=== PATIENT | female | born 1950 | race Caucasian/White ===

== ENCOUNTER → 2017-12-20 08:10 | Outpatient (POV) | payer MEDICARE, SELFPAY | PROVIDERS: PCP Family Medicine; Visit Provider Physician Assistant | DX: Z00.00 Encounter for general adult medical examination without abnormal findings (principal) ==

== ENCOUNTER → 2018-05-13 10:48 | Outpatient (CLI) | payer MEDICARE, SELFPAY ==
--- NOTE | 2018-05-13 10:51 | MM_ITS ---
MM Dig screening mamm BI w/CAD ORDERING PHYSICIAN : Cristina Odonnell MD PATIENT AGE: 67 years GENDER: Female COMPARISON: November 2016, October 2015, 2014, 2013 INDICATION: ITS.REASON: Yearly Exam. No hormones. No new complaints. Previous stereotactic biopsy right breast. Noncontributory family history TECHNIQUE: Standard CC and MLO images were obtained. R2 CAD reviewed. Additional axillary cc view both breast included FINDINGS: . Areas of Dense breast tissue throughout at Central and superior breast bilaterally . Similar pattern to previous studies with no focal suspicious or dominant mass. RIGHT BREAST:No significant new findings Metallic percutaneous biopsy clip marker at the medial right breast with mild residual architectural changes here from biopsy. No new findings. LEFT BREAST:. Dense breast. Similar pattern to previous studies with no new findings follow-up in one year adequate IMPRESSION: ... Pes planus No new findings of concern significant concern. Dense breast Follow-up in one year recommended,;. Annual follow-up should be emphasized/and encouraged (Dense breast tissue pattern seen here decreases sensitivity of mammography. If any palpable areas arise ultrasound is a useful compliment/augment to mammography particularly in breast of this increased density) BI-RADS Category: 2 Benign Finding(s) RECOMMENDED FOLLOW-UP: 1YR 1 YEAR FOLLOW-UP (A letter has been sent to the patient regarding results of the study.)
== END ==
PROVIDERS: PCP Family Medicine; Visit Provider Obstetrics & Gynecology
DX: Z12.31 Encounter for screening mammogram for malignant neoplasm of breast (principal)
CPT/HCPCS: 77067

== ENCOUNTER → 2018-12-27 10:53 | Outpatient (POV) | payer MEDICARE, SELFPAY | PROVIDERS: Visit Provider Dermatology | DX: Z00.00 Encounter for general adult medical examination without abnormal findings (principal) ==

== ENCOUNTER → 2018-12-30 10:24 | Outpatient (CLI) | payer MEDICARE, SELFPAY ==
--- NOTE | 2018-12-30 10:28 | XR_ITS ---
XR chest 2V HISTORY: ITS.REASON: LT CHEST WALL PAIN ORDERING PHYSICIAN: Hung Encinas MD PATIENT AGE: 68 years FINDINGS: The cardiomediastinal silhouette and pulmonary vascularity are within normal limits. There is a vague area of increased density in the right upper lobe at the second interspace. This area measures approximately 14 mm. Within this region a small calcific density is also noted. The remaining lungs are clear. There is evidence of old granulomatous disease. No acute bony findings IMPRESSION: 14 mm right upper lobe opacity. This is nonspecific and could be related to a developing pulmonary nodule. Consider chest CT for further evaluation.
== END ==
PROVIDERS: PCP Family Medicine; Visit Provider Family Medicine
DX: R07.89 Other chest pain (principal)
CPT/HCPCS: 71046

== ENCOUNTER → 2019-01-25 09:56 | Outpatient (CLI) | payer MEDICARE, SELFPAY ==
[2019-01-25 12:08] LABS: Blood Urea Nitrogen 10 mg/dL (7-18); Creatinine,Serum 0.73 mg/dL (0.55-1.02); Estimated Glomerular Filt Rate 79 ml/min (>60); GFR (African American) 96 ML/MIN (>60)
== END ==
PROVIDERS: Visit Provider Family Medicine
DX: R91.1 Solitary pulmonary nodule (principal)
CPT/HCPCS: 36415; 82565; 84520

== ENCOUNTER → 2019-02-03 09:44 | Outpatient (CLI) | payer MEDICARE, SELFPAY ==
--- NOTE | 2019-02-03 09:47 | CT_ITS ---
CT chest w con HISTORY: Follow-up pulmonary nodule. Solitary pulmonary nodule ITS.REASON: PULMONARY NODULE ORDERING PHYSICIAN: Hung Encinas MD PATIENT AGE: 68 years COMPARISON: None 12/30/2018 Technique: Contrast Used:75ml Optiray 350 Axial images were obtained. Sagittal, and coronal reformatted images are also generated and reviewed. All CT scans at the facility use one or more dose reduction, viz: automated exposure control, ma/kV adjustment per patient size (including targeted exams where dose is matched to indication, i.e. head), or iterative reconstruction technique. FINDINGS: There is a subcentimeter hypodense nodule of the right lobe of the thyroid gland. No mediastinal or hilar mass. The heart size without evidence of aortic aneurysm or central pulmonary embolus. There is an 11 mm nodule within the right upper lobe posteriorly corresponding to the radiographic abnormality. This does contain some central coarse calcification and may represent a partially calcified granuloma. 3 mm noncalcified subpleural nodule present in the right upper lobe laterally. There are some atelectatic or fibrotic changes in the left lung base. Calcified nodes are present in the subcarinal region. No acute bony findings. Upper abdominal images show multiple gallstones some of which are in the region of the neck of the gallbladder. IMPRESSION: 1. Radiographic abnormality corresponds to a partially calcified nodule consistent with a granuloma with calcified nodes present in the subcarinal region. 2. Cholelithiasis
== END ==
PROVIDERS: PCP Family Medicine; Visit Provider Family Medicine
DX: R91.1 Solitary pulmonary nodule (principal)
CPT/HCPCS: 71260; Q9967

== ENCOUNTER → 2019-06-08 09:44 | Outpatient (CLI) | payer MEDICARE, SELFPAY ==
--- NOTE | 2019-06-08 09:48 | MM_ITS ---
PROCEDURE: MM DIG SCREENING MAMM BI W/CAD CLINICAL INDICATION: SCREENING There is no personal or family history of breast cancer. There has been previous biopsy right breast for benign disease. COMPARISON: DMDXUAVL DIG MAMM-DX UNI ADD VIEWS-LT from 11/08/2015 [facility] DIG MAMM-SCREEN JUNE W/CAD from 12/08/2016 [facility] MM Dig screening mamm BI w/CAD from 05/13/2018 TECHNIQUE: Standard CC and MLO images were obtained. R2 CAD reviewed. FINDINGS: Prominent somewhat heterogenic fibroglandular densities are seen in the central portions of both breasts and the findings of bilateral and symmetrical. There are couple of mole markers left breast. There is a biopsy clip right breast. There is no new or suspicious lesion in either breast and no suspicious microcalcifications. IMPRESSION: Stable exam with moderate heterogenic breast density BI-RAD Category: 2 Benign Finding(s) FOLLOW-UP: 1YR 1 Year Follow-up (A letter has been sent to the patient regarding results of the study.) Dictated by: Dr. David Pollack MD 06/10/2019 11:[address] David Pollack MD in [place] 06/10/2019 11:21
== END ==
PROVIDERS: PCP Family Medicine; Visit Provider Family Medicine
DX: Z12.31 Encounter for screening mammogram for malignant neoplasm of breast (principal)
CPT/HCPCS: 77067

== ENCOUNTER → 2019-06-20 11:14 | Outpatient (POV) | payer MEDICARE, SELFPAY | PROVIDERS: Visit Provider Dermatology | DX: Z00.00 Encounter for general adult medical examination without abnormal findings (principal) ==

== ENCOUNTER → 2020-03-26 13:08 | Outpatient (POV) | payer MEDICARE, SELFPAY | PROVIDERS: Visit Provider Dermatology | DX: Z00.00 Encounter for general adult medical examination without abnormal findings (principal) ==

== ENCOUNTER → 2020-06-10 10:50 | Outpatient (CLI) | payer MEDICARE, SELFPAY ==
--- NOTE | 2020-06-10 10:53 | MM_ITS ---
PROCEDURE: MM DIG SCREENING MAMM BI W/CAD Digital Breast Tomosynthesis Included CLINICAL INDICATION: SCREENING There is no personal or family history of breast cancer. There has been a previous biopsy right breast for benign disease. COMPARISON: MG [facility] DIG MAMM-SCREEN JUNE W/CAD from 12/08/2016 MG [facility] MM Dig screening mamm BI w/CAD from 05/13/2018 MG MM DIG SCREENING MAMM BI W/CAD from 06/08/2019 TECHNIQUE: Standard CC and MLO images and 3D Tomosynthesis was obtained. R2 CAD reviewed. FINDINGS: Prominent somewhat heterogenic fibroglandular densities are seen in the central portions of both breast slightly more prominent right breast than left. There is a biopsy clip right breast. There are 2 mole markers left breast. There is a benign-appearing calcification right breast. There is no suspicious lesion in either breast and no suspicious microcalcifications. IMPRESSION: Moderate breast density with no suspicious lesions seen BI-RAD Category: 2 Benign Finding(s) FOLLOW-UP: 1YR 1 Year Follow-up (A letter has been sent to the patient regarding results of the study.) Dictated by: Dr. David Pollack MD 06/12/2020 15:59 Dr. David Pollack MD in [place] 06/12/2020 15:59
== END ==
PROVIDERS: PCP Family Medicine; Visit Provider Family Medicine
DX: Z12.31 Encounter for screening mammogram for malignant neoplasm of breast (principal)
CPT/HCPCS: 77063; 77067

== ENCOUNTER → 2020-06-24 09:53 | Outpatient (CLI) | payer MEDICARE, SELFPAY ==
--- NOTE | 2020-06-24 09:58 | XR_ITS ---
PROCEDURE: XR SHOULDER RT MIN 2V CLINICAL INDICATION: RT ARM PAIN Right shoulder pain COMPARISON: No exams were available for comparison FINDINGS: No fracture or dislocation. No lytic or blastic change. There is normal mineralization. There is minimal cortical regularity the greater tuberosity which may be seen with rotator cuff disease. There are minimal osteoarthritic changes the glenohumeral joint. Other findings:None. IMPRESSION: Mild osteoarthritis Dictated by: Felice Freire MD 06/24/2020 10:25 Felice Freire MD in [place] 06/24/2020 10:25
== END ==
PROVIDERS: PCP Family Medicine; Visit Provider Family Medicine
DX: M79.601 Pain in right arm (principal)
CPT/HCPCS: 73030

== ENCOUNTER 2020-08-07 15:20 | Emergency (ER) | payer MEDICARE, SELFPAY ==
[2020-08-07 15:22] VITALS: BP 183/74; PULSE 103; RESP 14; TEMP 36.5; O2SAT 96; BMI 21.9
--- NOTE | 2020-08-07 16:00 | HMH.EDUTC ---
[facility] [place] Clinical Impression: Exposure to COVID-19 virus Disposition: Home, Self-Care Condition on Discharge: Good Instructions: DI for COVID-19 (Suspected or Confirmed ), Preventing the Spread of Coronavirus Discharge Instructions Additional Instructions: Drink plenty of fluids. Take tylenolfor pain or fever. Follow up with your regular doctor. GO TO THE ER FOR ANY WORSENING SYMPTOMS Referrals: Hung Encinas MD [Primary Care Provider] - Time of Disposition: 16:07 Medical Decision Making - Medical Records Medical records reviewed: No: I reviewed the patient's medical records. - Ede Inquiry Pt receiving controlled substance: No Vital Signs: 08/07/20 15:22 08/07/20 16:14 Temperature 97.7 F 97.7 F Temperature Source Oral Oral Pulse Rate 103 H Pulse Rate [Right] 103 H Respiratory Rate 14 14 Blood Pressure 183/74 H Blood Pressure [Right Arm] 183/74 H Blood Pressure Mean [Right Arm] 110 02 Sat by Pulse Oximetry 96 Oxygen Delivery Method Room Air [facility] [place] - General Stated complaint: Exposed to COVID Time Seen by Provider: 08/07/20 16:00 Mode of Arrival: Ambulatory Source of Information: Patient Description of Symptoms (Recalled from Triage Doc. by RN): pt request COVID test. pt c/o of congestion HEENT Symptoms (Recalled from RN notes): No Resp Symptoms (Recalled from RN notes): Yes Skin Symptoms (Recalled from RN notes): No MS Symptoms (Recalled from RN notes): No Functional Status (Recalled from RN notes): wl - History of Present Illness Provider Complaint: She is here complaining of sinus and chest congestion. She denies any shortness of breath or chest pain. She would like to be tested for covid-19. - Related Data Home Medications Medication Instructions Recorded Confirmed felodipine 10 mg tablet,extended PO 90 Days #90 tab 05/02/18 05/02/18 release 24 hr pravastatin 40 mg tablet 40 mg PO DAILY 90 Days #90 tab 05/02/18 05/02/18 quinapril 20 1 tab PO DAILY 90 Days #90 tab 05/02/18 05/02/18 mg-hydrochlorothiazide 25 mg tablet Allergies Allergy/AdvReac Type Severity Reaction Status Date / Time No Known Allergies Allergy Unknown Uncoded 05/02/18 15:32 - Worker's Comp Is this a Worker's Comp case?: No Is this an [facility] Worker's Comp?: No Is this a [place] Worker's Comp?: No [facility] History - Hepatitis A Screen Drug use history?: No High risk sexual behaviors?: No History of sexually transmitted infection?: No Currently employed?: No Childcare worker?: No Do you have indoor plumbing?: Yes Do you have electricity?: Yes Attestation statement:: This patient has been screened for Hepatitis A risk factors. I have reviewed the patient's past medical history: Yes Medical History: Reports:: Hyperlipidemia, Hypertension Denies:: Anxiety, Depression, Diabetes Mellitus Type 1, Gall Bladder Disease, Migraine, MRSA, Seizures Other Surgeries: Yes: Hysterectomy-Total Amputation: No Fractures: No Comment: BACK 2014 - Social History Smoking Status: Never smoker Alcohol Intake: never Substance Use Type: denies use - Psychiatric History Pschychiatric History:: Denies:: Anxiety, Depression Family Hx:: Cancer, Diabetes, Hypertension, Hyperlipidemia ROS Obtained: Yes All systems reviewed & no additional complaints - Constitutional Constitutional: Reports system reviewed and no additional complaints, except as docu - Eyes Eyes: Reports system reviewed and no additional complaints, except as docu - ENT Ears, Nose, Mouth, and Throat: Reports system reviewed and no additional complaints, except as docu - Cardiovascular Cardiovascular: Reports system reviewed and no additional complaints, except as docu - Respiratory Respiratory: Reports system reviewed and no additional complaints, except as docu - Gastrointestinal Gastrointestingal: Reports: system reviewed and no additional complaints, except as docu Physical Exam - General General a
[2020-08-07 16:14] VITALS: BP 183/74; PULSE 103; RESP 14; TEMP 36.5; O2SAT 96
--- NOTE | 2020-08-07 20:50 | PC.NURSE ---
patient notified of positive covid results
== END 2020-08-07 16:15 | disposition home or self-care (01) ==
PROVIDERS: Emergency Provider Nurse Practitioner Family; PCP Family Medicine
DX: U07.1 COVID-19 (principal); I10 Essential (primary) hypertension; E78.5 Hyperlipidemia, unspecified; Z79.899 Other long term (current) drug therapy
CPT/HCPCS: G0463; 99202; U0003

== ENCOUNTER → 2020-10-15 13:55 | Outpatient (POV) | payer MEDICARE, SELFPAY | PROVIDERS: Visit Provider Dermatology | DX: Z00.00 Encounter for general adult medical examination without abnormal findings (principal) ==

== ENCOUNTER → 2020-12-17 13:24 | Outpatient (CLI) | payer MEDICARE, SELFPAY ==
--- NOTE | 2020-12-17 13:29 | XR_ITS ---
PROCEDURE: XR LUMBAR SPINE MIN 4V CLINICAL INDICATION: LUMBAGO W/ SCIATICA, RIGHT SIDE COMPARISON: CR [id number] LUMBAR SPINE-2 TO 3 VIEWS from 11/12/2014 FINDINGS: Postsurgical changes present with inter pedicular screws at L4, L5, and S1. There is mild anterolisthesis of L 3 on L4 of approximately 5 mm. This has developed since the previous exam with mild degenerative disc disease at L3-L4. Disc spacers are present at L4-5 and L5-S1. No acute fracture or dislocation is evident. The SI joints have an unremarkable appearance. There is mild lumbar curvature convex left. Right upper quadrant calcifications are present and may be due gallstones IMPRESSION: Postsurgical changes. Degenerative disc disease with mild anterolisthesis of L3 on L4 has developed since the previous exam. Gallstones Dictated by: Felice Freire MD 12/17/2020 14:39 Felice Freire MD in [place] 12/17/2020 14:39
== END ==
PROVIDERS: PCP Family Medicine; Visit Provider Family Medicine
DX: M54.41 Lumbago with sciatica, right side (principal)
CPT/HCPCS: 72110

== ENCOUNTER → 2021-04-08 10:45 | Outpatient (POV) | payer MEDICARE, SELFPAY | PROVIDERS: Visit Provider Dermatology | DX: Z00.00 Encounter for general adult medical examination without abnormal findings (principal) ==

== ENCOUNTER → 2021-06-19 13:07 | Outpatient (CLI) | payer MEDICARE, SELFPAY ==
--- NOTE | 2021-06-19 13:11 | MM_ITS ---
PROCEDURE INFORMATION: Exam: MG Bilateral Screening 3D Mammography Exam date and time: 06/19/2021 1:11 PM Age: 70 years old Clinical indication: Encounter for screening mammogram for malignant neoplasm of breast TECHNIQUE: Imaging protocol: Bilateral screening tomosynthesis and 2D mammography including computer-aided detection (CAD) when performed. COMPARISON: 1. MG MM DIG SCREENING MAMM BI W/CAD 06/10/2020 11:02 AM 2. MG MM DIG SCREENING MAMM BI W/CAD 06/08/2019 10:15 AM FINDINGS: MAMMOGRAPHY: Breast composition: The breast tissue is extremely dense, limiting the sensitivity of mammography. Mass: None. Architectural distortion: No significant interval change in architectural distortion and associated clip in the middle third of the right upper inner quadrant at the site of prior biopsy. By report, the biopsy was benign Calcifications: No suspicious calcifications. Asymmetric density: None. Skin thickening: None. Axillary adenopathy: None. IMPRESSION: Pathology correlation is recommended for a stereotactic biopsy previously performed in the right upper inner quadrant given the presence of architectural distortion at the prior biopsy site. The finding may have represented a radial scar. In the absence of pathologic discordance, annual mammographic screening is recommended. ASSESSMENT: BI-RADS Category 2: Benign
== END ==
PROVIDERS: PCP Family Medicine; Visit Provider Family Medicine
DX: Z12.31 Encounter for screening mammogram for malignant neoplasm of breast (principal)
CPT/HCPCS: 77063; 77067

== ENCOUNTER → 2021-06-24 09:49 | Outpatient (CLI) | payer MEDICARE, SELFPAY ==
--- NOTE | 2021-06-24 09:53 | MR_ITS ---
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 3-D MIP and myelographic images are also rendered and reviewed FINDINGS: Spinal cord ends the L1 level. T11-T12: Mild degenerative disc disease with minimal concentric bulging disc. T12-L1: Unremarkable. L1-L2: Unremarkable. L2-L3: Minimal concentric bulging disc. Moderate facet and ligamentum hypertrophic change with bilateral lateral recess narrowing. L3-L4: 5 mm anterolisthesis of L3 with circumferential bulging disc along with central and right paracentral broad-based disc protrusion with severe central canal stenosis of approximately 6 mm along with severe bilateral lateral recess narrowing right greater than left. These findings have developed since the previous exam L4-5: Postsurgical changes with inter pedicular screws at L4-5.. The previously noted anterolisthesis at L4-5 has been corrected. Previously noted herniated disc at L4-5 and canal stenosis no longer apparent. There is some mild thickening of the nerve roots on the right at this level possibly related to arachnoiditis. L5-S1: Postsurgical changes with inter pedicular screws with artifact. Mild bulging disc somewhat eccentric toward the left with left-sided foraminal narrowing. Incidental note made of left renal cyst at approximately 1.8 cm. There is mild lumbar scoliosis convex left. A T2 hyperintensity is present in the right ilium posteriorly only covered on the coronal images possibly due to a cystic lesion of the bone. IMPRESSION: 1. L2-L3: Minimal concentric bulging disc. Moderate facet and ligamentum hypertrophic change with bilateral lateral recess narrowing. 2. L3-L4: 5 mm anterolisthesis of L3 with circumferential bulging disc along with central and right paracentral broad-based disc protrusion with severe central canal stenosis of approximately 6 mm along with severe bilateral lateral recess narrowing right greater than left. These findings have developed since the previous exam 3. L4-5: Postsurgical changes with inter pedicular screws at L4-5.. The previously noted anterolisthesis at L4-5 has been corrected. Previously noted herniated disc at L4-5 and canal stenosis no longer apparent. Mild thickening of the right-sided nerve roots at this level which could be seen with arachnoiditis. Cannot adequately evaluate for epidural fibrotic changes without IV contrast. 4. L5-S1: Postsurgical changes with inter pedicular screws with artifact. Mild bulging disc somewhat eccentric toward the left with left-sided foraminal narrowing. Dictated by: Felice Freire MD 06/25/2021 10:08 Felice Freire MD in [place] 06/25/2021 10:08
== END ==
PROVIDERS: PCP Family Medicine; Visit Provider Family Medicine
DX: M54.41 Lumbago with sciatica, right side (principal); M43.16 Spondylolisthesis, lumbar region; M51.36 Other intervertebral disc degeneration, lumbar region
CPT/HCPCS: 72148; 76376

== ENCOUNTER → 2022-03-09 13:17 | Outpatient (CLI) | payer MEDICARE, SELFPAY ==
--- NOTE | 2022-03-09 13:24 | US_ITS ---
FINAL REPORT CLINICAL HISTORY: LLQ PAIN FINDINGS: ULTRASOUND NONVASCULAR LIMITED Limited sonographic images were obtained of the left lower quadrant in the region of a palpable abnormality. No mass or fluid collection is identified at the area of interest. Note is made of several normal sized left inguinal lymph nodes. IMPRESSION: No mass or abnormal fluid collection at the area of interest. Reviewed, Interpreted and Dictated by Willie Sands III, MD Transcribed by Hansel Welsh Authenticated and [facility]
== END ==
PROVIDERS: PCP Family Medicine; Visit Provider Nurse Practitioner Family
DX: R10.32 Left lower quadrant pain (principal); R19.04 Left lower quadrant abdominal swelling, mass and lump
CPT/HCPCS: 76882

== ENCOUNTER → 2022-04-21 09:07 | Outpatient (POV) | payer MEDICARE, SELFPAY | PROVIDERS: Visit Provider Dermatology | DX: Z00.00 Encounter for general adult medical examination without abnormal findings (principal) ==

== ENCOUNTER → 2022-06-23 09:56 | Outpatient (CLI) | payer MEDICARE, SELFPAY ==
--- NOTE | 2022-06-23 09:59 | CT_ITS ---
FINAL REPORT CLINICAL HISTORY: LLQ PAIN FINDINGS: CT OF THE ABDOMEN AND PELVIS WITH CONTRAST Axial CT images of the abdomen and pelvis were obtained after the administration of oral and iv contrast. Coronal reformatted images were also obtained and reviewed.This study was performed with techniques to keep radiation doses as low as reasonably achievable (ALARA). Individualized dose reduction techniques using automated exposure control or adjustment of mA and/or kV according to the patient's size were employed. Abdomen: There is mild bibasilar atelectasis. The heart is normal in size. The liver has an unremarkable appearance, without evidence of mass or biliary ductal dilatation. There are multiple gallstones within the gallbladder. The spleen is unremarkable. No adrenal mass is present. The pancreas has an unremarkable appearance. There are small left renal cysts. The aorta is normal in caliber. There is no free fluid or adenopathy. No mass or abnormal fluid collection is seen. There are mild vascular calcifications. Pelvis: The appendix is not well-visualized. There is a moderate amount of retained stool. There is no evidence of bowel obstruction. The urinary bladder is unremarkable. No inflammatory process is seen. There is no evidence of mass or adenopathy. There are postoperative changes from hysterectomy. There are degenerative and postoperative changes in the lumbar spine. IMPRESSION: Small left renal cysts. Multiple gallstones. Reviewed, Interpreted and Dictated by Willie Sands III, MD Transcribed by Chiquita Dykes Authenticated and [facility]
== END ==
LOC: RAD 09:56
PROVIDERS: PCP Family Medicine; Visit Provider Family Medicine
DX: R10.32 Left lower quadrant pain (principal)
CPT/HCPCS: 74177; Q9967

== ENCOUNTER → 2022-07-13 08:17 | Outpatient (CLI) | payer MEDICARE, SELFPAY ==
--- NOTE | 2022-07-13 08:24 | MM_ITS ---
PROCEDURE INFORMATION: Exam: MG Bilateral Screening 3D Mammography Exam date and time: 07/13/2022 8:28 AM Age: 71 years old Clinical indication: Screening. No family history of breast cancer. Benign right needle biopsy. TECHNIQUE: Imaging protocol: Bilateral Screening tomosynthesis and 2D mammography including computer-aided detection (CAD) when performed. COMPARISON: 1. MG MM DIG SCREENING MAMM BI W/CAD 06/19/2021 1:24 PM 2. MG MM DIG SCREENING MAMM BI W/CAD 06/10/2020 11:02 AM 3. MG MM DIG SCREENING MAMM BI W/CAD 06/08/2019 10:15 AM 4. MG [facility] MM Dig screening mamm BI w/CAD 05/13/2018 10:57 AM FINDINGS: MAMMOGRAPHY: Breast composition: The breasts are extremely dense, which lowers the sensitivity of mammography. Mass: None. Architectural distortion: No significant interval change in prominent focal architectural distortion and associated clip in the middle third of the right upper inner quadrant at the site of prior biopsy. By report, the biopsy was benign. Calcifications: No suspicious calcifications. Asymmetric density: None. Skin thickening: None. Axillary adenopathy: None. IMPRESSION: See comment Pathology correlation is recommended for a stereotactic biopsy previously performed in the right upper inner quadrant given the presence of prominent focal architectural distortion at the prior biopsy site. The finding may have represented a radial scar. In the absence of pathologic discordance, annual mammographic screening is recommended. ASSESSMENT: BI-RADS Category 2: Benign
== END ==
PROVIDERS: PCP Family Medicine; Visit Provider Family Medicine
DX: Z12.31 Encounter for screening mammogram for malignant neoplasm of breast (principal)
CPT/HCPCS: 77063; 77067

== ENCOUNTER → 2022-08-18 09:44 | Outpatient (POV) | payer MEDICARE, SELFPAY | PROVIDERS: Visit Provider Dermatology | DX: Z00.00 Encounter for general adult medical examination without abnormal findings (principal) ==

== ENCOUNTER → 2022-09-29 09:46 | Outpatient (POV) | payer MEDICARE, SELFPAY | PROVIDERS: Visit Provider Dermatology | DX: Z00.00 Encounter for general adult medical examination without abnormal findings (principal) ==

== ENCOUNTER 2023-05-18 09:00 | Outpatient (RCR) | payer MEDICARE, SELFPAY ==
--- NOTE | 2023-03-24 10:08 | HMH.PTOPEV ---
PT Outpatient Evaluation Rehab PT Outpatient Evaluation Start: 03/24/23 08:01 Freq: Status: Active Protocol: Document 03/24/23 08:01 COLETTE (Rec: 03/24/23 10:08 COLETTE [id number]) E-signed By Ines Rosa, PT Outpatient Therapy Subjective History Subjective History Pt is a 72 y/o female who reports insidious onset of left upper/lateral shoulder blade pain ~6 weeks ago. Pt reports the only PANDA she can think of was moving a refrigerator towards her but is unsure if this is what caused pain. Pt reports she has experienced this pain before but it has previously went away on its own without treatment; however, this time it did not resolve so she went to her PCP. Pt reports she was prescribed steroids and muscle relaxers which helped some but did not abolish pain. Pt reports she returned to the doctor 3 weeks later and was prescribed more muscle relaxers and then referred to PT. Pt denies having imaging. Pt reports overall she feels like the pain is improving but she continuses to have constant pain in L trapezius region that often radiates down to her elbow described as shooting pain. Pt reports before traking medication pain at worst was a 9/10 on VAS and now is only a 4/10. Pt denies pain into the forearm/ hand or numbness/tingling. Pt reports she does have pain when she turns her head to the left and some pain with driving for prolonged periods with the arms elevated on the steering wheel. Right-handed Medical History: high blood pressure Chief Complaint Pain Symptom Type Dull Symptoms Relieved By
--- NOTE | 2023-04-20 17:15 | HMH.RHREAS ---
Rehab Reassessment Rehab OP Re-assessment Start: 03/24/23 08:01 Freq: Status: Active Protocol: Document 04/20/23 14:54 COLETTE (Rec: 04/20/23 17:15 COLETTE [id number]) E-signed By Ines Rosa PT Rehab Re-assessment Subjective Subjective Pt reports she feels 75% better since starting PT. Pt reports she only has intermittent pain mostly when she turns her head to the left that radiates from her left scapular area to the elbow. Pt reports pain at worst as 3-4/ 10. Pt reports neck and upper trapezius pain has improved a lot overall. Pt continues to deny numbness/tingling. Pt reports she is compliant with her HEP. Objective Objective Notes Mild TTP of the left upper trapezius and C5-6 SP Cervical AROM: L rotation 70, flexion 40 Scapular strength: 4/5 grossly Assessment Progress Assessment Progressing as Expected Assessment Notes Pt has attended 6 PT visits consisting of aerobic exercise , cervical stretching, cervical/scapular strengthening, postural reeducation, dry needling and modalities with good tolerance . Pt demonstrated improved cervical AROM and scapular strength this date compared to the initial evaluation. Pt continues to report intermittent radicular symptoms with left cervical rotation. Pt would continue to benefit from skilled PT to further improve subjective report of pain, pain free cervical mobility, and scapular strength to assist with return to PLOF. Patient goals met ST/3 LT/6 Goals Not Met p! at worst, scapular strength , Revised Goals n/a Plan Plan Continue initial POC Frequency of Th
== END 2023-05-18 09:05 | disposition home or self-care (01) ==
LOC: PT 09:00
PROVIDERS: Visit Provider Physician Assistant
DX: M62.838 Other muscle spasm (principal)
CPT/HCPCS: 20560; 97010; 97014; 97035; 97110; 97140; 97163; 97164; 97530; G0283

== ENCOUNTER → 2023-07-30 10:47 | Outpatient (CLI) | payer MEDICARE, SELFPAY ==
--- NOTE | 2023-07-30 10:52 | MM_ITS ---
PROCEDURE INFORMATION: Exam: MG Bilateral Screening 3D Mammography Exam date and time: 07/30/2023 10:48 AM Age: 72 years old Clinical indication: Screening mammogram TECHNIQUE: Imaging protocol: Bilateral Screening tomosynthesis and 2D mammography including computer-aided detection (CAD) when performed. COMPARISON: 1. MG MM DIG SCREENING MAMM BI W/CAD 07/13/2022 8:28 AM 2. MG MM DIG SCREENING MAMM BI W/CAD 06/19/2021 1:24 PM 3. MG MM DIG SCREENING MAMM BI W/CAD 06/10/2020 11:02 AM 4. MG MM DIG SCREENING MAMM BI W/CAD 06/08/2019 10:15 AM FINDINGS: MAMMOGRAPHY: Breast composition: The breast is heterogeneously dense, which may obscure small masses. Mass: None. Architectural distortion: No new or suspicious architectural distortion. Calcifications: No new or suspicious calcifications are present Asymmetric density: No new or suspicious asymmetric density is present Skin thickening: None. Axillary adenopathy: None. IMPRESSION: No mammographic evidence of malignancy. Recommend annual screening mammography unless otherwise clinically indicated. ASSESSMENT: BI-RADS category 1: Negative
== END ==
LOC: RAD 10:47
PROVIDERS: PCP Family Medicine; Visit Provider Family Medicine
DX: Z12.31 Encounter for screening mammogram for malignant neoplasm of breast (principal)
CPT/HCPCS: 77063; 77067

== ENCOUNTER 2024-01-10 09:47 | Outpatient (CLI) | payer MEDICARE, SELFPAY ==
--- NOTE | 2024-01-10 09:55 | XR_ITS ---
FINAL REPORT CLINICAL HISTORY: LOWER BACK PAIN FINDINGS: LUMBAR SPINE 5 views were obtained. There has been fusion from L4-S1. There is 5 mm of anterolisthesis of L2 on L3. Mild leftward curvature is noted. There is no acute fracture. Mild vascular calcifications are noted. There are probable gallstones in the gallbladder. IMPRESSION: Postoperative changes with no acute bony abnormality. Reviewed, Interpreted and Dictated by Willie Sands III, MD Transcribed by Kamille Sol Authenticated and [facility]
== END 2024-01-10 23:59 | disposition home or self-care (01) ==
LOC: RAD 09:48
PROVIDERS: PCP Family Medicine; Visit Provider Family Medicine
DX: M43.16 Spondylolisthesis, lumbar region (principal); M51.36 Other intervertebral disc degeneration, lumbar region; M54.50 Low back pain, unspecified
CPT/HCPCS: 72110

== ENCOUNTER 2024-02-05 09:31 | Emergency (ER) | payer MEDICARE, SELFPAY ==
[2024-02-05 09:42] VITALS: BP 172/90; PULSE 91; O2SAT 96
--- NOTE | 2024-02-05 09:42 | HMH.EDGENADL ---
Discharge Plan Disposition Patient Disposition: Home, Self-Care Condition: Good Prescriptions Prescriptions: New prednisone 20 mg tablet 20 mg PO BID 7 Days Qty: 14 0RF erythromycin 5 mg/gram (0.5 %) ointment 1 applic ophthalmic (eye) TID 5 Days Qty: 3.5 0RF diphenhydramine HCl [Benadryl] 25 mg capsule 25 mg PO BID PRN (Reason: itching) 10 Days Qty: 20 0RF No Action gabapentin 300 mg capsule 300 mg PO BID hydrochlorothiazide 25 mg tablet 25 mg PO DAILY fluticasone propionate 50 mcg/actuation spray,suspension 1 spray intranasal PRN lisinopril 20 mg tablet 20 mg PO DAILY celecoxib 100 mg capsule 100 mg PO DAILY fluconazole 150 mg tablet 150 mg PO Q3D Qty: 2 0RF sulfamethoxazole-trimethoprim [Bactrim DS] 800-160 mg tablet 1 tab PO BID 7 Days Qty: 14 0RF pravastatin 40 mg tablet 40 mg PO DAILY 90 Days Qty: 90 felodipine 10 mg tablet extended release 24 hr PO 90 Days Qty: 90 Referrals Follow up/Referrals: Hung Encinas MD [Primary Care Provider] - See instructions Activity Restrictions/Add. Instructions Additional Instructions/Restrictions: I have prescribed medications for poison mitzy treatment and attached handouts with additional instructions. Please follow-up with your primary care physician to check how you are doing as well as to see if you need an additional longer course of steroids. I have prescribed eye ointment to treat any infection given that you are rash is so close to your eyes. Please return with any new or worsening symptoms. Clinical Impressions Clinical Impression: Contact dermatitis Instructions Patient Instructions: Poison Mitzy, Poison [place], Poison [place], DI for Poison Mitzy Allergy Discharge ED Provider: Maxim Macias General Adult HPI General Chief complaint: Skin/Abscess/Foreign Body Stated complaint: redness, swelling right/left eye Time Seen by Provider: 02/05/24 09:42 History of Present Illness HPI narrative: The patient presents with a chief complaint of a poison mitzy rash on their face and chest. The rash was first noticed yesterday, and the patient reports itchiness. The patient recalls pulling up a plant they did not think was poison mitzy but now suspects it was the cause of the reaction. They have a history of similar reactions to poison mitzy in the past. The patient is experiencing some difficulty seeing out of one eye due to the surrounding rash and swelling but denies any eye irritation or stinging. They have not taken any medications for the rash today. The patient has a history of dysphonia, which affects their voice, but denies any difficulty breathing. The patient has no known allergies to medications or foods, other than poison mitzy. They have no other medical conditions and take daily medication for blood pressure. The patient denies experiencing any nausea, vomiting, or abdominal pain. Please note that above description of symptoms, in this electronic medical record under categorization of recalled from ER triage doctor by RN are reflective of an initial nursing assessment, however, is not reflective of my full history and physical exam that was personally taken and clarified. Consequentially, this preceding description of symptoms, which may include the patient's categorized chief complaint in the EMR, do not reflect my personal clinical impression, and the ultimate description of history of present illness and patient stated complaints should be deferred to this section of the note. Unless stated otherwise or congruent with this section of the note, additional signs, symptoms, or incongruence should be interpreted as inaccurate with my clinical impression. Related Data Home Medications Medication Instructions Recorded Confirmed felodipine 10 mg tablet,extended PO 90 days #90 tabs 05/02/18 08/24/23 release 24 hr pravastatin 40 mg tablet 40 mg PO DAILY 90 days #90 tabs 05/02/18 08/24/23 celecoxib 100 mg capsule 100 mg PO DAILY 08/24/23 08/24/23 fluticasone propionate 50 1 spray intranasal PRN 08/24/23 08/24/23 mcg/actuation nasal spray,suspension gabapentin 300 mg capsule 300 mg PO BID 08/24/23 08/24/23 hydrochlorothiazide 25 mg tablet 25 mg PO DAILY 08/24/23 08/24/23 lisinopril 20 mg tablet 20 mg PO DAILY 08/24/23 08/24/23 Previous Rx's Medication Instructions Recorded fluconazole 150 mg tablet 150 mg PO Q3D 2 doses #2 tabs 08/24/23 sulfamethoxazole 800 1 tab PO BID 7 days #14 tabs 08/27/23 mg-trimethoprim 160 mg tablet (Bactrim DS) diphenhydramine HCl 25 mg capsule 25 mg PO BID PRN itching 10 days 02/05/24 (Benadryl) #20 caps erythromycin 5 mg/gram (0.5 %) eye 1 applic ophthalmic (eye) TID 5 02/05/24 ointment days #3.5 grams prednisone 20 mg tablet 20 mg PO BID 7 days #14 tabs 02/05/24 Allergies Allergy/AdvReac Type Severity Reaction Status Date / Time No Known Allergies Allergy Unknown Uncoded 08/24/23 08:45 [facility] Disclaimer: The information contained in this section may have been updated after the patient was seen, as this information can be updated by other users. Surgical History (Updated 08/24/23 @ 08:49 by Geeta Damon CMA) History of back surgery Family History (Updated 08/24/23 @ 08:50 by Geeta Damon CMA) Other Cancer Hyperlipidemia Hypertension Stroke Social History (Updated 08/24/23 @ 08:51 by Geeta Damon CMA) Smoking Status: Never smoker alcohol intake: never substance use type: denies use current occupational status: retired Travel in the last 8 weeks: None ROS Obtained: Yes other As per HPI Physical Exam General General appearance: alert and in no apparent distress Head Head exam: atraumatic and normocephalic Eye Eye exam: Present normal appearance Neck Neck exam: Present normal inspection Chest Chest inspection: Present normal inspection and symmetric chest wall rise Respiratory Respiratory exam: Present normal lung sounds bilaterally; Absent respiratory distress Cardiovascular Cardiovascular exam: Present regular rate and normal rhythm Abdominal Exam Abdominal exam: Present soft Neurological Exam Neurological exam: Present alert and oriented X3 Psychiatric Psychiatric exam: Present normal affect and normal mood Skin Skin exam: Present warm and dry Other Other exam information: Erythema of the right eye, chest wall, no vesicular lesions, no conjunctival injection, visual acuity, visual stone, grossly intact. No active drainage, no wheals, chronic dysphonia, however patient reports this is at baseline, lungs clear to auscultation bilaterally Medical Decision Making Medical Records Medical records reviewed: Yes I reviewed the patient's medical records. Ede Inquiry Pt receiving controlled substance: No Vital Signs: 02/05/24 09:42 02/05/24 09:55 02/05/24 10:00 Temperature 98.2 F Temperature Source Oral Pulse Rate 91 H 86 Pulse Rate [Left Radial] 88 Respiratory Rate 20 Blood Pressure 172/90 H 160/86 H Blood Pressure [Right Arm] 172/90 H Blood Pressure Mean [Right Arm] 117 02 Sat by Pulse Oximetry 96 97 97 Oxygen Delivery Method Room Air 02/05/24 11:08 Temperature 98.4 F Temperature Source Oral Pulse Rate 84 Pulse Rate [Left Radial] Respiratory Rate 18 Blood Pressure 160/86 H Blood Pressure [Right Arm] Blood Pressure Mean [Right Arm] 02 Sat by Pulse Oximetry Oxygen Delivery Method Room Air Orders (Tests/Meds): ED MEDICATIONS Discontinued Medications Generic Name Dose Route Start Last Admin Trade Name Freq PRN Reason Stop Dose Admin Diphenhydramine HCl 25 mg 02/05/24 10:02/05/24 10:35 Diphenhydramine 25mg Capsule PO 02/05/24 10:23 25 mg ONCE ONE Administration Famotidine 20 mg 02/05/24 10:02/05/24 10:35 Famotidine 20mg Tablet PO 02/05/24 10:23 20 mg ONCE ONE Administration Prednisone 40 mg 02/05/24 10:02/05/24 10:35 Prednisone 20mg Tab PO 02/05/24 10:23 40 mg ONCE ONE Administration Medical Decision Narrative: Patient with history and exam per above presenting for evaluation of rash Diagnoses considered include poison mitzy rash, other contact dermatitis, no clinical evidence to suggest shingles, anaphylaxis, or systemic illness, no clinical evidence of intraocular involvement at this time ED workup and treatment included: ED MEDICATIONS Discontinued Medications Generic Name Dose Route Start Last Admin Trade Name Freq PRN Reason Stop Dose Admin Diphenhydramine HCl 25 mg 02/05/24 10:02/05/24 10:35 Diphenhydramine 25mg Capsule PO 02/05/24 10:23 25 mg ONCE ONE Administration Famotidine 20 mg 02/05/24 10:02/05/24 10:35 Famotidine 20mg Tablet PO 02/05/24 10:23 20 mg ONCE ONE Administration Prednisone 40 mg 02/05/24 10:02/05/24 10:35 Prednisone 20mg Tab PO 02/05/24 10:23 40 mg ONCE ONE Administration No labs or imaging are indicated at this time. My clinical impression at this time is most consistent with contact dermatitis, for which patient will take antihistamines, short course of steroids, follow-up with the primary care physician to determine any ongoing management. Additionally, after shared decision-making, will elect to empirically treat with erythromycin ointment in right eye given surrounding contact dermatitis I discussed my clinical impression with patient and answered all questions. At this time, the evidence for any other entities in the differential is insufficient to warrant any further testing or ED observation. This was explained to the patient. The patient was advised that persistent or worsening symptoms require further evaluation. I confirmed the patient's understanding of this discussion. Critical Care Critical Care Time Critical Care Time: No
[2024-02-05 09:55] VITALS: BP 172/90; PULSE 88; RESP 20; TEMP 36.8; O2SAT 97; BMI 24.5
[2024-02-05 10:00] VITALS: BP 160/86; PULSE 86; O2SAT 97
[2024-02-05] MEDS: diphenhydrAMINE 25MG CAPSULE 25 MG PO (10:35)
[2024-02-05] MEDS: FAMOTIDINE 20MG TABLET 20 MG PO (10:35)
[2024-02-05] MEDS: predniSONE 20MG TAB 40 MG PO (10:35)
[2024-02-05 11:08] VITALS: BP 160/86; PULSE 84; RESP 18; TEMP 36.9; O2SAT 96
== END 2024-02-05 11:11 | disposition home or self-care (01) ==
PROVIDERS: Emergency Provider Emergency Medicine; PCP Family Medicine
DX: L23.7 Allergic contact dermatitis due to plants, except food (principal); W60.XXXA Contact with nonvenomous plant thorns and spines and sharp leaves, initial encounter
CPT/HCPCS: 99283

== ENCOUNTER 2024-03-15 15:00 | Outpatient (RCR) | payer MEDICARE, SELFPAY ==
--- NOTE | 2024-01-10 15:25 | HMH.PTOPEV ---
PT Outpatient Evaluation Rehab PT Outpatient Evaluation Start: 01/10/24 13:48 Freq: Status: Active Protocol: Document 01/10/24 13:48 TITA (Rec: 01/10/24 15:18 TITA [id number]) E-signed By Kirsten Duque, PT Outpatient Therapy Subjective History Subjective History This is an initial evaluation for 73 y/o female, Brook Bañuelos, who presents with referral for LBP. Pt reports she had back surgery in 2014. Pt reports this pain started about 5 years ago. Pt points to her lower lumbar-sacrum as the location of her pain. Reports RLE has shooting pain to foot and LLE to thigh ( Gapapentin has helped per pt report). RLE numbness since surgery. Pt has tried heat and medications to relieve her pain but reports activity helps the most. Pt reports her pain is worst in the morning and standing/sitting long periods aggravate her pain. Pt is retired but does garden and housework during the day. 01/09 Lumbar X-ray Impression: Postoperative changes with no acute bony abnormality. ?There has been fusion from L4-S1. There is 5 mm of anterolisthesis of L2 on L3. Mild leftward curvature is noted.? New diagnosis of cancer in past 12 No months? Chief Complaint Pain Symptom Type Ache,Dull,Numbness Symptoms Relieved By Heat,OTC Meds,Prescription Meds,Activity Prior Functional Limitations Lifting Current Functional Limitations Reaching,Lifting,Housework, Standing,Walking Level of pain today (0-10) 2 Pain scale - at its best (0-10) 1 Pain scale - at its worst (0-10) 7 Lumbopelvic Eval Posture Thoracic Spine Posture Standing Position Neutral Lumbar Spine Posture Standing Position Neutral Gait Observation General Gait Pattern Observation No Deviations/Normal Palapation tenderness bilateral thoracic spinal tenderness No lumbar spinal tenderness Yes: 1/4 TTP paraspinal tenderness Yes: 1/4 TTP buttock tenderness Yes: 1/4 TTP Lumbar/Sacral Palpation Findings Tenderness Range of Motion Lumbar Spine Active Flexion Range of 65 Motion (degrees) Lumbar Spine Active Extension Range of 15, painful Motion (degrees) Left Lumbar Spine Lateral Flexion Active WNL Range of Motion (degrees) Right Lumbar Spine Lateral Flexion WNL Active Range of Motion (degrees) Lumbar Spine ROM Limitations Pain Manual Muscle Test Right Knee Extension Strength Grade 4 Good Knee Flexion Strength Grade 4 Good Hip Flexion Strength Grade 4 Good Hip Abduction Strength Grade 4 Good Hip Adduction Strength Grade 4 Good Left Knee Extension Strength Grade 4 Good Knee Flexion Strength Grade 4 Good Hip Flexion Strength Grade 4 Good Hip Abduction Strength Grade 4 Good Hip Adduction Strength Grade 4 Good Special Tests Hip Ez (IAN) Test Negative Left,Negative Right Hip Piriformis Test Negative Left,Positive Right Sciatic Nerve Tension Test Negative Left,Negative Right Bilateral Straight Leg Raise Test Positive Crossed Straight Leg Raise Test Negative Left,Negative Right Hip Haylee's Test Negative Left,Negative Right Sacroiliac Joint Compression Test Positive Left,Positive Right Oswestry Index Section 1 Pain Intensity The pain is moderate and does not vary much Section 2 Personal Care (Washing,Dresing) my way of washing or dressing even though it causes some pain Section 3 Lifting I can lift heavy weights, but it gives me extra pain Section 4 Walking I have some pain when walking but it does not increase with distance Section 5 Sitting I can sit in my favorite chair for as long as I like Section 6 Standing I cannot stand more than 10 minutes without increasing pain Section 7 Sleeping I get no pain in bed Section 8 Social Life My social life is normal and gives me no extra pain Section 9 Traveling I get extra pain while traveling, but it does not compel me to seek al Section 10 Changing Degreee of Pain My pain is neither getting better or worse Score and Risk Level Oswestry Sc 16 Oswestry Risk Level Moderate Disability Outpatient Therapy Assessment Impairments Problems/Impairmments Palpation Tenderness,Impaired Range of Motion,Impaired Strength,Impaired Walking, Impaired Standing,Impaired Stair Climbing,Impaired Recreational Activities, Subjective C/O Pain Prognosis Rehab Potential Good Clinical Impression Consistent with Diagnosis Yes Short Term Goals Number of Weeks 3 Improve Oswestry Score Yes: Improve by 3 points to decrease disability from LBP Decrease Subjective C/O Pain Yes: 48 hour pain average of 4 /10 to decrease pain severity. Patient to be Ind w/ HEP Yes Shelter Goals Number of Weeks 6 Increase Range of Motion Yes: Pain-free WNL Lumbar AROM in all planes to improve daily function. Increase Strength Yes: 5/5 BLE to maximize functional strength. Improve Oswestry Score Yes: Improve to 11 points to reflect minimal disability Decrease Subjective C/O Pain Yes: 48 hour pain average of 2 /10 to minimize pain severity and improve QOL. Patient to be Ind w/ Advanced HEP Yes Outpatient Therapy Plan of Care Treatment Plan May Include Therapeutic Exercise Including Home Yes Exercise Program Manual Therapy Techniques Yes Neuromuscular Re-education Yes Therapeutic Activities to Return to Yes Previous Functional/Work Level Gait Training Yes ADL/Self Care Education Yes Dry Needling Yes Thermal Modalities Yes Electrical Stimulation Yes Ultrasound/Phonophoresis Yes Iontophoresis Yes Orthotics/Bracing/Splinting Yes Massage Yes Eval/Re-Eval Yes Aquatic Therapy Yes Frequency Times per week 1-2 times Duration Number of Weeks 5-6 Addendums This patient is a candidate for social No or vocational rehab? Patient/Guardian verbally acknowledges Yes understanding of treatment program and consents to further treatment? Patient/Guardian verbally acknowledges Yes understanding of diagnosis, prognosis and goals for treatment? Eval Complexity PT Charges 13499 - Moderate Complexity Shoulder/Elbow Eval Shoulder Objective Measurements Elbow Objective Measurements PHYSICIAN CERTIFICATION: I certify the specified therapy services for Brook Bañuelos are required, authorized, and reviewed every 30 days.
--- NOTE | 2024-02-10 12:17 | HMH.RHREAS ---
Rehab Reassessment Rehab OP Re-assessment Start: 01/10/24 13:48 Freq: Status: Active Protocol: Document 02/10/24 10:57 TITA (Rec: 02/10/24 12:10 TITA [id number]) E-signed By Kirsten Duque, PT Oswestry Index Section 1 Pain Intensity The pain comes and goes and is moderate Section 2 Personal Care (Washing,Dresing) change my way of washing or dressing in order to avoid pain Section 3 Lifting I can lift heavy weights, but it gives me extra pain Section 4 Walking I have some pain when walking but it does not increase with distance Section 5 Sitting I can sit in my favorite chair for as long as I like Section 6 Standing I cannot stand more than 1 hour without increasing pain Section 7 Sleeping I get no pain in bed Section 8 Social Life My social life is normal and gives me no extra pain Section 9 Traveling I get no pain when traveling Section 10 Changing Degreee of Pain My pain fluctuates, but overall is definitely getting better Score and Risk Level Oswestry Sc 8 Oswestry Risk Level Mild Disability Rehab Re-assessment Subjective Subjective Pt reports she is 75% better since IE. Current pain: 08/11 48 hour pain: 3/10 Pain at worst: 8/10 Objective Objective Notes Lumbar AROM: FLEX= 80 EXT= 15, painful R SB= WNL L SB= WNL BLE MMTs: Hip FLEX = 5/5 Hip ABD = 5/5 Hip ADD = 5/5 Knee FLEX = 5/5 Knee EXT = 5/5 Oswestry Index: 8 (16 at IE) Assessment Progress Assessment Progressing as Expected Assessment Notes This is a reassessment for Brook Bañuelos who presents to PT for c/o LBP and intermittent glute pain. Since IE, pt has been seen for 5 visits that have consisted of modalities prn, education, and therapeutic exercises focusing on ROM and core/LE strength. Pt with good attendance to scheduled PT visits and reports adherence to HEP. Since IE, pt with improvements in subjective complaints of pain, BLE strength, and lumbar flexion AROM. Pt still presents with subjective complaints of LBP and painful lumbar extension. Pt would continue to benefit from skilled outpatient physical therapy to address remaining deficits and achieve LTGs. Patient goals met ST/ LT/5 Goals Not Met LTGs: 3/5 Plan Plan Continue POC to achieve LTGs Frequency of Therapy 2x Duration of therapy 3 Time and Billing Re-Eval Time 10 Re-Eval Billing Units 1 PHYSICIAN CERTIFICATION: I certify the specified therapy services for Brook Bañuelos are required, authorized, and reviewed every 30 days.
--- NOTE | 2024-03-16 07:20 | HMH.RHREAS ---
Rehab Reassessment Rehab OP Re-assessment Start: 01/10/24 13:48 Freq: Status: Active Protocol: Document 03/15/24 15:19 TITA (Rec: 03/15/24 15:53 TITA [id number]) E-signed By Kirsten Duque, PT Oswestry Index Section 1 Pain Intensity The pain comes and goes and is severe Section 2 Personal Care (Washing,Dresing) change my way of washing or dressing in order to avoid pain Section 3 Lifting I can lift heavy weights, but it gives me extra pain Section 4 Walking I have no pain when walking Section 5 Sitting I can sit in my favorite chair for as long as I like Section 6 Standing I have some pain on standing, but it does not increase with time Section 7 Sleeping I get no pain in bed Section 8 Social Life My social life is normal and gives me no extra pain Section 9 Traveling I get some pain when traveling , but none of my usual forms of travel m Section 10 Changing Degreee of Pain My pain is neither getting better or worse Score and Risk Level Oswestry Sc 11 Oswestry Risk Level Mild Disability Rehab Re-assessment Subjective Subjective Pt reports at worst pain to be 7/10 in past 24 hours. Pt continues to have c/o pain that is mostly severe in the mornings and decreases with movement throughout the day. Pt reports PT initially helped with her back pain but believes she has not made any/ much progress since last RA. Objective Objective Notes Lumbar AROM: FLEX= 85 EXT= 13, painful R SB= WNL, painfree L SB= WNL , painfree BLE MMTs: Hip FLEX = 5/5 Hip ABD = 5/5 Hip ADD = 5/5 Knee FLEX = 5/5 Knee EXT = 5/5 Oswestry Index: 11 (8 at last RA) Assessment Progress Assessment Slower Than Expected Assessment Notes This is a reassessment for Brook Bañuelos who presents to PT for c/o LBP and intermittent glute pain. Since IE, pt has been seen for 12 visits that have consisted of modalities prn, education, and therapeutic exercises focusing on ROM and core/LE strength. Pt with good attendance to scheduled PT visits and reports adherence to HEP. Since IE, pt with overall improvements in subjective complaints of pain, BLE strength, and lumbar flexion AROM. Pt still presents with subjective complaints of LBP and painful lumbar extension. Pt believes PT initially helped her pain but reports she has hit a plateau with her pain progress . PT in agreeance with pt's lack in recent progress d/t subjective complaints at sessions. PT recommending d/c from PT services d/t plateau in progress. Pt agreeable to d /c. PT educated pt to reach out if her pain complaints worsen and to reach out to her PCP with any new pain complaints. Patient goals met ST/3 LT/5 Plan Plan D/C Time and Billing Re-Eval Time 10 Re-Eval Billing Units 1 PHYSICIAN CERTIFICATION: I certify the specified therapy services for Brook Bañuelos are required, authorized, and reviewed every 30 days.
== END 2024-03-15 15:05 | disposition home or self-care (01) ==
LOC: PT 15:00
PROVIDERS: Visit Provider Family Medicine
DX: M43.16 Spondylolisthesis, lumbar region (principal)
CPT/HCPCS: 97010; 97110; 97163; 97164; 97530

== ENCOUNTER 2024-07-04 10:00 | Outpatient (CLI) | payer MEDICARE, SELFPAY ==
--- OUTSIDE RECORDS SUMMARY | 2024-07-04 10:03 | XMS_ITS ---
Author Organization [facility] Address [address] [facility] [address] [place] [phone] Care Team Providers Care Wig Maker Name Role Phone Hung Encinas Primary Care Provider REASON FOR VISIT Controlled Rx 07/23/24 Encounters Encounter Location Date Provider Diagnosis [facility] [address] [place] [id number] 06/27/2024 Hung Encinas PLAN OF TREATMENT Next Appt Details Provider Name:Hung Desai ry, 01/02/2025 09:15:00 AM, [address], [address], [place], [phone],
--- OUTSIDE RECORDS SUMMARY | 2024-07-04 10:03 | XMS_ITS ---
[facility] [address] [facility] [address] [place] [id number] Care Team Providers Care Edging Machine Feeder Name Role Phone Hung Encinas Primary Care Provider ALLERGIES No Known Allergies RESULTS Component Value Reference Range Notes Urinalysis - Inhouse (Not ye t reviewed by provider) Interpretation: Performing Lab: Notes/Report: Color/Clarity dark yellow/clear Leuk 1+ Nitrite Neg Urobili 3.2 Protein 2+ pH 7.0 Blood 2+ Sp. Gr. 1.020 Ketone Trace Bili Neg Gluc Neg bacteria WBC RBC REASON FOR VISIT 6 mth checkup MEDICATIONS Medication SIG (Take, Route, Frequency, Duration) Notes Start Date End Date Status Macrobid 100 MG 1 capsule with food Orally every 12 hrs for 5 day(s) 07/04/2024 Active Pravastatin Sodium 40 MG 1 tab(s) orally once a day (at bedtime) for 90 days Active Felodipine ER 10 MG 1 tab(s) orally once a day for 90 days Active Triamcinolone Acetonide 0.1 % 1 application Externally Twice a day 05/29/2024 Active Gabapentin 300 MG 2 cap(s) orally 2 ti mes a day for 30 days 07/04/2024 Active Lisinopril 20 MG 1/2 tab(s) orally on ce a day 09/17/2022 Active Celecoxib 200 MG 1 capsule with food Orally once daily for 30 day(s) Active Fluticasone Propionate 50 MCG/ACT 1 spray(s) intranasally once a day for 90 days 10/19/2014 Active VITAL SIGNS Weight 145.2 lbs 07/04/2024 Blood pressure systolic 130 mm Hg 07/04/20 24 Blood pressure diastolic 68 mm Hg 024 Heart Rate 90 /min 07/04/2024 Height 64.50 in 07/04/2024 BMI 24.54 kg/m2 07/04/2024 Encounters Encounter Location Date Provider Diagnosis [facility] [address] [facility] [address] [facility] [address] [place] [id number] 07/04/2024 Hung Ce Essential hypertensi on I10 ; Hyperlipidemia, unspecified hyperlipidemia E78.5 ; Right hip pain M25.551 ; Urinary frequency R35.0 ; Acute UTI N39.0 and Low back pain, unspecified M54.50 ASSESSMENTS Encounter Date Diagnosis Assessment Notes Treatment Notes Treatment Clinical Notes 07/04/2024 Essential hypertension (ICD-10 - I10) 07/04/2024 Hyperlipidemia, unspecified hyperlipidemia (ICD-10 - E78.5) 07/04/2024 Right hip pain (ICD-10 - M25.551) 07/04/2024 Urinary frequency (ICD-10 - R35.0) 07/04/2024 Acute UTI (ICD-10 - N39.0) 07/04/2024 Low back pain, unspecified (ICD-10 - M54.50) PLAN OF TREATMENT Medication Medication Name Sig Start Date Stop Date Notes Macrobid 100 MG 1 capsule with food Orally every 12 hrs for 5 day(s) 07/04/2024 Gabapentin 300 MG 2 cap(s) orally 2 ti mes a day for 30 days 07/04/2024 Pending Test Test Name Order Date Urinalysis - Inhouse 07/04/2024 X ray : Hip, right 07/04/2024 P-Comprehensive Metabolic Panel (CMP) P-Lipid Panel 07/04/2024 P-TSH reflex to FT4 07/04/2024 P-Microalbumin/Creatinine, Random Urine Sample 07/04/2024 Next Appt Details Follow Up: 6 Months, Reason: Provider Name:Hung haney, 01/02/2025 09:15:00 AM, [address] [facility] 36 [facility], [address], [place], [phone], History and Physical Notes * HPI (History of Present Illness) Category Sub-Category Detail Notes Cardiology Blood Pressure Elevated Pt here for 6 mo f/u on hypertension, states she is doing well and does not have any concerns Hyperlipidemia Pt is fasting today
--- OUTSIDE RECORDS SUMMARY | 2024-07-04 10:03 | XMS_ITS ---
Author Organization [facility] Address [address] [facility] [address] [place] [id number] Care Team Providers Care Bellman Driver Name Role Phone Hung Encinas Primary Care Provider ALLERGIES No Known Allergies REASON FOR VISIT Rash Around Eye MEDICATIONS Medication SIG (Take, Route, Frequency, Duration) Notes Start Date End Date Status Triamcinolone Acetonide 0.1 % 1 application Externally Twice a day 05/29/2024 Active Pravastatin Sodium 40 MG 1 tab(s) orally once a day (at bedtime) for 90 days Active Felodipine ER 10 MG 1 tab(s) orally once a day for 90 days Active Gabapentin 300 MG 2 cap(s) orally 2 ti mes a day for 90 days 02/24/2024 Active predniSONE 20 MG 1 tablet Orally Two times a day for 5 day(s) 05/29/2024 Active Lisinopril 20 MG 1/2 tab(s) orally on ce a day 09/17/2022 Active Celecoxib 200 MG 1 capsule with food Orally once daily for 30 day(s) Active Fluticasone Propionate 50 MCG/ACT 1 spray(s) intranasally once a day for 90 days 10/19/2014 Active VITAL SIGNS Weight 146.4 lbs 05/29/2024 Blood pressure systolic 130 mm Hg 05/29/20 Blood pressure diastolic 64 mm Hg 024 Heart Rate 97 /min 05/29/2024 Height 64.50 in 05/29/2024 BMI 24.74 kg/m2 05/29/2024 Encounters Encounter Location Date Provider Diagnosis [facility] [address] [facility] [address] [place] [id number] 05/29/2024 Hung Encinas Periocular dermatiti s L30.9 ASSESSMENTS Encounter Date Diagnosis Assessment Notes Treatment Notes Treatment Clinical Notes 05/29/2024 Periocular dermatitis (ICD-10 - L30.9) PLAN OF TREATMENT Medication Medication Name Sig Start Date Stop Date Notes Triamcinolone Acetonide 0.1 % 1 applicat ion Externally Twice a day 05/29/2024 predniSONE 20 MG 1 tablet Orally Two times a day for 5 day(s) 05/29/2024 Next Appt Details Follow Up: via phone to repo rt progress, Reason: Provider Name:Hung Desai ry, 01/02/2025 09:15:00 AM, [address] [facility], [address], [place], [place], [id number], Progress Notes * Examination Category Sub-Category Detail Notes General Examination General Appearance: NAD Skin: periocular skin of l eft eye is thickened and dull red in color History and Physical Notes * HPI (History of Present Illness) Category Sub-Category Detail Notes Dermatology rash Pt complains of rash around lt eye, off and on since April. Pt was seen in office on 05/18 and rx'd Prednisone and has completed course. Pt states rash came back on Wednesday or Wednesday and is worsening
--- OUTSIDE RECORDS SUMMARY | 2024-07-04 10:04 | XMS_ITS | Encounter Summary ---
Author Organization [facility] Address [address] [id number] Care Team Providers Care Apparel Sales Associate Name Role Phone Hung Encinas MD Primary Care Provider [phone] Aung Garcia MD Unavailable Antolin Osorio MD Unavailable [phone] Reason for Referral * Clinic-Administered Medication (Routine) - Closed Specialty Diagnoses / Procedures Referred By Sybil bolivar Referred To Contact Diagnoses Dysphonia Procedures CO INJECTION,ONABOTULINUMTOXINA Aung Garcia MD [address] [address] Phone: tel: fax: Referral ID Status Reason Start Date Expiration Date Visits Re quested Visits Authorized [id number] Closed 12/11/2023 06/11/2025 1 1 Reason for Visit * Other Medical (Routine) - Closed Specialty Diagnoses / Procedures Referred By Sybil bolivar Referred To Contact Otolaryngology Diagnoses Dysphonia Procedures Botox Dystonia Aung Garcia MD [address] [address] Phone: tel: fax: Referral ID Status Reason Start Date Expiration Date Visits Re quested Visits Authorized [id number] Closed 11/17/2023 05/18/2025 1 1 Encounter Details Date Type Department Care Team (Late st Contact Info) Description 12/10/2023 1:10 PM EDT Procedure Visit [place] [facility] [address] [place] [address] Aung Garcia MD [address] [place] [address] Adductor spasmodic dysphonia (Primary Dx); Dysphonia Social History Tobacco Use Types Packs/Day Years Used Date Smoking Tobacco: Never Smokeless Tobacco: Never Alcohol Use Standard Drinks/Week Comments Never 0 (1 standard drink = 0.6 oz pur e alcohol) Comments No Sex and Gender Information Value Date Recorded Sex Assigned at Not on file Legal Sex Female 8:54 PM EDT Gender Identity Not on file Sexual Orientation Not on file documented as of this encounter Miscellaneous Notes * Progress Notes - Aung Garcia MD - 12/10/2023 1:10 PM EDT PATIENT NAME: Brook Bañuelos DATE OF : 1950 DATE OF PROCEDURE: 12/10/2023 PREOPERATIVE DIAGNOSES: 1. Adductor spasmodic dysphonia POSTOPERATIVE DIAGNOSES: 1. Same PROCEDURE PERFORMED: Botox injection to thyroarytenoid muscles under EMG guidance (10600, 53870), bilateral Patient was examined and her exam continues to be consistent with the above diagnosis. Informed consent was obtained for Botox injection patient was brought into the EMG exam room, placed in a sitting position and connected to EMG electrodes by the microwave radio technician. A monopolar electrode was then connected to the special 27-gauge Perfecto-coated oculinum needle. Under EMG guidance and after verification of the muscle signal by myself, 1.25 units of botulinum toxin type A was injected passing through the cricothyroid membrane 1st into the left and then the right thyroarytenoid muscles. The patient tolerated the procedure well and will return in 2 months for follow-up evaluation and repeat injection if necessary. 97 units were wasted. I personally reviewed the patient's speech evaluation, performed the injection procedure and supervised the laryngeal EMG. Aung Garcia MD documented in this encounter Plan of Treatment Upcoming Encounters Date Type Department Care Team (Late st Contact Info) Description 08/11/2024 10:10 AM EST Procedure Visit [facility] [address] [place] [address] Antolin Osorio MD [id number] [place] [address] documented as of this encounter Visit Diagnoses Diagnosis Adductor spasmodic dysphonia- Primary Other diseases of larynx Dysphonia documented in this encounter Administered Medications Inactive Administered Medications - up to 3 most recent administrations Medication Order MAR Action Action Date Dose Rate Site onabotulinumtoxinA (Botox) injection 3 Units 3 Units, Intramuscular, Once, 1 dose, On 12/11/23 at 1915, RoutineIndications:Dysphonia Given by Other 12/10/2023 1:10 PM EDT 3 Units Other documented in this encounter Additional Health Concerns Assessment Noted Time A fall risk assessment has been complete d for the patient 05/27/2021 2:11 PM EDT A Body Mass Index follow-up plan has been documented for the patient 12/11/2023 6:55 PM EDT documented as of this encounter Care Teams Apparel Sales Associate Relationship Specialty Start Date End Date Hung Encinas MD [id number] [place] [address] PCP - General 12/13/20 Aung Garcia MD [address] [facility] [address] [place] [id number] Surgeon Otolaryngology 02/07/21 Antolin Osorio MD [address] [facility] [address] [place] [address] Surgeon Otolaryngology 06/12/22 documented as of this encounter
--- OUTSIDE RECORDS SUMMARY | 2024-07-04 10:04 | XMS_ITS | Encounter Summary ---
Author Organization [facility] Address [address] [facility] [place] [address] Care Team Providers Care Fiber Analyst Name Role Phone Hung Encinas MD Primary Care Provider [phone] Reason for Visit * Auth/Cert/Inpt (Routine) - Closed Specialty Diagnoses / Procedures Referred By Sybil bolivar Referred To Contact Diagnoses VERRUCAE BOTH FEET Procedures CO2 LASER VERRUCAE BOTH FEET Referral ID Status Reason Start Date Expiration Date Visits Re quested Visits Authorized [id number] Closed 1 1 Encounter Details Date Type Department Care Team (Latest Contact Info) Description 09/16/2011 2:03 PM EST - 09/16/2011 3:27 PM EST Hospital Encounter EDG PRE-ADMIT TESTING [facility] Dr[facility] Rm, [facility] 1, Edg Pat Nurse Discharge Disposition: Home or Self Care Social History Tobacco Use Types Packs/Day Years Used Date Smoking Tobacco: Never Alcohol Use Standard Drinks/Week Comments No 0 (1 standard drink = 0.6 oz pur e alcohol) Comments No Sex and Gender Information Value Date Recorded Sex Assigned at Not on file Legal Sex Female 3:51 AM EDT Gender Identity Not on file Sexual Orientation Not on file documented as of this encounter Last Filed Vital Signs Vital Sign Reading Time Taken Comments Blood Pressure 144/73 09/16/2011 2:13 PM EST Pulse 65 09/16/2011 2:13 PM EST Temperature 36.4 ??C (97.6 ??F) 09/16/2011 2:13 PM ES T Respiratory Rate 18 09/16/2011 2:13 PM EST Oxygen Saturation 98% 09/16/2011 2:13 PM EST Inhaled Oxygen Concentration - - Weight 68.9 kg (152 lb) 09/16/2011 2:13 PM EST Height 162.6 cm (5' 4 ) 09/16/2011 2:13 PM EST Body Mass Index 26.09 09/16/2011 2:13 PM EST documented in this encounter Discharge Instructions * Discharge Instructions* Aviva Augsute RN - 09/16/2011 2:52 PM EST Pre op instructions given documented in this encounter Medications at Time of Discharge estrogens conjugated, synthetic B, (ENJUVIA) 0.3 mg tablet Take 0.3 mg by mouth daily. felodipine (PLENDIL) 10 mg tablet Take by mouth daily. fexofenadine (JAI) 180 mg tablet Take by mouth daily as needed. HYDROcodone-acetam inophen (VICODIN) 5-500 mg per tabletIndications: pain Take 2 Tabs by mouth every 4 hours. prn Indications: Pain MULTI-VITAMIN ORAL Take by mouth daily. pravastatin (PRAVACHOL) 10 mg tablet Take by mouth daily. quinapril (ACCUPRIL) 40 mg tablet Take 40 mg by mouth nightly. documented as of this encounter Discharge Disposition Disposition Code Departure Means Destination Home or Self Care documented in this encounter Nursing Notes * Aviva Auguste RN - 09/16/2011 4:01 PM EST Crutches given to pt along with printed instructions,says she was asked about appt with therapy forinstructions but prefers for her to teach her,says he has used them for years * Aviva Auguste RN - 09/16/2011 2:46 PM EST Took awhile to wake up and nausea documented in this encounter Plan of Treatment Not on file documented as of this encounter Procedures Procedure Name Priority Date/Time Associated Diagnosis Comments BASIC METABOLIC PANEL Pre-Op 09/16/2011 4:07 PM EST EK EKG 12 LEAD Pre-Op 09/16/2011 3:28 PM EST documented in this encounter Results * (ABNORMAL) BASIC METABOLIC PANEL (09/16/2011 4:07 PM EST) Pathologist [facility] Sodium 138 135 - 143 mmol/L [facility] Potassium 3.6 3.5 - 5.0 mmol/L [facility] Chloride 99 98 - 108 mmol/L [facility] Total CO2 28 22 - 31 mmol/L [facility] Anion Gap 11 7 - 16 mmol/L [facility] Calcium 10.2 8.6 - 10.3 mg/dL [facility] Glucose Lvl 125(H) 70 - 100 mg/dL [facility] BUN 13 7 - 19 mg/dL [facility] Creatinine 0.8 0.6 - 1.0 mg/dL [facility] GFR Afr Am >60 [facility] Comment: GFR is estimated using creatinine, age, gender, and race. ??GFR has been validated for patients between 18 and 70 years of age. GFR has not been validated for women, patients with serious comorbid conditions, or persons with extremes of body size, muscle mass, or nutritional status. ??For additional information: ??www.kidney.org. Chronic kidney disease stage ? GFR (ml/min/1.73 square meters) ? Stage 3 ? 30 - 59 ? Stage 4 ? 15 - 29 ? Stage 5 ? 14 or less GFR Non Afr Am >60 [facility] Blood specimen (specimen) UPPER LIMB STRUCTURE / Unknown 09/16/2011 4:07 PM EST 09/16/2011 4:07 PM EST Ez Anderson DPM CHEMISTRY ORDERABLES Final Result [facility] [address] [place] [address] * EK EKG 12 LEAD (09/16/2011 3:28 PM EST) Anatomical Region Laterality Modality Electrocardiogra phy 09/16/2011 2:54 PM EST Ez Anderson DPM IMG ECG ORDERABLES Final Re sult documented in this encounter Visit Diagnoses Not on filedocumented in this encounter Historical Medications * This list may reflect changes made after this encounter. MULTI-VITAMIN ORAL Take by mouth daily. fexofenadine (JAI) 180 mg tablet Take by mouth daily as needed. pravastatin (PRAVACHOL) 10 mg tablet Take by mouth daily. quinapril (ACCUPRIL) 40 mg tablet Take 40 mg by mouth nightly. felodipine (PLENDIL) 10 mg tablet Take by mouth daily. estrogens conjugated, synthetic B, (ENJUVIA) 0.3 mg tablet Take 0.3 mg by mouth daily. added in this encounter Care Teams Fiber Analyst Relationship Specialty Start Date End Date Hung Encinas MD [address] [place] [address] PCP - General Family Medicine 09/16/11 documented as of this encounter
--- OUTSIDE RECORDS SUMMARY | 2024-07-04 10:04 | XMS_ITS | Encounter Summary ---
Author Organization [facility] Address [address] [place] [address] Care Team Providers Care Print Decorator Name Role Phone Hung Encinas MD Primary Care Provider [phone] Aung Garcia MD Unavailable Antolin Osorio MD Unavailable [phone] Encounter Details Date Type Department Care Team (Latest Contact Info) Description 06/09/2024 Travel Social History Tobacco Use Types Packs/Day Years [...] on file documented as of this encounter Plan of Treatment Upcoming Encounters Date Type Department Care Team (Late st Contact Info) Description 08/11/2024 10:10 AM EST Procedure Visit [place] [facility] [address] [place] [address] Antolin Osorio MD [address] [place] [address] documented as of this encounter Visit Diagnoses Not on filedocumented in this encounter Additional Health Concerns Assessment Noted Time A fall risk assessment has been complete d for the patient 05/27/2021 2:11 PM EDT A Body Mass Index follow-up plan has been documented for the patient 06/13/2024 10:32 AM EST documented as of this encounter Care Teams Print Decorator Relationship Specialty Start Date End Date Hung Encinas MD [address] [facility] [address] [place] [address] PCP - General 12/13/20 Aung Garcia MD [address] [employer] [facility] [place] [address] Surgeon Otolaryngology 02/07/21 Antolin Osorio MD [address] [employer] [facility] [address] [place] [address] Surgeon Otolaryngology 06/12/22 documented as of this encounter
--- OUTSIDE RECORDS SUMMARY | 2024-07-04 10:04 | XMS_ITS | Encounter Summary ---
Author Organization [place] Address [facility] [place] [address] Care Team Providers Care Correctional Food Service Supervisor Name Role Phone Hung Encinas MD Primary Care Provider [phone] Reason for Visit * Auth/Cert/Inpt (Routine) - Closed Specialty Diagnoses / Procedures Referred By Sybil bolivar Referred To Contact Diagnoses VERRUCAE BOTH FEET Procedures CO2 LASER VERRUCAE BOTH FEET Referral ID Status Reason Start Date Expiration Date Visits Re quested Visits Authorized [id number] Closed 1 1 Encounter Details Date Type Department Care Team (Late st Contact Info) Description 09/18/2011 10:00 AM EST - 09/18/2011 11:00 AM EST Surgery EDG PERIOP [facility] [place] [address] Ez Anderson DPM PLANTAR WARTS/VERRUCA WITH CO2 LASER Surgery Details Date/Time Status Location OR Service Patient Class Case Class Case Type Trauma Case? 09/18/2011 10:00 AM Posted EDG MAIN OR EDG Room 11- XI Podiatry Same Day Surgery N/A Panel 1 Procedure LRB Anes Op Region Wound Class Comments PLANTAR WARTS/VERRUCA WITH CO2 LASER Bilateral Monitored Anesthesia Care Clean CO2 LASER VERRUCAE BOTH FEET Surgeon Surgeon Role Service Panel Ez Anderson DPM Primary Podiatry 1 Special Needs ABHIJIT CPT;[id number] TRAINING JORDAN -P/T documented in this encounter Social History Tobacco Use Types Packs/Day Years [...] Sign Reading Time Taken Comments Blood Pressure 123/71 09/18/2011 10:40 AM EST Pulse 77 09/18/2011 10:40 AM EST Temperature 36.7 ??C (98 ??F) 09/18/2011 10:40 AM EST Respiratory Rate 17 09/18/2011 10:40 AM EST Oxygen Saturation 97% 09/18/2011 10:40 AM EST Inhaled Oxygen Concentration - - Weight - - Height - - Body Mass Index - - documented in this encounter Medications at Time [...] or Self Care documented in this encounter Progress Notes * Unknown, Unknown - 09/23/2011 10:05 AM EST * Unknown, Unknown - 09/22/2011 8:59 AM EST * Unknown, Unknown - 09/22/2011 8:59 AM EST * Unknown, Unknown - 09/22/2011 8:59 AM EST * Unknown, Unknown - 09/22/2011 8:59 AM EST * Unknown, Unknown - 09/22/2011 8:57 AM EST * Unknown, Unknown - 09/17/2011 5:26 AM EST * Unknown, Unknown - 09/17/2011 5:26 AM EST documented in this encounter H&P Notes * Unknown, Unknown - 09/22/2011 8:57 AM EST documented in this encounter Procedure Notes * Unknown, Unknown - 09/22/2011 8:59 AM ESTAssociated Order(s): SCANNED PRE/POST PROCEDURES * Unknown, Unknown - 09/22/2011 8:59 AM EST * Unknown, Unknown - 09/22/2011 8:57 AM ESTAssociated Order(s): SCANNED ANESTHESIA FORMS * Unknown, Unknown - 09/18/2011 12:07 PM ESTAssociated Order(s): SCANNED OR REPORT documented in this encounter Nursing Notes * Adeola Delacruz RN - 09/18/2011 8:29 AM EST Large plantar warts noted left ball of foot and several smaller ones noted. Small right wart second toe anterior side. Has crutches and states she is able to use them. Does not meet criteria for antibiotic order. Dr. Gutierrez visited and completed history and physical. documented in this encounter Miscellaneous Notes * Miscellaneous - Unknown, Unknown - 09/22/2011 8:57 AM EST documented in this encounter Plan of Treatment Not on file documented as of this encounter Procedures Procedure Name Priority Date/Time Associated Diagnosis Comments SCANNED PRE/POST PROCEDURES 09/22/2011 8:59 AM EST SCANNED ANESTHESIA FORMS 09/22/2011 8:58 AM EST SCANNED OR REPORT 09/18/2011 12: 08 PM EST PATHOLOGY TISSUE REPORT Routine 09/18/2011 11:23 AM EST PLANTAR WARTS/VERRUCA WITH CO2 LASER 09/18/2011 9:32 AM EST VERRUCAE BOTH FEET Special Needs ABHIJIT CPT;[id number] TRAINING JORDAN -P/T documented in this encounter Results * SCANNED PRE/POST PROCEDURES (09/22/2011 8:59 AM EST) Narrative Transcriptions Unknown, Unknown - 09/22/2011 8:59 AM EST us Unknown Unknown PROCEDURE/MINOR SURGICAL ORDERAB LES Final Result * SCANNED ANESTHESIA FORMS (09/22/2011 8:58 AM EST) Narrative Transcriptions Unknown, Unknown - 09/22/2011 8:57 AM EST us Unknown Unknown PROCEDURE/MINOR SURGICAL ORDERAB LES Final Result * SCANNED OR REPORT (09/18/2011 12:08 PM EST) Narrative Transcriptions Unknown, Unknown - 09/18/2011 12:07 PM EST us Unknown Unknown PROCEDURE/MINOR SURGICAL ORDERAB LES Final Result * SURGICAL PATHOLOGY REPORT (09/18/2011 11:23 AM EST) Surgical Pathology Report ? PATIENT NAME:BROOK BERRY ?Surgical Pathology Report ? Accession Number ?Collected Date/Time ? Received Date/Time ? [id number] ? 09/18/11 11:23 EST ?09/18/11 11:23 EST ? Diagnosis ? Skin, bilateral feet, shave biopsies: ? - Verruca vulgaris. ? ANGELINA GALLARDO ? (Electronically signed by) ? Verified: 09/21/2011 ? [facility] ? Clinical Information ? Verruca. ? Gross Description ? Received in formalin labeled verruca both feet are two thin pieces of ? rubbery white tissue ranging in size from 0.5 to 1.5 cm in greatest ? dimension. Furniture Technician sections are submitted in one cassette. ? DJE/JR ? Microscopic Description ? Microscopic examination is performed and the findings corroborate the ? diagnosis. [facility] 09/18/2011 11:2 3 AM EST us Ez Anderson DPM PATHOLOGY ORDERABLES Final Result [facility] [address] [place] [address] documented in this encounter Visit Diagnoses Not on filedocumented in this encounter Administered Medications Inactive Administered Medications - up to 1 most recent administrations Medication Order MAR Action Action Date Dose Rate Site famotidine (PEPCID) 20 mg in sodium chloride bacteriostatic 0.9 % 10 mL injection 20 mg, Intravenous, ONCE PRN, 1 dose, Starting on Wed09/18/11 at 0836, Until Wed09/18/11 at 0848, Other, Give SLOW PUSH (greater than 2 minutes), Pre-op (Holding/SDS Meds) Given 09/18/2011 8:48 AM EST 20 mg lactated ringers infusion Intravenous, at 100 mL/hr, CONTINUOUS, Starting on Wed09/18/11 at 0845, Until Wed09/18/11 at 1443, Pre-op (Holding/SDS Meds) New Bag 09/18/2011 8:36 AM EST 100 mL/hr LIDOCAINE WITH EPI 2%-MARCAINE PLAIN 0.5%-OPTIME PRN, Starting on Wed09/18/11 at 0943, Until Wed09/18/11 at 1043, Intra-op Given 09/18/2011 9:43 AM EST 18 mL silver sulfADIAZINE (SILVADENE) 1 % cream PRN, Starting on Wed09/18/11 at 0943, Until Wed09/18/11 at 1043, Intra-op Given 09/18/2011 9:43 AM EST 1 g documented in this encounter Historical Medications * This list may reflect changes made after this encounter. HYDROcodone-acetam inophen (VICODIN) 5-500 mg per tabletIndications: pain Take 2 Tabs by mouth every 4 hours. prn Indications: Pain added in this encounter Active and Recently Administered Medications Times are shown in EST. Continuous Medication Order 09/16/2011 09/17/2011 09/18/2011 lactated ringers infusion (CANCELED) Intravenous, at 100 mL/hr, CONTINUOUS, Starting on Wed09/18/11 at 0845, Until Wed09/18/11 at 1443, Pre-op (Holding/SDS Meds) 0836 (New Bag - Prov ider: Adeola Delacruz RN) PRN Medication Order 09/16/2011 09/17/2011 09/18/2011 famotidine (PEPCID) 20 mg in sodium chloride bacteriostatic 0.9 % 10 mL injection (COMPLETED) 20 mg, Intravenous, ONCE PRN, 1 dose, Starting on Wed09/18/11 at 0836, Until Wed09/18/11 at 0848, Other, Give SLOW PUSH (greater than 2 minutes), Pre-op (Holding/SDS Meds) 0848 (Given - Provid er: Adeola Delacruz RN) LIDOCAINE WITH EPI 2%-MARCAINE PLAIN 0.5%-OPTIME (CANCELED) PRN, Starting on Wed09/18/11 at 0943, Until Wed09/18/11 at 1043, Intra-op 0943 (Given - Provid er: Ez Anderson DPM) silver sulfADIAZINE (SILVADENE) 1 % cream (CANCELED) PRN, Starting on Wed09/18/11 at 0943, Until Wed09/18/11 at 1043, Intra-op 0943 (Given - Provid er: Ez Anderson DPM) documented in this encounter Orders Medications Ordered That Ramón ht Not Have Been Administered Count Last Ordered Date First Ordered Date ceFAZolin (ANCEF) IVPB 1 g 1 09/18/2011 lidocaine 10 mg/mL (1 %) inj ection (PF) 10 mg 1 09/18/2011 documented in this encounter Care Teams Correctional Food Service Supervisor Relationship Specialty Start Date End Date Hung Encinas MD [address] [place] [address] [place] [phone] PCP - General Family Medicine 09/16/11 documented as of this encounter
--- OUTSIDE RECORDS SUMMARY | 2024-07-04 10:04 | XMS_ITS | Encounter Summary ---
Author Organization [facility] Address [address] [place] [address] Care Team Providers Care Crm Marketing Analyst Name Role Phone Hung Encinas MD Primary Care Provider [phone] Aung Garcia MD Unavailable Antolin Osorio MD Unavailable [phone] Reason for Referral * Clinic-Administered Medication (Routine) - Closed Specialty Diagnoses / Procedures Referred By Sybil bolivar Referred To Contact Diagnoses Dysphonia Adductor spasmodic dysphonia Procedures [place] INJECTION,ONABOTULINUMTOXINA Viji Stewart MD [address] [address] Phone: tel: fax: Referral ID Status Reason Start Date Expiration Date Visits Re quested Visits Authorized [id number] Closed 06/13/2024 12/13/2025 1 1 Reason for Visit * Other Medical (Routine) - Closed Specialty Diagnoses / Procedures Referred By Sybil bolivar Referred To Contact Otolaryngology Diagnoses Dysphonia Adductor spasmodic dysphonia Procedures Botox Dystonia Antolin Osorio MD [address] [address] Phone: tel: fax: Referral ID Status Reason Start Date Expiration Date Visits Re quested Visits Authorized [id number] Closed 05/03/2024 11/02/2025 1 1 Encounter Details Date Type Department Care Team (Late st Contact Info) Description 06/09/2024 10:00 AM EST Procedure Visit [place] [facility] [address], [address] [place] [address] Viji Stewart MD [address] [place] [address] Adductor spasmodic dysphonia (Primary Dx); [...] encounter Miscellaneous Notes * Progress Notes - Viji Stewart MD - 06/09/2024 10:00 AM EST PATIENT NAME: Brook Bañuelos DATE OF : 1950 DATE OF PROCEDURE: 06/09/2024 PREOPERATIVE DIAGNOSES: Adductor spasmodic dysphonia POSTOPERATIVE DIAGNOSES: Same PROCEDURE PERFORMED: Botox injection to thyroarytenoid muscles under EMG guidance (01062, [id number]), bilateral Patient was examined and her voice quality continues to be consistent with adductor spasmodic dysphonia. Informed consent was obtained for Botox injection for adductor spasmodic dysphonia and the patient was brought into the EMG exam room, placed in a sitting position and connected to EMG electrodes by the cook chill technician. A monopolar electrode was then connected to the special 27-gauge Perfecto-coated oculinum needle. Under EMG guidance and after verification of the muscle signal by myself, 1.25 units of botulinum toxin type A was injected passing through the cricothyroid membrane 1st into the leftand then the right thyroarytenoid muscles. 97.5 units of botulinum toxin type A were wasted. The patient tolerated the procedure well and will return in 2 months for follow-up evaluation and repeat injection if necessary. I personally performed the injection procedure and supervised the laryngeal EMG. Viji Stewart MD documented in this encounter Plan of Treatment Upcoming Encounters Date Type Department Care Team (Late st Contact Info) Description 08/11/2024 10:10 AM EST Procedure Visit [facility] [address] [place] [address] Antolin Osorio MD [address] [address] documented as of this encounter Visit Diagnoses Diagnosis Adductor spasmodic dysphonia- Primary Other diseases of larynx Dysphonia documented in this encounter Administered Medications Inactive Administered Medications - up to 3 most recent administrations Medication Order MAR Action Action Date Dose Rate Site onabotulinumtoxinA (Botox) injection 3 Units 3 Units, Intramuscular, Once, 1 dose, On Wed06/13/24 at 1130, RoutineIndications:Dysphonia ,Adductor spasmodic dysphonia Given by Other 06/09/2024 10:41 AM EST 3 Units Ot her documented in this encounter Additional Health Concerns Assessment Noted Time A fall risk assessment has been complete d for the patient 05/27/2021 2:11 PM EDT A Body Mass Index follow-up plan has been documented for the patient 06/13/2024 10:32 AM EST documented as of this encounter Care Teams Crm Marketing Analyst Relationship Specialty Start Date End Date Hung Encinas MD [address] [place] [address] PCP - General 12/13/20 Aung Garcia MD [address] [facility] [place] [address] Surgeon Otolaryngology 02/07/21 Antolin Osorio MD [address] [facility] [address] [place] [address] Surgeon Otolaryngology 06/12/22 documented as of this encounter
--- OUTSIDE RECORDS SUMMARY | 2024-07-04 10:04 | XMS_ITS | Encounter Summary ---
Author Organization [facility] Address [address] [place] [address] Care Team Providers Care Aix Administrator Name Role Phone Hung Encinas MD Primary Care Provider [phone] Aung Garcia MD Unavailable Antolin Osorio MD Unavailable [phone] Reason for Referral * Clinic-Administered Medication (Routine) - Closed Specialty Diagnoses / Procedures Referred By Sybil bolivar Referred To Contact Diagnoses Dysphonia Adductor spasmodic dysphonia Procedures [place] INJECTION,ONABOTULINUMTOXINA Antolin Osorio MD [address] [address] Phone: tel: fax: Referral ID Status Reason Start Date Expiration Date Visits Re quested Visits Authorized [id number] Closed 02/14/2024 08/15/2025 1 1 Reason for Visit * Other Medical (Routine) - Closed Specialty Diagnoses / Procedures Referred By Sybil bolivar Referred To Contact Otolaryngology Diagnoses Dysphonia Adductor spasmodic dysphonia Procedures Botox Dystonia Aung Garcia MD [address] [address] Phone: tel: fax: Referral ID Status Reason Start Date Expiration Date Visits Re quested Visits Authorized [id number] Closed 01/05/2024 07/06/2025 1 1 Encounter Details Date Type Department Care Team (Late st Contact Info) Description 02/11/2024 10:00 AM EDT Procedure Visit [place] [facility] [address] [place] [address] Antolin Osorio MD [address] [place] [address] Adductor spasmodic dysphonia (Primary Dx); [...] encounter Miscellaneous Notes * Progress Notes - Antolin Osorio MD - 02/11/2024 10:00 AM EDT PATIENT NAME: Brook Bañuelos DATE OF : 1950 DATE OF PROCEDURE: 02/11/2024 PREOPERATIVE DIAGNOSES: Adductor spasmodic dysphonia POSTOPERATIVE DIAGNOSES: Same PROCEDURE PERFORMED: Botox injection to thyroarytenoid muscles under EMG guidance (27624, 04534), bilateral Patient was examined and her voice quality continues to be consistent with adductor spasmodic dysphonia. Informed consent was obtained for Botox injection for adductor spasmodic dysphonia and the patient was brought into the EMG exam room, placed in a sitting position and connected to EMG electrodes by the community service technician. A monopolar electrode was then connected to the special 27-gauge Perfecto-coated oculinum needle. Under EMG guidance and after verification of the muscle signal by myself, 1.5 unitsof botulinum toxin type A was injected passing through the cricothyroid membrane 1st into the left and then the right thyroarytenoid muscles. 97 units of botulinum toxin type A were wasted. The patient tolerated the procedure well and will return in 2 months for follow-up evaluation and repeat injection if necessary. I personally performed the injection procedure and supervised the laryngeal EMG. Antolin Osorio MD documented in this encounter Plan of Treatment Upcoming Encounters Date Type Department Care Team (Late st Contact Info) Description 08/11/2024 10:10 AM EST Procedure Visit [place] [facility] [address] [place] [address] Antolin Osorio MD [address] [address] documented as of this encounter Visit Diagnoses Diagnosis Adductor spasmodic dysphonia- Primary Other diseases of larynx Dysphonia documented in this encounter Administered Medications Inactive Administered Medications - up to 3 most recent administrations Medication Order MAR Action Action Date Dose Rate Site onabotulinumtoxinA (Botox) injection 3 Units 3 Units, Intramuscular, Once, 1 dose, On Wed02/14/24 at 0900, RoutineIndications:Dysphonia ,Adductor spasmodic dysphonia Given by Other 02/11/2024 9:17 AM EDT 3 Units Oth er documented in this encounter Additional Health Concerns Assessment Noted Time A fall risk assessment has been complete d for the patient 05/27/2021 2:11 PM EDT A Body Mass Index follow-up plan has been documented for the patient 02/14/2024 8:40 AM EDT documented as of this encounter Care Teams Aix Administrator Relationship Specialty Start Date End Date Hung Encinas MD [address] [place] [address] PCP - General 12/13/20 Aung Garcia MD [address] [address] Surgeon Otolaryngology 02/07/21 Antolin Osorio MD [address] [address] Surgeon Otolaryngology 06/12/22 documented as of this encounter
--- OUTSIDE RECORDS SUMMARY | 2024-07-04 10:04 | XMS_ITS | Encounter Summary ---
Author Organization [facility] Address [address] [place] [address] Care Team Providers Care Photograph Finisher Name Role Phone Hung Encinas MD Primary Care Provider + [phone] Aung Garcia MD Unavailable Antolin Osorio MD Unavailable [phone] Encounter Details Date Type Department Care Team (Latest Contact Info) Description 10/05/2023 Travel Social History Tobacco Use Types Packs/Day [...] Visit [place] [facility] [address] [place] [address] Antolin Osorio MD [address] [place] [address] documented as of this encounter Visit Diagnoses Not on filedocumented in this encounter Additional Health Concerns Assessment Noted Time A fall risk assessment has been complete d for the patient 05/27/2021 2:11 PM EDT A Body Mass Index follow-up plan has been documented for the patient 07/16/2023 9:57 AM EST documented as of this encounter Care Teams Photograph Finisher Relationship Specialty Start Date End Date Hung Encinas MD [address] [facility] [address] [place] [address] PCP - General 12/13/20 Aung Garcia MD [address] [facility] [place] [address] Surgeon Otolaryngology 02/07/21 Antolin Osorio MD [address] [facility] [address] [place] [address] Surgeon Otolaryngology 06/12/22 documented as of this encounter
--- OUTSIDE RECORDS SUMMARY | 2024-07-04 10:04 | XMS_ITS | Encounter Summary ---
Author Organization [place] [address] Care Team Providers Care Corporate Communications Manager Name Role Phone Hung Encinas MD Primary Care Provider [phone] Reason for Visit * Auth/Cert/Inpt (Routine) - Closed Specialty Diagnoses / Procedures Referred By Sybil bolivar Referred To Contact Diagnoses VERRUCAE BOTH FEET Procedures CO2 LASER VERRUCAE BOTH FEET Referral ID Status Reason Start Date Expiration Date Visits Re quested Visits Authorized [id number] Closed 1 1 Encounter Details Date Type Department Care Team (Latest Contact Info) Description 09/16/2011 3:28 PM EST - 09/16/2011 11:59 PM [facility] Hospital Encounter [place] [facility] [address] [place] [id number] Ez Anderson, DPM Discharge Disposition: Home or Self Care Social [...] on file documented as of this encounter Medications at Time of Discharge [...] or Self Care documented in this encounter Plan of Treatment Not on file documented as of this encounter Procedures Procedure Name Priority Date/Time Associated Diagnosis Comments EK EKG 12 LEAD Pre-Op 09/16/2011 3:28 PM EST documented in this encounter Results * EK EKG 12 LEAD (09/16/2011 3:28 PM EST) Anatomical Region Laterality Modality Electrocardiogra phy 09/16/2011 2:54 PM EST us Ez Anderson DPM IMG ECG ORDERABLES Final Re sult documented in this encounter Visit Diagnoses Not on filedocumented in this encounter Care Teams Corporate Communications Manager Relationship Specialty Start Date End Date Hung Encinas MD [address] [place] [address] [place] [phone] PCP - General Family Medicine 09/16/11 documented as of this encounter
--- OUTSIDE RECORDS SUMMARY | 2024-07-04 10:04 | XMS_ITS | Clinical Summary ---
Author Organization [facility] Address [address] [place] [address] Care Team Providers Care Director Meetings Name Role Phone Hung Encinas MD Primary Care Provider + [phone] Aung Garcia MD Unavailable Antolin Osorio MD Unavailable [phone] Allergies No known active allergies Medications felodipine ER (Plendil) 10 MG 24 hr tablet Take by mouth every night. 4 Active gabapentin (Neurontin) 300 MG capsule Take by mouth 2 (two) times a day. 4 Active pravastatin (Pravachol) 40 MG tablet Take by mouth every night. 4 Active celecoxib (CeleBREX) 100 MG capsule Take by mouth 1 (one) time each day in the morning. 1 Active fluticasone (Flonase) 50 MCG/ACT nasal spray Administer into each nostril every night. 1 Active hydroCHLOROthia zide (HYDRODiuril) 25 MG tablet Take 0.5 tablets (12.5 mg) by mouth every night. 0 Active lisinopril 20 MG tablet Take by mouth 1 (one) time each day in the morning. 3 Active Multiple Vitamin (MULTIVITAMIN ADULT PO) Take by mouth 1 (one) time each day in the morning. 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 Encounters Date Type Department Care Team Description 06/09/2024 10:00 AM EST Procedure Visit [facility] [address], [address] [place] [address] Viji Stewart MD Adductor spasmodic dysphonia (Primary Dx); Dysphonia 06/09/2024 Travel from Last 3 Months Family History Medical History Relation Name Comments Anesthesia problems Neg Hx Malig Hyperthermia Neg Hx Social History Tobacco Use Types Packs/Day Years Used Date Smoking Tobacco: Never Smokeless Tobacco: Never Tobacco Cessation:Counseling Given: Not Answered Alcohol Use Standard Drinks/Week Comments Never 0 (1 standard drink = 0.6 oz pur e alcohol) Comments No Sex and Gender Information Value Date Recorded Sex Assigned at Not on file Legal Sex Female 8:54 PM EDT Gender Identity Not on file Sexual Orientation Not on file Last Filed Vital Signs Vital Sign Reading Time Taken Comments Blood Pressure 156/83 07/16/2023 9:18 AM EST Pulse 82 07/16/2023 9:18 AM EST Temperature 36.7 ??C (98.1 ??F) 06/16/2023 10:[address] Respiratory Rate 14 06/16/2023 10:30 AM EST Oxygen Saturation 97% 06/16/2023 10:30 AM EST Inhaled Oxygen Concentration - - Weight 64.4 kg (142 lb) 07/16/2023 9:18 AM EST Height 162.6 cm (5' 4 ) 07/16/2023 9:18 AM EST Body Mass Index 24.37 07/16/2023 9:18 AM EST Plan of Treatment Upcoming Encounters Date Type Department Care Team (Late st Contact Info) Description 08/11/2024 10:10 AM EST Procedure Visit [facility] [address], [address] [place] [address] Antolin Osorio MD [address] [facility] [address] [place] [id number] Health Maintenance Due Date Last Done Comments [facility]-Bone Density Scan 1950 [facility]-Depression Screening 1950 [facility]-Hepatitis C Screening 1950 [facility]-Medicare Annual Wellness (AWV) 1950 [facility]-/Child/Adol SDOH Screenings 1950 [facility]- SDOH Screenings 1968 [facility]-Adult SDOH Screenings 1968 CT Colonography 10/30/1995 Colonoscopy 10/30/1995 FIT-DNA 10/30/1995 FIT 10/30/1995 FOBT 10/30/1995 Sigmoidoscopy 10/30/1995 [facility]-Colorectal Cancer Screening 10/30/1995 [facility]-DTaP,Tdap,and Td Vaccine s (1 - Tdap) 10/06/1996 10/05/1996 [facility]-Breast Cancer Screening 2000 [facility]-Zoster Vaccines (1 of 2) 2000 [facility]-Pneumococcal Vaccine: 65 + Years (2 of 2 - PCV) 06/28/2019 06/28/2018 [id number] Vaccine (4 - 2023- season) 2024 06/18/2021, 10/19/2020, 09/28/2020 [facility]-Influenza Vaccine (#1) 2024 [facility]-RSV Vaccine: 60+ Years o r (1 - 1-dose 75+ series) 2025 [facility]-HIB Vaccines Aged Out No longer e ligible based on patient's age to complete this topic [facility]-HPV Vaccines Aged Out No longer e ligible based on patient's age to complete this topic [facility]-Hepatitis A Vaccines Aged Out No longer eligible based on patient's age to complete this topic [facility]-IPV Vaccines Aged Out No longer e ligible based on patient's age to complete this topic [facility]-Rotavirus Vaccines Aged Out No lo nger eligible based on patient's age to complete this topic Medical Devices Implanted Type Area Top Coater Device Identifier Shelf Expiration Date Model / Serial / Lot Shawn Plus - [id number] - [id number] Implanted:Qt y: 1 on 06/16/2023 by Antolin Osorio MD at [facility] Prosthesis Other N/A: Larynx [id number] 05/26/2024 [id number] / [id number] / [id number] Insurance [facility] MED[facility] Care Teams Director Meetings Relationship Specialty Start Date End Date Hung Encinas MD [address] [facility] [address] [place] [address] PCP - General 12/13/20 Aung Garcia MD [address] [place] [address] Surgeon Otolaryngology 02/07/21 Antolin Osorio MD [address] [place] [address] Surgeon Otolaryngology 06/12/22
--- OUTSIDE RECORDS SUMMARY | 2024-07-04 10:04 | XMS_ITS | Encounter Summary ---
Author Organization [facility] Address [address] [place] [address] Care Team Providers Care Staff Physician Name Role Phone Hung Encinas MD Primary Care Provider + [phone] Aung Garcia MD Unavailable Antolin Osorio MD Unavailable [phone] Encounter Details Date Type Department Care Team (Latest Contact Info) Description 12/10/2023 Travel Social History Tobacco Use Types Packs/Day [...] Visit [place] [facility] [address], [address] [place] [address] Antolin Osorio MD [address] [place] [address] documented as of this encounter Visit Diagnoses Not on filedocumented in this encounter Additional Health Concerns Assessment Noted Time A fall risk assessment has been complete d for the patient 05/27/2021 2:11 PM EDT A Body Mass Index follow-up plan has been documented for the patient 12/11/2023 6:55 PM EDT documented as of this encounter Care Teams Staff Physician Relationship Specialty Start Date End Date Hung Encinas MD [address] [facility] [address] [place] [address] PCP - General 12/13/20 Aung Garcia MD [address] [employer] [facility] [address] [place] [address] Surgeon Otolaryngology 02/07/21 Antolin Osorio MD [address] [employer] [facility] [place] [address] Surgeon Otolaryngology 06/12/22 documented as of this encounter
--- OUTSIDE RECORDS SUMMARY | 2024-07-04 10:04 | XMS_ITS | Clinical Summary ---
Author Organization [facility] Address [address] [place] [address] Phone Care Team Providers Care Recovery Unit Operator Name Role Phone Hung Encinas MD Primary Care Provider [phone] Allergies No known active allergies Medications estrogens conjugated, synthetic B, (ENJUVIA) 0.3 mg tablet Take 0.3 mg by mouth daily. Active felodipine (PLENDIL) 10 mg tablet Take by mouth daily. Active quinapril (ACCUPRIL) 40 mg tablet Take 40 mg by mouth nightly. Active pravastatin (PRAVACHOL) 10 mg tablet Take by mouth daily. Active fexofenadine (JAI) 180 mg tablet Take by mouth daily as needed. Active MULTI-VITAMIN ORAL Take by mouth daily. Active HYDROcodone-acet aminophen (VICODIN) 5-500 mg per tabletIndication s:pain Take 2 Tabs by mouth every 4 hours. prn Indications : Pain Active Surgical History Surgery Date Site/Laterality Comments HYSTERECTOMY Medical History Medical History Date Comments Hypertension Hyperlipidemia Social History Tobacco Use Types Packs/Day Years Used Date Smoking Tobacco: Never Alcohol Use Standard Drinks/Week Comments No 0 (1 standard drink = 0.6 oz pur e alcohol) Comments No Sex and Gender Information Value Date Recorded Sex Assigned at Not on file Legal Sex Female 3:51 AM EDT Gender Identity Not on file Sexual Orientation Not on file Obstetrics History Last Filed Vital Signs Vital Sign Reading [...] Mass Index 26.09 09/16/2011 2:13 PM EST Plan of Treatment Health Maintenance Due Date Last Done Comments Annual Wellness Exam 1952 Hepatitis C Screening 1968 DTaP/TDaP/Td (1 - Tdap) 1969 Breast Cancer Screening 1990 Cologuard 10/30/1995 Colon Cancer Screening 10/30/1995 Colonoscopy 10/30/1995 FIT 10/30/1995 Sigmoidoscopy 10/30/1995 Virtual Colonography 10/30/1995 Zoster (1 of 2) 2000 Bone Density Screening 10/30/2015 Pneumococcal Vaccine 65+ (1 of 1 - PCV) 10/30/2015 COVID-19 Vaccine ( - 2023-2 5 season) 2024 Influenza Vaccine (#1) 2024 Hepatitis B Vaccine Aged Out No longe r eligible based on patient's age to complete this topic Insurance [facility] [place] [id number] [facility] PPO on file Care Teams Recovery Unit Operator Relationship Specialty Start Date End Date Hung Encinas MD [address] [place] [address] [place] [id number] PCP - General Family Medicine 09/16/11
--- OUTSIDE RECORDS SUMMARY | 2024-07-04 10:04 | XMS_ITS | Encounter Summary ---
Author Organization [facility] Address [facility] [place] [address] Care Team Providers Care Pharmacy Technician Per Diem Name Role Phone Hung Encinas MD Primary Care Provider [phone] Reason for Visit * Auth/Cert/Inpt (Routine) - Closed Specialty Diagnoses / Procedures Referred By Sybil bolivar Referred To Contact Diagnoses VERRUCAE BOTH FEET Procedures CO2 LASER VERRUCAE BOTH FEET Referral ID Status Reason Start Date Expiration Date Visits Re quested Visits Authorized [id number] Closed 1 1 Encounter Details Date Type Department Care Team (Latest Contact Info) Description 09/18/2011 7:59 AM EST - 09/18/2011 10:43 AM EST Hospital Encounter EDG SAME DAY SURGERY [facility] [address] [place] [id number] Ez Anderson, DPM Discharge Disposition: Home or [...] EST VERRUCAE BOTH FEET Special Needs ABHIJIT CPT;[id number] TRAINING JORDAN -P/T documented in this encounter [...] Number ?Collected Date/Time ? Received Date/Time ? [id number] ? 09/18/11 11:23 EST ?09/18/11 11:23 EST [...] to 1.5 cm in greatest ? dimension. Manager [employer] sections are submitted in one cassette. ? DJE/JR ? Microscopic Description ? Microscopic examination is performed and the findings corroborate the ? diagnosis. [facility] 09/18/2011 11:2 3 AM EST us Ez Anderson DPM PATHOLOGY ORDERABLES Final Result Performing Organization Address City/State/[facility] Co de Phone Number [facility] [address] [place] [address] documented in this encounter Visit Diagnoses Not [...] Bag 09/18/2011 8:36 AM EST 100 mL/hr documented in this encounter Historical Medications * [...] PRN, Starting on Wed09/18/11 at 0943, Until 09/18/11 at 1043, Intra-op 0943 (Given - Provid er: Ez Anderson DPM) silver sulfADIAZINE (SILVADENE) 1 % cream (CANCELED) PRN, Starting on Wed09/18/11 at 0943, Until 09/18/11 at 1043, Intra-op 0943 (Given - Provid er: Ez Anderson DPM) documented in this encounter Orders Medications Ordered That Ramón ht Not Have Been Administered Count Last Ordered Date First Ordered Date ceFAZolin (ANCEF) IVPB 1 g 1 09/18/2011 lidocaine 10 mg/mL (1 %) inj ection (PF) 10 mg 1 09/18/2011 LIDOCAINE WITH EPI 2%-MARCAI [place] PLA[place] 0.5%-OPTIME 1 09/18/2011 silver sulfADIAZINE (SILVADENE) 1 % cream 1 09/18/2011 documented in this encounter Care Teams Pharmacy Technician Per Diem Relationship Specialty Start Date End Date Hung Encinas MD [address] [place] [address] [place] [address] PCP - General Family Medicine 09/16/11 documented as of this encounter
--- OUTSIDE RECORDS SUMMARY | 2024-07-04 10:04 | XMS_ITS | Encounter Summary ---
Author Organization [facility] Address [address] [place] [address] Care Team Providers Care Refining Equipment Operator Name Role Phone Hung Encinas MD Primary Care Provider + [phone] Aung Garcia MD Unavailable Antolin Osorio MD Unavailable [phone] Encounter Details Date Type Department Care Team (Latest Contact Info) Description 10/08/2023 Travel Social History Tobacco Use Types Packs/Day [...] Visit [place] [facility] [address], [address] [place] [address] Antolin Osorio MD [address] [place] [address] documented as of this encounter Visit Diagnoses Not on filedocumented in this encounter Additional Health Concerns Assessment Noted Time A fall risk assessment has been complete d for the patient 05/27/2021 2:11 PM EDT A Body Mass Index follow-up plan has been documented for the patient 07/16/2023 9:57 AM EST documented as of this encounter Care Teams Refining Equipment Operator Relationship Specialty Start Date End Date Hung Encinas MD [address] [facility] [address] [place] [address] PCP - General 12/13/20 Aung Garcia MD [address] [employer] [facility] [place] [address] Surgeon Otolaryngology 02/07/21 Antolin Osorio MD [address] [employer] [facility] [address] [place] [address] Surgeon Otolaryngology 06/12/22 documented as of this encounter
--- OUTSIDE RECORDS SUMMARY | 2024-07-04 10:04 | XMS_ITS | Encounter Summary ---
Author Organization [facility] Address [address] [id number] Care Team Providers Care Appointment Scheduler Name Role Phone Hung Encinas MD Primary Care Provider + [phone] Aung Garcia MD Unavailable Antolin Osorio MD Unavailable [phone] Reason for Referral * Clinic-Administered Medication (Routine) - Closed Specialty Diagnoses / Procedures Referred By Sybil bolivar Referred To Contact Diagnoses Dysphonia Procedures [place] INJECTION,ONABOTULINUMTOXINA Antolin Osorio MD [address] [address] Phone: tel: fax: Referral ID Status Reason Start Date Expiration Date Visits Re quested Visits Authorized [id number] Closed 10/13/2023 04/13/2025 1 1 Reason for Visit * Other Medical (Routine) - Authorized Specialty Diagnoses / Procedures Referred By Sybil bolivar Referred To Contact Otolaryngology Diagnoses Dysphonia Procedures Botox Dystonia Aung Garcia MD [address] [address] Phone: tel: fax: Referral ID Status Reason Start Date Expiration Date V isits Requested Visits Authorized [id number] Authorized 09/14/2023 03/15/2025 1 3 Encounter Details Date Type Department Care Team (Late st Contact Info) Description 10/08/2023 8:40 AM EST Procedure Visit [place] [facility] [address], [address] [place] [address] Antolin Osorio MD [address] [place] [address] Adductor spasmodic dysphonia (Primary Dx); [...] Progress Notes - Antolin Osorio MD - 10/08/2023 8:40 AM EST PATIENT NAME: Brook Bañuelos DATE OF : 1950 DATE OF PROCEDURE: 10/08/2023 PREOPERATIVE DIAGNOSES: 1. Adductor spasmodic dysphonia POSTOPERATIVE DIAGNOSES: 1. Same PROCEDURE PERFORMED: Botox injection to thyroarytenoid muscles under EMG guidance (13734, 34026), bilateral Patient was examined and her voice quality continues to be consistent with adductor spasmodic dysphonia. Informed consent was obtained for Botox injection for adductor spasmodic dysphonia and the patient was brought into the EMG exam room, placed in a sitting position and connected to EMG electrodes by the quality assurance technician. A monopolar electrode was then connected to the special 27-gauge Perfecto-coated oculinum needle. Under EMG guidance and after verification of the muscle signal by myself, 1.25 units of botulinum toxin type A was injected passing through the cricothyroid membrane 1st into the leftand then the right thyroarytenoid muscles. The patient [...] Description 08/11/2024 10:10 AM EST Procedure Visit [place] [facility] [address], [address] [place] [address] Antolin Osorio MD [address] [address] documented as of this encounter Visit Diagnoses Diagnosis Adductor spasmodic dysphonia- Primary Other diseases of larynx Dysphonia documented in this encounter Administered Medications Inactive Administered Medications - up to 3 most recent administrations Medication Order MAR Action Action Date Dose Rate Site onabotulinumtoxinA (Botox) injection 3 Units 3 Units, Intramuscular, Once, 1 dose, On Wed10/13/23 at 1600, RoutineIndications:Dysphonia Given by Other 10/08/2023 8:40 AM EST 3 Units Other documented in this encounter Additional Health Concerns Assessment Noted Time A fall risk assessment has been complete d for the patient 05/27/2021 2:11 PM EDT A Body Mass Index follow-up plan has been documented for the patient 07/16/2023 9:57 AM EST documented as of this encounter Care Teams Appointment Scheduler Relationship Specialty Start Date End Date Hung Encinas MD [address] [place] [address] PCP - General 12/13/20 Aung Garcia MD [address] [address] Surgeon Otolaryngology 02/07/21 Antolin Osorio MD [address] [address] Surgeon Otolaryngology 06/12/22 documented as of this encounter
--- OUTSIDE RECORDS SUMMARY | 2024-07-04 10:04 | XMS_ITS | Referral Summary ---
Author Organization [facility] Address [address] [facility] [place] [address] Phone Care Team Providers Care Camp Guard Name Role Phone Hung Encinas MD Primary Care Provider [phone] Allergies No known active allergies Medications estrogens [...] 4 hours. prn Indications : Pain Active Social History Tobacco Use Types Packs/Day Years [...] 09/16/2011 2:13 PM EST Plan of Treatment Not on file Insurance [facility] PPO on file Care Teams Camp Guard Relationship Specialty Start Date End Date Hung Encinas MD [address] [place] [address] [place] [phone] PCP - General Family Medicine 09/16/11
--- OUTSIDE RECORDS SUMMARY | 2024-07-04 10:04 | XMS_ITS | Encounter Summary ---
Author Organization Healthcare Address [address] [place] [address] Care Team Providers Care Wool Mixer Name Role Phone Hung Encinas MD Primary Care Provider + [phone] Aung Garcia MD Unavailable Antolin Osorio MD Unavailable [phone] Encounter Details Date Type Department Care Team (Latest Contact Info) Description 02/11/2024 Travel Social History Tobacco Use Types Packs/Day [...] Visit [place] [facility] [address], [address] [place] [address] Antolin Osorio MD [address] [place] [address] documented as of this encounter Visit Diagnoses Not on filedocumented in this encounter Additional Health Concerns Assessment Noted Time A fall risk assessment has been complete d for the patient 05/27/2021 2:11 PM EDT A Body Mass Index follow-up plan has been documented for the patient 02/14/2024 8:40 AM EDT documented as of this encounter Care Teams Wool Mixer Relationship Specialty Start Date End Date Hung Encinas MD [address] [facility] [address] [place] [address] PCP - General 12/13/20 Aung Garcia MD [address] [email or web address] [facility] [address] [place] [address] Surgeon Otolaryngology 02/07/21 Antolin Osorio MD [address] [email or web address] [facility] [place] [address] Surgeon Otolaryngology 06/12/22 documented as of this encounter
--- OUTSIDE RECORDS SUMMARY | 2024-07-04 10:04 | XMS_ITS | Patient Health Record ---
Author Organization [facility] Address [address] [facility] [address] [place] [id number] Care Team Providers Care Ice Carver Name Role Phone Ce Hung Primary Care Provider [phone] Brenda Florian Unavailable [phone] ALLERGIES No Known Allergies RESULTS Component Value Reference Range Notes Urinalysis - Inhouse (Not ye t reviewed by provider) Interpretation: Performing Lab: Notes/Report: Color/Clarity dark yellow/clear Leuk 1+ Nitrite Neg Urobili 3.2 Protein 2+ pH 7.0 Blood 2+ Sp. Gr. 1.020 Ketone Trace Bili Neg Gluc Neg bacteria WBC RBC X ray : Spine, lumbosacral Reviewed date:01/12/2024 03:40:07 PM Interpretation:nothing acute, post-op changes, probably gallstones Performing Lab: Notes/Report: nothing acute, post-op changes, probably gallstones Mammogram Reviewed date:08/04/2023 03:29:51 PM Interpretation:Negative, annual f/u Performing Lab: Notes/Report: Negative, annual f/u result Negative, annual f/u MEDICATIONS Medication SIG (Take, Route, Frequency, Duration) Notes Start Date End Date Status Gabapentin 300 MG 2 cap(s) orally 2 ti mes a day for 30 days 07/04/2024 Active Lisinopril 20 MG 1/2 tab(s) orally on ce a day 09/17/2022 Active Celecoxib 200 MG 1 capsule with food Orally once daily for 30 day(s) Active Macrobid 100 MG 1 capsule with food Orally every 12 hrs for 5 day(s) 07/04/2024 Active Fluticasone Propionate 50 MCG/ACT 1 spray(s) intranasally once a day for 90 days 10/19/2014 Active Pravastatin Sodium 40 MG 1 tab(s) orally once a day (at bedtime) for 90 days Active Felodipine ER 10 MG 1 tab(s) orally once a day for 90 days Active Triamcinolone Acetonide 0.1 % 1 application Externally Twice a day 05/29/2024 Active IMMUNIZATIONS Vaccine Route Administration Date Status Comme nts COVID 19 Pfizer Unknown 10/19/2020 Administered COVID 19 Pfizer Unknown 06/18/2021 Administered DT, 7 YEARS OR OLDER Unknown 10/05/1996 Administered Fluzone High Dose (65yr and older) IM Intramuscular 05/28/2016 Administered Fluzone Quad-Medicare (6months&older) IM Intramuscular 06/23/2019 Administered PNEUMOVAX 23 VACCINE IM Intramuscular 06/28/2018 Administe red Prevnar (PCV13) IM Intramuscular 06/23/2016 Administered Prevnar (PCV20) IM Intramuscular 06/16/2022 Administered Tetanus Tdap-Adacel (over 7yrs) IM Intramuscular 12/22/2010 Administered tuberculin (ppd) ID Intradermal 03/29/2006 Administered xFlu shot-36 months and older IM Intramuscular 05/23/2010 Administered xFluzone Intradermal (18-64yrs)-trivalent ID Intradermal 06/04/2014 Administered SOCIAL HISTORY Sex Assigned At : Social History Observation Description Sex Assigned At Unknown PROBLEMS Problem Type ICD Code Onset Dates Problem Status W/U Status Risk SNOMED Code Notes Problem Degenerative disc disease NOS (722.6) Active confirmed Degenerative di sc disease (62104211) Problem Radiculopathy (729.2) Active confirmed Radiculopathy (19076012) Problem Essential hypertension (I10) Active confirmed 56999545 Problem History of hematuria (Z87.448) Active confirmed 169619868 Problem Lumbago with sciatica, right side (M54.41) Active confirmed 565743777 Problem Lumbago with sciatica, left side (M54.42) Active confirmed 127091954 Problem Pulmonary nodule (R91.1) Active confirmed 604899061 Problem Lumbar degenerative disc disease (M51.36) Active confirmed 20407032 Problem Hyperlipidemia, unspecified hyperlipidemia (E78.5) Active confirmed 67068029 Problem Allergic rhinitis (J30.9) Active confirmed 87899636 Problem Limp (R26.89) Active confirmed 25957722 Problem Anterolisthesis of lumbar spine (M43.16) Active confirmed 880691394315319 VITAL SIGNS Heart Rate 90 /min 07/04/2024 Blood pressure diastolic 68 mm Hg 07/04/2024 Height 64.50 in 07/04/2024 Blood pressure systolic 130 mm Hg 07/04/2024 Weight 145.2 lbs 07/04/2024 BMI 24.54 kg/m2 07/04/2024 Encounters Encounter Location Date Provider Diagnosis [facility] [address] [place], [place] [id number] 07/05/2023 Hung [place] [facility] [address] [place], [place] [id number] 08/04/2023 Hung [place] Lumbago with sciatic a, right side M54.41 [facility] [address] [place], [place] [id number] 08/26/2023 Hung [place] [facility] [address] [place], [place] [id number] 09/22/2023 Hung [place] Essential hypertensi on I10 and Hyperlipidemia, unspecified hyperlipidemia E78.5 [facility] [address] [place], [place] [id number] 11/09/2023 Hung [place] Essential hypertensi on I10 [facility] [address] [place], [place] [id number] 12/07/2023 Hung [place] Essential hypertensi on I10 [facility] [address] [place] [id number] 01/12/2024 Hung [place] [facility] [address] [place], [place] [id number] 02/17/2024 Hung [place] Low back pain, unspecified M54.50 and Essential hypertension I10 [facility] [address] [place], [place] [id number] 02/23/2024 Hung [place] [facility] [address] [place] [id number] 02/24/2024 Hung [place] Low back pain, unspecified M54.50 [facility] [address] [facility] [address] [place], [place] [id number] 03/07/2024 Hung [place] Essential hypertensi on I10 and Hyperlipidemia, unspecified hyperlipidemia E78.5 [facility] [address] [facility] [address] [place], [place] [id number] 05/01/2024 Hung [place] [facility] [address] [facility] [address] [place] [id number] 06/27/2024 Hung [place] [facility] [address] [facility] [address] [place] [id number] 07/04/2024 Hung [place] Essential hypertensi on I10 ; Hyperlipidemia, unspecified hyperlipidemia E78.5 ; Right hip pain M25.551 ; Urinary frequency R35.0 ; Acute UTI N39.0 and Low back pain, unspecified M54.50 [facility] [address] [place] [id number] 05/18/2024 Brenda Crowdy Rash of face R21 [facility] [address] [place] [id number] 05/29/2024 Hung [place] Periocular dermatiti s L30.9 [facility] [address] [place] [id number] 01/03/2024 Hung [place] Essential hypertensi on I10 ; Hyperlipidemia, unspecified hyperlipidemia E78.5 ; Low back pain, unspecified M54.50 ; Anterolisthesis of lumbar spine M43.16 ; Lumbar degenerative disc disease M51.36 and Allergic rhinitis J30.9 ASSESSMENTS Encounter Date Diagnosis Assessment Notes Treatment Notes Treatment Clinical Notes 09/22/2023 Essential hypertensi on (ICD-10 - I10) 11/09/2023 Essential hypertensi on (ICD-10 - I10) 01/03/2024 Essential hypertensi on (ICD-10 - I10) Blood pressure journal 01/03/2024 Hyperlipidemia, unspecified hyperlipidemia (ICD-10 - E78.5) 02/17/2024 Low back pain, unspecified (ICD-10 - M54.50) 03/07/2024 Essential hypertensi on (ICD-10 - I10) 05/18/2024 Rash of face (ICD-10 - R21) Will throw away old makeup and refrain from putting any creams and lotions on the face until the rash clears. 05/29/2024 Periocular dermatiti s (ICD-10 - L30.9) 07/04/2024 Essential hypertensi on (ICD-10 - I10) 07/04/2024 Hyperlipidemia, unspecified hyperlipidemia (ICD-10 - E78.5) 12/07/2023 Essential hypertensi on (ICD-10 - I10) 08/04/2023 Lumbago with sciatic a, right side (ICD-10 - M54.41) 02/24/2024 Low back pain, unspecified (ICD-10 - M54.50) 07/04/2024 Right hip pain (ICD- 10 - M25.551) 03/07/2024 Hyperlipidemia, unspecified hyperlipidemia (ICD-10 - E78.5) 02/17/2024 Essential hypertensi on (ICD-10 - I10) 01/03/2024 Low back pain, unspecified (ICD-10 - M54.50) 09/22/2023 Hyperlipidemia, unspecified hyperlipidemia (ICD-10 - E78.5) 01/03/2024 Anterolisthesis of lumbar spine (ICD-10 - M43.16) 07/04/2024 Urinary frequency (ICD-10 - R35.0) 07/04/2024 Acute UTI (ICD-10 - N39.0) 01/03/2024 Lumbar degenerative disc disease (ICD-10 - M51.36) 01/03/2024 Allergic rhinitis (ICD-10 - J30.9) 07/04/2024 Low back pain, unspecified (ICD-10 - M54.50) PLAN OF TREATMENT Pending Test Test Name Order Date Urinalysis - Inhouse 07/04/2024 X ray : Hip, right 07/04/2024 colonoscopy 05/08/2024 P-Comprehensive Metabolic Panel (CMP) P-Lipid Panel 07/04/2024 P-TSH reflex to FT4 07/04/2024 P-Microalbumin/Creatinine, Random Urine Sample 07/04/2024 Next Appt Details Provider Name:Hung Junegabi ry, 01/02/2025 09:15:00 AM, [address], [place], [id number], Insurance Providers Payer Name Payer Address Payer Phone Subscriber Number Group Number Insured Name Patient Relationship to Insured Coverage Start Date Coverage End Date [employer] [address] [address] [place], [place] [id number] RANDI BERRY Self - patient is the insured MEDICAL (GENERAL) HISTORY Medical History History ICD Code Hypertension Hyperlipidemia, elevated HDL allergic rhinitis Hoarse Voice (Dysphonia) s/p botox inj. Microscopic hematuria Lumbar Disc Disease with spinal stenosis , s/p lumbar fusion Aug 2014 Cologuard 2020 Cholelithiasis Surgical History Surgery Date(Month/Year) Hysterectomy 2000 Colonoscopy 10/2011 L4-L5, L5-S1 fusion-Dr Osborn @ 2014 Hospitalization History Reason Date(Month/Year)
--- OUTSIDE RECORDS SUMMARY | 2024-07-04 10:05 | XMS_ITS | Encounter Summary ---
Author Organization Healthcare Address [address] [place] [address] Care Team Providers Care Bulb Packer Name Role Phone Hung Encinas MD Primary Care Provider + [phone] Aung Garcia MD Unavailable Antolin Osorio MD Unavailable [phone] Encounter Details Date Type Department Care Team (Latest Contact Info) Description 06/16/2023 Travel Social History Tobacco Use Types Packs/Day [...] Visit [place] [facility] [address] [place] [address] Antolin Osorio MD [address] [place] [address] documented as of this encounter Visit Diagnoses Not on filedocumented in this encounter Additional Health Concerns Assessment Noted Time A fall risk assessment has been complete d for the patient 05/27/2021 2:11 PM EDT documented as of this encounter Care Teams Bulb Packer Relationship Specialty Start Date End Date Hung Encinas MD [address] [place] [address] PCP - General 12/13/20 Aung Garcia MD [address] [place] [address] Surgeon Otolaryngology 02/07/21 Antolin Osorio MD [address] [place] [address] Surgeon Otolaryngology 06/12/22 documented as of this encounter
--- OUTSIDE RECORDS SUMMARY | 2024-07-04 10:05 | XMS_ITS | Encounter Summary ---
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 Antolin Osorio MD [address] [facility] [address] [place] [address] Phone: tel: fax: [facility] [address] [place] [address] Phone: tel: Referral ID Status Reason Start Date Expiration Date Visits Re quested Visits Authorized [id number] 1 1 Encounter Details Date Type Department Care Team ([facility] st Contact Info) Description 06/16/2023 9:29 AM EST Anesthesia Event [facility] [address] [place] [address] aRd Kimball MD [address] [place] [address] Anesthesia Record Procedure Summary Procedure Name Responsible Anesthesiologist Anesthesia Start Time Anesthesia Stop Time BILATERAL BOTOX INJECTIONS TO VOCAL FOLDS/VOICEBOX (Bilateral) Rad Kimball MD 06/16/23 0929 06/16/23 1006 Events Date Time Event Comment 06/16/2023 0559 0929 An Start 0930 An Start Data 0930 In Room 0935 An Induction The patient was reevaluated immediately before moderate or deep sedation use and before anesthesia induction. 0937 An Intubation 0939 Anesthesia Ready 0941 Proc Start 0949 Proc Fin 0954 An Extubation 0957 an stop data 0958 Out of Room 1006 Handoff to Receiving I compl eted my handoff to the receiving clinician during which we: 1. Identified the patient 2. Identified the responsible provider 3. Reviewed the pertinent medical history 4. Discussed the surgical course 5. Reviewed intra-op anesthesia management and issues during anesthesia 6. Set expectations for post-procedure period 7. Allowed opportunity for questions and acknowledgement of understanding. 1006 An Stop Meds Name Total fentaNYL (Sublimaze) injection 50 mcg/mL 50 mcg lidocaine PF (Xylocaine-MPF) 2% 100 mg propofol (Diprivan) injection 10 mg/mL 1 00 mg rocuronium (ZeMuron) injection 10 mg/mL 5 mg succinylcholine (Anectine) injection 20 mg/mL 100 mg dexamethasone (Decadron) injection 4 mg/ mL 4 mg ePHEDrine injection prefilled syringe 5 mg/mL 10 mg ondansetron (Zofran) injection 2 mg/mL 4 mg dexmedetomidine (Precedex) infusion in N aCl 4 mcg/mL 8 mcg lactated Ringer's infusion 300 mL * Agents Name O2 Air Sevoflurane Inspired Sevoflurane N2O Inspired N2O * Blood No blood administrations on file. Lines, Drains, and Airways Type Details Placement Removal Wound Mouth 06/16/23 0946 by Peripheral IV Placement Date: 06/02 12/22; Placement Time: 075; Catheter Size: 20 G; Orientation: Posterior, Right; Location: Hand; Site Prep: Chlorhexidine ; Local Anesth: Injectable; Technique: Anatomical landmarks; Inserted by: lesli jane; Insertion Attempts: 1; Patient Tolerance: Tolerated well; Removal Date: 06/16/23; Removal Time: 1035; Removal Reason: Per protocol 06/16/23 0755 by Liliane Jane RN 06/16/23 1035 by Shelia Ramirez RN ETT Placement Date: 06/02 12/22; Placement Time: 936 (created via procedure documentation); Mask Ventilation: 0; Technique: Direct laryngoscopy; Type: ETT - single; Single Lumen Tube Size: 6 mm; Cuffed: Yes; Laryngoscope: Merino; Blade Size: 2; Location: Oral; Grade View: Grade I; Insertion Attempts: 1; Placement Verification: Auscultation, Capnometry; Airway Comments: Sadiq chest rise, Sadiq breath sounds, Positive CO2, Atraumatic Dentition; Placed by: SUPERVISOR SPINNING; Removal Date: 06/16/23; Removal Time: 95306/16/23 09 by Willie Mcduffie CRNA 06/16/23953 by Willie Mcduffie CRNA documented in this encounter Social History Tobacco [...] as of this encounter Miscellaneous Notes * Anesthesia Postprocedure Evaluation - Willie Mcduffie CRNA - 06/16/2023 10:06 AM EST Patient: Brook Bañuelos Anesthesia Type: general Vitals Value Taken Time BP 101/53 06/16/23 1006 Temp 36.7 06/16/23 1006 Pulse 69 06/16/23 1006 Resp 15 06/16/23 1006 SpO2 97 06/16/23 1006 Anesthesia Post Evaluation Patient location during evaluation: PACU Patient participation: complete - patient cannot participate Level of consciousness: sedated (Asleep) Pain management: adequate (pain score 0-3) Airway patency: supraglottic device Cardiovascular status: acceptable and hemodynamically stable Respiratory status: acceptable, oral airway, spontaneous ventilation, nonlabored ventilation and face mask Hydration status: stable Comments: Oxygen tent blowby 6LPM No notable events documented. * Anesthesia Procedure Notes - Willie Mcduffie CRNA - 06/16/2023 9:42 AM ESTAssociated Order(s): Airway Airway Date/Time: 06/16/2023 9:37 AM Urgency: elective Airway not difficult General Information and Staff Patient location during procedure: OR SUPERVISOR SPINNING: Willie Mcduffie CRNA Performed: SUPERVISOR SPINNING Indications and Patient Condition Indications for airway management: anesthesia and airway protection Spontaneous Ventilation: absent Preoxygenated: yes Patient position: sniffing Mask difficulty assessment: 0 - not attempted Final Airway Details Final airway type: endotracheal airway Successful airway: ETT Cuffed: yes Successful intubation technique: direct laryngoscopy Facilitating devices/methods: cricoid pressure and intubating stylet Endotracheal tube insertion site: oral Blade: Merino Blade size: #2 ETT size (mm): 6.0 Cormack-Lehane Classification: grade I - full view of glottis Placement verified by: chest auscultation and capnometry Measured from: lips ETT to lips (cm): 20 Number of attempts at approach: 1 Number of other approaches attempted: 0 Additional Comments Sadiq chest rise, Sadiq breath sounds, Positive CO2, Atraumatic Dentition * Anesthesia Preprocedure Evaluation - Rad Kimball MD - 06/15/2023 2:38 PM EST Patient: Brook Bañuelos Procedure Information Date/Time: 06/16/23 0910 Procedures: BILATERAL BOTOX INJECTIONS TO VOCAL FOLDS/VOICEBOX (Bilateral) . (Bilateral) Location: [facility] OR Surgeons: Antolin Osorio MD Relevant Problems No relevant active problems Anesthesia Evaluation Clinical information reviewed: Med Hx Tobacco Allergies Surg Hx Fam Hx Soc Hx OB Status NPO Status Physical Exam Airway Mallampati: II Cardiovascular - normal exam Dental - normal exam Pulmonary - normal exam Neurological - normal exam Oriented: normal to time, normal to place and normal to person and oriented to person, place and time Skin - normal exam Musculoskeletal - normal exam Extremities -normal exam Anesthesia Plan ASA 2 Plan was reviewed with: SUPERVISOR SPINNING Anesthesia technique(s) discussed with the patient/family: general Anesthesia plan agreed upon was: general Anesthetic plan and risks discussed with patient. Additional Equipment Requests documented in this encounter Plan of Treatment Upcoming Encounters Date Type Department Care Team (Late st Contact Info) Description 08/11/2024 10:10 AM EST Procedure Visit [place] [facility] [address] [place] [address] Antolin Osorio MD [address] [place] [address] documented as of this encounter Procedures Procedure Name Priority Date/Time Associated Diagnosis Comments PB ANESTHESIA PLACEHOLDER Routine 06/16/2023 9:37 AM EST MI AN ELECTIVE ENDOTRACHEAL AIRWAY Routine 06/16/2023 9:37 AM EST documented in this encounter Results * MI AN ELECTIVE ENDOTRACHEAL AIRWAY, PB ANESTHESIA PLACEHOLDER (06/16/2023 9:37 AM EST) Narrative Willie Mcduffie CRNA - 06/16/2023 9:37 AM EST Willie Mcduffie CRNA ? 06/16/2023 ??9:44 AM Airway Date/Time: 06/16/2023 9:37 AM Urgency: elective Airway not difficult General Information and Staff Patient location during procedure: OR SUPERVISOR SPINNING: Willie Mcduffie CRNA Performed: SUPERVISOR SPINNING Indications and Patient Condition Indications for airway management: anesthesia and airway protection Spontaneous Ventilation: absent Preoxygenated: yes Patient position: sniffing Mask difficulty assessment: 0 - not attempted Final Airway Details Final airway type: endotracheal airway Successful airway: ETT Cuffed: yes Successful intubation technique: direct laryngoscopy Facilitating devices/methods: cricoid pressure and intubating stylet Endotracheal tube insertion site: oral Blade: Merion Blade size: #2 ETT size (mm): 6.0 Cormack-Lehane Classification: grade I - full view of glottis Placement verified by: chest auscultation and capnometry Measured from: lips ETT to lips (cm): 20 Number of attempts at approach: 1 Number of other approaches attempted: 0 Additional Comments Sadiq chest rise, Sadiq breath sounds, Positive CO2, Atraumatic Dentition us Rad Kimball MD ANESTHESIA ORDERABLES Edited Result - Final documented in this encounter Visit Diagnoses Not on filedocumented in this encounter Administered Medications Inactive Administered Medications - up to 3 most recent administrations Medication Order MAR Action Action Date Dose Rate Site dexamethasone (Decadron) injection Intravenous, As needed, Starting on Wed06/16/23 at 0943, Until Wed06/16/23 at 1006, Routine, Anesthesia Intraprocedure Given 06/16/2023 9:43 AM EST 4 mg dexmedetomidine in NS (Precedex) 4 mcg/mL infusion Intravenous, As needed, Starting on Wed06/16/23 at 0939, Until Wed06/16/23 at 1006, Routine Given 06/16/2023 9:39 AM EST 8 mcg ePHEDrine Sulfate injection Intravenous, As needed, Starting on Wed06/16/23 at 0947, Until Wed06/16/23 at 1006, Routine, Anesthesia Intraprocedure Given 06/16/2023 9:47 AM EST 10 mg fentaNYL (Sublimaze) injection Intravenous, As needed, Starting on Wed06/16/23 at 0940, Until Wed06/16/23 at 1006, Routine, Anesthesia Intraprocedure Given 06/16/2023 9:40 AM EST 50 mcg lactated Ringer's infusion 100 mL/hr, Intravenous, Continuous, Starting on Wed06/16/23 at 0745, Until Wed06/16/23 at 1254, Routine Restarted 06/16/2023 9:30 AM EST Continued by Anesthesia 06/16/2023 9:29 AM EST 100 mL/hr New Bag 06/16/2023 7:56 AM EST 100 mL/hr 100 mL/hr lidocaine PF (Xylocaine) 2 % injection Intravenous, As needed, Starting on Wed06/16/23 at 0935, Until Wed06/16/23 at 1006, Routine, Anesthesia Intraprocedure Given 06/16/2023 9:35 AM EST 100 mg ondansetron (Zofran) injection Intravenous, As needed, Starting on Wed06/16/23 at 0943, Until Wed06/16/23 at 1006, Routine, Anesthesia Intraprocedure Given 06/16/2023 9:43 AM EST 4 mg propofol (Diprivan) injection Intravenous, As needed, Starting on Wed06/16/23 at 0935, Until Wed06/16/23 at 1006, Routine, Anesthesia Intraprocedure Given 06/16/2023 9:35 AM EST 100 mg rocuronium (ZeMuron) injection Intravenous, As needed, Starting on Wed06/16/23 at 0935, Until Wed06/16/23 at 1006, Routine, Anesthesia Intraprocedure Given 06/16/2023 9:35 AM EST 5 mg succinylcholine (Anectine) injection Intravenous, As needed, Starting on Wed06/16/23 at 0935, Until Wed06/16/23 at 1006, Routine, Anesthesia Intraprocedure Given 06/16/2023 9:35 AM EST 100 mg documented in this encounter Additional Health Concerns Assessment Noted Time A fall risk assessment has been complete d for the patient 05/27/2021 2:11 PM EDT documented as of this encounter Care Teams Hot Pipe Gauger Relationship Specialty Start Date End Date Hung Encinas MD [address] [place] [address] PCP - General 12/13/20 Aung Garcia MD [address] [address] Surgeon Otolaryngology 02/07/21 Antolin Osorio MD [address] [place] [address] Surgeon Otolaryngology 06/12/22 documented as of this encounter
--- OUTSIDE RECORDS SUMMARY | 2024-07-04 10:05 | XMS_ITS | Encounter Summary ---
Author Organization [facility] Address [address] [id number] Care Team Providers Care Baker Name Role Phone Hung Encinas MD Primary Care Provider + [phone] Aung Garcia MD Unavailable Antolin Osorio MD Unavailable [phone] Reason for Referral * Clinic-Administered Medication (Routine) - Closed Specialty Diagnoses / Procedures Referred By Sybil bolivar Referred To Contact Diagnoses Dysphonia Procedures [place] INJECTION,ONABOTULINUMTOXINA Antolin Osorio MD [address] [address] Phone: tel: fax: Referral ID Status Reason Start Date Expiration Date Visits Re quested Visits Authorized [id number] Closed 12/14/2022 06/14/2024 1 1 Reason for Visit * Other Medical (Routine) - Closed Specialty Diagnoses / Procedures Referred By Sybil bolivar Referred To Contact Otolaryngology Diagnoses Dysphonia Procedures Botox Dystonia Antolin Osorio MD [address] [address] Phone: tel: fax: Referral ID Status Reason Start Date Expiration Date Visits Re quested Visits Authorized [id number] Closed 11/06/2022 05/07/2024 1 1 Encounter Details Date Type Department Care Team (Late st Contact Info) Description 12/11/2022 9:10 AM EDT Procedure Visit [place] [facility] [address], [address] [place] [address] Antolin Osorio MD [address] [place] [address] Dysphonia Social History Tobacco Use Types Packs/Day Years Used Date Smoking Tobacco: Never Smokeless Tobacco: Never Alcohol Use Standard Drinks/Week Comments Never 0 (1 standard drink = 0.6 oz pur e alcohol) Comments Unknown Sex and Gender Information Value Date Recorded Sex Assigned at Not on file Legal Sex Female 8:54 PM EDT Gender Identity Not on file Sexual Orientation Not on file documented as of this encounter Miscellaneous Notes * Progress Notes - Antolin Osorio MD - 12/11/2022 9:10 AM EDT PATIENT NAME: Brook Bañuelos DATE OF : 1950 DATE OF PROCEDURE: 12/11/2022 PREOPERATIVE DIAGNOSES: 1. Adductor spasmodic dysphonia POSTOPERATIVE DIAGNOSES: 1. Same PROCEDURE PERFORMED: Botox injection to thyroarytenoid muscles under EMG guidance (92703, 93030), bilateral Patient was examined and her voice quality continues to be consistent with adductor spasmodic dysphonia. Informed consent was obtained for Botox injection for adductor spasmodic dysphonia and the patient was brought into the EMG exam room, placed in a sitting position and connected to EMG electrodes by the collections technician. A monopolar electrode was then connected to the special 27-gauge Perfecto-coated oculinum needle. Under EMG guidance and after verification of the muscle signal by myself, 2.5 unitsof botulinum toxin type A was injected passing through the cricothyroid membrane 1st into the left and then the right thyroarytenoid muscles. The patient tolerated the procedure well and will return in 2 months for follow-up evaluation and repeat injection if necessary. I personally reviewed the patient's speech evaluation by Ms. Hawa Estrada, performed the injection procedure and supervised the laryngeal EMG. Antolin Osorio MD documented in this encounter Plan of Treatment Upcoming Encounters Date Type Department Care Team (Late st Contact Info) Description 08/11/2024 10:10 AM EST Procedure Visit [place] [facility] [address] [place] [id number] Antolin Osorio MD [id number] [place] [address] documented as of this encounter Visit Diagnoses Diagnosis Dysphonia documented in this encounter Administered Medications Inactive Administered Medications - up to 3 most recent administrations Medication Order MAR Action Action Date Dose Rate Site onabotulinumtoxinA (Botox) injection 5 Units 5 Units, Intramuscular, Once, 1 dose, On 12/14/22 at 1900, RoutineIndications:Dysphonia Given by Other 12/11/2022 12:41 PM EDT 5 Units Other documented in this encounter Additional Health Concerns Assessment Noted Time A fall risk assessment has been complete d for the patient 05/27/2021 2:11 PM EDT documented as of this encounter Care Teams Baker Relationship Specialty Start Date End Date Hung Encinas MD [address] [place] [address] PCP - General 12/13/20 Aung Garcia MD [address] [address] Surgeon Otolaryngology 02/07/21 Antolin Osorio MD [address] [address] Surgeon Otolaryngology 06/12/22 documented as of this encounter
--- OUTSIDE RECORDS SUMMARY | 2024-07-04 10:05 | XMS_ITS | Encounter Summary ---
Author Organization Healthcare Address [address] [place] [address] Care Team Providers Care Java Spring Developer Name Role Phone Hung Encinas MD Primary Care Provider + [phone] Aung Garcia MD Unavailable Antolin Osorio MD Unavailable [phone] Encounter Details Date Type Department Care Team (Latest Contact Info) Description 04/20/2023 Travel Social History Tobacco Use Types Packs/Day [...] Visit [place] [facility] [address], [address] [place] [address] Antolin Osorio MD [address] [place] [address] documented as of this encounter Visit Diagnoses Not on filedocumented in this encounter Additional Health Concerns Assessment Noted Time A fall risk assessment has been complete d for the patient 05/27/2021 2:11 PM EDT documented as of this encounter Care Teams Java Spring Developer Relationship Specialty Start Date End Date Hung Encinas MD [address] [place] [address] PCP - General 12/13/20 Aung Garcia MD [address] [place] [address] Surgeon Otolaryngology 02/07/21 Antolin Osorio MD [address] [place] [address] Surgeon Otolaryngology 06/12/22 documented as of this encounter
--- OUTSIDE RECORDS SUMMARY | 2024-07-04 10:05 | XMS_ITS | Encounter Summary ---
Author Organization Healthcare Address [address] [place] [address] Care Team Providers Care Management Department Chair Name Role Phone Hung Encinas MD Primary Care Provider + [phone] Aung Garcia MD Unavailable Antolin Osorio MD Unavailable [phone] Encounter Details Date Type Department Care Team (Latest Contact Info) Description 04/08/2023 Travel Social History Tobacco Use Types Packs/Day [...] Visit [place] [facility] [address], [address] [place] [address] Antolin Osorio MD [address] [place] [address] documented as of this encounter Visit Diagnoses Not on filedocumented in this encounter Additional Health Concerns Assessment Noted Time A fall risk assessment has been complete d for the patient 05/27/2021 2:11 PM EDT documented as of this encounter Care Teams Management Department Chair Relationship Specialty Start Date End Date Hung Encinas MD [address] [place] [address] PCP - General 12/13/20 Aung Garcia MD [address] [place] [address] Surgeon Otolaryngology 02/07/21 Antolin Osorio MD [address] [place] [address] Surgeon Otolaryngology 06/12/22 documented as of this encounter
--- OUTSIDE RECORDS SUMMARY | 2024-07-04 10:05 | XMS_ITS | Encounter Summary ---
Author Organization [facility] Address [address] [id number] Care Team Providers Care Interior Design Professional Name Role Phone Hung Encinas MD Primary Care Provider + [phone] Aung Garcia MD Unavailable Antolin Osorio MD Unavailable [phone] Reason for Referral * Clinic-Administered Medication (Routine) - Closed Specialty Diagnoses / Procedures Referred By Sybil bolivar Referred To Contact Diagnoses Dysphonia Procedures [place] INJECTION,ONABOTULINUMTOXINA Aung Garcia MD [address] [address] Phone: tel: fax: Referral ID Status Reason Start Date Expiration Date Visits Re quested Visits Authorized [id number] Closed 10/10/2022 04/10/2024 1 1 Reason for Visit * Other Medical (Routine) - Closed Specialty Diagnoses / Procedures Referred By Sybil bolivar Referred To Contact Otolaryngology Diagnoses Dysphonia Procedures Botox Dystonia Antolin Osorio MD [address] [address] Phone: tel: fax: Referral ID Status Reason Start Date Expiration Date Visits Re quested Visits Authorized [id number] Closed 09/24/2022 03/25/2024 1 1 Encounter Details Date Type Department Care Team (Late st Contact Info) Description 10/09/2022 9:15 AM EST Procedure Visit [place] [facility] [address], [address] [place] [address] Aung Garcia MD [address] [place] [address] Spasmodic dysphonia (Primary Dx); Dysphonia Social History Tobacco [...] on file Sexual Orientation Not on file COVID-19 Exposure Response Date Recorded In the last 10 days, have yo u been in contact with someone who was confirmed or suspected to have Coronavirus/COVID-19? No / Unsure 10/09/2022 8:55 AM EST documented as of this encounter Miscellaneous Notes * Progress Notes - Aung Garcia MD - 10/09/2022 9:15 AM EST PATIENT NAME: Brook Bañuelos DATE OF : 1950 DATE OF PROCEDURE: 10/09/2022 PREOPERATIVE DIAGNOSES: 1. Adductor spasmodic dysphonia POSTOPERATIVE DIAGNOSES: 1. Same PROCEDURE PERFORMED: Botox injection to thyroarytenoid muscles under EMG guidance (68379, 75074), bilateral Patient was examined and her voice quality continues to be consistent with adductor spasmodic dysphonia. Informed consent was obtained for Botox injection for adductor spasmodic dysphonia and the patient was brought into the EMG exam room, placed in a sitting position and connected to EMG electrodes by the dialysis biomed technician. A monopolar electrode was then connected [...] personally reviewed the patient's speech evaluation by . Hawa Fuentes, performed the injection procedure and supervised the laryngeal EMG. Aung Garcia MD documented in this encounter Plan of Treatment Upcoming Encounters Date Type Department Care Team (Late st Contact Info) Description 08/11/2024 10:10 AM EST Procedure Visit [place] [facility] [address], [address] [place] [address] Antolin Osorio MD [address] [facility] [place] [address] documented as of this encounter Visit Diagnoses Diagnosis Spasmodic dysphonia- Primary Other diseases of larynx Dysphonia documented in this encounter Administered Medications Inactive Administered Medications - up to 3 most recent administrations Medication Order MAR Action Action Date Dose Rate Site onabotulinumtoxinA (Botox) injection 5 Units 5 Units, Intramuscular, Once, 1 dose, On 10/10/22 at 0815, RoutineIndications:Dysphonia Given by Other 10/09/2022 11:15 AM EST 5 Units Other documented in this encounter Additional Health Concerns Assessment Noted Time A fall risk assessment has been complete d for the patient 05/27/2021 2:11 PM EDT documented as of this encounter Care Teams Interior Design Professional Relationship Specialty Start Date End Date Hung Encinas MD [address] [address] PCP - General 12/13/20 Aung Garcia MD [address] [place] [address] Surgeon Otolaryngology 02/07/21 Antolin Osorio MD [address] [facility] [address] [place] [address] Surgeon Otolaryngology 06/12/22 documented as of this encounter
--- OUTSIDE RECORDS SUMMARY | 2024-07-04 10:05 | XMS_ITS | Encounter Summary ---
Author Organization Healthcare Address [address] [place] [address] Care Team Providers Care Computer Equipment Installer Name Role Phone Hung Encinas MD Primary Care Provider + [phone] Aung Garcia MD Unavailable Antolin Osorio MD Unavailable [phone] Encounter Details Date Type Department Care Team (Latest Contact Info) Description 03/11/2023 Travel Social History Tobacco Use Types Packs/Day [...] Visit [place] [facility] [address], [address] [place] [address] Antolin Osorio MD [address] [place] [address] documented as of this encounter Visit Diagnoses Not on filedocumented in this encounter Additional Health Concerns Assessment Noted Time A fall risk assessment has been complete d for the patient 05/27/2021 2:11 PM EDT documented as of this encounter Care Teams Computer Equipment Installer Relationship Specialty Start Date End Date Hung Encinas MD [address] [place] [address] PCP - General 12/13/20 Aung Garcia MD [address] [place] [address] Surgeon Otolaryngology 02/07/21 Antolin Osorio MD [address] [place] [address] Surgeon Otolaryngology 06/12/22 documented as of this encounter
--- OUTSIDE RECORDS SUMMARY | 2024-07-04 10:05 | XMS_ITS | Encounter Summary ---
Author Organization Healthcare Address [address] [place] [address] Care Team Providers Care Entry Level Account Representative Name Role Phone Hung Encinas MD Primary Care Provider + [phone] Aung Garcia MD Unavailable Antolin Osorio MD Unavailable [phone] Encounter Details Date Type Department Care Team (Latest Contact Info) Description 08/14/2022 Travel Social History Tobacco Use Types Packs/Day [...] suspected to have Coronavirus/COVID-19? No / Unsure 08/14/2022 8:57 AM EST documented as of this encounter Plan of Treatment Upcoming Encounters Date Type Department Care Team (Late st Contact Info) Description 08/11/2024 10:10 AM EST Procedure Visit [place] [facility] [address], [address] [place] [address] Antolin Osorio MD [address] [place] [address] documented as of this encounter Visit Diagnoses Not on filedocumented in this encounter Additional Health Concerns Assessment Noted Time A fall risk assessment has been complete d for the patient 05/27/2021 2:11 PM EDT documented as of this encounter Care Teams Entry Level Account Representative Relationship Specialty Start Date End Date Hung Encinas MD [address] [address] PCP - General 12/13/20 Aung Garcia MD [address] [place] [address] Surgeon Otolaryngology 02/07/21 Antolin Osorio MD [address] [place] [address] Surgeon Otolaryngology 06/12/22 documented as of this encounter
--- OUTSIDE RECORDS SUMMARY | 2024-07-04 10:05 | XMS_ITS | Encounter Summary ---
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 Antolin Osorio MD [address] [place] [address] Phone: tel: fax: [facility] [address] [place] [address] Phone: tel: Referral ID Status Reason Start Date Expiration Date Visits Re quested Visits Authorized [id number] 1 1 Encounter Details Date Type Department Care Team (Late st Contact Info) Description 06/16/2023 7:05 AM EST - 06/16/2023 10:[address] [facility] Hospital Encounter [facility] [address] [place] [address] Antolin Osorio MD [address] [place] [address] Muscle tension dysphonia; Adductor spasmodic dysphonia; Glottic insufficiency Discharge Disposition: Home or Self Care Social [...] Sign Reading Time Taken Comments Blood Pressure 126/67 06/16/2023 10:30 AM EST Pulse 82 06/16/2023 10:30 AM EST Temperature 36.7 ??C (98.1 ??F) 06/16/2023 10:[address] Respiratory Rate 14 06/16/2023 10:30 AM EST Oxygen Saturation 97% 06/16/2023 10:30 AM EST Inhaled Oxygen Concentration - - Weight 66.5 kg (146 lb 9.7 oz) 06/16/2023 7:23 A M EST Height 162.6 cm (5' 4 ) 06/16/2023 7:23 AM EST Body Mass Index 25.16 06/16/2023 7:23 AM EST documented in this encounter Discharge Instructions * Discharge Instructions* Shelia Ramriez RN - 06/16/2023 9:53 AM EST Images from the original note were not included. DIET: No restrictions WOUND CARE: N/A ACTIVITY: Voice rest for 3 days, followed by arms-length speech only for 2 weeks HYGIENE: No restrictions PAIN: Take tylenol and/or ibuprofen as needed for pain NOTIFY PHYSICIAN IF: You develop a fever >102 or show other obvious signs of infection (shaking, chills). You have severe pain that is not able to be controlled with the medications you have been sent homewith. FOLLOW-UP: Follow-up on 07/16, as scheduled Post-Anesthesia and Postoperative Instructions () In order to have a fast and comfortable recovery at home, please follow these instructions. A responsible adult must be present for you to be discharged. Do not drive, drink alcohol or make important decisions for 24 hours after surgery. You may feel like resting more than normal after surgery. Start slowly and be more active each day. Start slowly with liquids like 7-up, tea, apple juice or broth. Eat more as your stomach allows. Ifyou feel sick to your stomach, go back to drinking liquids. You may feel some discomfort after surgery. Take the medicine as directed by your caregiver. If your medicine makes you drowsy, do not drink alcohol, drive or operate heavy equipment for at least 24 hours after use. If you are taking antibiotics, take them until they are all gone even if you feel well. Cover your wound or bandage when showering, unless your doctor tells you differently. A small amount of drainage on your bandage is normal. Do not remove your bandage unless your doctortells you to. Please keep track of information about the medicines you take. Follow these tips to manage your medicines. Keep a list of all your medicines. Update the list when you start or stop taking a medicine. Write down changes in how you should take them. Carry your medicine list with you at all times. It will be needed if you have a health emergency . Give the list to your family doctor. Take the list to all your doctor visits. Call your doctor if you have any of the following Temperature higher than 101.5??F Chest pain or difficulty breathing Stomach sickness or throwing up that does not go away You cannot urinate by bedtime Pain is not helped by your medicine. Bandage becomes soaked with blood - Don't remove the bandage, reinforce only Swelling, redness, pain or pus from incision Questions or concerns about your surgery. In the event of an emergency, please go to the closest Emergency Room or call the Emergency Department at [phone]. Smoking and its health risks Smoking is the most preventable cause of illness and in the [place]. Cigarettes are filled with poison that goes into the lungs as you inhale. About 440,000 people every year from illnesses caused by smoking. People who smoke earlier than those who do not smoke. Heart and blood vessel disease, lung disease and ulcers are just some of the health problems that may be caused by smoking. Smoking also slows bone and wound healing and may slow your recovery from surgery. For help quitting smoking, call the National [employer] [place]'s Quitline toll free at or ask your doctor for help. Weight Management Weighing too much is not good for your health. Being overweight increases your risk of health conditions such as heart problems, high blood pressure, type 2 diabetes, and certain types of cancer. Being overweight can also increase your risk for osteoarthritis (zr-gcs-md-rge-YOQP-bsb) (joint disease), sleep apnea (abnormal breathing at night) or other respiratory (breathing) problems. Being overweight may also cause a person to feel sad or be treated differently by others. The best way to lose weight is to eat fewer calories and get regular exercise. Eating more caloriesthan you need will cause you to gain weight. Try to cut down your calories by 500 calories per day.For example, cut down on one soda (about 150 calories), a small bag of regular potato chips (about 150 calories) and one chocolate bar (about 250 calories). For most people, this change will result in a slow weight loss of about one pound a week. Exercise (for example, walk, swim, or bicycle) for at least 30 minutes on most days of the week. You will be more likely to keep weight off if you make lifelong lifestyle changes. Aim for a slow, steady weight loss. Losing even a small amount of weight can lower your risk of health problems. Ask your dietitian, fancy wire drawer or doctor about a weight loss goal that is right for you. Safe Use of Controlled Substances Taking a medicine may be an important part of your treatment. Your body should heal faster if you take medicine safely. Some medicines are called Controlled Substances. This means their use is controlled by law. Some of these can harm you if you do not take them safely. What can I do to make sure I take my medicine safely? Follow the instructions we give you for how to take your medicine. We will give you an instruction sheet for each of your medicines. Ask your doctor or nurse if you do not get these instructions. Some medicines make you sleepy or cloud your thinking. Do not drive, use heavy machines or do dangerous activities while taking these medicines. Read the label on the bottle each time you take your medicine. Do not take your medicine with alcohol or other sedatives. Do not take medicine after the expiration date. It is against the law to sell your medicine or share it with others. Do not drive while using your medicine. How should I store my medicine? Store it in a safe place. This will keep others from taking your medicine and help you keep track of it. Store controlled substances in a cabinet or container that you can lock. Keep it in a place that is cool, dry and out of direct sunlight. Do not leave it in the car. Do not store in a refrigerator or freezer, unless your doctor tells you to. Call your doctor right away if your medicine is lost or stolen. How should I dispose of medicine that is or no longer needed? You may have medicine left over that you do not need or should not take. You must dispose of it theright way to protect yourself and others. You can ask your local pharmacist how to dispose of them.You can also visit these Web sites to learn more about disposal of controlled substances: Drug Enforcement Agency ([place]): http://www.deadiversion.Alvos Therapeuticoquickhuddle.gov/drug_disposal/takeback/index.htm National Association of Drug Diversion Investigators (NADDI): http://rxdrugdropbox.org/ [place] Office of Drug Control Policy: http://odcp.[place].gov/Prescription+Drug+Drop+Box+Sites.htm Are there concerns about or ? Before you take a medicine, tell your doctor if you are or plan to get . This could harm your baby. Tell your doctor if you breastfeed. Medicine in breast milk may be bad for your child. What if I have low or impaired vision? If you have vision problems, take extra care with your medicine. Wear your glasses when you take your medicine. Do not take medicine in the dark. What are the signs of overdose? Some controlled substances may cause breathing problems if you take more than your doctor recommends. This may lead to serious health problems or even . You and your caregivers should watch for the following signs of overdose. Slurred speech, confusion or stumbling Feeling dizzy or faint Acting drowsy or groggy Unusual snoring, gasping or snorting during sleep Hard to wake up or keep awake What should I or my caregiver do if I overdose? You or your caregiver should call 911 if you have any of these problems: Cannot wake up Cannot talk after waking up Shortness of breath, slow or light breathing, or breathing has stopped Heartbeat is slow or stopped Gurgling noise comes from the mouth or throat Body is limp or seems lifeless Face is pale or clammy Fingernails or lips look blue or purple What is a [facility] report? MELODY is a system that tracks prescriptions of controlled substances in [place]. The [facility] report tells your doctor if you have been prescribed controlled substances in the past. Doctors must get a MELODY report before prescribing controlled substances. What can I do if the information in my MELODY report is wrong? You or your doctor may contact the dispenser who reported the information to MELODY. If the dispenser agrees that the information should be changed, he or she can fix the MELODY report. However, the dispenser may certify that the report is correct. If that is the case, you or your doctor may then call the [place] Drug Enforcement and Professional Practices Branch at .This will start an investigation of the error. Tips for Quitting Tobacco ([place]) Tobacco and secondhand smoke can cause health problems such as cancer or heart and lung disease. They also make it harder for you to get better after an illness or surgery. Tobacco and tobacco smoke have more than 4000 chemicals. They can hurt you and those near you. Know your ???triggers?? Triggers are danger situations where you have a strong urge to use tobacco. If you know them, you can deal with them. Avoid places where you will see people use tobacco. This is very important when you first start to quit. Plus, secondhand smoke is bad for you. Change habits that give you the urge to use tobacco. If you smoked in the car, drink water instead.If you used tobacco after meals, try taking walks. Stress, anger or sadness can cause you to crave tobacco. Fight the urge by thinking of things that make you relaxed or happy - like your favorite song. The urge will often pass in a few minutes. How to cope with nicotine withdrawal Nicotine in tobacco is very addictive. Nicotine withdrawal can put you in a bad mood and cause you to crave tobacco. This can last for weeks after you quit. There are medicines that can ease these feelings. We can help our patients fight the urge to use tobacco. While you are here, your doctor can get you medicines, nicotine patches or gum. Talk to your doctor about which one is best for you. Let us help you quit You do not have to spend a lot of money to get help. You may even find help for free. Support groups: Your local health department may offer these. 's resources to help you quit: http://www.[facility]/TobaccoFree/ - Click on the Quit Here! tab. A telephone quit line: (8-166-YZOOPHM) Web sites: www.smokefree.gov, www.becomeanex.org, www.[employer] Tobacco Treatment Counselors: Call 007-293-0535. Medicare and Medicaid pay for this. employees, retirees, and their spouses or sponsored dependents can get free nicotine replacementtherapy and coaching. Visit www.[facility]/HR/Wellness/consults.html. [facility]: Free pamphlets on quitting tobacco, secondhand smoke and other health topics. Tell your doctor or nurse if you are want to know more. We can help! You can quit! It is hard to quit tobacco. Most people try to quit a few times before they stay quit for good. It will be easier to quit if you can relax and stay calm in times of stress. Quitting tobacco saves youmoney and your health! documented in this encounter Medications at Time of Discharge celecoxib (CeleBREX) 100 MG capsule Take by mouth 1 (one) time each day in the morning. 03/10/2021 felodipine ER (Plendil) 10 MG 24 hr tablet Take by mouth every night. 03/21/2014 fluticasone (Flonase) 50 MCG/ACT nasal spray Administer into each nostril every night. 12/16/2020 gabapentin (Neurontin) 300 MG capsule Take by mouth 2 (two) times a day. 03/21/2014 hydroCHLOROthiaz xiomy (HYDRODiuril) 25 MG tablet Take 0.5 tablets (12.5 mg) by mouth every night. 06/24/2020 lisinopril 20 MG tablet Take by mouth 1 (one) time each day in the morning. 12/21/2022 Multiple Vitamin (MULTIVITAMIN ADULT PO) Take by mouth 1 (one) time each day in the morning. pravastatin (Pravachol) 40 MG tablet Take by mouth every night. 03/21/2014 documented as of this encounter Miscellaneous Notes * Anesthesia PACU Signout - Rad Kimball MD - 06/16/2023 10:12 AM EST Patient: Brook Bañuelos Anesthesia Type: general Vitals Value Taken Time BP 136/65 06/16/23 1010 Temp 36.7 ??C (98.1 ??F) 06/16/23 1005 Pulse 91 06/16/23 1010 Resp 15 06/16/23 1010 SpO2 98 % 06/16/23 1010 Vitals shown include unvalidated device data. Anesthesia PACU Signout Patient location during evaluation: PACU Patient participation: complete - patient participated Level of consciousness: baseline Pain management: adequate (pain score 0-3) Airway patency: natural airway Hydration status: acceptable PONV: none Cardiovascular status: acceptable and hemodynamically stable Respiratory status: acceptable, spontaneous ventilation, unassisted and nonlabored ventilation Discharge Disposition: home * Op Note - Antolin Osorio MD - 06/16/2023 9:41 AM EST OPERATIVE NOTE: PATIENT NAME: Brook Bañuelos; DATE OF : 1950; DATE OF SURGERY: 06/16/2023; Location: [facility] OR PREOPERATIVE DIAGNOSES: 1. Adductor spasmodic dysphonia 2. Vocal insufficiency POSTOPERATIVE DIAGNOSES: 1. Same PROCEDURE PERFORMED: Microscopic direct laryngoscopy and right vocal fold augmentation laryngoplasty with calcium hydroxyapatite (Prolaryn Plus), right, bilateral Botox injections to the thyroarytenoid muscles and supraglottic larynx ATTENDING SURGEON: Antolin Osorio MD. RESIDENT SURGEON: Dr. Bains ANESTHESIA: General. DRAINS, STENTS, IMPLANTS: Prolaryn Plus injectable material; Botox SPECIMEN: None ESTIMATED BLOOD LOSS: None. COMPLICATIONS: None OPERATIVE FINDINGS: 1. Right fold - 0.1 ml 2. Bilateral Botox injections to the thyroid arytenoid muscle and supraglottic larynx INDICATIONS FOR SURGERY: Brook Bañuelos is a 72 y.o. female with adductor spasmodic dysphonia that is not noticed improvements despite attempts at Botox injections in the voice clinic and persistent hoarseness with evidence of presbylarynges and vocal insufficiency and is now brought to the OR for surgical management after failure of medical & speech therapy. OPERATIVE DESCRIPTION: The patient was brought to the operating room and placed on the operating table in supine position. General endotracheal anesthesia was induced by a #6 endotracheal tube. Once the patient was anesthetized a timeout was called to identify the patient and procedure. The table was then turned 120?? and the operating microscope was brought into place. The laryngoscope was introduced, vocal folds identified and scope suspended on a Muñoz stand with anexcellent view of the glottis. 2.5 units of Botox was injected into both thyroid arytenoid muscles and then 3.75 units were injected into the supraglottic larynx posteriorly on both sides as well. Right vocal fold was noted to be significantly deficient and was medialized with 0.1 ml of Prolaryn Plus. The vocal folds were gently massaged, adequate augmentation was achieved with overcorrection andthe procedure was terminated. The patient was extubated deep and awakened without incident. The patient was taken to postoperative care unit in stable condition. She will be on voice rest for 2-3 days. I performed the procedure(s) personally. * H&P - Poli Bains MD - 06/16/2023 8:23 AM EST History Of Present Illness Brook Bañuelos is a 72 y.o. female presenting with adductor spasmodic dysphonia. 12 Point Review of Systems performed and negative except that mentioned in HPI. PHYSICAL EXAM Physical examination today reveals a well developed (BMI 18.5-25) female in no apparent distress. Her voice is very strained and monotonous. Oral exam reveals good palatal elevation and tongue mobility. Her neck exam is benign without thyromegaly, adenopathy or tracheal deviation. Her heart and lungs are clear to auscultation. Last Recorded Vitals Blood pressure (!) 153/83, pulse 76, temperature 36.7 ??C (98.1 ??F), resp. rate 20, height 1.626 m(5' 4 ), weight 66.5 kg (146 lb 9.7 oz), SpO2 97 %. Relevant Results Nothing new Assessment/Plan Active Problems: There are no active Hospital Problems. To OR for direct laryngoscopy with botox injection into the supraglottic and laryngeal musculature Her family history is not on file.. Past Medical History: Diagnosis Date Arthritis Back Dysphonia 2022 Exercise tolerance finding 06/02/2023 Can climb 3 flights of stairs w/o SOA Hyperlipidemia Hypertension Low back pain Past Surgical History: Procedure Laterality Date BACK SURGERY COLONOSCOPY HYSTERECTOMY N/A Hysterectomy from [facility] Social History Tobacco Use Smoking status: Never Smokeless tobacco: Never Vaping Use Vaping Use: Never used Substance Use Topics Alcohol use: Never Drug use: Never No Known Allergies No current facility-administered medications on file prior to encounter. Current Outpatient Medications on File Prior to Encounter: celecoxib, Take by mouth 1 (one) time each day in the morning. felodipine ER, Take by mouth every night. fluticasone, Administer into each nostril every night. gabapentin, Take by mouth 2 (two) times a day. hydroCHLOROthiazide, Take 0.5 tablets (12.5 mg) by mouth every night. lisinopril, Take by mouth 1 (one) time each day in the morning. Multiple Vitamin (MULTIVITAMIN ADULT PO), Take by mouth 1 (one) time each day in the morning. pravastatin, Take by mouth every night. Cosigned by Antolin Osorio MD at 06/16/2023 8:38 AM EST Associated attestation - Antolin Osorio MD - 06/16/2023 8:38 AM EST The patient was seen and examined with Dr. Bains, I discussed and I agree with their assessment andplan as described in our note. * PAT Phone Note - Jennifer Shrestha RN - 06/02/2023 10:50 AM EDT HPI Brook Bañuelos is a 72 y.o. 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 (Bilateral). Date scheduled is 06/16/2023. Past Medical History: Diagnosis Date Arthritis Back Dysphonia 2022 Exercise tolerance finding 06/02/2023 Can climb 3 flights of stairs w/o SOA Hyperlipidemia Hypertension Low back pain Family History Problem Relation Name Age of Onset Anesthesia problems Neg Hx Social History Tobacco Use Smoking status: Never Smokeless tobacco: Never Vaping Use Vaping Use: Never used Substance Use Topics Alcohol use: Never Drug use: Never SURGICAL HISTORY: Past Surgical History: Procedure Laterality Date BACK SURGERY COLONOSCOPY HYSTERECTOMY N/A Hysterectomy from [facility] No Known Allergies MEDICATIONS: No current facility-administered medications for this encounter. Current Outpatient Medications: celecoxib, Take by mouth 1 (one) time each day in the morning. felodipine ER, Take by mouth every night. fluticasone, Administer into each nostril every night. gabapentin, Take by mouth 2 (two) times a day. hydroCHLOROthiazide, Take 0.5 tablets (12.5 mg) by mouth every night. lisinopril, Take by mouth 1 (one) time each day in the morning. Multiple Vitamin (MULTIVITAMIN ADULT PO), Take by mouth 1 (one) time each day in the morning. pravastatin, Take by mouth every night. Jennifer Shrestha RN * Preprocedure Instructions - Jennifer Shrestha RN - 06/02/2023 10:48 AM EDT Current Medications Medication Instructions celecoxib (CeleBREX) 100 MG capsule Hold 3-5 days before surgery felodipine ER (Plendil) 10 MG 24 hr tablet Take night before surgery fluticasone (Flonase) 50 MCG/ACT nasal spray Take night before surgery gabapentin (Neurontin) 300 MG capsule Take morning of surgery hydroCHLOROthiazide (HYDRODiuril) 25 MG tablet Take night before surgery lisinopril 20 MG tablet Hold day of surgery Multiple Vitamin (MULTIVITAMIN ADULT PO) Hold day of surgery pravastatin (Pravachol) 40 MG tablet Take night before surgery General Preoperative Instructions You will be called the business day before surgery with your arrival time Do not eat or drink anything after midnight except water with your medications unless other instructions are given No alcohol or smoking prior to surgery Arrive on time to avoid delays Parking/Registration procedure explained You MUST have a responsible adult available for transport to and from hospital Visitation policy for the day of surgery reviewed Bring insurance card, photo ID, along with power of candy cooker helper, guardianship or advanced directives if applicable Do not bring money, jewelry or other valuables Hibiclens bathing instructions reviewed if applicable Notify surgeon of fever, illness, any changes or if you decide not to have surgery Pediatric patients under 12 years of age (If applicable) No solid food or milk after midnight Formula 6 hours prior to arrival for surgery Breast milk 4 hours prior to arrival surgery Clear liquids 2 hours prior to arrival for surgery Diabetes Instructions (If applicable) Take diabetes medication as instructed You may have up to 4 ounces of apple juice 2 hours prior to arrival for surgery for low glucose documented in this encounter Plan of Treatment Upcoming Encounters Date Type Department Care Team (Late st Contact Info) Description 08/11/2024 10:10 AM EST Procedure Visit [place] [facility] [address] [place] [address] Antolin Osorio MD [address] [place] [address] documented as of this encounter Procedures Procedure Name Priority Date/Time Associated Diagnosis Comments PA CHEMODENERVATION MUSCLE NECK UNILAT FOR DYSTONIA 06/16/2023 9:25 AM EST 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 PA LARYNGOSCOPY,DIRECT,SCOPE, INJ CORDS 06/16/2023 9:25 AM EST 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 documented in this encounter Visit Diagnoses Diagnosis Muscle tension dysphonia Other diseases of larynx Adductor spasmodic dysphonia Other diseases of larynx Glottic insufficiency Other diseases of vocal cords documented in this encounter Administered Medications Inactive Administered Medications - up to 3 most recent administrations Medication Order MAR Action Action Date Dose Rate Site acetaminophen (Tylenol) tablet 650 mg 650 mg, Oral, Every 6 hours PRN, Starting on Wed06/16/23 at 0725, Until Wed06/16/23 at 1007, Routine, Holding - Preprocedure, mild pain Given 06/16/2023 7:46 AM EST 650 mg aprepitant (Emend) capsule 40 mg 40 mg, Oral, Daily, First dose on Wed06/16/23 at 0900, Until Discontinued, Routine, Holding - Preprocedure Given 06/16/2023 8:00 AM EST 40 mg fentaNYL (Sublimaze) injection 25 mcg 25 mcg, Intravenous, Every 5 min PRN, 2 doses, Starting on Wed06/16/23 at 0957, Until Wed06/16/23 at 1254, Routine, Recovery (Phase I only), pain score of 3-4 out of 10 lactated Ringer's infusion 100 mL/hr, Intravenous, Continuous, Starting on Wed06/16/23 at 0745, Until Wed06/16/23 at 1254, Routine Restarted 06/16/2023 9:30 AM EST Continued by Anesthesia 06/16/2023 9:29 AM EST 100 mL/hr New Bag 06/16/2023 7:56 AM EST 100 mL/hr 100 mL/hr lidocaine (Xylocaine) 1 % injection 0.5 mL 0.5 mL, Injection, Once as needed, 1 dose, Starting on Wed06/16/23 at 0725, Until Wed06/16/23 at 0746, Routine, Holding - Preprocedure, If needed to start an IV. Given 06/16/2023 7:46 AM EST 0.5 mL naloxone (Narcan) injection 0.4 mg 0.4 mg, Intravenous, As needed, Starting on Wed06/16/23 at 0957, Until Wed06/16/23 at 1254, Routine, Recovery (Phase I only), respiratory depression ondansetron (Zofran) injection 4 mg 4 mg, Intravenous, Once as needed, 1 dose, Starting on Wed06/16/23 at 0957, Until Wed06/16/23 at 1254, Routine, Recovery (Phase I only), nausea, vomiting ondansetron ODT (Zofran-ODT) disintegrating tablet 4 mg 4 mg, Oral, Once, 1 dose, On Wed06/16/23 at 0745, Routine, Holding - Preprocedure Given 06/16/2023 7:46 AM EST 4 mg oxyCODONE (Roxicodone) immediate release tablet 10 mg 10 mg, Oral, Once as needed, 1 dose, Starting on Wed06/16/23 at 0957, Until Wed06/16/23 at 1254, Routine, Recovery (Phase I only), pain score of 6-8 out of 10 oxyCODONE (Roxicodone) immediate release tablet 5 mg 5 mg, Oral, Once as needed, 1 dose, Starting on Wed06/16/23 at 0957, Until Wed06/16/23 at 1254, Routine, Recovery (Phase I only), pain score of 3-5 out of 10 sodium chloride 0.9 % flush 10 mL 10 mL, Intravenous, Every 8 hours PRN, Starting on Wed06/16/23 at 0725, Until Wed06/16/23 at 1254, Routine, Holding - Preprocedure, line care sodium chloride 0.9 % flush 10 mL 10 mL, Intravenous, As needed, Starting on Wed06/16/23 at 0725, Until Wed06/16/23 at 1254, Routine, Holding - Preprocedure, line care documented in this encounter Active and Recently Administered Medications Times are shown in EST. Scheduled Medication Order 06/14/2023 06/15/2023 06/16/2023 aprepitant (Emend) capsule 40 mg (CANCELED) 40 mg, Oral, Daily, First dose on Wed06/16/23 at 0900, Until Discontinued, Routine, Holding - Preprocedure 0800 (Given - Provid er: Liliane Whitehead RN) lactated Ringer's infusion 20 mL/hr, Intravenous, Once, 1 dose, On Wed06/16/23 at 1015, Routine 1015 (Canceled Entry - Provider: Automatic Discharge Provider - Comment: Automatically canceled at discontinue of medication order) ondansetron ODT (Zofran-ODT) disintegrating tablet 4 mg (COMPLETED) 4 mg, Oral, Once, 1 dose, On Wed06/16/23 at 0745, Routine, Holding - Preprocedure 0746 (Given - Provid er: Liliane Whitehead RN) Continuous Medication Order 06/14/2023 06/15/2023 06/16/2023 lactated Ringer's infusion 100 mL/hr, Intravenous, Continuous, Starting on Wed06/16/23 at 0745, Until Wed06/16/23 at 1254, Routine 0756 (New Bag - Prov ider: Liliane Whitehead RN)0929 (Continued by Anesthesia - Provider: Willie Mcduffie CRNA)0929 (Paused - Provider: Willie Mcduffie CRNA - Comment: Switch to gravity)0930 (Restarted - Provider: Willie Mcduffie CRNA)1005 (Anesthesia Volume Adjustment - Provider: Willie Mcduffie CRNA) PRN Medication Order 06/14/2023 06/15/2023 06/16/2023 acetaminophen (Tylenol) tablet 650 mg (CANCELED) 650 mg, Oral, Every 6 hours PRN, Starting on Wed06/16/23 at 0725, Until Wed06/16/23 at 1007, Routine, Holding - Preprocedure, mild pain 0746 (Given - Provid er: Liliane Whitehead RN) fentaNYL (Sublimaze) injection 25 mcg 25 mcg, Intravenous, Every 5 min PRN, 2 doses, Starting on Wed06/16/23 at 0957, Until Wed06/16/23 at 1254, Routine, Recovery (Phase I only), pain score of 3-4 out of 10 lidocaine (Xylocaine) 1 % injection 0.5 mL (COMPLETED) 0.5 mL, Injection, Once as needed, 1 dose, Starting on Wed06/16/23 at 0725, Until Wed06/16/23 at 0746, Routine, Holding - Preprocedure, If needed to start an IV. 0746 (Given - Provid er: Liliane Whitehead RN) naloxone (Narcan) injection 0.4 mg 0.4 mg, Intravenous, As needed, Starting on Wed06/16/23 at 0957, Until Wed06/16/23 at 1254, Routine, Recovery (Phase I only), respiratory depression onabotulinumtoxinA (Botox) injection (CANCELED) As needed, Starting on Wed06/16/23 at 0950, Until Wed06/16/23 at 0958, Routine, Intraprocedure 0950 (Given - Provid er: Poli Bains MD - Comment: larynx) ondansetron (Zofran) injection 4 mg 4 mg, Intravenous, Once as needed, 1 dose, Starting on Wed06/16/23 at 0957, Until Wed06/16/23 at 1254, Routine, Recovery (Phase I only), nausea, vomiting oxyCODONE (Roxicodone) immediate release tablet 10 mg(Linked Group 1) 10 mg, Oral, Once as needed, 1 dose, Starting on Wed06/16/23 at 0957, Until Wed06/16/23 at 1254, Routine, Recovery (Phase I only), pain score of 6-8 out of 10 oxyCODONE (Roxicodone) immediate release tablet 5 mg(Linked Group 1) 5 mg, Oral, Once as needed, 1 dose, Starting on Wed06/16/23 at 0957, Until Wed06/16/23 at 1254, Routine, Recovery (Phase I only), pain score of 3-5 out of 10 sodium chloride 0.9 % flush 10 mL(Linked Group 2) 10 mL, Intravenous, Every 8 hours PRN, Starting on Wed06/16/23 at 0725, Until Wed06/16/23 at 1254, Routine, Holding - Preprocedure, line care sodium chloride 0.9 % flush 10 mL(Linked Group 2) 10 mL, Intravenous, As needed, Starting on Wed06/16/23 at 0725, Until Wed06/16/23 at 1254, Routine, Holding - Preprocedure, line care Linked Groups Order Group 1: oxyCODONE (Roxicodone) immediate release tablet 5 mgJump to med 5 mg, Oral, Once as needed, 1 dose, Starting on Wed06/16/23 at 0957, Until Wed06/16/23 at 1254, Routine, Recovery (Phase I only), pain score of 3-5 out of 10 Or oxyCODONE (Roxicodone) immediate release tablet 10 mgJump to med 10 mg, Oral, Once as needed, 1 dose, Starting on Wed06/16/23 at 0957, Until Wed06/16/23 at 1254, Routine, Recovery (Phase I only), pain score of 6-8 out of 10 Group 2: Insert peripheral IV (CANCELED) Once, On Wed06/16/23 at 0726, For 1 occurrence, Holding - Preprocedure And Saline lock IV (CANCELED) Continuous, Starting on Wed06/16/23 at 0726, Until Specified, Holding - Preprocedure And sodium chloride 0.9 % flush 10 mLJump to med 10 mL, Intravenous, Every 8 hours PRN, Starting on Wed06/16/23 at 0725, Until Wed06/16/23 at 1254, Routine, Holding - Preprocedure, line care And sodium chloride 0.9 % flush 10 mLJump to med 10 mL, Intravenous, As needed, Starting on Wed06/16/23 at 0725, Until Wed06/16/23 at 1254, Routine, Holding - Preprocedure, line care documented in this encounter Additional Health Concerns Assessment Noted Time A fall risk assessment has been complete d for the patient 05/27/2021 2:11 PM EDT documented as of this encounter Care Teams Crown Pouncer Relationship Specialty Start Date End Date Hung Encinas MD [address] [place] [id number] PCP - General 12/13/20 Aung Garcia MD [address] [facility] [place] [address] Surgeon Otolaryngology 02/07/21 Antolin Osorio MD [address] [place] [id number] Surgeon Otolaryngology 06/12/22 documented as of this encounter
--- OUTSIDE RECORDS SUMMARY | 2024-07-04 10:05 | XMS_ITS | Encounter Summary ---
Author Organization [facility] Address [address] [place] [address] Care Team Providers Care Cell Builder Name Role Phone Hung Encinas MD Primary Care Provider + [phone] Aung Garcia MD Unavailable Antolin Osorio MD Unavailable [phone] Reason for Referral * Clinic-Administered Medication (Routine) - Closed Specialty Diagnoses / Procedures Referred By Sybil bolivar Referred To Contact Diagnoses Dysphonia Procedures NH INJECTION,ONABOTULINUMTOXINA Aung Garcia MD [address] [address] Phone: tel: fax: Referral ID Status Reason Start Date Expiration Date Visits Re quested Visits Authorized [id number] Closed 02/05/2023 08/06/2024 1 1 Reason for Visit * Other Medical (Routine) - Closed Specialty Diagnoses / Procedures Referred By Sybil bolivar Referred To Contact Neurology Diagnoses Dysphonia Procedures Botox Dystonia Antolin Osorio MD [address] [address] Phone: tel: fax: [place] [facility] [address] [place] [address] Phone: tel: fax: Referral ID Status Reason Start Date Expiration Date Visits Re quested Visits Authorized [id number] Closed 12/31/2022 07/01/2024 1 1 Encounter Details Date Type Department Care Team (Late st Contact Info) Description 02/05/2023 11:30 AM EDT Procedure Visit [place] [facility] [address] [place] [address] Aung Garcia MD [address] [place] [address] Spasmodic dysphonia (Primary Dx); Dysphonia [...] Progress Notes - Aung Garcia MD - 02/05/2023 11:30 AM EDT PATIENT NAME: Brook Bañuelos DATE OF : 1950 DATE OF PROCEDURE: 02/05/2023 PREOPERATIVE DIAGNOSES: 1. Adductor spasmodic dysphonia POSTOPERATIVE DIAGNOSES: 1. Same PROCEDURE PERFORMED: Botox injection to thyroarytenoid muscles under EMG guidance ([id number]), bilateral Patient was examined and her voice quality continues to be consistent with adductor spasmodic dysphonia. Informed consent was obtained for Botox injection for adductor spasmodic dysphonia and the patient was brought into the EMG exam room, placed in a sitting position and connected to EMG electrodes by the industrial electrical technician. A monopolar electrode was then connected to the special 27-gauge Perfecto-coated oculinum needle. Under EMG guidance and after verification of the muscle signal by myself, 2.75 units of botulinum toxin type A was [...] Description 08/11/2024 10:10 AM EST Procedure [facility] [address] [place] [address] Antolin Osorio MD [address] [facility] [address] [place] [address] documented as of this encounter Visit Diagnoses Diagnosis Spasmodic dysphonia- Primary Other diseases of larynx Dysphonia documented in this encounter Administered Medications Inactive Administered Medications - up to 3 most recent administrations Medication Order MAR Action Action Date Dose Rate Site onabotulinumtoxinA (Botox) injection 6 Units 6 Units, Intramuscular, Once, 1 dose, On Wed02/05/23 at 1730, RoutineIndications:Dysphonia Given by Other 02/05/2023 1:06 PM EDT 6 Units Other documented in this encounter Additional Health Concerns Assessment Noted Time A fall risk assessment has been complete d for the patient 05/27/2021 2:11 PM EDT documented as of this encounter Care Teams Cell Builder Relationship Specialty Start Date End Date Hung Encinas MD [id number] [place], [place] [id number] PCP - General 12/13/20 Aung Garcia MD [address] [place] [address] Surgeon Otolaryngology 02/07/21 Antolin Osorio MD [address] [place] [address] Surgeon Otolaryngology 06/12/22 documented as of this encounter
--- OUTSIDE RECORDS SUMMARY | 2024-07-04 10:05 | XMS_ITS | Encounter Summary ---
Author Organization [facility] Address [address] [place] [address] Care Team Providers Care Geology Instructor Name Role Phone Hung Encinas MD Primary Care Provider + [phone] Aung Garcia MD Unavailable Reason for Referral * Clinic-Administered Medication (Routine) - Closed Specialty Diagnoses / Procedures Referred By Sybil bolivar Referred To Contact Diagnoses Dysphonia Adductor spasmodic dysphonia Procedures R49.0 Aung Garcia MD [address] [address] Phone: tel: fax: Referral ID Status Reason Start Date Expiration Date Visits Re quested Visits Authorized [id number] Closed 04/13/2022 10/13/2023 1 1 Reason for Visit * Other Medical (Routine) - Closed Specialty Diagnoses / Procedures Referred By Sybil bolivar Referred To Contact Diagnoses Dysphonia Procedures Botox Dystonia Antolin Osorio MD [address] [address] Phone: tel: fax: [facility] [place] [address] Phone: tel: fax: Referral ID Status Reason Start Date Expiration Date Visits Re quested Visits Authorized [id number] Closed 04/02/2022 10/02/2023 1 1 Encounter Details Date Type Department Care Team (Late st Contact Info) Description 04/10/2022 11:10 AM EDT Procedure Visit [place] [facility] [address] [place] [address] Aung Garcia MD [address] [place] [address] Adductor spasmodic dysphonia (Primary Dx); [...] suspected to have Coronavirus/COVID-19? No / Unsure 04/10/2022 11:02 AM EDT documented as of this encounter Miscellaneous Notes * Addendum Note - Sandy Brown - 04/10/2022 11:10 AM EDTAddended by: SANDY BROWN on: 04/13/2022 11:36 AM Modules accepted: Orders * Progress Notes - Aung Garcia MD - 04/10/2022 11:10 AM EDT PATIENT NAME: Brook Bañuelos DATE OF : 1950 DATE OF PROCEDURE: 04/10/2022 PREOPERATIVE DIAGNOSES: 1. Adductor spasmodic dysphonia POSTOPERATIVE DIAGNOSES: 1. Same PROCEDURE PERFORMED: Botox injection to thyroarytenoid muscles under EMG guidance ([id number]), bilateral Patient was examined and her voice quality continues to be consistent with adductor spasmodic dysphonia. Informed consent was obtained for Botox injection for adductor spasmodic dysphonia and the patient was brought into the EMG exam room, placed in a sitting position and connected to EMG electrodes by the certified ophthalmic medical technician. A monopolar electrode was then connected to the special 27-gauge Perfecto-coated oculinum needle. Under EMG guidance and after verification of the muscle signal by myself, 2.5 unitsof botulinum toxin type A was injected passing through the cricothyroid membrane 1st into the left and then the right thyroarytenoid muscles for a total of 5.0 units. The patient tolerated the procedure well and will return in 2 months for follow-up evaluation and repeat injection if necessary. I personally reviewed the patient's speech evaluation by Hawa Estrada, performed the injection procedure and supervised the laryngeal EMG. Aung Garcia MD documented in this encounter Plan of Treatment Upcoming Encounters Date Type Department Care Team (Late st Contact Info) Description 08/11/2024 10:10 AM EST Procedure Visit [place] [facility] [address] [place] [address] Antolin Osorio MD [address] [place] [address] documented as of this encounter Visit Diagnoses Diagnosis Adductor spasmodic dysphonia- Primary Other diseases of larynx Dysphonia documented in this encounter Administered Medications Inactive Administered Medications - up to 3 most recent administrations Medication Order MAR Action Action Date Dose Rate Site onabotulinumtoxinA (Botox) injection 5 Units 5 Units, Intramuscular, Once, 1 dose, On Wed04/13/22 at 1200, RoutineIndications:Dysphonia ,Adductor spasmodic dysphonia Given by Other 04/10/2022 11:00 AM EDT 5 Units Ot her documented in this encounter Additional Health Concerns Assessment Noted Time A fall risk assessment has been complete d for the patient 05/27/2021 2:11 PM EDT documented as of this encounter Care Teams Geology Instructor Relationship Specialty Start Date End Date Hung Encinas MD [address] [facility] [address] [place] [address] PCP - General 12/13/20 Aung Garcia MD [id number] [place] [id number] Surgeon Otolaryngology 02/07/21 documented as of this encounter
--- OUTSIDE RECORDS SUMMARY | 2024-07-04 10:05 | XMS_ITS | Encounter Summary ---
Author Organization Healthcare Address [address] [id number] Care Team Providers Care Librarian Assistant Name Role Phone Hung Encinas MD Primary Care Provider + [phone] Aung Garcia MD Unavailable Antolin Osorio MD Unavailable [phone] Reason for Visit * Reason Comments Follow-up After surgery Encounter Details Date Type Department Care Team (Late st Contact Info) Description 04/20/2023 7:50 AM EDT [facility] [address], [address] [place] [address] Antolin Osorio MD [address] [place] [address] Adductor spasmodic dysphonia (Primary Dx); Muscle tension dysphonia Social History Tobacco Use Types Packs/Day Years [...] Sign Reading Time Taken Comments Blood Pressure 161/78 04/20/2023 8:16 AM EDT Pulse 87 04/20/2023 8:16 AM EDT Temperature - - Respiratory Rate - - Oxygen Saturation - - Inhaled Oxygen Concentration - - Weight 64.9 kg (143 lb) 04/20/2023 8:16 AM EDT Height 162.6 cm (5' 4 ) 04/20/2023 8:16 AM EDT Body Mass Index 24.55 04/20/2023 8:16 AM EDT documented in this encounter Miscellaneous Notes * H&P - Antolin Osorio MD - 04/20/2023 7:50 AM EDT Brook Bañuelos is a 72 y.o. female who was seen back in the [facility]ology[facility] Clinic today in follow up of her voice. She is been through speech therapy without any significant improvement although she does notice some improved vocalization with her exercises Her last three vocal fold injections with Botox did not seem to make a difference in her vocal quality. At my recommendation, she was seen in the speech pathology Clinic in video strobe performed in advance of her visit today. She continues to describe her voice is very strained and she has difficulty gettingher voice out throughout the day. Her 14 point review of systems, family and social history are otherwise negative as reported by ourpatient history form. She denies any constitutional symptoms. Current Outpatient Medications: celecoxib (CeleBREX) 100 MG capsule, , Disp: , Rfl: felodipine ER (Plendil) 10 MG 24 hr tablet, , Disp: , Rfl: fluticasone (Flonase) 50 MCG/ACT nasal spray, , Disp: , Rfl: gabapentin (Neurontin) 300 MG capsule, , Disp: , Rfl: hydroCHLOROthiazide (HYDRODiuril) 25 MG tablet, , Disp: , Rfl: lisinopril 20 MG tablet, , Disp: , Rfl: pravastatin (Pravachol) 40 MG tablet, , Disp: , Rfl: Allergies: Patient has no known allergies. PERTINENT SOCIAL HISTORY: She reports no history of alcohol use. She reports no history of drug use. She reports that she hasnever smoked. She has never used smokeless tobacco. BP (!) 161/78 Pulse 87 Ht 1.626 m (5' 4 ) Wt 64.9 kg (143 lb) BMI 24.55 kg/m?? Physical examination today reveals a well developed (BMI 18.5-25) female in no apparent distress. Her voice is very strained and monotonous. Oral exam reveals good palatal elevation and tongue mobility. Her neck exam is benign without thyromegaly, adenopathy or tracheal deviation. Her heart and lungs are clear to auscultation. 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 We discussed intraoperative Botox injections for the supraglottic and laryngeal musculature and shewould like to proceed. The surgical procedures were discussed with the patient and their family personally by me, the risks and benefits discussed, and informed consent was obtained. Surgery will be scheduled pending insurance preauthorization. Digital speech recognition software was used to dictate this note and, despite all efforts to proofread, some dictation errors may occur. Complexity of Care: The evaluation of this patient today was of a MODERATE COMPLEXITY in the medical decision-making process. The number of diagnoses and management options necessary for their evaluation were moderate one or more chronic illnesses with exacerbation, progression or side effects of treatment, the amountand/or complexity of the data that I reviewed was moderate, including independent interpretation ofpatient's laryngeal videostroboscopy and the risks of complications and/or morbidity or mortality of the recommendations for this patient's care were diagnosis or treatment significantly limited by social determinants of health. * Progress Notes - Antolin Osorio MD - 04/20/2023 7:50 AM EDT Brook Bañuelos is a 72 y.o. female who was seen back in the Otolaryngology-Head and Neck Surgery Clinic today in follow up of her voice. She is been through speech therapy without any significant improvement although she does notice some improved vocalization with her exercises Her last three vocal fold injections with Botox did not seem to make a difference in her vocal quality. At my recommendation, she was seen in the speech pathology Clinic in video strobe performed in advance of her visit today. She continues to describe her voice is very strained and she has difficulty gettingher voice out throughout the day. Her 14 point review of systems, family and social history are otherwise negative as reported by ourpatient history form. She denies any constitutional symptoms. Current Outpatient Medications: celecoxib (CeleBREX) 100 MG capsule, , Disp: , Rfl: felodipine ER (Plendil) 10 MG 24 hr tablet, , Disp: , Rfl: fluticasone (Flonase) 50 MCG/ACT nasal spray, , Disp: , Rfl: gabapentin (Neurontin) 300 MG capsule, , Disp: , Rfl: hydroCHLOROthiazide (HYDRODiuril) 25 MG tablet, , Disp: , Rfl: lisinopril 20 MG tablet, , Disp: , Rfl: pravastatin (Pravachol) 40 MG tablet, , Disp: , Rfl: Allergies: Patient has no known allergies. PERTINENT SOCIAL HISTORY: She reports no history of alcohol use. She reports no history of drug use. She reports that she hasnever smoked. She has never used smokeless tobacco. BP (!) 161/78 Pulse 87 Ht 1.626 m (5' 4 ) Wt 64.9 kg (143 lb) BMI 24.55 kg/m?? Physical examination today reveals a well developed (BMI 18.5-25) female in no apparent distress. Her voice is very strained and monotonous. Oral exam reveals good palatal elevation and tongue mobility. Her neck exam is benign without thyromegaly, adenopathy or tracheal deviation. Her heart and lungs are clear to auscultation. 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 We discussed intraoperative Botox injections for the supraglottic and laryngeal musculature and shewould like to proceed. The surgical procedures were discussed with the patient and their family personally by me, the risks and benefits discussed, and informed consent was obtained. Surgery will be scheduled pending insurance preauthorization. Digital speech recognition software was used to dictate this note and, despite all efforts to proofread, some dictation errors may occur. Complexity of Care: The evaluation of this patient today was of a MODERATE COMPLEXITY in the medical decision-making process. The number of diagnoses and management options necessary for their evaluation were moderate one or more chronic illnesses with exacerbation, progression or side effects of treatment, the amountand/or complexity of the data that I reviewed was moderate, including independent interpretation ofpatient's laryngeal videostroboscopy and the risks of complications and/or morbidity or mortality of the recommendations for this patient's care were diagnosis or treatment significantly limited by social determinants of health. documented in this encounter Plan of Treatment Upcoming Encounters Date Type Department Care Team (Late st Contact Info) Description 08/11/2024 10:10 AM EST Procedure Visit [facility] [address] [place] [address] Antolin Osorio MD [address] [facility] [address] [place] [address] documented as of this encounter Visit Diagnoses Diagnosis Adductor spasmodic dysphonia- Primary Other diseases of larynx Muscle tension dysphonia Other diseases of larynx documented in this encounter Additional Health Concerns Assessment Noted Time A fall risk assessment has been complete d for the patient 05/27/2021 2:11 PM EDT documented as of this encounter Care Teams Librarian Assistant Relationship Specialty Start Date End Date Hung Encinas MD [address] [address] PCP - General 12/13/20 Aung Garcia MD [address] [facility] [address] [place] [address] Surgeon Otolaryngology 02/07/21 Antolin Osorio MD [address] [place] [address] Surgeon Otolaryngology 06/12/22 documented as of this encounter
--- OUTSIDE RECORDS SUMMARY | 2024-07-04 10:05 | XMS_ITS | Encounter Summary ---
Author Organization [facility] Address [address] [place] [address] Care Team Providers Care Support Staff Name Role Phone Hung Encinas MD Primary Care Provider + [phone] Aung Garcia MD Unavailable Antolin Osorio MD Unavailable [phone] Reason for Referral * Other Medical (Routine) - Closed Specialty Diagnoses / Procedures Referred By Sybil bolivar Referred To Contact Otolaryngology Diagnoses Dysphonia Procedures Botox Dystonia Antolin Osorio MD [address] [place] [address] Phone: tel: fax: Referral ID Status Reason Start Date Expiration Date Visits Re quested Visits Authorized [id number] Closed 11/06/2022 05/07/2024 1 1 Encounter Details Date Type Department Care Team (Late st Contact Info) Description 11/06/2022 Orders Only [place] [facility] [address], [address] [place] [address] Cristine Gibbons Dysphonia (Primary Dx) Social History Tobacco Use Types Packs/Day Years [...] Description 08/11/2024 10:10 AM EST Procedure Visit [place] [facility] [address], [address] [place] [address] Antolin Osorio MD [address] [address] Scheduled Orders Name Type Priority Associated Diagnoses Orde r Schedule Botox Dystonia Procedures Routine Dysphonia Expected: 12/11/2022, Expires: 01/06/2023 documented as of this encounter Visit Diagnoses Diagnosis Dysphonia- Primary documented in this encounter Additional Health Concerns Assessment Noted Time A fall risk assessment has been complete d for the patient 05/27/2021 2:11 PM EDT documented as of this encounter Care Teams Support Staff Relationship Specialty Start Date End Date Hung Encinas MD [address] [place] [address] PCP - General 12/13/20 Aung Garcia MD [address] [address] Surgeon Otolaryngology 02/07/21 Antolin Osorio MD [address] [address] Surgeon Otolaryngology 06/12/22 documented as of this encounter
--- OUTSIDE RECORDS SUMMARY | 2024-07-04 10:05 | XMS_ITS | Encounter Summary ---
Author Organization [facility] Address [address] [place] [address] Care Team Providers Care Rubber Splicer Name Role Phone Hung Encinas MD Primary Care Provider + [phone] Aung Garcia MD Unavailable Antolin Osorio MD Unavailable [phone] Reason for Referral * Other Medical (Routine) - Closed Specialty Diagnoses / Procedures Referred By Sybil bolivar Referred To Contact Otolaryngology Diagnoses Dysphonia Procedures Botox Dystonia Antolin Osorio MD [address] [place] [address] Phone: tel: fax: Referral ID Status Reason Start Date Expiration Date Visits Re quested Visits Authorized [id number] Closed 09/24/2022 03/25/2024 1 1 Encounter Details Date Type Department Care Team (Late st Contact Info) Description 09/24/2022 Orders Only [place] [facility] [address] [place] [address] Cristine Gibbons Dysphonia (Primary Dx) [...] Visit [place] [facility] [address] [place] [address] Antolin Osorio MD [address] [address] Scheduled Orders Name Type Priority Associated Diagnoses Orde r Schedule Botox Dystonia Procedures Routine Dysphonia Expected: 10/09/2022, Expires: 10/22/2022 documented as of this encounter Visit Diagnoses Diagnosis Dysphonia- Primary documented in this encounter Additional Health Concerns Assessment Noted Time A fall risk assessment has been complete d for the patient 05/27/2021 2:11 PM EDT documented as of this encounter Care Teams Rubber Splicer Relationship Specialty Start Date End Date Hung Encinas MD [address] [address] PCP - General 12/13/20 Aung Garcia MD [address] [address] Surgeon Otolaryngology 02/07/21 Antolin Osorio MD [address] [address] Surgeon Otolaryngology 06/12/22 documented as of this encounter
--- OUTSIDE RECORDS SUMMARY | 2024-07-04 10:05 | XMS_ITS | Encounter Summary ---
Author Organization Healthcare Address [address] [place] [address] Care Team Providers Care Licensed Embalmer Name Role Phone Hung Encinas MD Primary Care Provider + [phone] Aung Garcia MD Unavailable Encounter Details Date Type Department Care Team (Late st Contact Info) Description 04/02/2022 Orders Only [facility] Otolaryngology [address], [address] [place] [address] Cristine Gibbons Social History Tobacco Use Types Packs/Day Years [...] Description 08/11/2024 10:10 AM EST Procedure Visit [facility] [address], [address] [place] [address] Antolin Osorio MD [address] [place] [address] documented as of this encounter Visit Diagnoses Not on filedocumented in this encounter Additional Health Concerns Assessment Noted Time A fall risk assessment has been complete d for the patient 05/27/2021 2:11 PM EDT documented as of this encounter Care Teams Licensed Embalmer Relationship Specialty Start Date End Date Hung Encinas MD [address] [facility] [address] [place] [address] PCP - General 12/13/20 Aung Garcia MD [address] [facility] [address] [place] [address] Surgeon Otolaryngology 02/07/21 documented as of this encounter
--- OUTSIDE RECORDS SUMMARY | 2024-07-04 10:05 | XMS_ITS | Encounter Summary ---
Author Organization Healthcare Address [address] [place] [address] Care Team Providers Care Phys Therapist Name Role Phone Hung Encinas MD Primary Care Provider + [phone] Aung Garcia MD Unavailable Antolin Osorio MD Unavailable [phone] Encounter Details Date Type Department Care Team (Latest Contact Info) Description 02/05/2023 Travel Social History Tobacco Use Types Packs/Day [...] Visit [place] [facility] [address], [address] [place] [address] Antolin Osorio MD [address] [place] [address] documented as of this encounter Visit Diagnoses Not on filedocumented in this encounter Additional Health Concerns Assessment Noted Time A fall risk assessment has been complete d for the patient 05/27/2021 2:11 PM EDT documented as of this encounter Care Teams Phys Therapist Relationship Specialty Start Date End Date Hung Encinas MD [address] [place] [address] PCP - General 12/13/20 Aung Garcia MD [address] [place] [address] Surgeon Otolaryngology 02/07/21 Antolin Osorio MD [address] [place] [address] Surgeon Otolaryngology 06/12/22 documented as of this encounter
--- OUTSIDE RECORDS SUMMARY | 2024-07-04 10:05 | XMS_ITS | Encounter Summary ---
Author Organization Healthcare Address [address] [place] [address] Care Team Providers Care Cutlery Grinder Name Role Phone Hung Encinas MD Primary Care Provider + [phone] Aung Garcia MD Unavailable Encounter Details Date Type Department Care Team (Latest Contact Info) Description 04/10/2022 Travel Social History Tobacco Use Types Packs/Day [...] AM EDT documented as of this encounter Plan of Treatment Upcoming Encounters Date Type Department Care Team (Late st Contact Info) Description 08/11/2024 10:10 AM EST Procedure Visit [place] [facility] [address] [place] [address] Antolin Osorio MD [address] [place] [address] documented as of this encounter Visit Diagnoses Not on filedocumented in this encounter Additional Health Concerns Assessment Noted Time A fall risk assessment has been complete d for the patient 05/27/2021 2:11 PM EDT documented as of this encounter Care Teams Cutlery Grinder Relationship Specialty Start Date End Date Hung Encinas MD [address] [facility] [address] [place] [address] PCP - General 12/13/20 Aung Garcia MD [address] [facility] [address] [place] [address] Surgeon Otolaryngology 02/07/21 documented as of this encounter
--- OUTSIDE RECORDS SUMMARY | 2024-07-04 10:05 | XMS_ITS | Encounter Summary ---
Author Organization [facility] Address [address] [place] [address] Care Team Providers Care Aerodynamicist Name Role Phone Hung Encinas MD Primary Care Provider [phone] Aung Garcia MD Unavailable Antolin Osorio MD Unavailable [phone] Reason for Referral * Clinic-Administered Medication (Routine) - Closed Specialty Diagnoses / Procedures Referred By Sybil bolivar Referred To Contact Diagnoses Dysphonia Spasmodic dysphonia Procedures MA INJECTION,ONABOTULINUMTOXINA Aung Garcia MD [address] [address] Phone: tel: fax: Referral ID Status Reason Start Date Expiration Date Visits Re quested Visits Authorized [id number] Closed 08/14/2022 02/13/2024 1 1 Reason for Visit * Other Medical (Routine) - Closed Specialty Diagnoses / Procedures Referred By Sybil bolivar Referred To Contact Neurology Diagnoses Dysphonia Procedures Botox Dystonia Antolin Osorio MD [address] [address] Phone: tel: fax: [place] [facility] [address] [place] [address] Phone: tel: fax:[phone] Referral ID Status Reason Start Date Expiration Date Visits Re quested Visits Authorized [id number] Closed 07/23/2022 01/22/2024 1 1 Encounter Details Date Type Department Care Team (Late st Contact Info) Description 08/14/2022 9:10 AM EST Procedure Visit [place] [facility] [address] [place] [address] Aung Garcia MD [address] [place] [address] Spasmodic dysphonia (Primary Dx); Dysphonia [...] Progress Notes - Aung Garcia MD - 08/14/2022 9:10 AM EST PATIENT NAME: Brook Bañuelos DATE OF : 1950 DATE OF PROCEDURE: 08/14/2022 PREOPERATIVE DIAGNOSES: 1. Adductor spasmodic dysphonia POSTOPERATIVE DIAGNOSES: 1. Same PROCEDURE PERFORMED: Botox injection to thyroarytenoid muscles under EMG guidance (63512, 56462), bilateral Patient was examined and her voice quality continues to be consistent with adductor spasmodic dysphonia. Informed consent was obtained for Botox injection for adductor spasmodic dysphonia and the patient was brought into the EMG exam room, placed in a sitting position and connected to EMG electrodes by the industrial controls technician. A monopolar electrode was then connected [...] the patient's speech evaluation by . Hawa Estrada, performed the injection procedure and supervised the laryngeal EMG. Aung Garcia MD documented in this encounter Plan of Treatment Upcoming Encounters Date Type Department Care Team (Late st Contact Info) Description 08/11/2024 10:10 AM EST Procedure Visit [place] [facility] [address] [place] [address] Antolin Osorio MD [address] [facility] [address] [place] [address] documented as of this encounter Visit Diagnoses Diagnosis Spasmodic dysphonia- Primary Other diseases of larynx Dysphonia documented in this encounter Administered Medications Inactive Administered Medications - up to 3 most recent administrations Medication Order MAR Action Action Date Dose Rate Site onabotulinumtoxinA (Botox) injection 5 Units 5 Units, Intramuscular, Once, 1 dose, On Wed08/14/22 at 2030, RoutineIndications:Dysphonia ,Spasmodic dysphonia Given by Other 08/14/2022 8:58 AM EST 5 Units Other documented in this encounter Additional Health Concerns Assessment Noted Time A fall risk assessment has been complete d for the patient 05/27/2021 2:11 PM EDT documented as of this encounter Care Teams Aerodynamicist Relationship Specialty Start Date End Date Hung Encinas MD [address] [address] PCP - General 12/13/20 Aung Garcia MD [address] [place] [address] Surgeon Otolaryngology 02/07/21 Antolin Osorio MD [address] [address] Surgeon Otolaryngology 06/12/22 documented as of this encounter
--- OUTSIDE RECORDS SUMMARY | 2024-07-04 10:05 | XMS_ITS | Encounter Summary ---
Author Organization [facility] Address [address] [id number] Care Team Providers Care Bulk Plant Operator Name Role Phone Hung Encinas MD Primary Care Provider + [phone] Aung Garcia MD Unavailable Antolin Osorio MD Unavailable [phone] Reason for Visit * Reason Onset Date Comments HCN Clinical Concern/Question 02/24/2023 Encounter Details Date Type Department Care Team (Late st Contact Info) Description 02/24/2023 Telephone [place] [facility] Otol[facility]ology [address] [place] [address] Aung Garcia MD [address] [place] [address] HCN Clinical Concern/Question Social History Tobacco Use Types Packs/Day Years [...] as of this encounter Miscellaneous Notes * Telephone Encounter - Rosalva Ludwig Sara - 02/24/2023 11:04 AM EDT Clinical Concern/Question Reason for Call: patient had botox a couple of weeks ago and it has not worked. She is asking to speak with nurse about what she can do next. Please call at listed number Best contact number: [phone] (home) Optimal time of day to reach caller: ANYTIME Additional comments/information from caller: None Note: Please do not reply to this message. Follow-up communication and further actions as a result of this message need to be communicated with the patient directly, if the patient is not active onMyChart. If the patient is active on MyChart, they will receive notification of the communication/outcome via [employer]. documented in this encounter Plan of Treatment Upcoming Encounters Date Type Department Care Team (Late st Contact Info) Description 08/11/2024 10:10 AM EST Procedure Visit [place] [facility] [address] [place] [address] Antolin Osorio MD [address] [place] [address] documented as of this encounter Visit Diagnoses Not on filedocumented in this encounter Additional Health Concerns Assessment Noted Time A fall risk assessment has been complete d for the patient 05/27/2021 2:11 PM EDT documented as of this encounter Care Teams Bulk Plant Operator Relationship Specialty Start Date End Date Hung Encinas MD [facility] [address] [place] [address] PCP - General 12/13/20 Aung Garcia MD [address] [place] [address] Surgeon Otolaryngology 02/07/21 Antolin Osorio MD [address] [place] [address] Surgeon Otolaryngology 06/12/22 documented as of this encounter
--- OUTSIDE RECORDS SUMMARY | 2024-07-04 10:05 | XMS_ITS | Encounter Summary ---
Author Organization [facility] Address [address] [place] [address] Care Team Providers Care Head Mixer Name Role Phone Hung Encinas MD Primary Care Provider + [phone] Aung Garcia MD Unavailable Antolin Osorio MD Unavailable [phone] Reason for Visit * Rehabilitation - Outpatient (Routine) - Authorized Specialty Diagnoses / Procedures Referred By Sybil bolivar Referred To Contact Voice and Swallow Diagnoses Spasmodic dysphonia Antolin Osorio MD [address] [place] [address] Phone: tel: fax: Referral ID Status Reason Start Date Expiration Date Visits Requested Visits Authorized [id number] Authorized Specialty Services Required 03/01/2023 08/30/2024 15 15 Encounter Details Date Type Department Care Team (Late st Contact Info) Description 03/22/2023 11:00 AM EDT Office Visit [place] [facility] [address] [place] [address] Hawa Shen MS CCC-MANAGER INVENTORY Dysphonia (Primary Dx) Social History Tobacco Use [...] encounter Miscellaneous Notes * Progress Notes - Hawa Estrada - 03/22/2023 11:00 AM EDT Services Provided: Voice Therapy Diagnosis: Dysphonia secondary to tremulous activity of the L arytenoid complex consistent with patient's history of 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 Bañuelos [facility]. She noted no significant changes since her evaluation. She noted that she feels as though her voice has improved some since her last visit. She stated that she feels it is more clear and sustains longer since her last visit. She stated that she had difficulty completing RVT postures at the F3 note during at-home practice. Additionally, she reported that she believes the circumlaryngeal massage & manual laryngeal therapies provided at her last session made a positive impact because her voice was almost normal when she got to her car after her last session. OBJECTIVE: Resonant Voice Therapy (RVT) involves training voice-disordered individuals to produce voice in an easier, more resonant and forward-focused manner throughout the speech hierarchy. The objective of this approach is to achieve the strongest possible voice with the least effort and impact stress between the vocal folds to minimize the likelihood of injury. ASSESSMENT: Circumlaryngeal massage was reviewed and the patient was provided with at-home instructions. Mrs. Bañuelos was prompted to utilize humming posture for RVT therapy. She was cued with extending /m/ at F3, but she reported that she found that note difficult to achieve and sustain. As a result, modal pitch adjustment to F4 was implemented in order to achieve more clarity and stability to the voice. She completed sustained /m/ and /mo-mo-mo/ in chant speech at F4 for 3 repetitions. She then expressed difficulty reaching this pitch, so she was adjusted to C4. After this adjustment, she presented with a similar outcome of brief periods of voice clarity that were transient and difficult to replicate. She then transitioned to A3 with similar results, but was able to progress to 2 word phrases in chant speech around this range. At this point, this therapist prompted the patient to address biofeedback markers and work towards achieving a pitch that is comfortable and sustainable for her that is produced with the least amount of strain. Mrs. Bañuelos expressed difficulty with the cognitive effort associated with attempting to raise the pitch of her voice in an effort for increased clarity/stability. Patient incorporated all corrections provided today into execution of exercises. They were motivated and compliant with all therapeutic activities. It was discussed that since her maintenance of performance was still unstable during today's session, that we will assess continued need for therapy based on her response to at-home practice. PLAN: Patient will return to the clinic in 2 weeks to recheck for technique and progress. Patient is to continue appropriate vocal hygiene behaviors Patient is to practice RVT posture on a comfortable note with humming and at the syllable level at least 1-2x daily with the option for more as tolerated. She was encouraged to focus on proper aerodynamic support and relaxation. The patient voiced understanding. documented in this encounter Plan of Treatment Upcoming Encounters Date Type Department Care Team (Late st Contact Info) Description 08/11/2024 10:10 AM EST Procedure Visit [place] [facility] [address] [place] [address] Antolin Osorio MD [address] [facility] [place] [address] documented as of this encounter Visit Diagnoses Diagnosis Dysphonia- Primary documented in this encounter Additional Health Concerns Assessment Noted Time A fall risk assessment has been complete d for the patient 05/27/2021 2:11 PM EDT documented as of this encounter Care Teams Head Mixer Relationship Specialty Start Date End Date Hung Encinas MD [address] [facility] [address] [place] [address] PCP - General 12/13/20 Aung Garcia MD [address] [place] [address] Surgeon Otolaryngology 02/07/21 Antolin Osorio MD [address] [facility] [address] [place] [address] Surgeon Otolaryngology 06/12/22 documented as of this encounter
--- OUTSIDE RECORDS SUMMARY | 2024-07-04 10:05 | XMS_ITS | Encounter Summary ---
Author Organization Healthcare Address [address] [place] [address] Care Team Providers Care Member Of Congress Name Role Phone Hung Encinas MD Primary Care Provider + [phone] Aung Garcia MD Unavailable Antolin Osorio MD Unavailable [phone] Encounter Details Date Type Department Care Team (Latest Contact Info) Description 12/11/2022 Travel Social History Tobacco Use Types Packs/Day [...] Visit [place] [facility] [address] [place] [address] Antolin Osorio MD [address] [place] [address] documented as of this encounter Visit Diagnoses Not on filedocumented in this encounter Additional Health Concerns Assessment Noted Time A fall risk assessment has been complete d for the patient 05/27/2021 2:11 PM EDT documented as of this encounter Care Teams Member Of Congress Relationship Specialty Start Date End Date Hung Encinas MD [address] [place] [address] PCP - General 12/13/20 Aung Garcia MD [address] [place] [address] Surgeon Otolaryngology 02/07/21 Antolin Osorio MD [address] [place] [address] Surgeon Otolaryngology 06/12/22 documented as of this encounter
--- OUTSIDE RECORDS SUMMARY | 2024-07-04 10:05 | XMS_ITS | Encounter Summary ---
Author Organization [facility] Address [address] [place] [address] Care Team Providers Care Landscape Manager Name Role Phone Hung Encinas MD Primary Care Provider + [phone] Aung Garcia MD Unavailable Antolin Osorio MD Unavailable [phone] Reason for Referral * Other Medical (Routine) - Closed Specialty Diagnoses / Procedures Referred By Sybil bolivar Referred To Contact Neurology Diagnoses Dysphonia Procedures Botox Dystonia Antolin Osorio MD [address] [facility] [address] [place] [address] Phone: tel: fax: [facility] [address] [place] [address] Phone: tel: fax: Referral ID Status Reason Start Date Expiration Date Visits Re quested Visits Authorized [id number] Closed 07/23/2022 01/22/2024 1 1 Encounter Details Date Type Department Care Team (Late Contact Info) Description 07/23/2022 Orders Only [facility] [address] [place] [address] Cristine Gibbons Dysphonia (Primary Dx) [...] Description 08/11/2024 10:10 AM EST Procedure Visit [place] [facility] [address] [place] [address] Antolin Osorio MD [address] [facility] [place] [address] Scheduled Orders Name Type Priority Associated Diagnoses Orde r Schedule Botox Dystonia Procedures Routine Dysphonia Expected: 08/14/2022, Expires: 08/23/2022 documented as of this encounter Visit Diagnoses Diagnosis Dysphonia- Primary documented in this encounter Additional Health Concerns Assessment Noted Time A fall risk assessment has been complete d for the patient 05/27/2021 2:11 PM EDT documented as of this encounter Care Teams Landscape Manager Relationship Specialty Start Date End Date Hung Encinas MD [address] [place] [address] PCP - General 12/13/20 Aung Garcia MD [address] [facility] [address] [place] [address] Surgeon Otolaryngology 02/07/21 Antolin Osorio MD [address] [place] [address] Surgeon Otolaryngology 06/12/22 documented as of this encounter
--- OUTSIDE RECORDS SUMMARY | 2024-07-04 10:05 | XMS_ITS | Encounter Summary ---
Author Organization [facility] Address [address] [place] [address] Care Team Providers Care Accounting Lecturer Name Role Phone Hung Encinas MD Primary Care Provider + [phone] Aung Garcia MD Unavailable Antolin Osorio MD Unavailable [phone] Encounter Details Date Type Department Care Team (Latest Contact Info) Description 03/22/2023 Travel Social History Tobacco Use Types Packs/Day [...] Visit [place] [facility] [address] [place] [address] Antolin Osorio MD [address] [place] [address] documented as of this encounter Visit Diagnoses Not on filedocumented in this encounter Additional Health Concerns Assessment Noted Time A fall risk assessment has been complete d for the patient 05/27/2021 2:11 PM EDT documented as of this encounter Care Teams Accounting Lecturer Relationship Specialty Start Date End Date Hung Encinas MD [address] [place] [address] PCP - General 12/13/20 Aung Garcia MD [address] [place] [address] Surgeon Otolaryngology 02/07/21 Antolin Osorio MD [address] [place] [address] Surgeon Otolaryngology 06/12/22 documented as of this encounter
--- OUTSIDE RECORDS SUMMARY | 2024-07-04 10:05 | XMS_ITS | Encounter Summary ---
Author Organization [facility] Address [address] [place] [address] Care Team Providers Care Maintenance Technician 2Nd Shift Name Role Phone Hung Encinas MD Primary Care Provider + [phone] Aung Garcia MD Unavailable Antolin Osorio MD Unavailable [phone] Encounter Details Date Type Department Care Team (Latest Contact Info) Description 06/12/2022 Travel Social History Tobacco Use Types Packs/Day [...] suspected to have Coronavirus/COVID-19? No / Unsure 06/12/2022 8:41 AM EST documented as of this encounter Plan of Treatment Upcoming Encounters Date Type Department Care Team (Late st Contact Info) Description 08/11/2024 10:10 AM EST Procedure Visit [place] [facility] [address] [place] [address] Antolin Osorio MD [address] [place] [address] documented as of this encounter Visit Diagnoses Not on filedocumented in this encounter Additional Health Concerns Assessment Noted Time A fall risk assessment has been complete d for the patient 05/27/2021 2:11 PM EDT documented as of this encounter Care Teams Maintenance Technician 2Nd Shift Relationship Specialty Start Date End Date Hung Encinas MD [address] [address] PCP - General 12/13/20 Aung Garcia MD [address] [place] [address] Surgeon Otolaryngology 02/07/21 Antolin Osorio MD [address] [place] [address] Surgeon Otolaryngology 06/12/22 documented as of this encounter
--- OUTSIDE RECORDS SUMMARY | 2024-07-04 10:05 | XMS_ITS | Encounter Summary ---
Author Organization [facility] Address [address] [place] [address] Care Team Providers Care Radioactive Waste Disposal Dispatcher Name Role Phone Hung Encinas MD Primary Care Provider + [phone] Aung Garcia MD Unavailable Antolin Osorio MD Unavailable [phone] Reason for Visit * Rehabilitation - Outpatient (Routine) - Authorized Specialty Diagnoses / Procedures Referred By Sybil bolivar Referred To Contact Voice and Swallow Diagnoses Spasmodic dysphonia Antolin Osorio MD [address] [place] [address] Phone: tel: fax: Referral ID Status Reason Start Date Expiration Date Visits Requested Visits Authorized [id number] Authorized Specialty Services Required 03/01/2023 08/30/2024 15 15 Encounter Details Date Type Department Care Team (Late st Contact Info) Description 03/11/2023 10:00 AM EDT Office Visit [place] [facility] [address] [place] [address] Hawa Shen MS CCC-STEM ASSEMBLER Dysphonia (Primary Dx); Spasmodic dysphonia Social History Tobacco Use Types Packs/Day [...] * Progress Notes - Hawa Estrada - 03/11/2023 10:00 AM EDT Services Provided: Voice Therapy Diagnosis: [...] since her evaluation. She noted that she was unsure if she should participate in the next Botox clinic as she has not had significant benefit from thelast few. OBJECTIVE: Manual laryngeal therapy & circumlaryngeal massage were provided to assess effects of digital laryngeal manipulation on supraglottic hyperfunction during phonation. Resonant Voice Therapy (RVT) involves training voice-disordered individuals to produce voice in an easier, more resonant and forward-focused manner throughout the speech hierarchy. The objective of this approach is to achieve the strongest possible voice with the least effort and impact stress between the vocal folds to minimize the likelihood of injury. ASSESSMENT: Patient was placed in a supine position and circumlaryngeal massage was performed. Patient reportedthat she she has an old shoulder injury which results in increased pain & discomfort in her left shoulder and neck. Patient attempted phonation on /m/ while therapist performed gentle repositioning of the larynx. Mrs. Bañuelos was able to achieve approximately 4-5 seconds of phonation which was an improvement from approximately 2 seconds prior to digital manipulation. She reported subjective improvement in her throat after completion of massage. Mrs. Bañuelos was positioned upright and transitioned to humming posture. She demonstrated highest level of functioning when extending /m/ at F3. She then was transitioned to the syllable level in chant speech with ~65% accuracy given mod- max verbal cues. She benefited from cues to enhance aerodynamic support, reduce rate of execution, and maintain a relaxed posture as much as she is able. Mrs. Bañuelos noted that when she didn't try so hard that her voice improved and she was able to utter 2-3word phrases in chant speech with improved clarity. Arhythmic oscillations were present throughout due to patient's history of adductor spasmodic dysphonia. Patient incorporated all corrections provided today into [...] Patient is to practice RVT posture on F3 note with humming and at the syllable level at least 1-2x daily with the option for more as tolerated. She was encouraged to focus on proper aerodynamic support and relaxation. The patient voiced understanding. documented in this encounter Plan of Treatment Upcoming Encounters Date Type Department Care Team (Late st Contact Info) Description 08/11/2024 10:10 AM EST Procedure Visit [place] [facility] [address] [place] [address] Antolin Osorio MD [address] [facility] [address] [place] [address] documented as of this encounter Visit Diagnoses Diagnosis Dysphonia- Primary Spasmodic dysphonia Other diseases of larynx documented in this encounter Additional Health Concerns Assessment Noted Time A fall risk assessment has been complete d for the patient 05/27/2021 2:11 PM EDT documented as of this encounter Care Teams Radioactive Waste Disposal Dispatcher Relationship Specialty Start Date End Date Hung Encinas MD [address] [facility] [address] [place], [place] [id number] PCP - General 12/13/20 Aung Garcia MD [address] [place] [address] Surgeon Otolaryngology 02/07/21 Antolin Osorio MD [address] [place] [address] Surgeon Otolaryngology 06/12/22 documented as of this encounter
--- OUTSIDE RECORDS SUMMARY | 2024-07-04 10:05 | XMS_ITS | Encounter Summary ---
Author Organization [facility] Address [address] [place] [address] Care Team Providers Care Iron Worker Foreman Name Role Phone Hung Encinas MD Primary Care Provider + [phone] Aung Garcia MD Unavailable Antolin Osorio MD Unavailable [phone] Reason for Referral * Clinic-Administered Medication (Routine) - Closed Specialty Diagnoses / Procedures Referred By Sybil bolivar Referred To Contact Diagnoses Dysphonia Procedures VT INJECTION,ONABOTULINUMTOXINA Antolin Osorio MD [address] [address] Phone: tel: fax: Referral ID Status Reason Start Date Expiration Date Visits Re quested Visits Authorized [id number] Closed 06/19/2022 12/19/2023 1 1 Reason for Visit * Other Medical (Routine) - Closed Specialty Diagnoses / Procedures Referred By Sybil bolivar Referred To Contact Neurology Diagnoses Dysphonia Procedures Botox Dystonia Antolin Osorio MD [address] [address] Phone: tel: fax: [facility] [address] [place] [address] Phone: tel: fax: Referral ID Status Reason Start Date Expiration Date Visits Re quested Visits Authorized [id number] Closed 05/20/2022 11/19/2023 1 1 Encounter Details Date Type Department Care Team (Late st Contact Info) Description 06/12/2022 9:10 AM EST Procedure Visit [place] [facility] [address] [place] [address] Antolin Osorio MD [address] [place] [address] Adductor spasmodic dysphonia (Primary Dx); [...] Progress Notes - Antolin Osorio MD - 06/12/2022 9:10 AM EST PATIENT NAME: Brook Bañuelos DATE OF : 1950 DATE OF PROCEDURE: 06/12/2022 PREOPERATIVE DIAGNOSES: 1. Adductor spasmodic dysphonia POSTOPERATIVE DIAGNOSES: 1. Same PROCEDURE PERFORMED: Botox injection to thyroarytenoid muscles under EMG guidance ([address]907, [address]334), bilateral Patient was examined and her voice quality continues to be consistent with adductor spasmodic dysphonia. Informed consent was obtained for Botox injection for adductor spasmodic dysphonia and the patient was brought into the EMG exam room, placed in a sitting position and connected to EMG electrodes by the aviation electrical technician. A monopolar electrode was then [...] Description 08/11/2024 10:10 AM EST [facility] [address], [address] [place] [address] Antolin Osorio MD [address] [address] documented as of this encounter Visit Diagnoses Diagnosis Adductor spasmodic dysphonia- Primary Other diseases of larynx Dysphonia documented in this encounter Administered Medications Inactive Administered Medications - up to 3 most recent administrations Medication Order MAR Action Action Date Dose Rate Site onabotulinumtoxinA (Botox) injection 5 Units 5 Units, Intramuscular, Once, 1 dose, On Wed06/19/22 at 1300, RoutineIndications:Dysphonia Given by Other 06/12/2022 9:17 AM EST 5 Units Other documented in this encounter Additional Health Concerns Assessment Noted Time A fall risk assessment has been complete d for the patient 05/27/2021 2:11 PM EDT documented as of this encounter Care Teams Iron Worker Foreman Relationship Specialty Start Date End Date Hung Encinas MD [address] [facility] [address] [place] [address] PCP - General 12/13/20 Aung Garcia MD [address] [facility] [address] [place] [address] Surgeon Otolaryngology 02/07/21 Antolin Osorio MD [address] [phone] Surgeon Otolaryngology 06/12/22 documented as of this encounter
--- OUTSIDE RECORDS SUMMARY | 2024-07-04 10:05 | XMS_ITS | Encounter Summary ---
Author Organization Healthcare Address [address] [id number] Care Team Providers Care Wildlife Science Professor Name Role Phone Hung Encinas MD Primary Care Provider + [phone] Aung Garcia MD Unavailable Antolin Osorio MD Unavailable [phone] Reason for Visit * Rehabilitation - Outpatient (Routine) - Authorized Specialty Diagnoses / Procedures Referred By Sybil bolivar Referred To Contact Voice and Swallow Diagnoses Spasmodic dysphonia Antolin Osorio MD [address] [facility] [address] [place] [address] Phone: tel: fax: Referral ID Status Reason Start Date Expiration Date Visits Requested Visits Authorized [id number] Authorized Specialty Services Required 03/01/2023 08/30/2024 15 15 Encounter Details Date Type Department Care Team (Late st Contact Info) Description 04/08/2023 1:00 PM EDT Office Visit [facility] [address] [place] [address] Hawa Shen, MS CCC-PIT CLERK Dysphonia (Primary Dx) Social History Tobacco Use [...] * Progress Notes - Hawa Estrada - 04/08/2023 1:00 PM EDT Services Provided: Voice Therapy Diagnosis: Dysphonia secondary to tremulous activity of the L arytenoid complex consistent with patient's history of 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 Bañuelos today [facility] for [facility] therapy. She noted that she feels her voice has improved slightly since her evaluation, but described that she has not observed significant benefit since her last visit. Mrs. Bañuelos noted that she has been able to talk on the phone and in drive-thru scenarios without as significant difficulty as she once did. OBJECTIVE: Manual laryngeal therapy & circumlaryngeal massage [...] on /m/ while therapist performed gentle repositioning (depression) of the larynx. Minimal auditory-perceptual changes were observed during digital manipulation when the patient was asked to phonate, but slight reduction in breathiness was observed. Mrs. Bañuelos reported no subjective change following completion. Mrs. Bañuelos was prompted to utilize humming posture for RVT therapy. She expressed significant difficulty with holding sustained /m/ but found that she could perform syllables and short phrases. Mrs. Bañuelos attempted RVT postures with my mom x3 and My name is Brook Bañuelos x7 in chant speech. No subjective or auditory-perceptual improvements were observed throughout these trials. Based on Mrs. Bañuelos's reports of minimal improvement and progress plateau with therapeutic intervention, the decision was made to suspend voice therapy services at this time as the patient discusses further medical/surgical interventions with her referring physician, Dr. Osorio. Mrs. Bañuelos and Dr. Osorio both verbalized agreement to this plan. Mrs. Bañuelos is scheduled to see Dr. Osorio on 04/20/23. PLAN: Patient is to return to her referring physician, Dr. Osorio, to discuss further medical/surgical management of her voice complaints. Patient is to continue appropriate vocal hygiene behaviors Patient is to practice RVT posture on a comfortable note with humming and at the syllable level at least 1-2x daily with the option for more as tolerated. She was encouraged to focus on proper aerodynamic support and relaxation. Patient is to continue utilizing circumlaryngeal massage daily with emphasis on lowered laryngeal position. Patient is to return to this clinic PRN should any additional questions or concerns arise. The patient voiced understanding. documented in this encounter Plan of Treatment Upcoming Encounters Date Type Department Care Team (Late st Contact Info) Description 08/11/2024 10:10 AM EST Procedure Visit [facility] [address], [address] [place] [address] Antolin Osorio MD [address] [address] documented as of this encounter Visit Diagnoses Diagnosis Dysphonia- Primary documented in this encounter Additional Health Concerns Assessment Noted Time A fall risk assessment has been complete d for the patient 05/27/2021 2:11 PM EDT documented as of this encounter Care Teams Wildlife Science Professor Relationship Specialty Start Date End Date Hung Encinas MD [address] [address] PCP - General 12/13/20 Aung Garcia MD [address] [place] [address] Surgeon Otolaryngology 02/07/21 Antolin Osorio MD [address] [place] [address] Surgeon Otolaryngology 06/12/22 documented as of this encounter
--- OUTSIDE RECORDS SUMMARY | 2024-07-04 10:05 | XMS_ITS | Encounter Summary ---
Author Organization [facility] Address [address] [id number] Care Team Providers Care Hedis Manager Name Role Phone Hung Encinas MD Primary Care Provider + [phone] Aung Garcia MD Unavailable Cecelia Cisse MD Unavailable [phone] Reason for Referral * Consultation (Routine) - Pending Review Specialty Diagnoses / Procedures Referred By Sybil bolivar Referred To Contact Voice and Swallow Diagnoses Dysphonia Cecelia Cisse MD [address] [address] Phone: tel: fax: Referral ID Status Reason Start Date Expiration Date Visits Requested Visits Authorized [id number] Pending Review Specialty Services Required 03/01/2023 08/30/2024 1 1 Reason for Visit * Reason Comments Hoarseness Follow-up Voice and swallow Encounter Details Date Type Department Care Team (Late st Contact Info) Description 03/01/2023 2:50 PM EDT Office Visit [place] [facility] [address] [place] [address] Cecelia Cisse MD [address] [address] Dysphonia (Primary Dx) Social History Tobacco Use [...] Sign Reading Time Taken Comments Blood Pressure 162/80 03/01/2023 3:30 PM EDT Pulse 77 03/01/2023 3:30 PM EDT Temperature - - Respiratory Rate - - Oxygen Saturation - - Inhaled Oxygen Concentration - - Weight 56.2 kg (124 lb) 03/01/2023 3:30 PM EDT Height 162.6 cm (5' 4 ) 03/01/2023 3:30 PM EDT Body Mass Index 21.28 03/01/2023 3:30 PM EDT documented in this encounter Miscellaneous Notes * Addendum Note - Cecelia Cisse MD - 03/01/2023 2:50 PM EDTAddended by: CECELIA CISSE on: 03/01/2023 04:07 PM Modules accepted: Orders * Progress Notes - Cecelia Cisse MD - 03/01/2023 2:50 PM EDT Brook Bañuelos is a 72 y.o. female who was seen back in the [facility] today in follow up of her voice. Her last three vocal fold injections with Botox did not seem to make a difference in her vocal quality. At my recommendation, she was seen in the speechpathology Clinic in video strobe performed in advance of her visit today. That is strobe was available for my review. She describes her voice is very strained and she has difficulty getting her voiceout throughout the day. Her 14 point review [...] has never used smokeless tobacco. BP (!) 162/80 Pulse 77 Ht 1.626 m (5' 4 ) Wt 56.2 kg (124 lb) BMI 21.28 kg/m?? Physical examination today reveals a well developed (BMI 18.5-25) female in no apparent distress. Her voice is very strained and monotonous. Rigid laryngeal stroboscopy was performed with my speech language pathologist, Hawa Estrada for functional assessment of her voice and airway. 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 We will try a course of speech therapy to break her hyperfunction and if that fails, then consideration for intraoperative Botox injections for the supraglottic and laryngeal musculature. Digital speech recognition software was used to [...] Description 08/11/2024 10:10 AM EST Procedure Visit [place] [facility] [address] [place] [address] Cecelia Cisse MD [address] [place] [address] Scheduled Referrals Name Type Priority Associated Diagnoses Orde r Schedule Voice Therapy Outpatient Referral Routine Dysphonia Expected: 03/01/2023 (Approximate), Expires: 09/01/2024 documented as of this encounter Visit Diagnoses Diagnosis Dysphonia- Primary documented in this encounter Additional Health Concerns Assessment Noted Time A fall risk assessment has been complete d for the patient 05/27/2021 2:11 PM EDT documented as of this encounter Care Teams Hedis Manager Relationship Specialty Start Date End Date Hung Encinas MD [address] [address] PCP - General 12/13/20 Aung Garcia MD [address] [facility] [place] [address] Surgeon Otolaryngology 02/07/21 Cecelia Cisse MD [address] [facility] [place] [address] Surgeon Otolaryngology 06/12/22 documented as of this encounter
--- OUTSIDE RECORDS SUMMARY | 2024-07-04 10:05 | XMS_ITS | Encounter Summary ---
Author Organization Healthcare Address [address] [place] [address] Care Team Providers Care Die Engraver Name Role Phone Hung Encinas MD Primary Care Provider + [phone] Aung Garcia MD Unavailable Antolin Osorio MD Unavailable [phone] Encounter Details Date Type Department Care Team (Latest Contact Info) Description 07/16/2023 Travel Social History Tobacco Use Types Packs/Day [...] Visit [place] [facility] [address] [place] [address] Antolin Osorio MD [address] [place] [address] documented as of this encounter Visit Diagnoses Not on filedocumented in this encounter Additional Health Concerns Assessment Noted Time A fall risk assessment has been complete d for the patient 05/27/2021 2:11 PM EDT A Body Mass Index follow-up plan has been documented for the patient 07/16/2023 9:57 AM EST documented as of this encounter Care Teams Die Engraver Relationship Specialty Start Date End Date Hung Encinas MD [address] [facility] [address] [place] [address] PCP - General 12/13/20 Aung Garcia MD [address] [facility] [place] [address] Surgeon Otolaryngology 02/07/21 Antolin Osorio MD [address] [facility] [address] [place] [address] Surgeon Otolaryngology 06/12/22 documented as of this encounter
--- OUTSIDE RECORDS SUMMARY | 2024-07-04 10:05 | XMS_ITS | Encounter Summary ---
Author Organization [facility] Address [address] [place] [address] Care Team Providers Care Ice Skating Teacher Name Role Phone Hung Encinas MD Primary Care Provider + [phone] Aung Garcia MD Unavailable Antolin Osorio MD Unavailable [phone] Reason for Visit * Consultation (Routine) - Closed Specialty Diagnoses / Procedures Referred By Sybil bolivar Referred To Contact Voice and Swallow Diagnoses Spasmodic dysphonia Antolin Osorio MD [address] [place] [address] Phone: tel: fax: Referral ID Status Reason Start Date Expiration Date V isits Requested Visits Authorized [id number] Closed Specialty Services Required 03/01/2023 08/30/2024 1 1 Encounter Details Date Type Department Care Team (Late st Contact Info) Description 03/01/2023 1:30 PM EDT Office Visit [facility] [address] [place] [address] Hawa Shen MS CCC-REGISTERED DENTAL ASSISTANT RDA Dysphonia (Primary Dx); Spasmodic dysphonia Social History [...] * Progress Notes - Hawa Estrada - 03/01/2023 1:30 PM EDT [facility] Voice and Upper Airway Evaluation Patient's name: Brook Bañuelos Date of Evaluation: 03/01/2023 Providing REGISTERED DENTAL ASSISTANT RDA: Hawa Estrada MS [facility]-REGISTERED DENTAL ASSISTANT RDA Referring Provider and Facility: Antolin Osorio MD- Otolaryngology and Head & Neck Surgery Diagnosis: Dysphonia (R49.0) Assessment / Treatment Time: 60 minutes Evaluation Location: [facility] Location Patient History: The patient presents to the office today for comprehensive voice and upper airway evaluation at the request of Dr. Osorio. Mrs. Bañuelos is a 72 y.o. who presents with complaints of dysphonia. She has been receiving Botox injections for her history of adductor spasmodic dysphonia since 2006 but has found that the last 3 did not provide her with any benefit. In September 2022, Mrs. Bañuelos stated that she received her routine Botox injection and found that there was no improvement whatsoever. She was unable to identify any clear instigating factors for her voice change, such as illness or changes to health status. Since that time, she noted that her voice has gradually worsened and progressed to the point of barely a whisper . She received two additional Botox injections (November & January), including an increase in her dose, without any improvement. Mrs. Bañuelos noted that she will sometimes get somewhat normal sound when she laughs which has been thecase for her at baseline. She participated in weekly voice therapy services in June 2021 and has attempted to resume these exercises (mainly humming and straw phonation with water resistance) recently without any improvement. She stated that she experiences effortful phonation, difficulty projecting, and difficulty being understood over the phone. Mrs. Bañuelos denied pain or discomfort associated with voicing, shortness of breath, difficulty swallowing, unintentional weight loss, and recurrent URIs. Mrs. Bañuelos noted that she might have allergies for which she takes an [id number] antihistamine daily. She noted that she has occasional heartburn but it is infrequent enough that she doesnot take medication. Others in Attendance for the Evaluation: N/A Medical / Surgical History: Adductor spasmodic dysphonia, HLD, HTN, S/p: Hysterectomy (2000), back surgery (2015), periodic Botox injections for SD from 2006 through present day Cognitive Status / Ability to Comprehend Directions: Alert & able to comprehend verbal instructions Barriers to Progress: Poor stimulability Daily Water Intake: 2 bottles Caffeine Intake: 2 cups of coffee Other Beverage Intake: N/A Alcohol Intake: N/A Past / Current Tobacco Use / Exposure: N/A Current Diet: Regular consistency with thin liquids Occupation / School Status: Retired Quality of Life Questionnaires: Glottal Function Index: The GFI is a patient-reported measure of symptoms of laryngeal dysfunction. A score of 4 or higher out of 5 per question indicates impairment. Voice Handicap Index: 89/120 Functional Score: 31/40 Physical Score: 35/40 Emotional Score: 23/40 The VHI is a psychosocial measure of the impact on quality of life, based on the presence of a voice complaint. Perceptual Analysis: The GRBAS is a perceptual rating of voice change. 0 indicated no impairment, 3 indicates a severe impairment. This is a rating based on clinical judgement of disordered voice quality. G ( 3 ) General Dysphonia R ( 2 ) Roughness B ( 3 ) Breathiness A ( 2 ) Asthenia S ( 3 ) Strain Additional observations: Patient presents with severe breathiness and strain across all stimuli presented. Brief periods of voicing was noted during laughter and for the first word following laughterbut would quickly revert back to breathy & strained quality. Hard onset to vowel onsets consistent with patient's history of adductor spasmodic dysphonia Oral Mechanism Exam: WFL Laryngoscopy: Informed consent: Informed consent was obtained, which includes potential side- effects, risks, and benefits of the procedure. Anesthetic: Afrin and liquid lidocaine 4% were sprayed into the nostrils bilaterally. Scope type: A pediatric distal chip flexible laryngoscope was passed through the left nare with direct light sources. Stroboscopy Evaluation: R Arytenoid Abduction / Adduction: Intact L Arytenoid Abduction / Adduction: Intact Increased tremulous activity noted during adduction/phonation when compared to R arytenoid complex Subglottis Appearance: Patent Mediolateral Compression: present, severe with full ventricular contact throughout voicing stimuli Anteroposterior Compression: present Appearance: Elongated uvula overlying the laryngeal surface of the epiglottis Posterior pharyngeal wall cobblestoning & interarytenoid pachydermia Tremulous activity of the left arytenoid complex during adduction/phonation consistent with patient's history of adductor spasmodic dysphonia Secretion management: within functional limits Left (L) Vocal Fold Edge: Concave Right (R) Vocal Fold Edge: Concave Stroboscopic parameters could not be collected due to the severity of the patient's dysphonia resulting in [id number] tracking of the throat brandie Therapeutic techniques attempted: Semi-Occluded Vocal Tract Exercises (SOVTs) are a series of exercises aimed to recoordinate respiration, phonation, and resonance to produce an effortless, clear voice. Such exercises include straw phonation with water resistance,, humming/Basic Training Gesture for Resonant Voice Therapy, and transoral lip buzz/Basic Training Gesture for Vocal Function Exercises at comfortable speaking pitches and glissando tasks. These exercises were reviewed today, and Mrs. Bañuelos performed them with 60% accuracy with maximum clinician cueing and modeling. Stimulability assessment revealed inconsistent results. Brief periods of phonation were achieved on humming posture but were not sustainable. Furtherm ore, stimulability assessment during stroboscopy resulted in brief reduction in supraglottic hyperfunction during humming posture but, again, this was not sustained for the duration of the task. Impressions: Mrs. Bañuelos demonstrates symptoms and findings consistent with: Dysphonia secondary to tremulous activity of the L arytenoid complex consistent with patient's history of Adductor spasmodic dysphonia resulting in significant supraglottic hyperfunction Images were reviewed with the patient and Dr. Osorio in detail. Plan: Mrs. Bañuelos would benefit from a short course of skilled speech pathology services to aid in the differential diagnosis process between severity of supraglottic hyperfunction versus progression of underlying neurological impairment requiring further medical/surgical management Mrs. Bañuelos will continue to follow-up with Dr. Osorio as recommended. Mrs. Bañuelos verbalized agreement to this plan and voice therapy services will begin following insurance authorization Goals: Voice Coordinate phonatory and respiratory subsystems, demonstrating adequate independence for activitiesof daily communication Decrease extrinsic laryngeal muscle activity during communication events Improve voice quality in all activities of daily living using, as measured by a minimum of an 80% point reduction on the Voice Handicap Index or the Glottal Function Index Demonstrate appropriate vocal hygiene including, but not limited to, adequate hydration, avoiding vocal abuse, integrating behavioral and dietary changes for GERD into their daily life?. Incorporate behaviors to reduce irritation and promote laryngeal healing and prevent recurrence.? Implement behavioral strategies to reduce laryngopharyngeal reflux. ? Independently maintain a forward focus voice placement 90% of the time. Independently perform the Vocal Function Exercises, rebalancing respiration, phonation, and resonance 90% of the time Perform High Level Phonation and Pitch Range Navigation Exercises independently 90% of the time documented in this encounter Plan of Treatment Upcoming Encounters Date Type Department Care Team (Late st Contact Info) Description 08/11/2024 10:10 AM EST Procedure Visit [facility] [address], [address] [place] [address] Antolin Osorio MD [address] [address] documented as of this encounter Visit Diagnoses Diagnosis Dysphonia- Primary Spasmodic dysphonia Other diseases of larynx documented in this encounter Additional Health Concerns Assessment Noted Time A fall risk assessment has been complete d for the patient 05/27/2021 2:11 PM EDT documented as of this encounter Care Teams Ice Skating Teacher Relationship Specialty Start Date End Date Hung Encinas MD [address] [place] [address] PCP - General 12/13/20 Aung Garcia MD [address] [place] [address] Surgeon Otolaryngology 02/07/21 Antolin Osorio MD [address] [place] [address] Surgeon Otolaryngology 06/12/22 documented as of this encounter
--- OUTSIDE RECORDS SUMMARY | 2024-07-04 10:05 | XMS_ITS | Encounter Summary ---
Author Organization Healthcare Address [address] [place] [address] Care Team Providers Care Pulmonologist Intensivist Name Role Phone Hung Encinas MD Primary Care Provider + [phone] Aung Garcia MD Unavailable Antolin Osorio MD Unavailable [phone] Encounter Details Date Type Department Care Team (Latest Contact Info) Description 10/09/2022 Travel Social History Tobacco Use Types Packs/Day [...] Visit [place] [facility] [address], [address] [place] [address] Antolin Osorio MD [address] [place] [address] documented as of this encounter Visit Diagnoses Not on filedocumented in this encounter Additional Health Concerns Assessment Noted Time A fall risk assessment has been complete d for the patient 05/27/2021 2:11 PM EDT documented as of this encounter Care Teams Pulmonologist Intensivist Relationship Specialty Start Date End Date Hung Encinas MD [address] [address] PCP - General 12/13/20 Aung Garcia MD [address] [place] [address] Surgeon Otolaryngology 02/07/21 Antolin Osorio MD [address] [place] [address] Surgeon Otolaryngology 06/12/22 documented as of this encounter
--- OUTSIDE RECORDS SUMMARY | 2024-07-04 10:05 | XMS_ITS | Encounter Summary ---
Author Organization Healthcare Address [address] [place] [address] Care Team Providers Care Siphon Operator Name Role Phone Hung Encinas MD Primary Care Provider + [phone] Aung Garcia MD Unavailable Antolin Osorio MD Unavailable [phone] Encounter Details Date Type Department Care Team (Latest Contact Info) Description 06/14/2023 Travel Social History Tobacco Use Types Packs/Day [...] Visit [place] [facility] [address], [address] [place] [address] Antolin Osorio MD [address] [place] [address] documented as of this encounter Visit Diagnoses Not on filedocumented in this encounter Additional Health Concerns Assessment Noted Time A fall risk assessment has been complete d for the patient 05/27/2021 2:11 PM EDT documented as of this encounter Care Teams Siphon Operator Relationship Specialty Start Date End Date Hung Encinas MD [address] [place] [address] PCP - General 12/13/20 Aung Garcia MD [address] [place] [address] Surgeon Otolaryngology 02/07/21 Antolin Osorio MD [address] [place] [address] Surgeon Otolaryngology 06/12/22 documented as of this encounter
--- OUTSIDE RECORDS SUMMARY | 2024-07-04 10:05 | XMS_ITS | Encounter Summary ---
Author Organization Healthcare Address [address] [id number] Care Team Providers Care Fig Washer Name Role Phone Hung Encinas MD Primary Care Provider + [phone] Aung Garcia MD Unavailable Antolin Osorio MD Unavailable +[phone] Reason for Visit * Reason Comments Post-op Encounter Details Date Type Department Care Team (Late st Contact Info) Description 07/16/2023 9:20 AM EST Office Visit [place] [facility] [address], [address] [place] [address] Antolin Osorio MD [address] [place] [address] Spasmodic dysphonia (Primary Dx); Muscle tension dysphonia Social [...] Pulse 82 07/16/2023 9:18 AM EST Temperature - - Respiratory Rate - - Oxygen Saturation - - Inhaled Oxygen Concentration - - Weight 64.4 kg (142 lb) 07/16/2023 9:18 AM EST Height 162.6 cm (5' 4 ) 07/16/2023 9:18 AM EST Body Mass Index 24.37 07/16/2023 9:18 AM EST documented in this encounter Miscellaneous Notes * Progress Notes - Antolin Osorio MD - 07/16/2023 9:20 AM EST Brook Bañuelos is a 72 y.o. female who was seen back in the [facility] today in follow up of her voice. She underwent augmentation laryngoplasty and bilateral Botox injections to her thyroid arytenoid and supraglottic larynx last month and has noted a significant improvement in her voice. She was a little breathy for a few days but that is improved. Quite happy with her early results. Her interval medical history is otherwise unchanged. Her 14 point review of systems, family and social history are otherwise negative as reported by ourpatient history form. She denies any constitutional symptoms. Current Outpatient Medications: celecoxib (CeleBREX) 100 MG capsule, Take by mouth 1 (one) time each day in the morning., Disp: , Rfl: felodipine ER (Plendil) 10 MG 24 hr tablet, Take by mouth every night., Disp: , Rfl: fluticasone (Flonase) 50 MCG/ACT nasal spray, Administer into each nostril every night., Disp: , Rfl: gabapentin (Neurontin) 300 MG capsule, Take by mouth 2 (two) times a day., Disp: , Rfl: hydroCHLOROthiazide (HYDRODiuril) 25 MG tablet, Take 0.5 tablets (12.5 mg) by mouth every night., Disp: , Rfl: lisinopril 20 MG tablet, Take by mouth 1 (one) time each day in the morning., Disp: , Rfl: Multiple Vitamin (MULTIVITAMIN ADULT PO), Take by mouth 1 (one) time each day in the morning., Disp: , Rfl: pravastatin (Pravachol) 40 MG tablet, Take by mouth every night., Disp: , Rfl: Allergies: Patient has no known allergies. PERTINENT SOCIAL HISTORY: She reports no history of alcohol use. She reports no history of drug use. She reports that she hasnever smoked. She has never used smokeless tobacco. BP (!) 156/83 Pulse 82 Ht 1.626 m (5' 4 ) Wt 64.4 kg (142 lb) BMI 24.37 kg/m?? Physical examination today reveals a well developed (BMI 18.5-25) female in no apparent distress. Her voice is clear although very slightly raspy but not breathy and there has no evidence of a spasm. Mirror laryngoscopy reveals good closure and no evidence of spasm. She will follow-up with me when her voice changes, or if her voice changes for consideration for further Botox injections either in the clinic or in the operating room. Digital speech recognition software was used to dictate this note and, despite all efforts to proofread, some dictation errors may occur. Complexity of Care: The evaluation of this patient today was of a LOW COMPLEXITY in the medical decision-making process. The number of diagnoses and management options necessary for their evaluation were minimal or none, the amount and/or complexity of the data that I reviewed was limited, LEVEL: Straight-forward (Minimal or none) and the risks of complications and/or morbidity or mortality of the recommendations for this patient's care were minimal. documented in this encounter Plan of Treatment Upcoming Encounters Date Type Department Care Team (Late st Contact Info) Description 08/11/2024 10:10 AM EST Procedure Visit [place] [facility] [address] [place] [address] Antolin Osorio MD [address] [place] [address] documented as of this encounter Visit Diagnoses Diagnosis Spasmodic dysphonia- Primary Other diseases of larynx Muscle tension dysphonia Other diseases of larynx documented in this encounter Additional Health Concerns Assessment Noted Time A fall risk assessment has been complete d for the patient 05/27/2021 2:11 PM EDT A Body Mass Index follow-up plan has been documented for the patient 07/16/2023 9:57 AM EST documented as of this encounter Care Teams Fig Washer Relationship Specialty Start Date End Date Hung Encinas MD [address] [place] [address] PCP - General 12/13/20 Aung Garcia MD [address] [place] [address] Surgeon Otolaryngology 02/07/21 Antolin Osorio MD [address] [place] [address] Surgeon Otolaryngology 06/12/22 documented as of this encounter
--- OUTSIDE RECORDS SUMMARY | 2024-07-04 10:05 | XMS_ITS | Encounter Summary ---
Author Organization Healthcare Address [address] [place] [address] Care Team Providers Care Inspector And Clipper Name Role Phone Hung Encinas MD Primary Care Provider + [phone] Aung Garcia MD Unavailable Antolin Osorio MD Unavailable +[phone] Encounter Details Date Type Department Care Team (Latest Contact Info) Description 03/01/2023 Travel Social History Tobacco Use Types Packs/Day [...] [address], [address] [place] [address] Antolin Osorio MD [address] [place] [address] documented as of this encounter Visit Diagnoses Not on filedocumented in this encounter Additional Health Concerns Assessment Noted Time A fall risk assessment has been complete d for the patient 05/27/2021 2:11 PM EDT documented as of this encounter Care Teams Inspector And Clipper Relationship Specialty Start Date End Date Hung Encinas MD [address] [place] [address] PCP - General 12/13/20 Aung Garcia MD [address] [place] [address] Surgeon Otolaryngology 02/07/21 Antolin Osorio MD [address] [place] [address] Surgeon Otolaryngology 06/12/22 documented as of this encounter
--- OUTSIDE RECORDS SUMMARY | 2024-07-04 10:05 | XMS_ITS | Encounter Summary ---
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 Antolin Osorio MD [address] [address] Phone: tel: fax: [facility] [address] [place] [address] Phone: tel: Referral ID Status Reason Start Date Expiration Date Visits Re quested Visits Authorized [id number] 1 1 Encounter Details Date Type Department Care Team ([facility] st Contact Info) Description 06/16/2023 9:10 AM EST - 06/16/2023 9:55 AM EST Surgery [facility] [address] [place] [address] Antolin Osorio MD [address] [address] BILATERAL BOTOX INJECTIONS TO VOCAL FOLDS/VOICEBOX [66601 (CPT??)] Surgery Details Date/Time Status Location OR Service Patient Class Case Class Case Type Trauma Case? 06/16/2023 9:10 AM Posted [facility]TON[facility]TE [facility] OR 4OR05 [facility] Outpatient Surgery E-Electiv e Panel 1 Procedure [facility] Wound Class Comments BILATERAL BOTOX INJECTIONS TO VOCAL FOLDS/VOICEBOX Bilateral General Class II/ Clean Contaminated . Bilateral General Class II/ Krystle n Contaminated Surgeon Surgeon Role Service Panel Antolin Osorio MD Primary ENT 1 Poli Bains MD Resident - Assisting ENT 1 documented in this encounter Social History Tobacco [...] Sign Reading Time Taken Comments Blood Pressure 153/83 06/16/2023 7:23 AM EST Pulse 76 06/16/2023 7:23 AM EST Temperature 36.7 ??C (98.1 ??F) 06/16/2023 7:23 AM ES T Respiratory Rate 20 06/16/2023 7:23 AM EST Oxygen Saturation 97% 06/16/2023 7:23 AM EST Inhaled Oxygen Concentration - - Weight 66.5 kg (146 lb 9.7 oz) 06/16/2023 7:23 A M EST Height 162.6 cm (5' 4 ) 06/16/2023 7:23 AM EST Body Mass Index 25.16 06/16/2023 7:23 AM EST documented in this encounter Discharge Instructions * Discharge Instructions* Shelia Ramirez RN - 06/16/2023 9:53 AM EST Images [...] Room or call the Emergency Department at [phone]. Smoking and its health risks Smoking is [...] help quitting smoking, call the National Cancer [place]'s Quitline toll free at or ask your doctor for help. Weight Management Weighing too much is not good for your health. Being overweight increases your risk of health conditions such as heart problems, high blood pressure, type 2 diabetes, and certain types of cancer. Being overweight can also increase your risk for osteoarthritis (gl-kvu-mp-lau-XIGC-fip) (joint disease), sleep apnea (abnormal breathing at [...] risk of health problems. Ask your dietitian, hosiery mender or doctor about a weight loss goal [...] of controlled substances: Drug Enforcement Agency (MONSERRAT): http://www.deadiversion.usdoj.gov/drug_disposal/takeback/index.htm National Association of Drug Diversion Investigators (NADDI): http://rxdrugdropbox.org/ [place] Office of Drug Control Policy: http://odcp.az.gov/Prescription+Drug+Drop+Box+Sites.htm Are there concerns about or ? Before [...] look blue or purple What is a MELODY report? Reamaze is a system that tracks prescriptions of controlled substances in [place]. The MELODY report tells your doctor if you have been prescribed controlled substances in the past. Doctors must get a MELODY report before prescribing controlled substances. What can I do if the information in my MELODY report is wrong? You or your doctor may contact the dispenser who reported the information to Re[employer]aze. If the dispenser agrees that the information should be changed, he or she can fix the MELODY report. However, the dispenser may certify that the report is correct. If that is the case, you or your doctor may then call the [place] Drug Enforcement and Professional Practices Branch at [...] these. 's resources to help you quit: http://www.[facility]/TobaccoFree/ - Click on the Quit Here! tab. A telephone quit line: (8-522-WXDEBNA) Web sites: www.smokefree.gov, www.Packetworx.Think1stBoxing.com, www.Roadhop Tobacco Treatment Counselors: Call 946-173-6867. Medicare and Medicaid pay for this. employees, retirees, and their spouses or sponsored dependents can get free nicotine replacementtherapy and coaching. Visit www.[facility]/HR/Wellness/consults.html. [facility]: Free pamphlets [...] : 1950; DATE OF SURGERY: 06/16/2023; Location: [facility] OR PREOPERATIVE DIAGNOSES: 1. Adductor spasmodic dysphonia [...] BACK SURGERY COLONOSCOPY HYSTERECTOMY N/A Hysterectomy from [facility] Social History Tobacco Use Smoking status: Never [...] card, photo ID, along with power of civil rights attorney, guardianship or advanced directives if applicable Do [...] 10:10 AM EST Procedure Visit [place] [facility] [address], 1st [place] [address] Antolin Osorio MD [address] [place] [address] documented as of this encounter Procedures Procedure Name Priority Date/Time Associated Diagnosis Comments WI CHEMODENERVATION MUSCLE NECK UNILAT FOR DYSTONIA 06/16/2023 9:25 AM EST 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 WI LARYNGOSCOPY,DIRECT,SCOPE, INJ CORDS 06/16/2023 9:25 AM EST 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 documented in this encounter Visit Diagnoses Diagnosis Muscle tension dysphonia Other diseases of larynx Adductor spasmodic dysphonia Other diseases of larynx Glottic insufficiency Other diseases of vocal cords Muscle tension dysphonia Other diseases of larynx [...] I only), respiratory depression onabotulinumtoxinA (Botox) injection As needed, Starting on Wed06/16/23 at 0950, Until Wed06/16/23 at 0958, Routine, Intraprocedure Given 06/16/2023 9:50 AM EST 8 Units Other ondansetron (Zofran) injection 4 mg 4 mg, [...] documented as of this encounter Care Teams Manager Sterile Processing Relationship Specialty Start Date End Date Hung Encinas MD [address] [facility] [address] [place] [address] [facility] - General 12/13/20 Aung Garcia MD [address] [facility] [address] [place] [address] Surgeon Otolaryngology 02/07/21 Antolin Osorio MD [address] [facility] [address] [place] [address] Surgeon Otolaryngology 06/12/22 documented as of this encounter
--- OUTSIDE RECORDS SUMMARY | 2024-07-04 10:06 | XMS_ITS | Encounter Summary ---
Author Organization [facility] Address [address] [id number] Care Team Providers Care Field Account Director Name Role Phone Hung Encinas MD Primary Care Provider + [phone] Aung Garcia MD Unavailable Reason for Referral * Other Medical (Routine) - Closed Specialty Diagnoses / Procedures Referred By Sybil bolivar Referred To Contact Neurology Diagnoses Dysphonia Procedures Botox Dystonia Antolin Osorio MD [address] [facility] [address] [place] [address] Phone: tel: fax: [facility] [address] [facility] [address] [place] [address] Phone: tel: fax: Referral ID Status Reason Start Date Expiration Date Visits Re quested Visits Authorized [id number] Closed 01/14/2022 07/16/2023 1 1 Encounter Details Date Type Department Care Team (Late st Contact Info) Description 01/14/2022 Orders Only [place] [id number] [address] [address] Cristine Gibbons Dysphonia (Primary Dx) Social [...] Description 08/11/2024 10:10 AM EST Procedure Visit [place] [facility] [address] [place] [address] Antolin Osorio MD [address] [place] [address] Scheduled Orders Name Type Priority Associated Diagnoses Orde r Schedule Botox Dystonia Procedures Routine Dysphonia Expected: 02/06/2022, Expires: 02/13/2022 documented as of this encounter Visit Diagnoses Diagnosis Dysphonia- Primary documented in this encounter Additional Health Concerns Assessment Noted Time A fall risk assessment has been complete d for the patient 05/27/2021 2:11 PM EDT documented as of this encounter Care Teams Field Account Director Relationship Specialty Start Date End Date Hung Encinas MD [address] [facility] [address] [place] [address] PCP - General 12/13/20 Aung Garcia MD [address] [place] [address] Surgeon Otolaryngology 02/07/21 documented as of this encounter
--- OUTSIDE RECORDS SUMMARY | 2024-07-04 10:06 | XMS_ITS | Encounter Summary ---
Author Organization Healthcare Address [address] [place] [address] Care Team Providers Care Infrastructure Project Manager Name Role Phone Hung Encinas MD Primary Care Provider + [phone] Aung Garcia MD Unavailable Encounter Details Date Type Department Care Team (Latest Contact Info) Description 02/07/2021 Travel Social History Tobacco Use Types Packs/Day Years Used Date Smoking Tobacco: Never Assessed Comments Unknown Sex and Gender Information Value Date Recorded Sex Assigned at Not on file Legal Sex Female 8:54 PM EDT Gender Identity Not on file Sexual Orientation Not on file COVID-19 Exposure Response Date Recorded In the last month, have you been in contact with someone who was confirmed or suspected to have Coronavirus / COVID-19? No / Unsure 02/07/2021 10:46 AM EDT documented as of this encounter Plan of Treatment Upcoming Encounters Date Type Department Care Team (Late st Contact Info) Description 08/11/2024 10:10 AM EST Procedure Visit [place] [facility] [address] [place] [address] Antolin Osorio MD [address] [place] [address] documented as of this encounter Visit Diagnoses Not on filedocumented in this encounter Care Teams Infrastructure Project Manager Relationship Specialty Start Date End Date Hung Encinas MD [address] [place] [address] PCP - General 12/13/20 Aung Garcia MD [address] [facility] [address] [place] [address] Surgeon Otolaryngology 02/07/21 documented as of this encounter
--- OUTSIDE RECORDS SUMMARY | 2024-07-04 10:06 | XMS_ITS | Encounter Summary ---
Author Organization Healthcare Address [address] [place] [address] Care Team Providers Care Show Host Or Hostess Name Role Phone Hung Encinas MD Primary Care Provider + [phone] Aung Garcia MD Unavailable Encounter Details Date Type Department Care Team (Late st Contact Info) Description 06/16/2021 1:00 PM EST Office Visit [place] [facility] [address] [place] [address] Ana Palacios, CCC-MATH TUTOR [address] [place] [id number] Dysphonia (Primary Dx) Social History Tobacco Use [...] have Coronavirus / COVID-19? 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 She does report that her voice tends to be worse in the mornings. OBJECTIVE/ASSESSMENT: Resonant Voice Therapy (RVT) involves training voice-disordered individuals to produce voice in an easier, more resonant and forward-focused manner throughout the speech hierarchy. The objective of this approach is to achieve the strongest possible voice with the least effort and impact stress between the vocal folds to minimize the likelihood of injury. These exercises were reviewed today from the phoneme to 5-syllable sentence level (normal intonation with initial humming), and Brook performed them with 60% accuracy with maximal clinician cueing and modeling. Adjustments were made to her volume and forward-focused resonance to reduce rough voice quality; however, this was not always successful in resolving roughness completely even with consistent performance. PLAN: ??? Brook will perform Resonant Voice Therapy exercises two times daily between sessions for 5-10 minutes. Written instructions were provided to aid home programming. ??? Continued voice therapy services are recommended. Brook will follow-up for additional sessionsin 1 week. Current goals will continue to be addressed. ??? Brook will see Dr. Osorio and Dr. Garcia for her laryngeal Botox injection on Wednesday06/20/21. ??? Brook is in agreement with this plan of care. documented in this encounter Plan of Treatment Upcoming Encounters Date Type Department Care Team (Late st Contact Info) Description 08/11/2024 10:10 AM EST Procedure Visit [place] [facility] [address] [place] [address] Antolin Osorio MD [address] [place] [address] documented as of this encounter Visit Diagnoses Diagnosis Dysphonia- Primary documented in this encounter Additional Health Concerns Assessment Noted Time A fall risk assessment has been complete d for the patient 05/27/2021 2:11 PM EDT documented as of this encounter Care Teams Show Host Or Hostess Relationship Specialty Start Date End Date Hung Encinas MD [address] [address] PCP - General 12/13/20 Aung Garcia MD [address] [facility] [address] [place] [address] Surgeon Otolaryngology 02/07/21 documented as of this encounter
--- OUTSIDE RECORDS SUMMARY | 2024-07-04 10:06 | XMS_ITS | Encounter Summary ---
Author Organization [facility] Address [address] [place] [address] Care Team Providers Care Family Health Nurse Practitioner Name Role Phone Hung Encinas MD Primary Care Provider + [phone] Aung Garcia MD Unavailable Reason for Referral * Clinic-Administered Medication (Routine) - Closed Specialty Diagnoses / Procedures Referred By Sybil bolivar Referred To Contact Diagnoses Adductor spasmodic dysphonia Aung Garcia MD [address] [address] Phone: tel: fax: Referral ID Status Reason Start Date Expiration Date Visits Re quested Visits Authorized [id number] Closed 12/12/2021 06/13/2023 1 1 Reason for Visit * Other Medical (Routine) - Closed Specialty Diagnoses / Procedures Referred By Sybil bolivar Referred To Contact Neurology Diagnoses Dysphonia Procedures Botox Dystonia Antolin Osorio MD [address] [address] Phone: tel: fax: [place] [facility] [address], [address] [place] [address] Phone: tel: fax: Referral ID Status Reason Start Date Expiration Date Visits Re quested Visits Authorized [id number] Closed 11/07/2021 05/09/2023 1 1 Encounter Details Date Type Department Care Team (Late st Contact Info) Description 12/12/2021 11:00 AM EDT Procedure Visit [place] [facility] [address] [place] [address] Aung Garcia MD [address] [place] [address] Adductor spasmodic dysphonia (Primary Dx); [...] suspected to have Coronavirus/COVID-19? No / Unsure 12/12/2021 10:54 AM EDT documented as of this encounter Miscellaneous Notes * Progress Notes - Aung Garcia MD - 12/12/2021 11:00 AM EDT PATIENT NAME: Brook Bañuelos DATE OF : 1950 DATE OF PROCEDURE: 12/12/2021 PREOPERATIVE DIAGNOSES: 1. Adductor spasmodic dysphonia POSTOPERATIVE DIAGNOSES: 1. Same PROCEDURE PERFORMED: Botox injection to thyroarytenoid muscles under EMG guidance (58987, 27813), bilateral Patient was examined and her voice quality continues to be consistent with adductor spasmodic dysphonia. Informed consent was obtained for Botox injection for adductor spasmodic dysphonia and the patient was brought into the EMG exam room, placed in a sitting position and connected to EMG electrodes by the utility locate technician. A monopolar electrode was then connected [...] reviewed the patient's speech evaluation by Ms. Ana Palacios, performed the injection procedure and supervised the laryngeal EMG. Aung Garcia MD documented in this encounter Plan of Treatment Upcoming Encounters Date Type Department Care Team (Late st Contact Info) Description 08/11/2024 10:10 AM EST Procedure Visit [place] [facility] [address], [address] [place] [address] Antolin Osorio MD [address] [address] documented as of this encounter Visit Diagnoses Diagnosis Adductor spasmodic dysphonia- Primary Other diseases of larynx Dysphonia documented in this encounter Administered Medications Inactive Administered Medications - up to 3 most recent administrations Medication Order MAR Action Action Date Dose Rate Site onabotulinumtoxinA (Botox) injection 5 Units 5 Units, Intramuscular, Once, 1 dose, On Wed12/12/21 at 1245, RoutineIndications:Adductor spasmodic dysphonia Given by Other 12/12/2021 12:49 PM EDT 5 Units Other documented in this encounter Additional Health Concerns Assessment Noted Time A fall risk assessment has been complete d for the patient 05/27/2021 2:11 PM EDT documented as of this encounter Care Teams Family Health Nurse Practitioner Relationship Specialty Start Date End Date Hung Encinas MD [address] [facility] [address] [place], [place] [id number] PCP - General 12/13/20 Aung Garcia MD [address] [place] [address] Surgeon Otolaryngology 02/07/21 documented as of this encounter
--- OUTSIDE RECORDS SUMMARY | 2024-07-04 10:06 | XMS_ITS | Encounter Summary ---
Author Organization [facility] Address [address] [place] [address] Care Team Providers Care Integrated Circuit Ic Layout Designer Name Role Phone Hung Encinas MD Primary Care Provider + [phone] Aung Garcia MD Unavailable Reason for Referral * Clinic-Administered Medication (Routine) - Closed Specialty Diagnoses / Procedures Referred By Sybil bolivar Referred To Contact Diagnoses Adductor spasmodic dysphonia Aung Garcia MD [address] [address] Phone: tel: fax: Referral ID Status Reason Start Date Expiration Date Visits Re quested Visits Authorized [id number] Closed 10/10/2021 04/11/2023 1 1 Reason for Visit * Other Medical (Routine) - Closed Specialty Diagnoses / Procedures Referred By Sybil bolivar Referred To Contact Neurology Diagnoses Dysphonia Procedures Botox Dystonia Antolin Osorio MD [address] [address] Phone: tel: fax: [place] [facility] [address], [address] [place] [address] Phone: tel: fax: Referral ID Status Reason Start Date Expiration Date Visits Re quested Visits Authorized [id number] Closed 09/25/2021 03/27/2023 1 1 Encounter Details Date Type Department Care Team (Late st Contact Info) Description 10/10/2021 11:00 AM EST Procedure Visit [place] [facility] [address], [address] [place] [address] Aung Garcia MD [address] [place] [address] Adductor spasmodic dysphonia (Primary Dx); [...] have Coronavirus / COVID-19? No / Unsure 10/10/2021 11:02 AM EST documented as of this encounter Miscellaneous Notes * Progress Notes - Aung Garcia MD - 10/10/2021 11:00 AM EST PATIENT NAME: Brook Bañuelos DATE OF : 1950 DATE OF PROCEDURE: 10/10/2021 PREOPERATIVE DIAGNOSES: 1. Adductor spasmodic dysphonia POSTOPERATIVE DIAGNOSES: 1. Same PROCEDURE PERFORMED: Botox injection to thyroarytenoid muscles under EMG guidance (75302, 27383), bilateral Patient was examined and her voice quality continues to be consistent with adductor spasmodic dysphonia. Informed consent was obtained for Botox injection for adductor spasmodic dysphonia and the patient was brought into the EMG exam room, placed in a sitting position and connected to EMG electrodes by the logistics technician. A monopolar electrode was then connected to the special 27-gauge Perfecto-coated oculinum needle. Under EMG guidance and after verification of the muscle signal by myself, 2.25 units of botulinum toxin type A was injected passing through the cricothyroid membrane 1st into the leftand then the right thyroarytenoid muscles with 4.5 units used total. The patient tolerated the procedure well and [...] Description 08/11/2024 10:10 AM EST Procedure [facility] [place] [facility] [address], [address] [place] [address] Antolin Osoiro MD [address] [id number] documented as of this encounter Visit Diagnoses Diagnosis Adductor spasmodic dysphonia- Primary Other diseases of larynx Dysphonia documented in this encounter Administered Medications Inactive Administered Medications - up to 3 most recent administrations Medication Order MAR Action Action Date Dose Rate Site onabotulinumtoxinA (Botox) injection 5 Units 5 Units, Intramuscular, Once, 1 dose, On Wed10/10/21 at 1545, RoutineIndications:Adductor spasmodic dysphonia Given by Other 10/10/2021 3:34 PM EST 5 Units Other documented in this encounter Additional Health Concerns Assessment Noted Time A fall risk assessment has been complete d for the patient 05/27/2021 2:11 PM EDT documented as of this encounter Care Teams Integrated Circuit Ic Layout Designer Relationship Specialty Start Date End Date Hung Encinas MD [address] [facility] [address] [place] [address] PCP - General 12/13/20 Aung Garcia MD [address] [facility] [address] [place] [phone] Surgeon Otolaryngology 02/07/21 documented as of this encounter
--- OUTSIDE RECORDS SUMMARY | 2024-07-04 10:06 | XMS_ITS | Encounter Summary ---
Author Organization [facility] Address [address] [place] [address] Care Team Providers Care Bench Loom Weaver Name Role Phone Hung Encinas MD Primary Care Provider + [phone] Aung Garcia MD Unavailable Reason for Referral * Clinic-Administered Medication - Closed Specialty Diagnoses / Procedures Referred By Sybil bolivar Referred To Contact Diagnoses Dysphonia Antolin Osorio MD [address] [address] Phone: tel: fax: Referral ID Status Reason Start Date Expiration Date Visits Re quested Visits Authorized [id number] Closed 06/24/2021 12/24/2022 1 1 Reason for Visit * Other Medical (Routine) - Closed Specialty Diagnoses / Procedures Referred By Sybil bolivar Referred To Contact Neurology Diagnoses Dysphonia Procedures Botox Dystonia Antolin Osorio MD [address] [address] Phone: tel: fax: Referral ID Status Reason Start Date Expiration Date V isits Requested Visits Authorized [id number] Closed Specialty Services Required 05/22/2021 11/21/2022 1 1 Encounter Details Date Type Department Care Team (Late st Contact Info) Description 06/20/2021 11:00 AM EST Procedure Visit [place] [facility] [address] [place] [address] Antolin Osorio MD [address] [place] [address] Adductor spasmodic dysphonia (Primary Dx); [...] have Coronavirus / COVID-19? No / Unsure 06/25/2021 8:53 AM EST documented as of this encounter Miscellaneous Notes * Progress Notes - Antolin Osorio MD - 06/20/2021 11:00 AM EST PATIENT NAME: Brook Bañuelos DATE OF : 1950 DATE OF PROCEDURE: 06/20/2021 PREOPERATIVE DIAGNOSES: 1. Adductor spasmodic dysphonia POSTOPERATIVE DIAGNOSES: 1. Same PROCEDURE PERFORMED: Botox injection to thyroarytenoid muscles under EMG guidance (98742, 59818), bilateral Patient was examined and her voice quality continues to be consistent with adductor spasmodic dysphonia. Informed consent was obtained for Botox injection for adductor spasmodic dysphonia and the patient was brought into the EMG exam room, placed in a sitting position and connected to EMG electrodes by the morgue technician. A monopolar electrode was then connected to the special 27-gauge Perfecto-coated oculinum needle. Under EMG guidance and after verification of the muscle signal by myself, 2.5 unitsof botulinum toxin type A was injected passing through the cricothyroid membrane into 1st the left and then the right thyroarytenoid muscles. The patient tolerated the procedure well and will return in 2 months for follow-up evaluation and repeat injection if necessary. I personally reviewed the patient's speech evaluation by Dr. Bev Lawson, performed the injectionprocedure and supervised the laryngeal EMG. Antolin Osorio MD documented in this encounter Plan of Treatment Upcoming Encounters Date Type Department Care Team (Late st Contact Info) Description 08/11/2024 10:10 AM EST Procedure Visit [place] [facility] [address], [address] [place] [address] Antolin Osorio MD [address] [facility] [address] [place] [address] documented as of this encounter Visit Diagnoses Diagnosis Adductor spasmodic dysphonia- Primary Other diseases of larynx Dysphonia documented in this encounter Administered Medications Inactive Administered Medications - up to 3 most recent administrations Medication Order MAR Action Action Date Dose Rate Site onabotulinumtoxinA (Botox) injection 5 Units 5 Units, Intramuscular, Once, 1 dose, On Wed06/24/21 at 1345, RoutineIndications:Dysphonia Given by Other 06/20/2021 10:00 AM EST 5 Units Other documented in this encounter Additional Health Concerns Assessment Noted Time A fall risk assessment has been complete d for the patient 05/27/2021 2:11 PM EDT documented as of this encounter Care Teams Bench Loom Weaver Relationship Specialty Start Date End Date Hung Encinas MD [facility] [address] [address] PCP - General 12/13/20 Aung Garcia MD [address] [facility] [address] [place] [address] Surgeon Otolaryngology 02/07/21 documented as of this encounter
--- OUTSIDE RECORDS SUMMARY | 2024-07-04 10:06 | XMS_ITS | Encounter Summary ---
Author Organization [facility] Address [address] [id number] Care Team Providers Care Plumbing Designer Name Role Phone Hung Encinas MD Primary Care Provider + [phone] Aung Garcia MD Unavailable Encounter Details Date Type Department Care Team (Late st Contact Info) Description 06/09/2021 11:00 AM EST Office Visit [place] [facility] [address] [place] [phone] Ana Palacios, CCC-RECEIVING AND PROCESSING SUPERVISOR [address] [place] [id number] Dysphonia (Primary Dx) Social History Tobacco Use [...] have Coronavirus / COVID-19? No / Unsure 06/09/2021 10:48 AM EST documented as of this encounter Miscellaneous Notes * Patient Instructions - Ana Palacios, CCC-RECEIVING AND PROCESSING SUPERVISOR - 06/09/2021 11:00 AM EST Resonant Voice Therapy Exercises Targets: ??? Feel vibration in mid face or in mouth (lips, teeth, cheek bones, nose, etc.) - Maximum the vibration ??? Make it easy - Minimize vocal effort Spend as much time as you need on each of the following levels to have a consistently clear voice -when it is consistently clear and across variety in that step move on to the next level. You don???t necessarily have to spend much time, spend as much or as little time as you need for each level. Except for Step 6 (reading aloud), spend 2-5 minutes reading out loud maintaining the clear voice. Do all exercises twice daily, spending 5-10 minutes total on average across the exercises. 1. Sound level humming (???m?? sound) or holding ???n,?ng,?z,?v,?oh?? or ???oo?? with lip buzz, etc, at your normal speaking pitch and normal speaking loudness. 2. Syllable repetition level - ???tawanna tawanna tawanna?momomomo?moomoomoo?mamamama?? , etc. or ???n?? + vowels, etc. 3. Word repetition level - money money money, Wednesday, many, many, many, many (see list of /m/ words/phrases and pick a few words) 4. Phrase level - Many men on the rodriguez. Mail my money. One Wednesday morning, etc. (see list of /m/ words/phrases and pick a few phrases). Start with chanting and gradually add more natural intonation. 5. Automatic speech (over learned/rote) - counting, days of week, months of the year, ABCs, nurseryrhymes, lyrics to songs you know well, etc. Start with chanting if needed as you did with exercise 4. 6. Read out loud - any material will do: newspaper, magazine, book, junk mail, etc. Try to spend the majority of the practice time with reading but ensure you???re maintaining the improved/strong voice throughout. Throughout the day: Notice your voice as you???re saying yes/no responses (right, all right, sure, okay, yes, no, etc.)and pull-out/fix the voice if needed using the same yes/no responses as spring boards to improve the voice. If needed, sip water, yawn, shift how you???re standing/sitting, stretch, etc. Additional /m/-loaded sentences: Many miles Mail my money Lamar Jamal. Mean Marge made me mad. Yessi marinates meat. Maybe Lamar measured. Charles makes much money. My mom made marmalade Many munchkins made merry. Estrada mongrels may maul mice. Meager meals made my mom moan. More mayhem made managers mad. Move my mom???s many magazines. Major migraines made me miserable. My meddling may mean major misery. Madam Paul mangled magnolias. Mercy me! Meet my mother. Aung made moccasins. Sean Calvert met Max. My mother makes muffins. Jannet marched many miles. My mother mailed me merchandise. Make more charlie marmalade. My mother makes much money. Wednesday morning must mean mishaps. Kyle memorized measurements. Mosquitoes may mean malaria. Mend Jumana???s many mismatched mittens. Mass media mocks many matters. Modest mannerisms make me marvel. Molten magma might migrate many miles. Misconduct may mean many misdemeanors * Progress Notes - Ana Palacios CCC-RECEIVING AND PROCESSING SUPERVISOR - 06/09/2021 11:00 AM EST [facility] Speech-Language Pathology Therapy Note Patient's name: Brook Bañuelos Date of Session: 06/09/21 Providing RECEIVING AND PROCESSING SUPERVISOR: Ana Palacios MS CCC-RECEIVING AND PROCESSING SUPERVISOR Referring Provider: Antolin Osorio MD - Otolaryngology Diagnosis: Dysphonia R49.0 secondary to adductor spasmodic dysphonia, supraglottic hyperfunction,??laryngeal irritation,??mild tremoring of the velum and lateral pharyngeal marcum, presbylaryngis Session #: 2 Session Location: [facility] SUBJECTIVE: Brook notes some voice improvements since her most recent session. She does report that her voice tends to be worse in the mornings. She has had the most success with humming. OBJECTIVE/ASSESSMENT: Resonant Voice Therapy (RVT) involves training voice-disordered individuals to produce voice in an easier, more resonant and forward-focused manner throughout the speech hierarchy. The objective of this approach is to achieve the strongest possible voice with the least effort and impact stress between the vocal folds to minimize the likelihood of injury. These exercises were instructed today from the phoneme to automatic speech level (normal intonation with initial humming), and Brook performed them with 50% accuracy with maximal clinician cueing and modeling. Adjustments were made to her volume and forward-focused resonance to reduce rough voice quality. Negative practice was utilized in initial stages to differentiate how she is using her voice when it sounds clear vs rough. Brook wasmost challenged at the higher levels, requiring intermittent humming or syllable-level productions between longer productions to maintain appropriate volume and resonance. PLAN: ??? Brook will perform Resonant Voice Therapy exercises two times daily between sessions for 5-10 minutes. Written instructions were provided to aid home programming. ??? Continued voice therapy services are recommended. Brook will follow-up for additional sessionsin 1 week. Current goals will continue to be addressed. ??? Brook is in agreement with this plan of care. documented in this encounter Plan of Treatment Upcoming Encounters Date Type Department Care Team (Late st Contact Info) Description 08/11/2024 10:10 AM EST Procedure Visit [place] [facility] [address] [place] [address] Antolin Osorio MD [address] [place] [address] documented as of this encounter Visit Diagnoses Diagnosis Dysphonia- Primary documented in this encounter Additional Health Concerns Assessment Noted Time A fall risk assessment has been complete d for the patient 05/27/2021 2:11 PM EDT documented as of this encounter Care Teams Plumbing Designer Relationship Specialty Start Date End Date Hung Encinas MD [address] [facility] [address] [place] [address] PCP - General 12/13/20 Aung Garcia MD [address] [facility] [address] [place] [address] Surgeon Otolaryngology 02/07/21 documented as of this encounter
--- OUTSIDE RECORDS SUMMARY | 2024-07-04 10:06 | XMS_ITS | Encounter Summary ---
Author Organization Healthcare Address [address] [place] [address] Care Team Providers Care Operations Mgr Name Role Phone Hung Encinas MD Primary Care Provider + [phone] Aung Garcia MD Unavailable Encounter Details Date Type Department Care Team (Latest Contact Info) Description 02/06/2022 Travel Social History Tobacco Use Types Packs/Day [...] suspected to have Coronavirus/COVID-19? No / Unsure 02/06/2022 10:53 AM EDT documented as of this encounter Plan of Treatment Upcoming Encounters Date Type Department Care Team (Late st Contact Info) Description 08/11/2024 10:10 AM EST Procedure Visit [place] [facility] [address] [place] [address] Antolin Osorio MD [address] [place] [address] documented as of this encounter Visit Diagnoses Not on filedocumented in this encounter Additional Health Concerns Assessment Noted Time A fall risk assessment has been complete d for the patient 05/27/2021 2:11 PM EDT documented as of this encounter Care Teams Operations Mgr Relationship Specialty Start Date End Date Hung Encinas MD [address] [facility] [address] [place] [address] PCP - General 12/13/20 Aung Garcia MD [address] [facility] [address] [place] [address] Surgeon Otolaryngology 02/07/21 documented as of this encounter
--- OUTSIDE RECORDS SUMMARY | 2024-07-04 10:06 | XMS_ITS | Clinical Summary ---
Author Organization [facility] Address [address] [place] [address] Care Team Providers Care Real Estate Instructor Name Role Phone Unavailable Primary Care Provider Unavailabl e Social History Tobacco Use Types Packs/Day Years Used Date Smoking Tobacco: Never Assessed Abuse Screen Answer Date Recorded Unsafe at Home or Work/School Not on file Feels Threatened by Someone? Not on file 05/2023 Does Anyone Keep You from Co ntacting Others or Doint Things Outside the Home? Not on file 05/11/2023 Physical Sign of Abuse Present Not on file 1 Housing Stability Answer Date Recorded Current Living Arrangements Not on file 05/02 Potentially Unsafe Housing Conditions Not on ebonie e 05/11/2023 Family and Community Support Answer Bhargav e Recorded Help with Day-to-Day Activities Not on file 05/11/2023 Lonely or Isolated Not on file 05/11/2023 Employment Answer Date Recorded Do you want help finding or keeping work or a nadeem b? Not on file 05/11/2023 Disabilities Answer Date Recorded Concentrating, Remembering, or Making Decisions Difficulty Not on file 05/11/2023 Doing Errands Independently Difficulty Not on fi le 05/11/2023 Education Answer Date Recorded Help with school or training? Not on file Preferred Language Not on file 05/11/2023 Comments Unknown Sex and Gender Information Value Date Recorded Sex Assigned at Not on file Legal Sex Female 1:48 PM EDT Gender Identity Not on file Sexual Orientation Not on file Plan of Treatment Health Maintenance Due Date Last Done Comments ANNUAL PHYSICAL 1950 COLOGUARD 1950 COLON CANCER SCREENING 5 YEAR SIGMOIDOSCOPY 1950 COLONOSCOPY 1950 COLORECTAL CANCER SCREENING 1950 CT COLONOGRAPHY 1950 DXA SCAN 1950 FECAL OCCULT BLOOD TEST 1950 FIT Testing (1 year) 1950 HEPATITIS C SCREENING 1950 TDAP/TD VACCINES (1 - Tdap) 1969 MAMMOGRAM 1990 ZOSTER VACCINE (1 of 2) 2000 Pneumococcal Vaccine 65+ (1 of 1 - PCV) 10/30/2015 INFLUENZA VACCINE 01/31/2024 COVID-19 Vaccine ( season) 2024
--- OUTSIDE RECORDS SUMMARY | 2024-07-04 10:06 | XMS_ITS | Encounter Summary ---
Author Organization [facility] Address [address] [place] [address] Care Team Providers Care Cost Accounting Analyst Name Role Phone Unavailable Primary Care Provider Unavailabl e Encounter Details Date Type Department Care Team (Late st Contact Info) Description 08/29/2014 11:30 AM EST - 09/01/2014 12:53 PM EST Hospital Encounter [address] [address] Nicolás Pepe MD Social History Tobacco Use Types Packs/Day Years Used Date Smoking Tobacco: Never Assessed Comments Unknown Sex and Gender Information Value Date Recorded Sex Assigned at Not on file Legal Sex Female 1:48 PM EDT Gender Identity Not on file Sexual Orientation Not on file documented as of this encounter Discharge Summaries * Interface, See Report - 08/29/2014 11:30 AM EST [address] [address] DISCHARGE SUMMARY PATIENT NAME: BROOK BERRY ROOM NUMBER: [id number] VISIT NUMBER: [id number] DATE OF : 1950 DATE OF ADMISSION: 08/29/2014 DATE OF DISCHARGE: 09/01/2014 ATTENDING PHYSICIAN: Nicolás Pepe MD. PRIMARY CARE PHYSICIAN: Hung Encinas MD. PREOPERATIVE DIAGNOSES: 1. L4-L5 degenerative spondylolisthesis. 2. L4-L5 spinal stenosis. 3. Left L5-S1 lateral recess and foraminal stenosis. 4. Intractable mechanical back and leg pain. POSTOPERATIVE DIAGNOSES: 1. L4-L5 degenerative spondylolisthesis. 2. L4-L5 spinal stenosis. 3. Left L5-S1 lateral recess and foraminal stenosis. 4. Intractable mechanical back and leg pain. 5. Acute blood loss anemia. PROCEDURES PERFORMED: 1. L4-L5 Mesa-Flores osteotomy. 2. Left L5-S1 hemilaminectomy, medial facetectomy, and foraminotomy. 3. Right L4-L5 transforaminal lumbar interbody fusion with 10 x 22 millimeter capstone cage and morselized bone graft. 4. Right L5-S1 transforaminal lumbar interbody fusion with 12 x 26 millimeter capstone cage and morselized bone graft. 5. L4-S1 segmental posterolateral fusion with TSRH-3-D pedicle screw fixation and morselized bone graft. 6. Local bone autograft harvesting. 7. Correction of the L4-L5 spondylolisthesis. HISTORY OF PRESENT ILLNESS: The patient is a 63-year-old woman who presented with intractable back and leg pain. She was found to have a degenerative spondylolisthesis at L4-L5 with disc herniation causing severe spinal stenosis. She also had left L5-S1 lateral recess and foraminal stenosis. HOSPITAL COURSE: The patient was admitted on 08/29/2014 for the above procedure. The patient tolerated the procedure well without complication. Following the procedure, the patient was transferred to the recovery room and subsequently to the floor in stable and satisfactory condition. She received 1 unit of packed red blood cells intraoperatively. On postoperative day #1, the patient's vital signs were stable, she was afebrile. CBC revealed a white blood cell count of 14.09, hemoglobin 10.8, hematocrit 28.5, platelet count 235,000. She was doing well. She denied new complaints. Her back was painful. She was taking p.o. fluids. Physical therapy and occupational therapy were consulted for assistance with ambulation. On postoperative day #2, the patient's vital signs were stable, she was afebrile. She continued to do well without new neuro changes. She denied leg pain. She was ambulating and voiding without difficulty. She was taking p.o. well. On postoperative day #3, the patient's vital signs were stable, she was afebrile. She was doing well without new complaints. Her wound was intact and dressing was dry. She was subsequently discharged home. CONDITION ON DISCHARGE: The patient was discharged home in stable and satisfactory condition. DISCHARGE MEDICATIONS: 1. OxyContin 20 mg, #16, 1 p.o. q12 h. 2. Percocet 10/325 mg, #120, 1 p.o. q4-6 h. p.r.n. pain. DISCHARGE INSTRUCTIONS: 1. The patient may shower on 09/04/2014. 2. The patient is to followup with [facility] on 09/12/2014 for staple removal; the patient is to call for this appointment. Discharge plans and medications managed under the direction of Nicolás Pepe MD. Geeta Faustin PA-C Dictated for: Nicolás Pepe MD DLR/rxrca Voice Rec. ID #[id number] Voice Original ID #[id number] Doc ID #[id number] Rev. #0 cc: Nicolás Pepe MD* Hung Encinas M.D.* DO NOT TEXT EDIT THIS LINE :CDS:304: Authenticated by GEETA FAUSTIN PA-C On 10/03/2014 03:47:17 PM Authenticated by NICOLÁS PEPE MD On 10/08/2014 12:56:02 PM documented in this encounter H&P Notes * Interface, See Report - 08/29/2014 11:30 AM EST [address] HISTORY AND PHYSICAL PATIENT NAME: BROOK BERRY ROOM NUMBER: VISIT NUMBER: [id number] DATE OF : 1950 DATE OF ADMISSION: 08/29/2014 CHIEF COMPLAINT: Low back and right leg pain. HISTORY OF PRESENT ILLNESS: This 63-year-old woman has had back and leg pain over the last 7 months or so. She has pain in the lumbar region of the back with radiation into the right leg. This is primarily into the anterior thigh and anterior leg. She has had numbness and tingling in the left leg. Standing and walking produced numbness and tingling in the left leg and pain in the right leg. Her symptoms have worsened. She does not have any difficulty voiding or incontinence. She has never had any spine surgery. She has been through physical therapy. She takes Relafen and gabapentin and tramadol for pain. DIAGNOSTIC DATA: An MRI scan of the lumbar spine shows a grade 2 spondylolisthesis of L4 on L5 with high-grade spinal stenosis at L4-L5. She has a left lateral and foraminal stenosis at L5-S1. She has a disk herniation at L4-L5 on the right with upward migration of disk material and L4 root compression. Flexion and extension x-rays show 9 mm of spondylolisthesis that increases to 11 mm with standing flexion. PAST MEDICAL HISTORY: 1. History of bladder infections. 2. Hypertension. MEDICATIONS: 1. Tramadol 50 mg as needed. 2. Gabapentin 600 mg 2 daily. 3. Relafen 750 mg 2 daily. 5. Felodipine 10 mg daily. 6. Pravastatin 40 mg daily. 7. Quinapril/hydrochlorothiazide 20/12.5 once daily. ALLERGIES: She has no drug allergies. PAST SURGICAL HISTORY: 1. The patient has had a hysterectomy in 1999. 2. She had removal of a skin lesion on the foot in 2011. SOCIAL HISTORY: The patient is retired. She is . She never uses alcohol, tobacco or illicit drugs. FAMILY HISTORY: Positive for hypertension and Parkinson's disease. REVIEW OF SYSTEMS: The patient denies a history of recent chest pain, heart attack or other heart disease, stroke, seizures, cancer, chronic pulmonary disease, diabetes mellitus; liver, kidney, stomach or ulcer disease, endocrine disease, psychiatric disease or a history of bleeding disorder. PHYSICAL EXAMINATION: VITAL SIGNS: The patient is 5 feet 4 inches tall and weighs 150 pounds. Temperature is 97.4 degrees Fahrenheit. Blood pressure is 138/80, pulse is 90 and regular. GENERAL: The patient is a neat, healthy female, and in no acute distress. HEENT: Unremarkable except for hoarseness. NECK: Normal. Shoulder range of motion is full. CHEST: Symmetric with normal expansion on inspiration. LUNGS: Clear to auscultation in all stone. HEART: Regular rhythm with normal S1 and S2 sounds. No murmur was detected. ABDOMEN: Soft and nontender. Bowel sounds are present. BACK: Normal curvature in the thoracic and lumbosacral regions. She could flex to 60 degrees to 80 degrees and extend 10 degrees. She had mild to moderate stiffness. There were no spasms or scoliosis noted. NEUROLOGIC: Mental status, speech, and language were normal. Cranial nerves II through XII are intact. The patient's gait was normal. Balance and coordination were intact. Deep tendon reflexes were normal at the biceps and triceps, normal at the left knee, diminished at the right knee and diminished at both ankles. There were no pathologic reflexes noted. Motor testing showed normal strength and tone in upper and lower extremities. Sensation to light touch and joint position were normal. EXTREMITIES: Straight-leg raising on the right intensified the pain in the back and buttock at 45 degrees. Calf circumferences were equal. Peripheral pulses were present. There was no edema or skin change noted. Hip range of motion was normal. IMPRESSION: 1. Degenerative L4-L5 spondylolisthesis, grade 2. 2. L4-L5 herniated nucleus pulposus. 3. Severe L4-L5 central spinal stenosis. 4. Left L5-S1 lateral recess and foraminal stenosis. 5. L4 and L5 radiculopathies secondary to above. PLAN: The patient is admitted for a Mesa-Flores osteotomy at the L4-L5 level with interbody fusion and a left transforaminal interbody fusion at L5-S1 with L4-S1 posterolateral fusion and pedicle screw fixation in an attempt to relieve back and leg pain. Nicolás Pepe MD* BAS/rxmbk Voice Rec. ID #[id number] Voice Original ID #[id number] Doc ID #[id number] Rev. #0 cc: Nicolás Pepe MD* DO NOT TEXT EDIT THIS LINE :[facility]:[id number]: Authenticated by NICOLÁS PEPE MD On 08/30/2014 11:04:28 AM documented in this encounter OR Notes * Op Note - Interface, See Report - 08/29/2014 11:30 AM EST [place] [address] OPERATIVE REPORT PATIENT NAME: BROOK BERRY ROOM NUMBER: [id number] VISIT NUMBER: [id number] DATE OF : 1950 DATE OF OPERATION: 08/29/2014 PREOPERATIVE/POSTOPERATIVE DIAGNOSES: 1. L4-L5 degenerative spondylolisthesis. 2. L4-L5 spinal stenosis. 3. Left L5-S1 lateral recess and foraminal stenosis. 4. Intractable mechanical back and leg pain. PROCEDURES PERFORMED: 1. L4-L5 Mesa-Flores osteotomy. 2. Left L5-S1 hemilaminectomy, medial facetectomy and foraminotomy. 3. Right L4-L5 transforaminal interbody fusion with a 10 x 22 mm capstone cage and morselized bone graft. 4. Right L5-S1 transforaminal interbody fusion with a 12 x 26 mm capstone cage and morselized bone graft. 5. L4-S1 segmental posterolateral fusion with TSRH-3-D pedicle screw fixation and morselized bone graft. 6. Local bone autograft harvesting. 7. Correction of the L4-L5 spondylolisthesis. SURGEON: Nicolás Pepe MD INSURANCE CLAIMS PROCESSOR: Geeta Faustin MD INDICATIONS FOR PROCEDURE: This 63-year-old woman presents with intractable back and leg pain. She has a degenerative spondylolisthesis at L4-L5 with disc herniation causing severe spinal stenosis. She also has left L5-S1 lateral recess and foraminal stenosis. She presents for operative decompression of the spinal canal, reduction of the L4-L5 spondylolisthesis and stabilization of the spine in an attempt to relieve back and leg pain. DESCRIPTION OF PROCEDURE: The patient was brought into the operating suite, and in the supine position, general endotracheal anesthesia was induced. PAOLA hose and pneumatic compression devices were applied to the legs. A Jean catheter was placed in the bladder. Pedraza pins were applied to the head. The patient was carefully rolled into the prone position and placed on the Aquilino table. The Pedraza headrest was attached to the operating table to support the head such that the face was free of compression. The skin of the back was then prepared with alcohol and a ChloraPrep skin preparation kit. The field was draped in a sterile fashion. The midline was marked. The skin was incised with a #10 blade. Hemostasis was obtained with the Bovie. Dissection was continued down to the lumbodorsal fascia. The fascia was incised in the midline and the paraspinal muscles were dissected free of the spinous processes and lamina from L3 to the sacrum. Then the muscle was dissected over the facet joints to expose the transverse processes at L4 and L5 and the ala of the sacrum bilaterally. Self-retaining retractors were placed. Next, the Midas Rigo drill with a 3 mm bur was used to perform a Mesa-Flores osteotomy at the L4-L5 level. This was accomplished to assist in reduction of the spondylolisthesis. The bone dust generated by the drill was collected in a [employer]s trap and mixed with Master[employer]raft ceramic bone graft sand mixer operator and Roberts demineralized bone matrix to form the morselized bone graft. The thinned bone was then elevated with sharp curettes and removed with Kerrison rongeurs. There were large osteophytes off the medial facets. These were carefully dissected from the dura and removed. There was a significant indentation on the left proximal L5 nerve root from this osteophyte. The back of the annulus at L4-L5 on the right was cleared of epidural veins and then Gelfoam was placed in the epidural space. Total facetectomies were accomplished on both sides. Next, the Midas Rigo drill with a 3 mm bur was used to perform partial hemilaminectomies of L5 and S1 on the left as well as an L5-S1 medial facetectomy and foraminotomy. The thinned bone was elevated with sharp curettes and removed with the Kerrison rongeurs. The exiting L5 nerve root was nicely decompressed. Then Gelfoam and FloSeal were placed at the L5-S1 level on the left. The drill was then used to perform hemilaminectomies at L5 and S1 on the right as well as a total facetectomy. Again the thinned bone was elevated with sharp curettes and removed with Kerrison rongeurs. The exiting L5 and passing S1 nerve roots were decompressed. The back of the annulus was cleared of epidural veins. Then FloSeal and Gelfoam were placed in the epidural space. The stereotactic reference frame for the Stealth station was applied to the S1 spinous process. Then the patient was covered. The O-arm intraoperative CT scanner was brought in the field. A CT scan was obtained, imaging the L4, L5 and S1 vertebrae. Then the O-arm was removed. The data were transferred to the Stealth station. The extra drapes were removed. Then, using stereotactic navigation, the pedicles at L4, L5 and S1 were tapped. The pedicle entry point was identified and the cortex punctured with the drill. Then a pilot plant operator helper hole was drilled through the pedicle into the vertebral body. The pedicle was then tapped to 7.5 mm at the L5 and S1 levels and to 5.5 mm at the L4 level. The pedicle marcum were probed and found to be intact. Gelfoam was then placed within the pedicles. The stereotactic reference frame was then removed. The self-retaining retractors were replaced. Then, the transverse processes of L4 and L5 and the ala of the sacrum were decorticated with the drill. Then TSRH-3-D pedicle screws were placed. Standard screws were placed in the sacrum. MPA screws were placed at L4 and L5. Then the distractors were placed over the pedicle screws at L4 and L5. The disc space was distracted. The annulus was incised on the right side. Then a radical discectomy was accomplished using various curettes, pituitary and Kerrison rongeurs. Epidural disc was removed. The vertebral endplates were roughened with the serrated curettes. Then morselized bone graft was packed in the disc space. A 10 x 22 mm capstone cage was filled with morselized bone graft and then countersunk in the disc space. Gelfoam was placed over the back of the cage. Then the distraction was removed and the distractors were moved to the L5 and S1 pedicle screws. Again, distraction was obtained. The S1 nerve root on the right was gently retracted. The annulus was incised with a #11 blade. Then a radical discectomy was accomplished using various curettes, pituitary and Kerrison rongeurs. The vertebral endplates were roughened with the serrated curettes. Then morselized bone graft was packed in the disc space. A 12 x 26 mm capstone cage was then filled with morselized bone graft and countersunk in the disc space. Gelfoam was placed over the back of the cage. Then, FloSeal and Gelfoam were placed in the epidural space. The rest of the morselized bone graft was then placed in the lateral transverse process space from L4 to S1. Then a 5.5 mm diameter cobalt chrome samantha was cut and contoured and attached to the pedicle screws. The samantha was tightened to the S1 pedicle screws. Then the MPA screws at L4 and L5 were used to reduce the spondylolisthesis. A bullet was placed on the stem of the L4 MPA screws. Then the spondylolisthesis was reduced. The setscrews on the connectors were tightened to breakoff torque. Then the stems of the MPA screws were cut. A cross-link was placed between the L4 and L5 pedicle screws and appropriately tightened. Then, the rest of the exposed dura was covered with Gelfoam. A 10 mm flat JORDAN drain was placed in the wound and brought out through a stab incision. The drain was sutured with 3-0 nylon. Then the retractors were removed. The paraspinal muscles were approximated with interrupted 0 Vicryl stitches. The fascia was approximated with a running #1 Vicryl stitch. At this point, an x-ray was obtained. This showed excellent alignment of the spine with good reduction of the spondylolisthesis at L4-L5. Then the subcutaneous tissues were approximated with interrupted 2-0 Vicryl stitches. Then 3-0 Vicryl subcuticular stitches were used to approximate the skin edges. Coco were placed in the skin. A Telfa, dressing sponge, tape dressing was applied to the back. The patient was rolled into the supine position. She was allowed to awaken from anesthesia. She was transferred in stable condition to the Recovery Room. She tolerated surgery well. Estimated blood loss was 600 mL. The patient received 1 unit of packed red blood cells and 150 mL from the CellSaver. Nicolás Pepe MD* BAS/rxrjs Voice Rec. ID #[id number] Original Voice Rec. ID #[id number] Doc ID #[id number] Revision Count: 0 cc: Nicolás Pepe MD* <start header> [place] [address] OPERATIVE REPORT PATIENT NAME: BROOK BERRY ROOM NUMBER: [id number] VISIT NUMBER: [id number] DATE OF : 1950 <end header> DO NOT TEXT EDIT THIS LINE :LEATHER ETCHER:[id number]: Authenticated by NICOLÁS PEPE MD On 08/30/2014 11:04:35 AM documented in this encounter Plan of Treatment Not on file documented as of this encounter Procedures Procedure Name Priority Date/Time Associated Diagnosis Comments CBC (NO DIFF) Routine 08/30/2014 4:48 AM EST CONV OR SURGERY PANEL Routine 08/29/2014 4:30 PM EST CONV OR GLUCOSE Routine 08/29/2014 4:30 PM EST CONV OR SURGERY PANEL Routine 08/29/2014 3:03 PM EST CONV OR GLUCOSE Routine 08/29/2014 3:03 PM EST CONV OR POTASSIUM Routine 08/29/2014 12: 19 PM EST TYPE AND SCREEN Routine 08/29/2014 12:19 PM EST CONVERTED (HISTORICAL) PACKED RED BLOOD CELLS Routine 08/29/2014 12:14 PM EST FL O ARM DURING SURGERY Routine 08/29/2014 12:04 PM EST XR SPINE LUMBAR LATERAL Routine 08/29/2014 12:04 PM EST CONVERTED (HISTORICAL) SURGICAL PATHOLOGY Routine 08/29/2014 11:30 AM EST MRSA SCREEN Routine 08/22/2014 1:41 PM EST CBC (NO DIFF) Routine 08/22/2014 1:40 PM EST HEMOGLOBIN A1C Routine 08/22/2014 1:40 PM EST BASIC METABOLIC PANEL Routine 08/22/2014 1:40 PM EST documented in this encounter Results * (ABNORMAL) CBC (No diff) (08/30/2014 4:48 AM EST) WBC 14.09(H) 3.50 - 10.80 K/[facility] RBC 3.47(L) 3.89 - 5.14 M/[facility] Hemoglobin 10.0(L) 11.5 - 15.5 g/dL [facility] Hematocrit 28.5(L) 34.5 - 44.0 % [facility] MCV 82.1 80.0 - 99.0 fL [facility] MCH 28.8 27.0 - 31.0 pg [facility] MCHC 35.1 32.0 - 36.0 g/dL [facility] RDW-CV 12.8 11.3 - 14.5 % [facility] Platelets 235 150 - 450 K/[facility] Blood specimen (specimen) 08/30/2014 4:48 AM EST [facility]ATORY - 08/30/2014 5:01 AM EST Specimen Type: Blood Nicolás Pepe MD LAB BLOOD ORDERABLES Final Resu lt Performing Organization Address [facility] [place] [address], * (ABNORMAL) OR Glucose (08/29/2014 4:30 PM EST) Glucose 137(H) 67 - 93 mg/dL [facility] Venous blood specimen (specimen) 08/29/2014 4:30 PM EST [facility] - 08/29/2014 4:41 PM EST Specimen Type: Venous us Nicolás Pepe MD LAB BLOOD ORDERABLES Final Resu lt Performing Organization Address [facility] [place] [address], * (ABNORMAL) OR Surgery Panel (08/29/2014 4:30 PM EST) pH, Venous 7.487(H) 7.340 - 7.460 [facility] pCO2, Venous 33.2(L) 34 - 46 [facility] pO2, Venous 391.1 [facility] HCO3, Venous 24.6 20 - 26 [facility] CO2 25.6 23 - 27 [facility] O2 Saturation, Venous 99.3 [facility] Hemoglobin, Blood Gas 11.0 10.0 - 16.0 g/dL [facility] Hematocrit 32(L) 39 - 51 % [facility] Sodium 132.4(L) 134 - 146 mmol/L [facility] Potassium 3.14(L) 3.5 - 5.3 mmol/L [facility] Ionized Calcium 0.96(L) 1.12 - 1.30 mmol/L [facility] Chloride 100 98 - 105 mmol/L [facility] Base Excess 1.5 [facility] Venous blood specimen (specimen) 08/29/2014 4:30 PM EST Narrative [facility] - 08/29/2014 4:41 PM EST Specimen Type: Venous us Nicolás Pepe MD LAB BLOOD ORDERABLES Final Resu lt Performing Organization Address City/State/[facility] [place] [address], * (ABNORMAL) OR Surgery Panel (08/29/2014 3:03 PM EST) pH, Venous 7.496(H) 7.340 - 7.460 [facility] pCO2, Venous 34.4 34 - 46 [facility] pO2, Venous 519.9 [facility] HCO3, Venous 26.0 20 - 26 [facility] CO2 27.0 23 - 27 [facility] O2 Saturation, Venous 99.3(H) 92 - 98 [facility] Hemoglobin, Blood Gas 10.6 10.0 - 16.0 g/dL [facility] Hematocrit 31(L) 39 - 51 % [facility] Sodium 133.0(L) 134 - 146 mmol/L [facility] Potassium 3.18(L) 3.5 - 5.3 mmol/L [facility] Ionized Calcium 1.02(L) 1.12 - 1.30 mmol/L [facility] Chloride 99 98 - 105 mmol/L [facility] Base Excess 2.9 [facility] Venous blood specimen (specimen) 08/29/2014 3:03 PM EST [facility] - 08/29/2014 3:47 PM EST Specimen Type: Venous Nicolás Pepe MD LAB BLOOD ORDERABLES Final Resu lt Performing Organization Address City/[facility]/[place] [address], * (ABNORMAL) OR Glucose (08/29/2014 3:03 PM EST) Pathologist [facility] Glucose 120(H) 67 - 93 mg/dL [facility] Venous blood specimen (specimen) 08/29/2014 3:03 PM EST [facility] - 08/29/2014 3:47 PM EST Specimen Type: Venous us Nicolás Pepe MD LAB BLOOD ORDERABLES Final Resu lt Performing Organization Address [facility]/[place] [address], * Type and screen (08/29/2014 12:19 PM EST) Pathologist [facility] ABORh A Rh Positive [facility] Antibody Screen Negative [facility] Blood specimen (specimen) 08/29/2014 12:19 PM EST Narrative [facility] - 08/29/2014 1:33 PM EST Specimen Type: Blood Nicolás Pepe MD BLOOD BANK TEST ORDERABLES Erin l Result Performing Organization Address [facility] [place] [address], * OR Potassium (08/29/2014 12:19 PM EST) Pathologist [facility] Potassium 3.61 3.5 - 5.3 mmol/L [facility] Venous blood specimen (specimen) 08/29/2014 12:19 PM EST [facility] - 08/29/2014 12:34 PM EST Specimen Type: Venous Andrews Stark MD LAB BLOOD ORDERABLES Final Res ult Performing Organization Address [facility]/ZIP Co de Phone Number [facility] [address] [place] [address], * Packed RBC (08/29/2014 12:14 PM EST) Pathologist [facility] Product ID - Unit 1 Red Blood Cells [facility] Unit Number - Unit 1 [id number] [facility] Cross Match - Unit 1 Compatible [facility] Blood Type - Unit 1 A Pos [facility] Product Code - Unit 1 [id number] [facility] Status Info - Unit 1 Canceled [facility] Product ID - Unit 2 Red Blood Cells [facility] Unit Number - Unit 2 [id number] [facility] Cross Match - Unit 2 Compatible [facility] Blood Type - Unit 2 A Pos [facility] Product Code - Unit 2 [id number] [facility] Status Info - Unit 2 Transfused [facility] Blood specimen (specimen) 08/29/2014 12:14 PM EST Narrative [facility] - 09/02/2014 2:46 AM EST Specimen Type: Blood Nicolás Pepe MD BLOOD BANK TEST ORDERABLES Erin velez Result [facility] [address] [place] [address], * FL O ARM DURING SURGERY (08/29/2014 12:04 PM EST) Anatomical Region Laterality Modality N/A Radiographic Savita ging 08/29/2014 12:0 4 PM EST Narrative 08/30/2014 9:31 AM EST EXAMINATION: ??USE OF FLUOROSCOPY DURING LUMBAR LAMINECTOMY L5-S1 - 08/29/2014: HISTORY: Severe back pain. FINDINGS: ??2.57 minutes of fluoroscopic time was used during this examination. No immediate images were obtained. D: ??08/30/2014 E: ??08/30/2014 ? Reading Saadia BARTHOLOMEW ? Releasing Saadia BARTHOLOMEW ? Released Date Time- 08/30/14 1027 ? Germán Katz Procedure Note Timi Frances MD - 04/24/2015 EXAMINATION: USE OF FLUOROSCOPY DURING LUMBAR LAMINECTOMY L5-S1 - 08/29/2014: HISTORY: Severe back pain. FINDINGS: 2.57 minutes of fluoroscopic time was used during this examination. No immediate images were obtained. E: 08/30/2014 Reading Saadia BARTHOLOMEW Releasing Saadia BARTHOLOMEW Released Date Time- 08/30/14 1027 Germán Katz us Nicolás Pepe MD IMG FLUOROSCOPY ORDERABLES Erin l Result * X-RAY LUMBAR SPINE LATERAL (08/29/2014 12:04 PM EST) Anatomical Region Laterality Modality Spine, L-spine N/A Radiographic Savita ging 08/29/2014 12:0 4 PM EST Narrative 08/30/2014 9:18 AM EST EXAMINATION: XR SPINE LUMBAR LATERAL PORTABLE- INDICATION: Back pain. COMPARISON: None. FINDINGS: Portable lateral lumbar spine reveals hardware posteriorly fusing the L4, L5, and S1 levels. No hardware complication or malalignment is identified of the hardware. Postsurgical change is seen of the posterior soft tissues. IMPRESSION- Posterior fusion of the L4, L5, and S1 levels. No hardware complication or malalignment is identified. Postsurgical change is seen of the soft tissues. D: ??08/30/2014 E: ??08/30/2014 ? Reading Radiologist- LANDY ROA ? Releasing Radiologist- LANDY ROA ? Released Date Time- 08/31/14 1724 ? Calciner Operator Helper- Minerva Procedure Note Landy Dick MD - 04/24/2015 EXAMINATION: XR SPINE LUMBAR LATERAL PORTABLE- INDICATION: Back pain. COMPARISON: None. FINDINGS: Portable lateral lumbar spine reveals hardware posteriorly fusing the L4, L5, and S1 levels. No hardware complication or malalignment is identified of the hardware. Postsurgical change is seen of the posterior soft tissues. IMPRESSION- Posterior fusion of the L4, L5, and S1 levels. No hardware complication or malalignment is identified. Postsurgical change is seen of the soft tissues. E: 08/30/2014 Reading Radiologist- LANDY ROA Releasing Radiologist- LANDY ROA Released Date Time- 08/31/14 1724 Calciner Operator Helper- Minerva us Nicolás Pepe MD IM DIAGNOSTIC IMAGING ORDERABL ES Final Result * Converted Surgical Pathology (08/29/2014 11:30 AM EST) 08/29/2014 11:3 0 AM EST [facility] - 08/31/2014 12:55 [place] [address] SURGICAL PATHOLOGY REPORT Patient Name: BROOK BERRY MR#: [id number] : 1950 Gender: F Ordering Physician: NICOLÁS PEPE Copy To: ?? Location: Preadmission Testing Collected: 08/29/2014 Received: 08/30/2014 Reported: 08/31/2014 Clinical Diagnosis and History The working history is spondylolisthesis L4-S1. Final Diagnosis Intervertebral disc L4-S1: Fibrocartilage from intervertebral disc. LADI/rw ?? Amendments: Electronically Signed Out By Mikey Snow M.D. Specimen(s) Received: Intervertebral disc Gross Description Received in formalin labeled disc (L4-S1) is an 8 x 8 x 2.5 cm aggregate of norman/pink fibrocartilaginous soft tissue fragments from which direct sales representative sections are submitted in one cassette. HBM/rw ?? Microscopic Description Sections of the intervertebral disc material demonstrate fibrocartilage without inflammation or neoplasia. ??JFJ/rw Procedures/Addenda us See Report Interface PATHOLOGY/CYTOLOGY ORDERABL ES Final Result Performing Organization Address [facility] [place] [address], * MRSA screen (08/22/2014 1:41 PM EST) Other 08/22/2014 1:41 PM EST Narrative [facility] - 08/24/2014 7:43 AM EST Specimen Type: Screening Nares [facility] - Culture MRSA Screen Specimen: Screening Nares Collected: 08/22/2014 13:41 Status: FINAL ? Last Updated: 08/24/2014 07:43 Culture Result (CR) (Final) ??No Methicillin Resistant Staph Aureus Isolated Nicolás Pepe MD MICROBIOLOGY - GENERAL ORDERABL ES Final Result Performing Organization Address [facility] [place] [address], * Hemoglobin A1c (08/22/2014 1:40 PM EST) Hemoglobin A1C 5.3 4.00 - 6.00 % [facility] Comment: DF by IF @ 08/22/2014 16:05 The [place] [employer] recommends maintenance of Hemoglobin A1C at 7.0% or lower. Goals for Hemoglobin A1C reduction may need to be modified if hypoglycemia is a problem. Mean Bld Glu Estim. 99 mg/dL [facility] Blood specimen (specimen) 08/22/2014 1:40 PM EST Narrative [facility] - 08/22/2014 4:05 PM EST Specimen Type: Blood Nicolás Pepe MD LAB BLOOD ORDERABLES Final Resu lt Performing Organization Address [facility] [place] [address], * (ABNORMAL) Basic metabolic panel (08/22/2014 1:40 PM EST) Glucose 120(H) 70 - 100 mg/dL [facility] BUN 8(L) 9 - 23 mg/dL [facility] Creatinine 0.7 0.6 - 1.3 mg/dL [facility] Sodium 137 132 - 146 mmol/L [facility] Potassium 3.3(L) 3.5 - 5.5 mmol/L [facility] Chloride 95(L) 99 - 109 mmol/L [facility] CO2 32(H) 20 - 31 mmol/L [facility] Calcium 10.0 8.7 - 10.4 mg/dL [facility] eGFR 85 ml/min/1.7 32 [facility] Comment: DF by IF @ 08/22/2014 14:08 ?? National Kidney Foundation Guidelines ?Stage ? Description ?GFR ?1 ?Normal or High ? 90+ ?2 ?Mild decrease ? 60-89 ?3 ?Moderate decrease ?30-59 ?4 ?Severe decrease ?15-29 ?5 ?Kidney failure ?<15 Anion Gap 10 3 - 11 mmol/L [facility] Blood specimen (specimen) 08/22/2014 1:40 PM EST Narrative [facility] - 08/22/2014 2:08 PM EST Specimen Type: Blood Nicolás Pepe MD LAB BLOOD ORDERABLES Final Resu lt Performing Organization Address [facility] de Phone Number [facility] [address] [place] [address], [place] [phone] * CBC (No diff) (08/22/2014 1:40 PM EST) WBC 7.83 3.50 - 10.80 K/[facility] RBC 4.66 3.89 - 5.14 /[facility] Hemoglobin 13.6 11.5 - 15.5 g/dL [facility] Hematocrit 38.8 34.5 - 44.0 % [facility] MCV 83.3 80.0 - 99.0 fL [facility] MCH 29.2 27.0 - 31.0 pg [facility] MCHC 35.1 32.0 - 36.0 g/dL [facility] RDW-CV 12.1 11.3 - 14.5 % [facility] Platelets 407 150 - 450 K/[facility] Blood specimen (specimen) 08/22/2014 1:40 PM EST Narrative [facility] - 08/22/2014 1:51 PM EST Specimen Type: Blood Nicolás Pepe MD LAB BLOOD ORDERABLES Final Resu lt Performing Organization Address City/[facility] de Phone Number [facility] [address] [place] [address], [place] [phone] documented in this encounter Visit Diagnoses Not on filedocumented in this encounter
--- OUTSIDE RECORDS SUMMARY | 2024-07-04 10:06 | XMS_ITS | Encounter Summary ---
Author Organization [facility] Address [address] [id number] Care Team Providers Care Transportation Dispatcher Name Role Phone Hung Encinas MD Primary Care Provider + [phone] Aung Garcia MD Unavailable Reason for Referral * Clinic-Administered Medication - Closed Specialty Diagnoses / Procedures Referred By Sybil bolivar Referred To Contact Diagnoses Dysphonia Antolin Osorio MD [address] [address] Phone: tel: fax: Referral ID Status Reason Start Date Expiration Date Visits Re quested Visits Authorized [id number] Closed 04/11/2021 10/08/2021 1 1 Reason for Visit * Reason Comments Botulinum Toxin Injection * Other Medical (Routine) - Closed Specialty Diagnoses / Procedures Referred By Sybil bolivar Referred To Contact Neurology Diagnoses Dysphonia Procedures Botox Dystonia Antolin Osorio MD [id number] [place] [address] Phone: tel: fax: Referral ID Status Reason Start Date Expiration Date V isits Requested Visits Authorized [id number] Closed Specialty Services Required 03/20/2021 09/16/2021 1 1 Encounter Details Date Type Department Care Team (Late st Contact Info) Description 04/11/2021 11:00 AM EDT Procedure Visit [place] [facility] [address], [address] [place] [address] Antolin Osorio MD [address] [place] [address] Adductor spasmodic dysphonia (Primary Dx); [...] have Coronavirus / COVID-19? No / Unsure 04/11/2021 10:58 AM EDT documented as of this encounter Miscellaneous Notes * Progress Notes - Antolin Osorio MD - 04/11/2021 11:00 AM EDT PATIENT NAME: Brook Bañuelos DATE OF : 1950 DATE OF PROCEDURE: 04/11/2021 PREOPERATIVE DIAGNOSES: 1. Adductor spasmodic dysphonia POSTOPERATIVE DIAGNOSES: 1. Same PROCEDURE PERFORMED: Botox injection to posterior cricoarytenoid muscles under EMG guidance ([id number]) Patient was examined and her voice quality continues to be consistent with adductor spasmodic dysphonia. Informed consent was obtained for Botox injection for adductor spasmodic dysphonia and the patient was brought into the EMG exam room, placed in a sitting position and connected to EMG electrodes by the nursery technician. A monopolar electrode was then connected [...] injection if necessary. I personally performed the patient's speech evaluation, injection procedure and supervised the laryngeal EMG. Antolin Osorio MD documented in this encounter Plan of Treatment Upcoming Encounters Date Type Department Care Team (Late st Contact Info) Description 08/11/2024 10:10 AM EST Procedure Visit [facility] [address] [place] [address] Antolin Osorio MD [id number] [place] [address] documented as of this encounter Visit Diagnoses Diagnosis Adductor spasmodic dysphonia- Primary Other diseases of larynx Dysphonia documented in this encounter Administered Medications Inactive Administered Medications - up to 3 most recent administrations Medication Order MAR Action Action Date Dose Rate Site onabotulinumtoxinA (Botox) injection 3 Units 3 Units, Intramuscular, Once, 1 dose, On Wed04/11/21 at 2045, RoutineIndications:Dysphonia Given by Other 04/11/2021 5:00 PM EDT 5 Units Other documented in this encounter Care Teams Transportation Dispatcher Relationship Specialty Start Date End Date Hung Encinas MD [address] [address] PCP - General 12/13/20 Aung Garcia MD [address] [facility] [address] [place] [address] Surgeon Otolaryngology 02/07/21 documented as of this encounter
--- OUTSIDE RECORDS SUMMARY | 2024-07-04 10:06 | XMS_ITS | Encounter Summary ---
Author Organization Healthcare Address [address] [place] [address] Care Team Providers Care Senior Microsoft Consultant Name Role Phone Hung Encinas MD Primary Care Provider + [phone] Aung Garcia MD Unavailable Reason for Visit * Consultation (Routine) - Closed Specialty Diagnoses / Procedures Referred By Sybil bolivar Referred To Contact Diagnoses Dysphonia Antolin Osorio MD [address] [place] [address] Phone: tel: fax: Referral ID Status Reason Start Date Expiration Date V isits Requested Visits Authorized [id number] Closed Specialty Services Required 05/27/2021 11/26/2022 1 1 Encounter Details Date Type Department Care Team (Late st Contact Info) Description 06/02/2021 11:00 AM EDT Office Visit [place] [facility] [address] [place] [address] Ana Palacios, [facility]-[employer] PLANT SUPERVISOR [address] [place] [address] Dysphonia Social History Tobacco Use Types Packs/Day [...] have Coronavirus / COVID-19? No / Unsure 06/02/2021 10:55 AM EDT documented as of this encounter Miscellaneous Notes * Patient Instructions - Ana Palacios CCC-[employer]ANT SUPERVISOR - 06/02/2021 11:00 AM EDT Semi-Occluded Vocal Tract Exercises Sustain for 3-5 seconds each, total of 1-3 minutes, 6-8 ???mini?? practice sessions per day (You can do these as often as 1 minute per hour) 1. Straw Phonation with Water Resistance / Cup Bubbles (1 inch of water) I. Airflow i. Goal: consistent, small bubbles II. Voice (Air stays on, add voice using ???No?? with round lips and forward placement) i. Goal: same III. Airflow into voice i. Goal: consistency when turning voice on, no ???catches?? IV. Pitch glides i. Goal: No increase of bubbles when going up or down. Remember the ???buzzy sound?? - keep the voice forward 2. Lip Trills (You can use fingers on either side of lips to anchor, if needed) I. Airflow i. Goals: keep the lips vibrating, gentle airflow II. Voice i. Goal: Easy onset into voicing, no hard glottal attack III. Airflow into voice i. Goal: Smooth transition, no catches IV. Pitch glides i. Goal: Keep airflow the same 3. Humming / Resonant Voice Therapy I. Hummmm: feel vibration on the lips without throat straining II. Fpwias-mv-ei-mo: keep the vibrations forward and use the m as check-ins 4. Buzzy No with and without Straw at comfortable speaking pitch I. 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 OBJECTIVE/ASSESSMENT: Semi-Occluded Vocal Tract Exercises (SOVTs) are a series of exercises aimed to recoordinate respiration, phonation, and resonance to produce an effortless, clear voice. Such exercises include straw phonation with or without water resistance, lip trills, humming/Basic Training Gesture for Resonant Voice Therapy, and transoral lip buzz/Basic Training Gesture for Vocal Function Exercises at comfortable speaking pitches and glissando tasks. These exercises were instructed today, and Brook performed them with 60% accuracy with maximal clinician cueing and modeling. Adjustments were made to her volume/airflow to improve coordination between respiration, phonation, and resonance and yielding improved voice clarity. Mild vocal tremor was detected during sustained vowels. She endorsed that her voice felt effortless while performing the exercises. PLAN: ??? Brook will perform SOVT exercises 5-6 times daily for 2-3 minute mini- sessions between appointments. Written instructions were provided to aid home [...] Visit [place] [facility] [address] [place] [address] Antolin Osorio MD [address] [place] [address] documented as of this encounter Visit Diagnoses Diagnosis Dysphonia documented in this encounter Additional Health Concerns Assessment Noted Time A fall risk assessment has been complete d for the patient 05/27/2021 2:11 PM EDT documented as of this encounter Care Teams Senior Microsoft Consultant Relationship Specialty Start Date End Date Hung Encinas MD [address] [place] [address] PCP - General 12/13/20 Aung Garcia MD [id number] [place] [address] Surgeon Otolaryngology 02/07/21 documented as of this encounter
--- OUTSIDE RECORDS SUMMARY | 2024-07-04 10:06 | XMS_ITS | Encounter Summary ---
Author Organization Healthcare Address [address] [place] [address] Care Team Providers Care Protocol Manager Name Role Phone Hung Encinas MD Primary Care Provider + [phone] Aung Garcia MD Unavailable Encounter Details Date Type Department Care Team (Latest Contact Info) Description 08/15/2021 Travel Social History Tobacco Use Types Packs/Day [...] have Coronavirus / COVID-19? No / Unsure 08/15/2021 10:58 AM EST documented as of this encounter Plan of Treatment Upcoming Encounters Date Type Department Care Team (Late st Contact Info) Description 08/11/2024 10:10 AM EST Procedure Visit [place] [facility] [address], [address] [place] [address] Antolin Osorio MD [address] [place] [address] documented as of this encounter Visit Diagnoses Not on filedocumented in this encounter Additional Health Concerns Assessment Noted Time A fall risk assessment has been complete d for the patient 05/27/2021 2:11 PM EDT documented as of this encounter Care Teams Protocol Manager Relationship Specialty Start Date End Date Hung Encinas MD [address] [facility] [address] [place] [address] PCP - General 12/13/20 Aung Garcia MD [id number] [place] [address] Surgeon Otolaryngology 02/07/21 documented as of this encounter
--- OUTSIDE RECORDS SUMMARY | 2024-07-04 10:06 | XMS_ITS | Encounter Summary ---
Author Organization [facility] Address [address] [place] [address] Care Team Providers Care Front End Developer Javascript Html Css Name Role Phone Hung Encinas MD Primary Care Provider + [phone] Aung Garcia MD Unavailable Reason for Referral * Other Medical (Routine) - Closed Specialty Diagnoses / Procedures Referred By Sybil bolivar Referred To Contact Neurology Diagnoses Dysphonia Procedures Botox Dystonia Antolin Osorio MD [address] [address] Phone: tel: fax: Referral ID Status Reason Start Date Expiration Date V isits Requested Visits Authorized [id number] Closed Specialty Services Required 03/20/2021 09/16/2021 1 1 Encounter Details Date Type Department Care Team (Late st Contact Info) Description 03/20/2021 Orders Only [facility] Ot[facility] [address] [place] [address] Antolin Osorio MD [address] [address] Dysphonia (Primary Dx) Social History [...] Visit [facility] [address] [place] [address] Antolin Osorio MD [address] [facility] [address] [place] [address] Scheduled Orders Name Type Priority Associated Diagnoses Orde r Schedule Botox Dystonia Neurology Routine Dysphonia Expected: 04/11/2021, Expires: 03/20/2022 documented as of this encounter Visit Diagnoses Diagnosis Dysphonia- Primary documented in this encounter Care Teams Front End Developer Javascript Html Css Relationship Specialty Start Date End Date Hung Encinas MD [address] [place] [address] PCP - General 12/13/20 Aung Garcia MD [address] [facility] [address] [place] [address] Surgeon Otolaryngology 02/07/21 documented as of this encounter
--- OUTSIDE RECORDS SUMMARY | 2024-07-04 10:06 | XMS_ITS | Encounter Summary ---
Author Organization Healthcare Address [address] [place] [address] Care Team Providers Care Polysomnography Technologist Name Role Phone Hung Encinas MD Primary Care Provider + [phone] Aung Garcia MD Unavailable Encounter Details Date Type Department Care Team (Latest Contact Info) Description 06/25/2021 Travel Social History Tobacco Use Types Packs/Day [...] Visit [place] [facility] [address], [address] [place] [address] Antolin Osorio MD [address] [place] [address] documented as of this encounter Visit Diagnoses Not on filedocumented in this encounter Additional Health Concerns Assessment Noted Time A fall risk assessment has been complete d for the patient 05/27/2021 2:11 PM EDT documented as of this encounter Care Teams Polysomnography Technologist Relationship Specialty Start Date End Date Hung Encinas MD [address] [facility] [address] [place] [address] PCP - General 12/13/20 Aung Garcia MD [id number] [place] [address] Surgeon Otolaryngology 02/07/21 documented as of this encounter
--- OUTSIDE RECORDS SUMMARY | 2024-07-04 10:06 | XMS_ITS | Encounter Summary ---
Author Organization Healthcare Address [address] [place] [address] Care Team Providers Care Excel Expert Name Role Phone Hung Encinas MD Primary Care Provider + [phone] Aung Garcia MD Unavailable Encounter Details Date Type Department Care Team (Latest Contact Info) Description 06/20/2021 Travel Social History Tobacco Use Types Packs/Day [...] have Coronavirus / COVID-19? No / Unsure 06/20/2021 10:50 AM EST documented as of this encounter Plan of Treatment Upcoming Encounters Date Type Department Care Team (Late st Contact Info) Description 08/11/2024 10:10 AM EST Procedure Visit [place] [facility] [address] [place] [address] Antolin Osorio MD [address] [place] [address] documented as of this encounter Visit Diagnoses Not on filedocumented in this encounter Additional Health Concerns Assessment Noted Time A fall risk assessment has been complete d for the patient 05/27/2021 2:11 PM EDT documented as of this encounter Care Teams Excel Expert Relationship Specialty Start Date End Date Hung Encinas MD [address] [facility] [address] [place] [address] PCP - General 12/13/20 Aung Garcia MD [id number] [place] [address] Surgeon Otolaryngology 02/07/21 documented as of this encounter
--- OUTSIDE RECORDS SUMMARY | 2024-07-04 10:06 | XMS_ITS | Encounter Summary ---
Author Organization [facility] Address [address] [place] [address] Care Team Providers Care Site Physician Name Role Phone Hung Encinas MD Primary Care Provider + [phone] Aung Garcia MD Unavailable Reason for Referral * Clinic-Administered Medication (Routine) - Closed Specialty Diagnoses / Procedures Referred By Sybil bolivar Referred To Contact Diagnoses Dysphonia Procedures pegox Aung Garcia MD [address] [address] Phone: tel: fax: Referral ID Status Reason Start Date Expiration Date Visits Re quested Visits Authorized [id number] Closed 02/06/2022 08/08/2023 1 1 Reason for Visit * Other Medical (Routine) - Closed Specialty Diagnoses / Procedures Referred By Sybil bolivar Referred To Contact Neurology Diagnoses Dysphonia Procedures Botox Dystonia Antolin Osorio MD [address] [address] Phone: tel: fax: [place] [facility] [address], [address] [place] [address] Phone: tel: fax: Referral ID Status Reason Start Date Expiration Date Visits Re quested Visits Authorized [id number] Closed 01/14/2022 07/16/2023 1 1 Encounter Details Date Type Department Care Team (Late st Contact Info) Description 02/06/2022 11:00 AM EDT Procedure Visit [place] [facility] [address], [address] [place] [address] Aung Garcia MD [address] [place] [address] Dysphonia Social History Tobacco Use [...] Progress Notes - Aung Garcia MD - 02/06/2022 11:00 AM EDT PATIENT NAME: Brook Bañuelos DATE OF : 1950 DATE OF PROCEDURE: 02/06/2022 PREOPERATIVE DIAGNOSES: 1. Adductor spasmodic dysphonia POSTOPERATIVE DIAGNOSES: 1. Same PROCEDURE PERFORMED: Botox injection to thyroarytenoid muscles under EMG guidance (35263, 38556), bilateral Patient was examined and her voice quality continues to be consistent with adductor spasmodic dysphonia. Informed consent was obtained for Botox injection for adductor spasmodic dysphonia and the patient was brought into the EMG exam room, placed in a sitting position and connected to EMG electrodes by the civil design technician. A monopolar electrode was then connected [...] reviewed the patient's speech evaluation by Dr. Akosua Dutta, performed the injection procedure and supervised the laryngeal EMG. Aung Garcia MD documented in this encounter Plan of Treatment Upcoming Encounters Date Type Department Care Team (Late st Contact Info) Description 08/11/2024 10:10 AM EST Procedure Visit [place] [facility] [address], [address] [place] [address] Antolin Osorio MD [address] [address] documented as of this encounter Visit Diagnoses Diagnosis Dysphonia documented in this encounter Administered Medications Inactive Administered Medications - up to 3 most recent administrations Medication Order MAR Action Action Date Dose Rate Site onabotulinumtoxinA (Botox) injection 5 Units 5 Units, Intramuscular, Once, 1 dose, On Wed02/06/22 at 1615, RoutineIndications:Dysphonia Given by Other 02/06/2022 4:07 PM EDT 5 Units Other documented in this encounter Additional Health Concerns Assessment Noted Time A fall risk assessment has been complete d for the patient 05/27/2021 2:11 PM EDT documented as of this encounter Care Teams Site Physician Relationship Specialty Start Date End Date Hung Encinas MD Pending sale to [facility] [address] [place] [address] PCP - General 12/13/20 Aung Garcia MD [id number] [place] [id number] Surgeon Otolaryngology 02/07/21 documented as of this encounter
--- OUTSIDE RECORDS SUMMARY | 2024-07-04 10:06 | XMS_ITS | Encounter Summary ---
Author Organization Healthcare Address [address] [place] [address] Care Team Providers Care Prefinish Operator Name Role Phone Hung Encinas MD Primary Care Provider + [phone] Aung Garcia MD Unavailable Encounter Details Date Type Department Care Team (Latest Contact Info) Description 05/27/2021 Travel Social History Tobacco Use Types Packs/Day [...] have Coronavirus / COVID-19? No / Unsure 05/27/2021 1:01 PM EDT documented as of this encounter Plan of Treatment Upcoming Encounters Date Type Department Care Team (Late st Contact Info) Description 08/11/2024 10:10 AM EST Procedure Visit [place] [facility] [address], [address] [place] [address] Antolin Osorio MD [address] [place] [address] documented as of this encounter Visit Diagnoses Not on filedocumented in this encounter Additional Health Concerns Assessment Noted Time A fall risk assessment has been complete d for the patient 05/27/2021 2:11 PM EDT documented as of this encounter Care Teams Prefinish Operator Relationship Specialty Start Date End Date Hung Encinas MD [address] [facility] [address] [place] [address] PCP - General 12/13/20 Aung Garcia MD [address] [facility] [address] [place] [address] Surgeon Otolaryngology 02/07/21 documented as of this encounter
--- OUTSIDE RECORDS SUMMARY | 2024-07-04 10:06 | XMS_ITS | Encounter Summary ---
Author Organization Healthcare Address [address] [place] [address] Care Team Providers Care Car Refinisher Name Role Phone Hung Encinas MD Primary Care Provider + [phone] Aung Garcia MD Unavailable Encounter Details Date Type Department Care Team (Latest Contact Info) Description 06/16/2021 Travel Social History Tobacco Use Types Packs/Day [...] PM EST documented as of this encounter Plan of Treatment Upcoming Encounters Date Type Department Care Team (Late st Contact Info) Description 08/11/2024 10:10 AM EST Procedure Visit [place] [facility] [address], [address] [place] [address] Antolin Osorio MD [address] [place] [address] documented as of this encounter Visit Diagnoses Not on filedocumented in this encounter Additional Health Concerns Assessment Noted Time A fall risk assessment has been complete d for the patient 05/27/2021 2:11 PM EDT documented as of this encounter Care Teams Car Refinisher Relationship Specialty Start Date End Date Hung Encinas MD [address] [facility] [address] [place] [address] PCP - General 12/13/20 Aung Garcia MD [id number] [place] [address] Surgeon Otolaryngology 02/07/21 documented as of this encounter
--- OUTSIDE RECORDS SUMMARY | 2024-07-04 10:06 | XMS_ITS | Encounter Summary ---
Author Organization Healthcare Address [address] [place] [address] Care Team Providers Care Hand Stripper Name Role Phone Hung Encinas MD Primary Care Provider + [phone] Aung Garcia MD Unavailable Encounter Details Date Type Department Care Team (Latest Contact Info) Description 04/11/2021 Travel Social History Tobacco Use Types Packs/Day [...] Visit [place] [facility] [address], [address] [place] [address] Antolin Osorio MD [address] [place] [address] documented as of this encounter Visit Diagnoses Not on filedocumented in this encounter Care Teams Hand Stripper Relationship Specialty Start Date End Date Hung Encinas MD [address] [place] [address] PCP - General 12/13/20 Aung Garcia MD [address] [facility] [address] [place] [address] Surgeon Otolaryngology 02/07/21 documented as of this encounter
--- OUTSIDE RECORDS SUMMARY | 2024-07-04 10:06 | XMS_ITS | Encounter Summary ---
Author Organization [facility] Address [id number] Care Team Providers Care General Supervisor Name Role Phone Hung Encinas MD Primary Care Provider + [phone] Aung Garcia MD Unavailable Reason for Referral * Clinic-Administered Medication - Closed Specialty Diagnoses / Procedures Referred By Sybil bolivar Referred To Contact Diagnoses Dysphonia Aung Garcia MD [address] [address] Phone: tel: fax: Referral ID Status Reason Start Date Expiration Date Visits Re quested Visits Authorized [id number] Closed 02/07/2021 08/06/2021 1 1 Reason for Visit * Other Medical (Routine) - Closed Specialty Diagnoses / Procedures Referred By Sybil bolivar Referred To Contact Neurology Diagnoses Dysphonia Procedures Botox Procedure MA INJECTION,ONABOTULINUMTOXINA MA CHEMODENERVATION MUSCLE LARYNX UNILAT W/EMG Aung Garcia MD [id number] [place] [address] Phone: tel: fax: Referral ID Status Reason Start Date Expiration Date V isits Requested Visits Authorized [id number] Closed Specialty Services Required 01/29/2021 07/28/2021 1 Encounter Details Date Type Department Care Team (Late st Contact Info) Description 02/07/2021 11:00 AM EDT Procedure Visit [place] [facility] [address], [address] [place] [address] Aung Garcia MD [address] [place] [address] Dysphonia Social History Tobacco Use Types Packs/Day [...] Progress Notes - Aung Garcia MD - 02/07/2021 11:00 AM EDT PATIENT NAME: Brook Bañuelos DATE OF : 1950 DATE OF PROCEDURE: (Not on file) PREOPERATIVE DIAGNOSES: 1. Adductor spasmodic dysphonia POSTOPERATIVE DIAGNOSES: 1. Same PROCEDURE PERFORMED: Botox injection to both thyroarytenoid muscles. Informed consent was obtained for Botox injection for adductor spasmodic dysphonia and the patient was brought into the EMG exam room, placed in a sitting position and connected to EMG electrodes by the therapy technician. A monopolar electrode was then connected to the special 27-gauge Perfecto-coated oculinum needle. Under EMG guidance and after verification of the muscle signal by myself, 5 units of botulinum toxin type A was injected passing through the cricothyroid membrane into 1st the left and then the right thyroarytenoid muscles. The patient tolerated the procedure well and will return in 2 months for follow-up evaluation and repeat injection if necessary. 5 units of Botox were injected. 2 units of Botox were wasted. 7 units of Botox were billed. I personally performed the injection procedure and supervised the laryngeal EMG. Aung Garcia MD documented in this encounter Plan of Treatment Upcoming Encounters Date Type Department Care Team (Late st Contact Info) Description 08/11/2024 10:10 AM EST Procedure Visit [place] [facility] [address], [address] [place] [address] Antolin Osorio MD [address] [address] documented as of this encounter Visit Diagnoses Diagnosis Dysphonia documented in this encounter Administered Medications Inactive Administered Medications - up to 3 most recent administrations Medication Order MAR Action Action Date Dose Rate Site onabotulinumtoxinA (Botox) injection 5 Units 5 Units, Intramuscular, Once, 1 dose, On Wed02/07/21 at 1500, RoutineIndications:Dysphonia Given by Other 02/07/2021 3:13 PM EDT 5 Units Other documented in this encounter Care Teams General Supervisor Relationship Specialty Start Date End Date Hung Encinas MD [address] [address] PCP - General 12/13/20 Aung Garcia MD [address] [phone] Surgeon Otolaryngology 02/07/21 documented as of this encounter
--- OUTSIDE RECORDS SUMMARY | 2024-07-04 10:06 | XMS_ITS | Encounter Summary ---
Author Organization Healthcare Address [address] [place] [address] Care Team Providers Care Project Management Specialist Name Role Phone Hung Encinas MD Primary Care Provider + [phone] Aung Garcia MD Unavailable Encounter Details Date Type Department Care Team (Latest Contact Info) Description 12/12/2021 Travel Social History Tobacco Use Types Packs/Day [...] Visit [place] [facility] [address], [address] [place] [address] Antolin Osorio MD [address] [place] [address] documented as of this encounter Visit Diagnoses Not on filedocumented in this encounter Additional Health Concerns Assessment Noted Time A fall risk assessment has been complete d for the patient 05/27/2021 2:11 PM EDT documented as of this encounter Care Teams Project Management Specialist Relationship Specialty Start Date End Date Hung Encinas MD [address] [facility] [address] [place] [address] PCP - General 12/13/20 Aung Garcia MD [address] [facility] [address] [place] [address] Surgeon Otolaryngology 02/07/21 documented as of this encounter
--- OUTSIDE RECORDS SUMMARY | 2024-07-04 10:06 | XMS_ITS | Encounter Summary ---
Author Organization Healthcare Address [address] [place] [address] Care Team Providers Care Childcare Aide Name Role Phone Hung Encinas MD Primary Care Provider + [phone] Aung Garcia MD Unavailable Encounter Details Date Type Department Care Team (Latest Contact Info) Description 06/02/2021 Travel Social History Tobacco Use Types Packs/Day [...] Visit [place] [facility] [address], [address] [place] [address] Antolin Osorio MD [address] [place] [address] documented as of this encounter Visit Diagnoses Not on filedocumented in this encounter Additional Health Concerns Assessment Noted Time A fall risk assessment has been complete d for the patient 05/27/2021 2:11 PM EDT documented as of this encounter Care Teams Childcare Aide Relationship Specialty Start Date End Date Hung Encinas MD 1210 [facility] [address] [place] [address] PCP - General 12/13/20 Aung Garcia MD [address] [facility] [address] [place] [address] Surgeon Otolaryngology 02/07/21 documented as of this encounter
--- OUTSIDE RECORDS SUMMARY | 2024-07-04 10:06 | XMS_ITS | Encounter Summary ---
Author Organization Healthcare Address [address] [place] [address] Care Team Providers Care Big Data Admin Name Role Phone Hung Encinas MD Primary Care Provider + [phone] Aung Garcia MD Unavailable Encounter Details Date Type Department Care Team (Latest Contact Info) Description 10/10/2021 Travel Social History Tobacco Use Types Packs/Day [...] Visit [place] [facility] [address], [address] [place] [address] Antolin Osorio MD [address] [place] [address] documented as of this encounter Visit Diagnoses Not on filedocumented in this encounter Additional Health Concerns Assessment Noted Time A fall risk assessment has been complete d for the patient 05/27/2021 2:11 PM EDT documented as of this encounter Care Teams Big Data Admin Relationship Specialty Start Date End Date Hung Encinas MD [address] [facility] [address] [place] [address] PCP - General 12/13/20 Aung Garcia MD [id number] [place] [address] Surgeon Otolaryngology 02/07/21 documented as of this encounter
--- OUTSIDE RECORDS SUMMARY | 2024-07-04 10:06 | XMS_ITS | Encounter Summary ---
Author Organization [facility] Address [address] [place] [address] Care Team Providers Care Teletype Technician Name Role Phone Hung Encinas MD Primary Care Provider + [phone] Aung Garcia MD Unavailable Reason for Referral * Consultation (Routine) - Closed Specialty Diagnoses / Procedures Referred By Sybil bolivar Referred To Contact Diagnoses Dysphonia Antolin Osorio MD [address] [facility] [place] [address] Phone: tel: fax: Referral ID Status Reason Start Date Expiration Date V isits Requested Visits Authorized [id number] Closed Specialty Services Required 05/27/2021 11/26/2022 1 1 Scheduling Instructions MTD Reason for Visit * Reason Comments Follow-up after voice Encounter Details Date Type Department Care Team (Late st Contact Info) Description 05/27/2021 2:30 PM EDT Office Visit [place] [facility] Otol[facility]ology [address] 3[address] [place] [address] Antolin Osorio MD [address] [address] Dysphonia (Primary Dx) Social History [...] PM EDT documented as of this encounter Last Filed Vital Signs Vital Sign Reading Time Taken Comments Blood Pressure 146/71 05/27/2021 2:08 PM EDT Pulse 85 05/27/2021 2:08 PM EDT Temperature - - Respiratory Rate - - Oxygen Saturation - - Inhaled Oxygen Concentration - - Weight 60.8 kg (134 lb) 05/27/2021 2:08 PM EDT Height 162.6 cm (5' 4 ) 05/27/2021 2:08 PM EDT Body Mass Index 23 05/27/2021 2:08 PM EDT documented in this encounter Miscellaneous Notes * Progress Notes - Antolin Osorio MD - 05/27/2021 2:30 PM EDT Brook Bañuelos is a 70 y.o. female who was seen back in the [facility] today in follow up of her dysphonia. She has longstanding patient of [facility] with aDductor spasmodic dysphonia who has been receiving Botox treatments transcervically for many years but has noticed minimal improvement over the last several years. Her last injection was a couple of monthsago and at that time her voice sounded like was more strained then sewn with spasmodic dysphonia. She was set up to be seen today by our speech language pathology team for videostroboscopy and further management options. Her 14 point review of systems, family and social history are otherwise negative as reported by our patient history form. She denies any constitutional symptoms. Current Outpatient Medications: ??? celecoxib (CeleBREX) 100 MG capsule, , Disp: , Rfl: ??? felodipine ER (Plendil) 10 MG 24 hr tablet, , Disp: , Rfl: ??? fexofenadine (Katie) 180 MG tablet, Take by mouth., Disp: , Rfl: ??? fluticasone (Flonase) 50 MCG/ACT nasal spray, , Disp: , Rfl: ??? gabapentin (Neurontin) 300 MG capsule, , Disp: , Rfl: ??? hydroCHLOROthiazide (HYDRODiuril) 25 MG tablet, , Disp: , Rfl: ??? nabumetone (Relafen) 750 MG tablet, , Disp: , Rfl: ??? pravastatin (Pravachol) 40 MG tablet, , Disp: , Rfl: ??? quinapril-hydroCHLOROthiazide (Accuretic) 20-25 MG tablet, , Disp: , Rfl: Allergies: Patient has no known allergies. PERTINENT SOCIAL HISTORY: She reports that she has never smoked. She has never used smokeless tobacco. She reports no historyof alcohol use. She reports no history of drug use. BP 146/71 Pulse 85 Ht 1.626 m (5' 4 ) Wt 60.8 kg (134 lb) BMI 23.00 kg/m?? Physical examination today reveals a well developed (BMI 18.5-25) female in no apparent distress. Her head is normocephalic and atraumatic. Her voice sounds quite strained and tight but without anybreathiness. Rigid laryngeal stroboscopy was performed with my speech language pathologist, Ana Palacios for functional assessment of her voice and airway. 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 I recommended based on her videostroboscopy that she start speech therapy with Ana and I will follow-up with her in a couple of months. We most probably will delay her next Botox injection depending on how she proceeds. She may also benefit from on augmentation laryngoplasty to help with her hyperfunction and MTD. Digital speech recognition software was used to dictate this note and, despite all efforts to proofread, some dictation errors may occur. Complexity of care: The evaluation of this patient today was [...] Visit [place] [facility] [address] [place] [address] Antolin Osorio MD [address] [facility] [address] [place] [address] Scheduled Referrals Name Type Priority Associated Diagnoses Order Schedule Ambulatory referral to Speech Therapy to Eval and Treat Outpatient Referral Routine Dysphonia Expected: 05/27/2021 (Approximate), Expires: 11/25/2021 documented as of this encounter Visit Diagnoses Diagnosis Dysphonia- Primary documented in this encounter Additional Health Concerns Assessment Noted Time A fall risk assessment has been complete d for the patient 05/27/2021 2:11 PM EDT documented as of this encounter Care Teams Teletype Technician Relationship Specialty Start Date End Date Hung Encinas MD [address] [place] [address] PCP - General 12/13/20 Aung Garcia MD [address] [place] [address] Surgeon Otolaryngology 02/07/21 documented as of this encounter
--- OUTSIDE RECORDS SUMMARY | 2024-07-04 10:06 | XMS_ITS | Encounter Summary ---
Author Organization [facility] Address [address] [place] [address] Care Team Providers Care Wood Preparation Supervisor Name Role Phone Hung Encinas MD Primary Care Provider + [phone] Encounter Details Date Type Department Care Team (Late Contact Info) Description 02/04/2021 Abstract [facility] [address] [place] [address] Mikey Emerson DMD [address] [facility] [address] [place] [address] Social History Tobacco Use Types Packs/Day Years Used Date Smoking Tobacco: Never Assessed Comments Unknown Sex and Gender Information Value Date Recorded Sex Assigned at Not on file Legal Sex Female 8:54 PM EDT Gender Identity Not on file Sexual Orientation Not on file documented as of this encounter Plan of Treatment Upcoming Encounters Date Type Department Care Team (Late Contact Info) Description 08/11/2024 10:10 AM EST Procedure Visit [facility] [address] [place] [address] Antolin Osorio MD [address] [facility] [address] [place] [address] documented as of this encounter Visit Diagnoses Not on filedocumented in this encounter Care Teams Wood Preparation Supervisor Relationship Specialty Start Date End Date Hung Encinas MD [address] [id number] PCP - General 12/13/20 documented as of this encounter
--- OUTSIDE RECORDS SUMMARY | 2024-07-04 10:06 | XMS_ITS | Encounter Summary ---
Author Organization Healthcare Address [address] [place] [address] Care Team Providers Care Gold Blower Name Role Phone Hung Encinas MD Primary Care Provider + [phone] Aung Garcia MD Unavailable Encounter Details Date Type Department Care Team (Latest Contact Info) Description 06/09/2021 Travel Social History Tobacco Use Types Packs/Day [...] Visit [place] [facility] [address], [address] [place] [address] Antolin Osorio MD [address] [place] [address] documented as of this encounter Visit Diagnoses Not on filedocumented in this encounter Additional Health Concerns Assessment Noted Time A fall risk assessment has been complete d for the patient 05/27/2021 2:11 PM EDT documented as of this encounter Care Teams Gold Blower Relationship Specialty Start Date End Date Hung Encinas MD [address] [facility] [address] [place] [address] PCP - General 12/13/20 Aung Garcia MD [id number] [place] [address] Surgeon Otolaryngology 02/07/21 documented as of this encounter
--- OUTSIDE RECORDS SUMMARY | 2024-07-04 10:06 | XMS_ITS | Encounter Summary ---
Author Organization [facility] Address [address] [place] [address] Care Team Providers Care Animal Keeper Name Role Phone Hung Encinas MD Primary Care Provider + [phone] Aung Garcia MD Unavailable Reason for Visit * Consultation (Routine) - Closed Specialty Diagnoses / Procedures Referred By Sybil bolivar Referred To Contact Voice and Swallow Diagnoses Adductor spasmodic dysphonia Antolin Osorio MD [address] [place] [address] Phone: tel: fax: [facility] [address] [place] [address] Phone: tel: fax: Referral ID Status Reason Start Date Expiration Date V isits Requested Visits Authorized [id number] Closed Specialty Services Required 05/05/2021 11/01/2021 1 1 Encounter Details Date Type Department Care Team (Late st Contact Info) Description 05/27/2021 1:00 PM EDT Office Visit [facility] [address] [place] [address] Ana Palacios, [facility]-INSPECTOR SHELLS [id number] [place], [place] [id number] Dysphonia Social History Tobacco Use Types Packs/Day [...] PM EDT documented as of this encounter Miscellaneous Notes * Progress Notes - Ana Palacios, SHAHID-INSPECTOR SHELLS - 05/27/2021 1:00 PM EDT [facility] Voice and Upper Airway Evaluation Patient's name: Brook Bañuelos Date of Evaluation: 05/27/21 Providing INSPECTOR SHELLS: Ana Palacios MS CCC-INSPECTOR SHELLS Referring Provider and Facility: Antolin Osorio MD - Otolaryngology Diagnosis: Dysphonia R49.0 Services Provided: Evaluation of Voice and Resonance (44595); Flexible/Rigid Laryngoscopy with Stroboscopy (74267) Assessment / Treatment Time: 45 minutes Evaluation Location: [facility] - [employer] [employer] [facility] Patient History: The patient presents to the office today for comprehensive voice, swallow, and upper airway evaluation at the request of Dr. Osorio. 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 She noted gradual voice changes in 2005 and underwent voice therapy both here at and [facility] in [place] which was unsuccessful. Most recently, Brook has had little benefit from Botox injections since June 2020. She missed her August 2020 injection secondary to having COVID-19, had unsuccessful injections in September, November, and January 2021 clinics, and felt that her Aprilhot provided little improvement. Prior to this, she endorses several years of benefit from Botox injections. She denies pain with speaking and does endorse a significant amount of stress lately; wilian was hospitalized from August 2020 with COVID-19 lung problems and ultimately passed in December 2020. She notes liquids occasionally going down the wrong pipe when drinking quickly and denies uni ntentional weight loss or recent chest infections or pneumonias. Brook denies changes to her breathing. 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, [facility] History: adductor spasmodic dysphonia Other Medical Evaluations, Testing, and Treatments: received laryngeal Botox injections every othermonth since 2006 but has had little to no benefit from the injections over the past 1 year Cognitive Status / Ability to Comprehend Directions: appropriate Barriers to Progress: neurologic voice condition, significant stress Daily Water Intake: 32 oz Caffeine Intake: 32 oz tea/coffee Other Beverage Intake: none Alcohol Intake: none Past / Current Tobacco Use / Exposure: none Current Diet: normal with thin liquids and no restrictions Weight: stable Quality of Life Questionnaires: Glottal Function Index: 06/21 The GFI is a patient-reported measure of symptoms of laryngeal dysfunction. A score of 4 or higher out of 5 per question indicates impairment. Reflux Severity Index: The RSI is a objective measure of patient-reported signs and symptoms of laryngopharyngeal reflux. A score of 12 or higher is suggestive of the presence of reflux, but is not diagnostic. Dyspnea Index: 40 The DSI is a psychosocial measure of the impact on quality of life based on the presence of a breathing complaint. Voice Handicap Index: 57/120 Functional Score: 18/40 Physical Score: 31/40 Emotional Score: 8/40 Patient's overall rating: severely impaired The VHI is a psychosocial measure of the impact on quality of life, based on the presence of a voice complaint. Cough Severity Index: The CSI is a quality of life instrument indicating the impact of chronic cough on activities of daily living. Scores of 3 or higher out of 4 per question indicate the presence of chronic cough. Eating Assessment Tool-10: The EAT-10 is a patient-reported measure of symptoms of difficulty swallowing. Scores of 3 or higher out of 4 per question suggest the possibility of swallowing impairment. Perceptual Analysis: The GRBAS is a perceptual rating of voice change. 0 indicated no impairment, 3 indicates a severe impairment. This is a rating based on clinical judgement of disordered voice quality. G ( 2 ) General Dysphonia R ( 2 ) Roughness B ( 2 ) Breathiness A ( 2 ) Asthenia S ( 2 ) Strain Additional observations: Nimas voice is consistent rough across various speech tasks (e.g. conversational speech, reading, sustained vowels) and does not demonstrate task specificity during voicedvs voiceless speaking tasks or overt spasming quality. Humming produced a significantly clearer voice vs the other tasks. Laryngoscopy: Informed consent: Informed consent was obtained, which includes potential side- effects, risks, and benefits of the procedure. Anesthetic: No anesthetic was used Scope type: A pediatric distal chip flexible laryngoscope was passed through the left nare. Halogenand xenon light sources were used. Stroboscopy Evaluation: R Arytenoid Abduction / Adduction: WFL L Arytenoid Abduction / Adduction: WFL Ventricular Fold Compression: observed during rest and phonation R>L, consistent with supraglottic hyperfunction Anterior / Posterior Compression: WFL Appearance: mild action-induced tremoring was observed during phonation in the lateral pharyngeal marcum and velum, consistent with vocal tremor. 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 Resonant Voice Therapy (RVT) involves training voice- disordered individuals to produce voice in an easier, more resonant and forward- focused manner throughout the speech hierarchy. The objective of this approach is to achieve the strongest possible voice with the least effort and impact stress between the vocal folds tominimize the likelihood of injury. These exercises were instructed today from the phoneme to automatic speech level, and Brook performed them with high accuracy given maximal clinician cueing and mod eling. She was cued to maintain sufficient airflow throughout the duration of the phrase to avoid laryngeal straining. Brook also noted that her voice sounded much clearer to her while performing these exercises than during her normal speaking. Impressions: Brook demonstrates symptoms and findings consistent with dysphonia secondary to diagnosis of adductor spasmodic dysphonia, supraglottic hyperfunction, laryngeal irritation, mild tremoring of the velum and lateral pharyngeal marcum, presbylaryngis Plan: ??? The results of today's evaluation and imaging were shared with Dr. Osorio and Brook ??? Due to Brook's diagnosis of adductor spasmodic dysphonia and past positive response to Botox treatments, it is recommended these injections continue alongside therapeutic intervention for supraglottic hyperfunction ??? Brook will continue to follow-up with Dr. Osorio for Botox injections, the next clinic on 06/20/21 ??? A course of voice therapy has been recommended prior to and following her next Botox injection ??? Brook is in agreement with the plan of care and had no further questions following today???s session. Speech pathology services will begin following insurance pre-authorization. Goals: ??? Coordinate phonatory and respiratory subsystems, demonstrating adequate independence for activities of daily communication ??? Decrease extrinsic laryngeal muscle activity during communication events ??? Improve voice quality in all activities of daily living using, as measured by a minimum of an 80% point reduction on the Voice Handicap Index or the Glottal Function Index ??? Demonstrate appropriate vocal hygiene including, but not limited to, adequate hydration, avoiding vocal abuse, integrating behavioral and dietary changes for GERD into their daily life?. ??? Incorporate behaviors to reduce irritation and promote laryngeal healing and prevent recurrence.? Implement behavioral strategies to reduce laryngopharyngeal reflux. ? Independently maintain a forward focus voice placement 90% of the time. ??? Independently perform the Vocal Function Exercises, rebalancing respiration, phonation, and resonance 90% of the time Cosigned by Antolin Osorio MD at 05/29/2021 3:10 PM EDT Associated attestation - Antolin Osorio MD - 05/29/2021 3:10 PM EDT I personally reviewed the laryngeal videostroboscopy with Ana Palacios and I agree with her assessment and plan. documented in this encounter Plan of Treatment Upcoming Encounters Date Type Department Care Team (Late st Contact Info) Description 08/11/2024 10:10 AM EST Procedure Visit [facility] [address] [place] [address] Antolin Osorio MD [address] [facility] [address] [place] [address] documented as of this encounter Visit Diagnoses Diagnosis Dysphonia documented in this encounter Additional Health Concerns Assessment Noted Time A fall risk assessment has been complete d for the patient 05/27/2021 2:11 PM EDT documented as of this encounter Care Teams Animal Keeper Relationship Specialty Start Date End Date Hung Encinas MD [address] [facility] [address] [place] [address] PCP - General 12/13/20 Aung Garcia MD [address] [facility] [address] [place] [address] Surgeon Otolaryngology 02/07/21 documented as of this encounter
--- OUTSIDE RECORDS SUMMARY | 2024-07-04 10:06 | XMS_ITS | Encounter Summary ---
Author Organization [facility] Address [address] [id number] Care Team Providers Care Head Bone Grinder Name Role Phone Hung Encinas MD Primary Care Provider + [phone] Aung Garcia MD Unavailable Reason for Referral * Consultation (Routine) - Closed Specialty Diagnoses / Procedures Referred By Sybil bolivar Referred To Contact Voice and Swallow Diagnoses Adductor spasmodic dysphonia Antolin Osorio MD [address] [address] Phone: tel: fax: [place] [facility] [address] [place] [address] Phone: tel: fax: Referral ID Status Reason Start Date Expiration Date V isits Requested Visits Authorized [id number] Closed Specialty Services Required 05/05/2021 11/01/2021 1 1 Encounter Details Date Type Department Care Team (Late st Contact Info) Description 05/05/2021 Orders Only [facility] Otolaryngology [address] [place] [address] Antolin Osorio MD [address] [place] [address] Adductor spasmodic dysphonia (Primary Dx) Social History Tobacco Use Types [...] Description 08/11/2024 10:10 AM EST Procedure Visit [facility] [address] [place] [address] Antolin Osorio MD [address] [place] [address] Scheduled Referrals Name Type Priority Associated Diagnoses Order Schedule Ambulatory Referral to Voice and Swallow Outpatient Referral Routine Adductor spasmodic dysphonia Expected: 05/19/2021 (Approximate), Expires: 11/03/2021 documented as of this encounter Visit Diagnoses Diagnosis Adductor spasmodic dysphonia- Primary Other diseases of larynx documented in this encounter Care Teams Head Bone Grinder Relationship Specialty Start Date End Date Hung Encinas MD [address] [place] [address] PCP - General 12/13/20 Aung Garcia MD [address] [place] [address] Surgeon Otolaryngology 02/07/21 documented as of this encounter
--- OUTSIDE RECORDS SUMMARY | 2024-07-04 10:06 | XMS_ITS | Encounter Summary ---
Author Organization [facility] Address [address] [place] [address] Care Team Providers Care Club Former Name Role Phone Hung Encinas MD Primary Care Provider + [phone] Reason for Referral * Other Medical (Routine) - Closed Specialty Diagnoses / Procedures Referred By Sybil bolivar Referred To Contact Neurology Diagnoses Dysphonia Procedures Botox Procedure ID INJECTION,ONABOTULINUMTOXINA ID CHEMODENERVATION MUSCLE LARYNX UNILAT W/EMG Aung Garcia MD [address] [facility] [address] [place] [address] Phone: tel: fax: Referral ID Status Reason Start Date Expiration Date V isits Requested Visits Authorized [id number] Closed Specialty Services Required 01/29/2021 07/28/2021 1 Encounter Details Date Type Department Care Team (Late Contact Info) Description 01/29/2021 Orders Only [facility] Otol[facility]ology [address] [place] [address] Chel Abernathy [facility] [address] [place] [address] Dysphonia (Primary Dx) Social History Tobacco Use [...] Visit [place] [facility] [address] [place] [address] Antolin Osorio MD [address] [place] [address] Scheduled Orders Name Type Priority Associated Diagnoses Orde r Schedule Botox Procedure Neurology Routine Dysphonia 1 Occurrences starting 01/29/2021 until 01/29/2022 documented as of this encounter Visit Diagnoses Diagnosis Dysphonia- Primary documented in this encounter Care Teams Club Former Relationship Specialty Start Date End Date Hung Encinas MD [address] [facility] [address] [place] [address] PCP - General 12/13/20 documented as of this encounter
--- OUTSIDE RECORDS SUMMARY | 2024-07-04 10:06 | XMS_ITS | Encounter Summary ---
Author Organization [facility] Address [address] [id number] Care Team Providers Care Wash Box Operator Name Role Phone Hung Encinas MD Primary Care Provider + [phone] Aung Garcia MD Unavailable Reason for Referral * Clinic-Administered Medication (Routine) - Closed Specialty Diagnoses / Procedures Referred By Sybil bolivar Referred To Contact Diagnoses Spasmodic dysphonia Aung Garcia MD [address] [address] Phone: tel: fax: Referral ID Status Reason Start Date Expiration Date Visits Re quested Visits Authorized [id number] Closed 08/15/2021 02/14/2023 1 1 Reason for Visit * Clinic-Administered Medication (Routine) - Closed Specialty Diagnoses / Procedures Referred By Sybil bolivar Referred To Contact Diagnoses Spasmodic dysphonia Aung Garcia MD [address] [address] Phone: tel: fax: Referral ID Status Reason Start Date Expiration Date Visits Re quested Visits Authorized [id number] Closed 08/15/2021 02/14/2023 1 1 Encounter Details Date Type Department Care Team (Late st Contact Info) Description 08/15/2021 11:00 AM EST Procedure Visit [place] [facility] [address] [place] [address] Aung Garcia MD [address] [place] [address] Spasmodic dysphonia (Primary Dx) Social History Tobacco Use [...] Progress Notes - Aung Garcia MD - 08/15/2021 11:00 AM EST PATIENT NAME: Brook Bañuelos DATE OF : 1950 DATE OF PROCEDURE: 08/15/2021 PREOPERATIVE DIAGNOSES: 1. Adductor spasmodic dysphonia POSTOPERATIVE DIAGNOSES: 1. Same PROCEDURE PERFORMED: Botox injection to thyroarytenoid muscles under EMG guidance (81130, 04426), bilateral Patient was examined and her voice quality continues to be consistent with adductor spasmodic dysphonia. Informed consent was obtained for Botox injection for adductor spasmodic dysphonia and the patient was brought into the EMG exam room, placed in a sitting position and connected to EMG electrodes by the body shop technician. A monopolar electrode was then connected to the special 27-gauge Perfecto-coated oculinum needle. Under EMG guidance and after verification of the muscle signal by myself, 2.0 unitsof botulinum toxin type A was injected passing through the cricothyroid membrane into 1st the left and then the right thyroarytenoid muscles (4.0 units total). The patient tolerated the procedure well and will return in 2 months for follow-up evaluation and repeat injection if necessary. I personally reviewed the patient's speech evaluation by Dr. Bev Lawson, performed the injectionprocedure and supervised the laryngeal EMG. Aung Garcia MD documented in this encounter Plan of Treatment Upcoming Encounters Date Type Department Care Team (Late st Contact Info) Description 08/11/2024 10:10 AM EST Procedure Visit [place] [facility] [address] [place] [address] Antolin Osorio MD [address] [facility] [place] [address] documented as of this encounter Visit Diagnoses Diagnosis Spasmodic dysphonia- Primary Other diseases of larynx documented in this encounter Administered Medications Inactive Administered Medications - up to 3 most recent administrations Medication Order MAR Action Action Date Dose Rate Site onabotulinumtoxinA (Botox) injection 4 Units 4 Units, Intramuscular, Once, 1 dose, On Wed08/15/21 at 1500, RoutineIndications:Spasmodic dysphonia Given by Other 08/15/2021 2:59 PM EST 4 Units Oth er documented in this encounter Additional Health Concerns Assessment Noted Time A fall risk assessment has been complete d for the patient 05/27/2021 2:11 PM EDT documented as of this encounter Care Teams Wash Box Operator Relationship Specialty Start Date End Date Hung Encinas MD [facility] [address] [address] PCP - General 12/13/20 Aung Garcia MD [address] [place] [address] Surgeon Otolaryngology 02/07/21 documented as of this encounter
--- OUTSIDE RECORDS SUMMARY | 2024-07-04 10:06 | XMS_ITS | Encounter Summary ---
Author Organization [facility] Address [address] [place] [address] Care Team Providers Care Candy Maker Name Role Phone Hung Encinas MD Primary Care Provider + [phone] Aung Garcia MD Unavailable Reason for Referral * Other Medical (Routine) - Closed Specialty Diagnoses / Procedures Referred By Sybil bolivar Referred To Contact Neurology Diagnoses Dysphonia Procedures Botox Dystonia Antolin Osorio MD [address] [place] [address] Phone: tel: fax: Referral ID Status Reason Start Date Expiration Date V isits Requested Visits Authorized [id number] Closed Specialty Services Required 05/22/2021 11/21/2022 1 1 Encounter Details Date Type Department Care Team (Late Contact Info) Description 05/22/2021 Orders Only [place] [facility] [address] [place] [address] Cristine Gibbons Dysphonia (Primary Dx) [...] Visit [place] [facility] [address] [place] [address] Antolin Osorio MD [address] [facility] [address] [place] [address] Scheduled Orders Name Type Priority Associated Diagnoses Orde r Schedule Botox Dystonia Neurology Routine Dysphonia Expected: 06/20/2021, Expires: 05/22/2022 documented as of this encounter Visit Diagnoses Diagnosis Dysphonia- Primary documented in this encounter Care Teams Candy Maker Relationship Specialty Start Date End Date Hung Encinas MD [facility] [address] [place] [address] PCP - General 12/13/20 Aung Garcia MD [id number] [place] [address] Surgeon Otolaryngology 02/07/21 documented as of this encounter
--- OUTSIDE RECORDS SUMMARY | 2024-07-04 10:06 | XMS_ITS | Encounter Summary ---
Author Organization [facility] Address [address] [phone] Care Team Providers Care Pool Coordinator Name Role Phone Hung Encinas MD Primary Care Provider + [phone] Aung Garcia MD Unavailable Reason for Referral * Other Medical (Routine) - Closed Specialty Diagnoses / Procedures Referred By Sybil bolivar Referred To Contact Neurology Diagnoses Dysphonia Procedures Botox Dystonia Antolin Osorio MD [address] [facility] [address] [place] [address] Phone: tel: fax: [facility] [address] [facility] [address] [place] [address] Phone: tel: fax: Referral ID Status Reason Start Date Expiration Date Visits Re quested Visits Authorized [id number] Closed 11/07/2021 05/09/2023 1 1 Encounter Details Date Type Department Care Team (Late st Contact Info) Description 11/07/2021 Orders Only [address] [address] Cristine Gibbons Dysphonia (Primary Dx) [...] Visit [place] [facility] [address] [place] [address] Antolin Osorio MD [address] [facility] [address] [place] [address] Scheduled Orders Name Type Priority Associated Diagnoses Orde r Schedule Botox Dystonia Procedures Routine Dysphonia Expected: 12/12/2021, Expires: 01/07/2022 documented as of this encounter Visit Diagnoses Diagnosis Dysphonia- Primary documented in this encounter Additional Health Concerns Assessment Noted Time A fall risk assessment has been complete d for the patient 05/27/2021 2:11 PM EDT documented as of this encounter Care Teams Pool Coordinator Relationship Specialty Start Date End Date Hung Encinas MD [facility] [address] [place] [address] PCP - General 12/13/20 Aung Garcia MD [address] [place] [address] Surgeon Otolaryngology 02/07/21 documented as of this encounter
--- OUTSIDE RECORDS SUMMARY | 2024-07-04 10:06 | XMS_ITS | Encounter Summary ---
Author Organization Healthcare Address [address] [place] [id number] Care Team Providers Care Chemists Name Role Phone Hung Encinas MD Primary Care Provider + [phone] Aung Garcia MD Unavailable Encounter Details Date Type Department Care Team (Late st Contact Info) Description 06/25/2021 9:00 AM EST [facility] [address] [place] [phone] Ana Palacios, CCC-PYTHON ENGINEER [address] [place] [id number] Dysphonia (Primary Dx) Social History Tobacco Use [...] Miscellaneous Notes * Progress Notes - Ana Palacios CCC-PYTHON ENGINEER - 06/25/2021 9:00 AM EST [facility] Speech-Language Pathology Therapy Note Patient's name: Brook Bañuelos Date of Session: 06/25/21 Providing PYTHON ENGINEER: Ana Palacios MS CCC-PYTHON ENGINEER Referring Provider: Antolin Osorio MD - Otolaryngology Diagnosis: 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 She does endorse some mild breathiness but denies hearing tremulous quality. She did have one instance of swallowing problems since her Botox injection where she drank water too quickly but otherwise denies dysphagia. OBJECTIVE/ASSESSMENT: Resonant Voice Therapy (RVT) involves training voice-disordered individuals to produce voice in an easier, more resonant and forward-focused manner throughout the speech hierarchy. The objective of this approach is to achieve the strongest possible voice with the least effort and impact stress between the vocal folds to minimize the likelihood of injury. These exercises were reviewed today at the conversational speech level, and Brook performed them with high independent accuracy. Her perceptual voice rating indicated mild breathiness, asthenia, strain, and roughness without tremor or spasming quality during conversational speech. She is very happy with her current voice and that some of the voice principles we address were helpful in addition to Botox injections. PLAN: ??? Brook will continue to use Resonant Voice techniques during conversational speech. ??? At this time, discharge is recommended from voice therapy due to significant improvements in voice following therapy and medical management, as well as Brook's satisfaction with her current voice ??? She will continue to follow up with Dr. Garcia/Devon as needed for Botox injections and other medical voice needs. ??? Brook is in agreement with this plan of care. documented in this encounter Plan of Treatment Upcoming Encounters Date Type Department Care Team (Late st Contact Info) Description 08/11/2024 10:10 AM EST [facility] [address] [place] [phone] Antolin Osorio MD [address] [facility] [address] [place] [phone] documented as of this encounter Visit Diagnoses Diagnosis Dysphonia- Primary documented in this encounter Additional Health Concerns Assessment Noted Time A fall risk assessment has been complete d for the patient 05/27/2021 2:11 PM EDT documented as of this encounter Care Teams Chemists Relationship Specialty Start Date End Date Hung Encinas MD [address] [place], [place] [address] [place] [address] PCP - General 12/13/20 Aung Garcia MD [address] [facility] [address] [place] [id number] Surgeon Otolaryngology 02/07/21 documented as of this encounter
--- NOTE | 2024-07-04 10:08 | XR_ITS ---
FINAL REPORT CLINICAL HISTORY: PAIN x 3-4 weeks FINDINGS: Right hip Three views were obtained. There is no fracture or dislocation. There are postoperative changes in the lower lumbar spine. There are degenerative changes of the right sacroiliac joint. There are mild degenerative changes of the right hip. IMPRESSION: Degenerative and postsurgical changes as above. Reviewed, Interpreted and Dictated by Willie Sands III, MD Transcribed by Darcy Denney Authenticated and [facility]
== END 2024-07-04 23:59 | disposition home or self-care (01) ==
LOC: RAD 10:02
PROVIDERS: PCP Family Medicine; Visit Provider Family Medicine
DX: M25.551 Pain in right hip (principal)
CPT/HCPCS: 73502

== ENCOUNTER 2024-08-23 14:31 | Outpatient (CLI) | payer MEDICARE, SELFPAY ==
--- NOTE | 2024-08-23 14:34 | MM_ITS ---
PROCEDURE INFORMATION: Exam: MG Bilateral Screening 3D Mammography Exam date and time: 08/23/2024 2:21 PM Age: 73 years old Clinical indication: Screening examination TECHNIQUE: Imaging protocol: Bilateral Screening tomosynthesis and 2D mammography including computer-aided detection (CAD) when performed. COMPARISON: 1. MG MM DIG SCREENING MAMM BI W/CAD 07/30/2023 10:48 AM 2. MG MM DIG SCREENING MAMM BI W/CAD 07/13/2022 8:28 AM FINDINGS: MAMMOGRAPHY: Breast composition: The breasts are heterogeneously dense, which may obscure small masses. Mass: No suspicious masses. Architectural distortion: None. Calcifications: No suspicious calcifications. Asymmetric density: None. Skin thickening: None. Axillary adenopathy: None. IMPRESSION: No mammographic evidence of malignancy. Annual screening is recommended unless otherwise clinically indicated. ASSESSMENT: BI-RADS Category 1: Negative.
== END 2024-08-23 23:59 | disposition home or self-care (01) ==
LOC: RAD 14:31
PROVIDERS: PCP Family Medicine; Visit Provider Family Medicine
DX: Z12.31 Encounter for screening mammogram for malignant neoplasm of breast (principal)
CPT/HCPCS: 77063; 77067

== ENCOUNTER 2024-08-28 08:47 | Day surgery (SDC) | payer MEDICARE, SELFPAY ==
[2024-08-22 13:04] VITALS: BMI 24.5
[2024-08-28 09:35] VITALS: BP 132/81; PULSE 81; RESP 16; TEMP 36.6; O2SAT 96
[2024-08-28] MEDS: LACTATED RINGERS 1000ML 1,000 ML 50 ML IV (09:45)
--- NOTE | 2024-08-28 10:29 | P.PNANES_ITS ---
[facility] Disclaimer: The information contained in this section may have been updated after the patient was seen, as this information can be updated by other users. Medical History (Updated 08/28/24 @ 09:43 by Brooklynn Almanzar RN) History of COVID-19 Hyperlipidemia Hypertension Surgical History (Updated 08/28/24 @ 09:43 by Brooklynn Almanzar RN) History of appendectomy H/O: hysterectomy Hx of colonoscopy History of back surgery Family History Other Cancer Hyperlipidemia Hypertension Stroke Social History (Updated 08/28/24 @ 09:43 by Brooklynn Almanzar RN) Smoking Status: Never smoker alcohol intake: never substance use type: denies use current occupational status: retired Travel in the last 8 weeks: None caffeine: Yes Have you lived/traveled outside US in past 30 days?: No Contact w/someone who lives/traveled outside US past 30 days?: No Exposure to someone with infectious disease in past 14 days?: No Do you have a fever (greater than 100.4 F or 38 C)?: No Have you tested positive for COVID-19: Yes Exposed to someone with COVID-19 in past 14 days?: No Do you have a sore throat?: No Do you have a cough?: No Do you have any weakness?: No Are you experiencing any nausea/vomitting?: No Do you have any diarrhea?: No Are you experiencing any unusual bleeding?: No Do you have any muscle aches/pain?: No Do you have any abdominal pain?: No Are you experiencing loss of taste or smell?: No [facility] Anesthesia Checklist Patient Identification Patient Identification: Verbal (Name & ) Structural Data Admitted From: Home Planned Operative Procedure/s: colonoscopy Consent for Planned Operative Procedure(s) Verified: Yes NPO Status Verified Time NPO: 00:00 Airway Assessment Mallampati Score:: Class II C-Spine Mobility Assessed: Yes TMJ Mobility Assessed: Yes Dentition: Good Dentition Neurological Assessment Level of Consciousness: Awake, Alert and Appropriate Anesthesia Plan Anesthesia Risk discussed: Yes Anesthesia Plan: Verified ASA Class: II Anesthesia Type: MAC
[2024-08-28 11:28] VITALS: O2SAT 99
--- NOTE | 2024-08-28 11:29 | EXP.HP ---
History of Present Illness *Admission Date: 08/28/24 *Reason for visit:: Screening for colon cancer *History of present illness: Mrs. Bañuelos is a 73-year-old female who is here for screening colonoscopy. Her last colonoscopy was approximately 10 years ago. The examination is deemed medically necessary for screening colonoscopy. The patient has been seen, interviewed and examined prior to the procedure by both myself and the anesthesia provider. [facility] Disclaimer: The information contained in this section may have been updated after the patient was seen, as this information can be updated by other users. Medical History (Updated 08/28/24 @ 11:30 by Bart Haque II, MD) History of COVID-19 Hyperlipidemia Hypertension Surgical History (Updated 08/28/24 @ 09:43 by Brooklynn Almanzar RN) History of appendectomy H/O: hysterectomy Hx of colonoscopy History of back surgery Family History Other Cancer Hyperlipidemia Hypertension Stroke Social History (Updated 08/28/24 @ 09:43 by Brooklynn Almanzar RN) Smoking Status: Never smoker alcohol intake: never substance use type: denies use current occupational status: retired Travel in the last 8 weeks: None caffeine: Yes Have you lived/traveled outside US in past 30 days?: No Contact w/someone who lives/traveled outside US past 30 days?: No Exposure to someone with infectious disease in past 14 days?: No Do you have a fever (greater than 100.4 F or 38 C)?: No Have you tested positive for COVID-19: Yes Exposed to someone with COVID-19 in past 14 days?: No Do you have a sore throat?: No Do you have a cough?: No Do you have any weakness?: No Are you experiencing any nausea/vomitting?: No Do you have any diarrhea?: No Are you experiencing any unusual bleeding?: No Do you have any muscle aches/pain?: No Do you have any abdominal pain?: No Are you experiencing loss of taste or smell?: No Other Medical History Have you received the Pneumonia Vaccine: Yes Review of Systems Review of Systems Review of systems (narrative): Negative *Cardiovascular Comments: Negative *Gastrointestinal Comments: Negative *Genitourinary Comments: Negative *Musculoskeletal Comments: Negative *Neurologic Comments: Negative Meds Home Medications and Allergies Home Medications ?Medication ?Instructions ?Recorded ?Confirmed ?Type felodipine 10 mg tablet,extended 10 mg PO DAILY 90 days #90 tabs 05/02/18 08/28/24 History release 24 hr pravastatin 40 mg tablet 40 mg PO DAILY 90 days #90 tabs 05/02/18 08/28/24 History celecoxib 100 mg capsule (Celebrex) 100 mg PO DAILY 08/24/23 08/28/24 History gabapentin 300 mg capsule 300 mg PO BID 08/24/23 08/28/24 History lisinopril 20 mg tablet 10 mg PO DAILY 08/24/23 08/28/24 History sodium,potassium,mag sulfates 17.5 See Rx Instructions PO .COMPLEX 08/21/24 Rx gram-3.13 gram-1.6 gram oral soln #354 mL (Suprep Bowel Prep Kit) New Prescriptions to Start Prescriptions: Allergies Allergy/AdvReac Type Severity Reaction Status Date / Time No Known Allergies Allergy Verified 08/28/24 09:32 Exam Data for Last 24 hours Vital signs and Labs for Last 24 Hours: Temp Pulse Resp BP Pulse Ox O2 Del Method O2 Flow Rate 97.9 F 81 16 132/81 96 Nasal Cannula 5 08/28/24 09:35 08/28/24 09:35 08/28/24 09:35 08/28/24 09:35 08/28/24 09:35 08/28/24 11:28 08/28/24 11:28 *Routine HEENT Exam Head: Present normocephalic Eye: Present EOMI and PERRL ENT: Present mucous membranes moist *Routine Neck Exam Neck: Present supple *Routine Respiratory Exam Respiratory: Present CTA bilaterally *Routine Cardiovascular Exam Cardiovascular: Present RRR *Routine Abdominal Exam Abdominal: Present soft and normoactive bowel sounds; Absent tenderness *Routine Rectal Exam Rectal:: deferred *Routine Genitalia Exam Genitalia:: deferred *Routine Extremities Exam Extremities: Absent cyanosis, clubbing or edema *Routine Skin Exam Skin: Present warm; Absent rash *Routine Neurological Exam Neurological: Present alert and oriented X3 Assessment and Plan *Assessment and plan (1) Screening for colon cancer: Status: Acute Category: Medical Code(s): Z12.11 - Encounter for screening for malignant neoplasm of colon Plan A/P: 1. Screening for colon cancer is the preprocedural diagnosis. The patient will be anesthetized/sedated using MAC sedation. The patient has been seen and examined. Cardiac and lung assessment prior to the examination is stable. Proceed with planned screening colonoscopy
--- NOTE | 2024-08-28 11:30 | P.PCN_ITS ---
[facility] Procedure Note Date: 08/28/24 Time: 11:50 Procedure Note:: Colonoscopy Procedure Report: Colonoscopy With cold snare polypectomy Endoscopist: Bart Haque II, MD Referring physician: Hung Encinas MD Date of Procedure: August 28, 2024 Equipment: Olympus 190 variable stiffness pediatric colonoscope Sedation: MAC sedation Indication: Mrs. Bañuelos is a 73-year-old female who is here for follow-up surveillance/screening colonoscopy. Her last colonoscopy was 10 years ago (Zohra Otto MD) and was normal. The patient reports no abdominal pain, weight loss, change in her bowel habits or rectal bleeding. She reports no family history of colon cancer. Procedure: Prior to the procedure, a history and physical exam was performed, and patient's medications and allergies were reviewed. The risks, benefits and alternatives of the sedation and procedure were discussed with the patient. All questions were answered and informed consent was obtained. The patient was brought to the procedure room. Patient identification and proposed procedure were verified by the physician and the nurse. The patient was placed in a left lateral decubitus position and the scope was passed under direct vision. Throughout the procedure, the patient's blood pressure, pulse, and oxygen saturations were monitored continuously. The colonoscopy was accomplished without difficulty. The patient tolerated the procedure well. Findings: On digital rectal examination there was normal rectal tone. There were no external hemorrhoids. The colonoscope was introduced through the anal canal to the rectum and advanced to the cecum. The ileocecal valve and appendiceal orifice were identified. The scope was advanced a short distance into the ileum which appeared grossly normal. The scope was then withdrawn into the colon. There were 3 diminutive polyps (ascending x 2 (3 and 5 mm) and transverse x 1 (3 mm)). These were all removed via cold snare polypectomy. The cecum, ascending, transverse, descending, sigmoid and rectum were grossly normal. There were no mucosal abnormalities identified. Upon retroflexion within the rectum there were grade 1-2 internal hemorrhoids.The preparation was good throughout with [place] Preparation Score of 8 out of 9. The cecal time was 13 minutes. Impression: 1. Diminutive colonic polyps x 3 Plan: I will follow-up the polyp histology and and based on pathology, determine whether further surveillance is warranted.
[2024-08-28 11:53] VITALS: BP 99/57; PULSE 81; RESP 16; TEMP 36.3; O2SAT 96
[2024-08-28 12:03] VITALS: BP 108/60; PULSE 76; RESP 16; O2SAT 96
[2024-08-28 12:13] VITALS: BP 110/60; PULSE 78; RESP 16; O2SAT 98
[2024-08-28 12:23] VITALS: BP 139/66; PULSE 78; RESP 16; O2SAT 98
== END 2024-08-28 12:28 | disposition home or self-care (01) ==
PROVIDERS: PCP Family Medicine; Visit Provider Internal Medicine Gastroenterology
PROC: (CPT 45385; principal; 2024-08-28 10:30)
DX: K63.5 Polyp of colon (principal); K64.8 Other hemorrhoids; Z12.11 Encounter for screening for malignant neoplasm of colon
CPT/HCPCS: 45385; 88305; J7120

== ENCOUNTER 2025-07-15 13:29 | Emergency (ER) | payer MEDICARE, SELFPAY ==
--- OUTSIDE RECORDS SUMMARY | 2025-05-11 14:40 | XMS_ITS | Encounter Summary ---
Author Organization Healthcare Address [address] [place] [address] Care Team Providers Care Tester/Lift Trucker Name Role Phone Hung Encinas MD Primary Care Provider [phone] Aung Garcia MD Unavailable Antolin Osorio MD Unavailable [phone] Reason for Referral * Clinic-Administered Medication (Routine) - Closed Specialty Diagnoses / Procedures Referred By Sybil bolivar Referred To Contact Diagnoses Spasmodic dysphonia Procedures [place] INJECTION,ONABOTULINUMTOXINA Viji Stewart MD [address] [address] Phone: tel: fax: Referral ID Status Reason Start Date Expiration Date Visits Re quested Visits Authorized [id number] Closed 05/18/2025 11/17/2026 1 1 Reason for Visit * Other Medical (Routine) - Closed Specialty Diagnoses / Procedures Referred By Sybil bolivar Referred To Contact Otolaryngology Diagnoses Spasmodic dysphonia Procedures Botox Dystonia Viji Stewart MD [address] [address] Phone: tel: fax: Referral ID Status Reason Start Date Expiration Date Visits Re quested Visits Authorized [id number] Closed 04/25/2025 10/25/2026 1 1 Encounter Details Date Type Department Care Team (Latest Contact Info) Description 05/11/2025 3:40 PM EDT Procedure Visit [place] [facility] [address] [place] [address] Viji Stewart MD [address] [place] [address] Spasmodic dysphonia Social History Tobacco Use Types [...] Progress Notes - Viji Stewart MD - 05/11/2025 3:40 PM EDT PATIENT NAME: Brook Bañuelos DATE OF : 1950 DATE OF PROCEDURE: 05/11/25 PREOPERATIVE DIAGNOSES: Adductor spasmodic dysphonia POSTOPERATIVE DIAGNOSES: Same PROCEDURE PERFORMED: Xeomin injection to thyroarytenoid muscles under EMG guidance (81460, 23104), bilateral Patient was examined and her voice quality continues to be consistent with adductor spasmodic dysphonia. Informed consent was obtained for Xeomin injection for adductor spasmodic dysphonia and the patient was brought into the EMG exam room, placed in a sitting position and connected to EMG electrodes by the health and safety technician. A monopolar electrode was then connected to the special 27-gauge Perfecto-coatedoculinum needle. Under EMG guidance and after verification of the muscle signal by myself, 1.5 units of botulinum toxin was injected passing through the cricothyroid membrane 1st into the left and then the right thyroarytenoid muscles for a total injection amount of 3 units. 97.5 units of botulinumtoxin type A were wasted. The patient tolerated the procedure well and will return in 2 months for follow-up evaluation and repeat injection if necessary. I personally performed the injection procedure and supervised the laryngeal EMG. Viji Stewart MD documented in this encounter Plan of Treatment Upcoming Encounters Date Type Department Care Team (Late st Contact Info) Description 07/16/2025 3:20 PM EST Office Visit [facility] Otolaryngology [address] [place] [address] Viji Stewart MD [address] [facility] [place] [address] 08/10/2025 10:40 AM EST Procedure Visit [facility] [address], [address] [place] [address] Viji Stewart MD [address] [address] documented as of this encounter Visit Diagnoses Diagnosis Spasmodic dysphonia Other diseases of larynx documented in this encounter Administered Medications Inactive Administered Medications - up to 3 most recent administrations Medication Order MAR Action Action Date Dose Rate Site incobotulinumtoxinA (Xeomin) injection 3 Units 3 Units, Intramuscular, Once, 1 dose, On Wed05/18/25 at 1115, RoutineIndications:Spasmodic dysphonia Given by Other 05/11/2025 4:10 PM EDT 3 Units Oth er documented in this encounter Additional Health Concerns Assessment Noted Time A fall risk assessment has been complete d for the patient 05/27/2021 2:11 PM EDT A Body Mass Index follow-up plan has been documented for the patient 05/18/2025 10:16 AM EDT documented as of this encounter Care Teams Tester/Lift Trucker Relationship Specialty Start Date End Date Hung Encinas MD [address] [facility] [address] [place] [address] PCP - General 12/13/20 Aung Garcia MD [address] [place] [address] Surgeon Otolaryngology 02/07/21 Antolin Osorio MD [address] [place] [address] Surgeon Otolaryngology 06/12/22 documented as of this encounter
--- OUTSIDE RECORDS SUMMARY | 2025-06-15 10:10 | XMS_ITS | Encounter Summary ---
Author Organization [facility] Address [address] [place] [address] Care Team Providers Care Sales And Marketing Administrator Name Role Phone Hung Encinas MD Primary Care Provider [phone] Aung Garcia MD Unavailable Antolin Osorio MD Unavailable [phone] Reason for Referral * Clinic-Administered Medication (Routine) - Closed Specialty Diagnoses / Procedures Referred By Sybil bolivar Referred To Contact Diagnoses Spasmodic dysphonia Procedures [place] INJECTION,ONABOTULINUMTOXINA Aung Garcia MD [address] [address] Phone: tel: fax: Referral ID Status Reason Start Date Expiration Date Visits Re quested Visits Authorized [id number] Closed 06/16/2025 12/16/2026 1 1 Reason for Visit * Other Medical (Routine) - Closed Specialty Diagnoses / Procedures Referred By Sybil bolivar Referred To Contact Otolaryngology Diagnoses Spasmodic dysphonia Procedures Botox Dystonia Aung Garcia MD [address] [address] Phone: tel: fax: Referral ID Status Reason Start Date Expiration Date Visits Re quested Visits Authorized [id number] Closed 05/18/2025 11/17/2026 1 1 Encounter Details Date Type Department Care Team (Latest Contact Info) Description 06/15/2025 10:10 AM EST Procedure Visit [place] [facility] [address] [place] [address] Aung Garcia MD [address] [place] [address] Spasmodic dysphonia Social History Tobacco Use Types [...] Progress Notes - Aung Garcia MD - 06/15/2025 10:10 AM EST Discussed with her before injection. Did xeomin at last visit for concern of possible antibodies tobotox. However, she did not notice any difference with xeomin injection. PATIENT NAME: Brook Bañuelos DATE OF : 1950 DATE OF PROCEDURE: 06/15/2025 PREOPERATIVE DIAGNOSES: 1. Adductor spasmodic dysphonia POSTOPERATIVE DIAGNOSES: 1. Same PROCEDURE PERFORMED: Botox injection to thyroarytenoid muscles under EMG guidance (41156, [address]322), bilateral Patient was examined and her exam continues to be consistent with the above diagnosis. Informed consent was obtained for Botox injection patient was brought into the EMG exam room, placed in a sitting position and connected to EMG electrodes by the endoscope technician. A monopolar electrode was then connected to the special 27-gauge Perfecto-coated oculinum needle. Under EMG guidance and after verification of the muscle signal by myself, 2.5 units of botulinum toxin type A was injected passing through thecricothyroid membrane 1st into the left and then the right thyroarytenoid muscles. 95 units of botulinum toxin type A were wasted. The patient tolerated the procedure well and will return in 2 monthsfor follow-up evaluation and repeat injection if necessary. I personally reviewed the patient's speech evaluation, performed the injection procedure and supervised the laryngeal EMG. Aung Garcia MD documented in this encounter Plan of Treatment Upcoming Encounters Date Type Department Care Team (Late st Contact Info) Description 07/16/2025 3:20 PM EST Office Visit [facility] Otolaryngology [address]rd [place] [address] Viji Stewart MD [address] [address] 08/10/2025 10:40 AM EST Procedure Visit [facility] [address], [address] [place] [address] Viji Stewart MD [facility] [address] [address] documented as of this encounter Visit Diagnoses Diagnosis Spasmodic dysphonia Other diseases of larynx documented in this encounter Administered Medications Inactive Administered Medications - up to 3 most recent administrations Medication Order MAR Action Action Date Dose Rate Site onabotulinumtoxinA (Botox) injection 5 Units 5 Units, Intramuscular, Once, 1 dose, On 06/16/25 at 1745, RoutineIndications:Spasmodic dysphonia Given by Other 06/15/2025 10:32 AM EST 5 Units Ot her documented in this encounter Additional Health Concerns Assessment Noted Time A fall risk assessment has been complete d for the patient 05/27/2021 2:11 PM EDT A Body Mass Index follow-up plan has been documented for the patient 06/16/2025 4:53 PM EST documented as of this encounter Care Teams Sales And Marketing Administrator Relationship Specialty Start Date End Date Hung Encinas MD [address] [facility] [address] [place], [place] [id number] PCP - General 12/13/20 Aung Garcia MD [address] [address] Surgeon Otolaryngology 02/07/21 Antolin Osorio MD [address] [facility] [place] [address] Surgeon Otolaryngology 06/12/22 documented as of this encounter
--- OUTSIDE RECORDS SUMMARY | 2025-07-15 13:37 | XMS_ITS | Clinical Summary ---
Author Organization [facility] Address [address] [place] [address] Phone Care Team Providers Care Instrument Maker Apprentice Name Role Phone Hung Encinas MD Primary Care Provider [phone] Allergies No known active allergies Medications estrogens [...] 77 09/18/2011 10:40 AM EST Temperature 36.7 C (98 F) 09/18/2011 10:40 AM EST Respiratory Rate 17 09/18/2011 10:40 AM EST Oxygen Saturation 97% 09/18/2011 10:40 AM EST Inhaled Oxygen Concentration - - Weight 68.9 kg (152 lb) 09/16/2011 2:13 PM EST Height 162.6 cm (5' 4 ) 09/16/2011 2:13 PM EST Body Mass Index 26.09 09/16/2011 2:13 PM EST Plan of Treatment Health Maintenance Due Date Last Done Comments Annual Wellness Exam 1953 Hepatitis C Screening 1968 DTaP/TDaP/Td (1 - Tdap) 1969 Breast Cancer Screening 1990 Cologuard 10/30/1995 Colon Cancer Screening 10/30/1995 Colonoscopy 10/30/1995 FIT 10/30/1995 Sigmoidoscopy 10/30/1995 Virtual Colonography 10/30/1995 Pneumococcal Vaccine 50+ (1 of 1 - PCV) 2000 Zoster (1 of 2) 2000 Bone Density Screening 10/30/2015 COVID-19 Vaccine (1 - 2024-2 6 season) 2025 Influenza Vaccine (#1) 2025 Hepatitis B Vaccine Aged Out No longe r eligible based on patient's age to complete this topic Meningococcal B Vaccine Aged Out No l onger eligible based on patient's age to complete this topic Insurance [facility] [id number] [facility] Care Teams Instrument Maker Apprentice Relationship Specialty Start Date End Date Hung Encinas MD [address] [place] [id number] PCP - General Family Medicine 09/16/11
--- OUTSIDE RECORDS SUMMARY | 2025-07-15 13:37 | XMS_ITS | Encounter Summary ---
Author Organization Healthcare Address [address] [place] [address] Care Team Providers Care Hotel Valet Attendant Name Role Phone Hung Encinas MD Primary Care Provider + [phone] Aung Garcia MD Unavailable Antolin Osorio MD Unavailable +[phone] Encounter Details Date Type Department Care Team (Latest Contact Info) Description 07/13/2025 Travel Social History Tobacco Use Types Packs/Day [...] Description 07/16/2025 3:20 PM EST Office Visit [facility] [address], [address] [place] [address] Viji Stewart MD [address] [place] [address] 08/10/2025 10:40 AM EST Procedure Visit [facility] [address], [address] [place] [address] Viji Stewart MD [address] [place] [address] documented as of this encounter Visit Diagnoses Not on filedocumented in this encounter Additional Health Concerns Assessment Noted Time A fall risk assessment has been complete d for the patient 05/27/2021 2:11 PM EDT A Body Mass Index follow-up plan has been documented for the patient 06/16/2025 4:53 PM EST documented as of this encounter Care Teams Hotel Valet Attendant Relationship Specialty Start Date End Date Hung Encinas MD [facility] [address] [address] PCP - General 12/13/20 Aung Garcia MD [email or web address] [place] [address] Surgeon Otolaryngology 02/07/21 Antolin Osorio MD [address] [place] [address] Surgeon Otolaryngology 06/12/22 documented as of this encounter
--- OUTSIDE RECORDS SUMMARY | 2025-07-15 13:37 | XMS_ITS | Encounter Summary ---
Author Organization [facility] Address [address] [place] [address] Care Team Providers Care Night Coordinator Name Role Phone Hung Encinas MD Primary Care Provider + [phone] Aung Garcia MD Unavailable Antolin Osorio MD Unavailable [phone] Reason for Visit * Reason Onset Date Comments [facility] Same Day Appt/Overbook Request 07/04/2025 Encounter Details Date Type Department Care Team (Late st Contact Info) Description 07/04/2025 Telephone [facility] [address], [address] [place] [address] Viji Stewart MD [address] [place] [address] [facility] Same Day Appt/Overbook Request Social History Tobacco Use Types Packs/Day Years [...] encounter Miscellaneous Notes * Telephone Encounter - Aston Carlos Alberto Hilliard - 07/04/2025 1:34 PM EST Same Day Appt/Overbook Request Reason for Call: Patient returning call to Mckayla to reschedule appt with Terry, not sure if this is something clinic is OB or they are wanting her scheduled for next available , there was no detailin notes, please follow-up Best contact number: [phone] (mobile) Optimal time of day to reach caller: ANYTIME Additional comments/information from caller: None Note: Please do not reply to this message. Follow-up communication and further actions as a result of this message need to be communicated with the patient directly, if the patient is not active onMyChart. If the patient is active on MyChart, they will receive notification of the communication/outcome via MyChart. documented in this encounter Plan of Treatment Upcoming Encounters Date Type Department Care Team (Late st Contact Info) Description 07/16/2025 3:20 PM EST Office Visit [facility] Otolaryngology [address], [address]rd [place] [address] Viji Stewart MD [address] [facility] [address] [place] [address] 08/10/2025 10:40 AM EST Procedure Visit [facility] [address], [address]st [place] [address] Viji Stewart MD [address] [facility] [address] [place] [address] documented as of this encounter Visit Diagnoses Not on filedocumented in this encounter Additional Health Concerns Assessment Noted Time A fall risk assessment has been complete d for the patient 05/27/2021 2:11 PM EDT A Body Mass Index follow-up plan has been documented for the patient 06/16/2025 4:53 PM EST documented as of this encounter Care Teams Night Coordinator Relationship Specialty Start Date End Date Hung Encinas MD [address] [facility] [address] [place] [address] PCP - General 12/13/20 Aung Garcia MD [address] [facility] [place] [address] Surgeon Otolaryngology 02/07/21 Antolin Osorio MD [address] [address] Surgeon Otolaryngology 06/12/22 documented as of this encounter
--- OUTSIDE RECORDS SUMMARY | 2025-07-15 13:37 | XMS_ITS | Encounter Summary ---
Author Organization Healthcare Address [address] [place] [address] Care Team Providers Care Medicare Sales Representative Name Role Phone Hung Encinas MD Primary Care Provider + [phone] Aung Garcia MD Unavailable Antolin Osorio MD Unavailable +[phone] Encounter Details Date Type Department Care Team (Latest Contact Info) Description 06/15/2025 Travel Social History Tobacco Use Types Packs/Day [...] Description 07/16/2025 3:20 PM EST Office Visit [facility] [address], [address] [place] [address] Viji Stewart MD [address] [place] [address] 08/10/2025 10:40 AM EST Procedure Visit [facility] [address], [address] [place] [address] Viji Stewart MD [address] [place] [address] documented as of this encounter Visit Diagnoses Not on filedocumented in this encounter Additional Health Concerns Assessment Noted Time A fall risk assessment has been complete d for the patient 05/27/2021 2:11 PM EDT A Body Mass Index follow-up plan has been documented for the patient 06/16/2025 4:53 PM EST documented as of this encounter Care Teams Medicare Sales Representative Relationship Specialty Start Date End Date Hung Encinas MD [facility] [address] [address] PCP - General 12/13/20 Aung Garcia MD [address] [place] [address] Surgeon Otolaryngology 02/07/21 Antolin Osorio MD [address] [place] [address] Surgeon Otolaryngology 06/12/22 documented as of this encounter
--- OUTSIDE RECORDS SUMMARY | 2025-07-15 13:37 | XMS_ITS | Encounter Summary ---
Author Organization [facility] Address [address] [place] [address] Care Team Providers Care Oil And Gas Principal Name Role Phone Hung Encinas MD Primary Care Provider + [phone] Aung Garcia MD Unavailable Antolin Osorio MD Unavailable +[phone] Reason for Visit * Reason Onset Date Comments [facility]CN Clinical Concern/Question 04/25/2025 Encounter Details Date Type Department Care Team (Late st Contact Info) Description 04/25/2025 Telephone [facility] [address], [address] [place] [address] Viji Stewart MD [address] [place] [address] HCN Clinical Concern/Question Social History [...] encounter Miscellaneous Notes * Telephone Encounter - Mckayla Dean - 04/25/2025 10:08 AM EDT I sent Dr. Stewart a email. * Telephone Encounter - Cher Lane - 04/25/2025 9:02 AM EDT Clinical Concern/Question Reason for Call: patient is calling she got botox on 04/13 and was told if it didn't work to call and they could order her a different kind of botox, She is calling because it did not work. Please call patient back with info. Thank you Best contact number: [phone] (mobile) Optimal time of day to reach [...] Description 07/16/2025 3:20 PM EST Office Visit [facility] Otolaryngology [address], [address]rd [place] [address] Viji Stewart MD [address] [address] 08/10/2025 10:40 AM EST Procedure Visit [facility] [address], [address] [place] [address] Viji Setwart MD [address] [facility] [place] [address] documented as of this encounter Visit Diagnoses Not on filedocumented in this encounter Additional Health Concerns Assessment Noted Time A fall risk assessment has been complete d for the patient 05/27/2021 2:11 PM EDT A Body Mass Index follow-up plan has been documented for the patient 04/15/2025 10:06 AM EDT documented as of this encounter Care Teams Oil And Gas Principal Relationship Specialty Start Date End Date Hung Encinas MD [address] [facility] [address] [place] [address] PCP - General 12/13/20 Aung Garcia MD [address] [facility] [address] [place] [address] Surgeon Otolaryngology 02/07/21 Antolin Osorio MD [address] [employer] [facility] [address] [place] [address] Surgeon Otolaryngology 06/12/22 documented as of this encounter
--- OUTSIDE RECORDS SUMMARY | 2025-07-15 13:37 | XMS_ITS | Clinical Summary ---
Author Organization [facility] Address [address] [place] [address] Care Team Providers Care Certified Orthoptist Name Role Phone Unavailable Primary Care Provider [...] e 05/11/2023 Family and Community Support Answer Bhagrav e Recorded Help with Day-to-Day Activities Not [...] Date Last Done Comments ANNUAL PHYSICAL 1950 DXA SCAN 1950 HEPATITIS C SCREENING 1950 TDAP/TD VACCINES (1 - Tdap) 1969 MAMMOGRAM 1990 COLOGUARD 10/30/1995 COLON CANCER SCREENING 5 YEAR SIGMOIDOSCOPY 10/30/1995 COLONOSCOPY 10/30/1995 COLORECTAL CANCER SCREENING 10/30/1995 CT COLONOGRAPHY 10/30/1995 FECAL OCCULT BLOOD TEST 10/30/1995 FIT Testing (1 year) 10/30/1995 Pneumococcal Vaccine 50+ (1 of 1 - PCV) 2000 ZOSTER VACCINE (1 of 2) 2000 INFLUENZA VACCINE 03/02/2025 COVID-19 Vaccine ( - season) 2025
--- OUTSIDE RECORDS SUMMARY | 2025-07-15 13:37 | XMS_ITS | Encounter Summary ---
Author Organization [facility] Address [address] [place] [address] Care Team Providers Care Lecturer In Marketing Name Role Phone Hung Encinas MD Primary Care Provider + [phone] Aung Garcia MD Unavailable Antolin Osorio MD Unavailable [phone] Encounter Details Date Type Department Care Team (Late Contact Info) Description 07/04/2025 Telephone [facility] Otolaryngology [address], [address] [place] [address] Mckayla Dean Social History Tobacco Use Types Packs/Day Years [...] Department Care Team (Late Contact Info) Description 07/16/2025 3:20 PM EST Office Visit [facility] Otolaryngology [address], [address] [place] [address] Viji Stewart MD [address] [facility] [address] [place] [address] 08/10/2025 10:40 AM EST Procedure Visit [facility] [address], [address] [place] [address] Viji Stewart MD [address] [facility] [place] [address] documented as of this encounter Visit Diagnoses Not on filedocumented in this encounter Additional Health Concerns Assessment Noted Time A fall risk assessment has been complete d for the patient 05/27/2021 2:11 PM EDT A Body Mass Index follow-up plan has been documented for the patient 06/16/2025 4:53 PM EST documented as of this encounter Care Teams Lecturer In Marketing Relationship Specialty Start Date End Date Hung Encinas MD [facility] [address] [place] [address] PCP - General 12/13/20 Aung Garcia MD [address] [address] Surgeon Otolaryngology 02/07/21 Antolin Osorio MD [address] [facility]00 [place] [address] Surgeon Otolaryngology 06/12/22 documented as of this encounter
--- OUTSIDE RECORDS SUMMARY | 2025-07-15 13:37 | XMS_ITS | Encounter Summary ---
Author Organization Healthcare Address [address] [place] [address] Care Team Providers Care Supervisor Rice Milling Name Role Phone Hung Encinas MD Primary Care Provider + [phone] Aung Garcia MD Unavailable Antolin Osorio MD Unavailable [phone] Encounter Details Date Type Department Care Team (Latest Contact Info) Description 06/13/2025 Travel Social History Tobacco Use Types Packs/Day [...] Description 07/16/2025 3:20 PM EST Office Visit [facility] Otol[facility]ology [address], [address] [place] [address] Viji Stewart MD [address] [place] [address] 08/10/2025 10:40 AM EST Procedure Visit [facility] [address], [address] [place] [address] Viji Stewart MD [address] [place] [address] documented as of this encounter Visit Diagnoses Not on filedocumented in this encounter Additional Health Concerns Assessment Noted Time A fall risk assessment has been complete d for the patient 05/27/2021 2:11 PM EDT A Body Mass Index follow-up plan has been documented for the patient 05/18/2025 10:16 AM EDT documented as of this encounter Care Teams Supervisor Rice Milling Relationship Specialty Start Date End Date Hung Encinas MD [facility] [address] [address] PCP - General 12/13/20 Aung Garcia MD [address] [place] [address] Surgeon Otolaryngology 02/07/21 Antolin Osorio MD [address] [place] [address] Surgeon Otolaryngology 06/12/22 documented as of this encounter
--- OUTSIDE RECORDS SUMMARY | 2025-07-15 13:37 | XMS_ITS | Clinical Summary ---
Author Organization [facility] Address [address] [place] [address] Care Team Providers Care Sap Bpc Architect Name Role Phone Hung Encinas MD Primary Care Provider + [phone] Aung Garcia MD Unavailable Antolin Osorio MD Unavailable [phone] Allergies No known active allergies Medications felodipine [...] time each day in the morning. 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 Dysphonia 03/01/2023 04/22/2025 Encounters Date Type Department Care Team Description 07/13/2025 Travel 07/04/2025 Telephone [facility] Otolaryngology [address] [place] [address] Viji Stewart MD [facility] Same Day Appt/Overbook Request 07/04/2025 Telephone [facility] Otolaryngology [address], [address] [place] [address] Mckayla Dean 06/15/2025 10:10 AM EST Procedure Visit [facility] [address], [address] [place] [address] Aung Garcia MD Spasmodic dysphonia 06/15/2025 Travel 06/13/2025 Travel 05/11/2025 3:40 PM EDT Procedure Visit [facility] [address], [place] [address] Viji Stewart MD Spasmodic dysphonia 05/11/2025 Travel 04/25/2025 Telephone [facility] Otolaryngology [address], [facility] [place] [address] Viji Stewart MD [facility] Clinical Concern/Question from Last 3 Months Family History Medical [...] 82 07/16/2023 9:18 AM EST Temperature 36.7 C (98.1 F) 06/16/2023 10:05 AM EST Respiratory Rate 14 06/16/2023 10:30 AM EST [...] Description 07/16/2025 3:20 PM EST Office Visit [facility] Otolaryngology [address], [address] [place] [address] Viji Stewart MD [address] [place] [address] 08/10/2025 10:40 AM EST Procedure Visit [facility] [address], [address] [place] [address] Viji Stewart MD [address] [place] [address] Health Maintenance Due Date Last Done Comments [facility]-Bone Density Scan 1950 [facility]-Depression Screening 1950 [facility]-Hepatitis C Screening 1950 [facility]-Medicare Annual Wellness (AWV) 1950 [facility]-/Child/Adol SDOH Screenings 1950 [facility]- SDOH Screenings 1968 [facility]-Adult SDOH Screenings 1968 CT Colonography 10/30/1995 Colonoscopy 10/30/1995 FIT 10/30/1995 FOBT 10/30/1995 Sigmoidoscopy 10/30/1995 [facility]-Breast Cancer Screening 2000 [facility]-Zoster Vaccines (1 of 2) 2000 [facility]-DTaP,Tdap,and Td Vaccine s (2 - Td or Tdap) 12/22/2020 12/22/2010, 10/05/1996 [id number] Vaccine ( season) 2025 06/18/2021, 10/19/2020 [facility]-Influenza Vaccine (#1) 04/02/202505/28, 06/04/2014, 05/23/2010 [facility]-RSV Vaccine: 60+ Years o r (1 - 1-dose 75+ series) 2025 FIT-DNA 07/03/2027 07/03/2024, 05/26/2021, 05/17/2018 [facility]-Colorectal Cancer Screening 07/03/2027 [facility]-Pneumococcal Vaccine: 50 + Years Completed 06/28/2018, 06/23/2016 HPV Vaccines (No Doses Required) Completed [facility]-HIB Vaccines Aged Out No longer e [...] this topic Medical Devices Implanted Type Area Director Of Software Development Device Identifier Shelf Expiration Date Model / Serial / Lot Prolaryn Plus - [id number] - [id number] Implanted:Qt y: 1 on 06/16/2023 by Antolin Osorio MD at [facility] Prosthesis Other N/A: Larynx [id number] 05/26/2024 [id number] / [id number] / [id number] Insurance [facility] MEDICARE Care Teams Sap Bpc Architect Relationship Specialty Start Date End Date Hung Encinas MD [address] [address] PCP - General 12/13/20 Aung Garcia MD [address] [place] [address] Surgeon Otolaryngology 02/07/21 Antolin Osorio MD [address] [place] [address] Surgeon Otolaryngology 06/12/22
[2025-07-15 13:45] VITALS: BP 164/92; PULSE 101; RESP 18; TEMP 36.6; O2SAT 98; BMI 25.7
--- NOTE | 2025-07-15 13:53 | CT_ITS ---
PROCEDURE INFORMATION: Exam: CTA Neck With Contrast Exam date and time: 07/15/2025 2:57 PM Age: 74 years old Clinical indication: Pain; Headache; Additional info: Headache, elevated BP TECHNIQUE: Imaging protocol: Computed tomographic angiography of the neck with contrast. Exam focused on the cervical segments of the vasculature. 3D rendering (Not supervised by radiologist): MIP and/or 3D reconstructed images were created by the technologist. Radiation optimization: All CT scans at this facility use at least one of these dose optimization techniques: automated exposure control; mA and/or kV adjustment per patient size (includes targeted exams where dose is matched to clinical indication); or iterative reconstruction. Contrast material: ISOVUE; Contrast volume: 80 ml; Contrast route: INTRAVENOUS (IV); COMPARISON: CT ANGIO NECK 07/15/2025 2:57 PM FINDINGS: Right common carotid artery: No stenosis. No dissection or occlusion. Right internal carotid artery: No stenosis of the extracranial segment. No dissection or occlusion. Right external carotid artery: No occlusion or stenosis of the origin. Left common carotid artery: No stenosis. No dissection or occlusion. Left internal carotid artery: There are multifocal irregularities in the distal aspect of the left internal carotid artery. Findings can be seen in the context of fibromuscular dysplasia versus non flow-limiting dissection. Left external carotid artery: No occlusion or stenosis of the origin. Right vertebral artery: No stenosis. No dissection or occlusion. Left vertebral artery: No stenosis. No dissection or occlusion. Soft tissues: Normal. No significant soft tissue swelling. Bones/joints: No acute fracture. IMPRESSION: There are multifocal irregularities in the distal aspect of the left internal carotid artery. Findings can be seen in the context of fibromuscular dysplasia versus non flow-limiting dissection. REFERENCES: NASCET CRITERIA. The degree of stenosis in the cervical segment of the internal carotid artery is based on NASCET criteria. Normal is no stenosis. Mild is less than 50% stenosis. Moderate is 50-69% stenosis. Severe is 70% to 99% stenosis. Total occlusion is no detectable patent lumen.
--- NOTE | 2025-07-15 13:53 | CT_ITS ---
PROCEDURE INFORMATION: Exam: CTA Head With Contrast, Arteriography Exam date and time: 07/15/2025 2:57 PM Age: 74 years old Clinical indication: Pain; Headache; Additional info: Headache, elevated BP TECHNIQUE: Imaging protocol: Computed tomographic angiography of the head with contrast. Exam focused on the arteries. 3D rendering (Not supervised by radiologist): MIP and/or 3D reconstructed images were created by the technologist. Radiation optimization: All CT scans at this facility use at least one of these dose optimization techniques: automated exposure control; mA and/or kV adjustment per patient size (includes targeted exams where dose is matched to clinical indication); or iterative reconstruction. Contrast material: ISOVUE; Contrast volume: 80 ml; Contrast route: INTRAVENOUS (IV); COMPARISON: CT HEAD/BRAIN WO CON 07/15/2025 2:56 PM FINDINGS: ANTERIOR CIRCULATION: Right internal carotid artery: Intracranial segment is patent with no significant stenosis. No aneurysm. Right middle cerebral artery: No occlusion or significant stenosis. No aneurysm. Right anterior cerebral artery: No occlusion or significant stenosis. No aneurysm. Left internal carotid artery: Intracranial segment is patent with no significant stenosis. No aneurysm. Left middle cerebral artery: No occlusion or significant stenosis. No aneurysm. Left anterior cerebral artery: No occlusion or significant stenosis. No aneurysm. POSTERIOR CIRCULATION: Right vertebral artery: No occlusion or significant stenosis. No aneurysm. Left vertebral artery: No occlusion or significant stenosis. No aneurysm. Basilar artery: No occlusion or significant stenosis. No aneurysm. Right posterior cerebral artery: No occlusion or significant stenosis. No aneurysm. Left posterior cerebral artery: No occlusion or significant stenosis. No aneurysm. Brain: No definite mass, mass effect, or midline shift. Cerebral ventricles: No ventriculomegaly. Bones/joints: Unremarkable. No acute fracture. Soft tissues: Unremarkable. IMPRESSION: No large vessel stenosis or occlusion.
--- NOTE | 2025-07-15 13:53 | CT_ITS ---
PROCEDURE INFORMATION: Exam: CT Head Without Contrast Exam date and time: 07/15/2025 2:56 PM Age: 74 years old Clinical indication: Pain; Headache; Additional info: Headache, elevated BP TECHNIQUE: Imaging protocol: Computed tomography of the head without contrast. Radiation optimization: All CT scans at this facility use at least one of these dose optimization techniques: automated exposure control; mA and/or kV adjustment per patient size (includes targeted exams where dose is matched to clinical indication); or iterative reconstruction. COMPARISON: No relevant prior studies available. FINDINGS: Brain: There is no evidence of acute intracranial hemorrhage, extra-axial collection or locoregional mass effect. There are scattered hypodensities in the periventricular and subcortical white matter. The appearance is nonspecific, but most likely represents chronic small vessel disease in a person of this age Cerebral ventricles: The ventricles, sulci and cisterns are normal in size and configuration for patient's age. No hydrocephalus or midline structure shift Pituitary gland and sella: Sellar/parasellar structures, craniocervical junction and orbits are unremarkable Paranasal sinuses: Scattered mucosal thickening throughout the paranasal sinuses. Mastoid air cells: Visualized mastoid air cells are well aerated. Bones: No calvarial fracture Soft tissues: Unremarkable. IMPRESSION: No acute intracranial abnormality. No calvarial fracture.
[2025-07-15] MEDS: ACETAMINOPHEN 1,000MG/100ML VIAL 1000 MG IV (14:00)
[2025-07-15 14:21] LABS: Hematocrit 43.7 % (37.0-47.0); Hemoglobin 14.6 g/dL (12.2-16.2); Immature Granulocytes % 0.3 %; Mean Corpuscular HGB Conc 33.4 g/dL (31.8-35.4); Mean Corpuscular Hemoglobin 29.1 pg (27.0-31.2); Mean Corpuscular Volume 87.2 fl (81-99); Nucleated Red Blood Cells % 0 %; Platelet Count 346 K/mm3 (142-424); Red Blood Count 5.01 M/mm3 (4.20-5.40); Red Cell Distribution Width-SD 37.7 fL; White Blood Count 7.3 K/mm3 (4.8-10.8)
[2025-07-15 14:39] LABS: Chloride 103 mmol/L (98-107)
[2025-07-15 14:40] LABS: Albumin Level 5.5 g/dl (3.5-5.0); Potassium 3.7 mmoL/L (3.5-5.1); Sodium 137 mmol/L (136-145)
[2025-07-15 14:42] LABS: Alanine Aminotransferase 29 U/L (12-78); Anion Gap 11.7 mEq/L (5-15); Aspartate Amino Transferase 44 U/L (14-36); Blood Urea Nitrogen 15 mg/dl (7-17); Carbon Dioxide 26 mmol/L (22.0-30.0); Creatinine Clearance Estimated 51 mL/min (50-200); Creatinine,Serum 1.00 mg/dl (0.52-1.04); Estimated Glomerular Filt Rate 54 ml/min (>60); GFR (African American) 66 ML/MIN (>60)
[2025-07-15 14:43] LABS: Albumin/Globulin Ratio 1.6 (1.1-1.8); Alkaline Phosphatase 85 U/L (38-126); Bilirubin,Total 0.5 mg/dl (0.2-1.3); Calcium 9.5 mg/dl (8.4-10.2); Globulin 3.4 g/dL (1.3-3.2); Glucose 100 mg/dl (74-100); Total Protein,Serum 8.9 g/dl (6.3-8.2)
[2025-07-15] MEDS: 0.9 % SODIUM CHLORIDE 50 ML VIAL IV (14:57)
[2025-07-15] MEDS: SODIUM CHLORIDE 0.9% 10ML SYR (RAD ONLY) 10 ML IV (14:58)
[2025-07-15] MEDS: IOPAMIDOL-370 (76%);100ML BOTTLE 80 ML IV (14:58)
[2025-07-15 15:09] VITALS: BP 198/69; PULSE 84; O2SAT 99
--- NOTE | 2025-07-15 15:44 | PC.NURSE ---
Called [facility] for [facility]. Power shared images
--- NOTE | 2025-07-15 15:48 | ED_ITS ---
<Statement entered by Damari Rutherford DO - 07/15/25 23:49> I was consulted by the ROLLY, and we discussed the complexity of problems being addressed. I approve the treatment and management plan for this patient's care in the emergency department, thus performing a substantial portion of the medical decision making. Damari Rutherford DO Discharge Plan Disposition Patient Disposition: Xfer Short-Term Hosp Prescriptions Prescriptions: No Action gabapentin 300 mg capsule 300 mg PO BID lisinopril 20 mg tablet 10 mg PO DAILY celecoxib [Celebrex] 100 mg capsule 100 mg PO DAILY pravastatin 40 mg tablet 40 mg PO DAILY 90 Days Qty: 90 felodipine 10 mg tablet extended release 24 hr 10 mg PO DAILY 90 Days Qty: 90 sodium,potassium,mag sulfates [Suprep Bowel Prep Kit] 17.5-3.13-1.6 gram recon soln See Rx Instructions PO .COMPLEX Qty: 354 0RF Rx Instructions: DILUTE; drink full amount early evening before AND next morning at least 4-5 hr before procedure; follow w 960 mL water PO Referrals Follow up/Referrals: Hung Encinas MD [Primary Care Provider, Medical] - See instructions Clinical Impressions Clinical Impression: CVA (cerebral vascular accident) Stand Alone Forms Stand Alone Forms: Transfer Record - ED Print Language Print Language: Mongolian Discharge ED Provider: Bayron Jackson General Adult HPI <Bayron Jackson MD - Last Filed: 07/15/25 15:50> General Chief complaint: Headache Stated complaint: High Blood Pressure last reading 193/70 Time Seen by Provider: 07/15/25 13:38 Mode of Arrival: Ambulatory Source of Information: Patient Description of Symptoms (Recalled from ER Triage Doc. by RN): Reports waking up with a headache and blurred vision this morning. States she checked her BP and it was 180 systolic. States that she took her scheduled blood pressure medications and after multiple bp checks the lowest she got systolic was 165. States her headache is much improved. Related Data Home Medications ?Medication ?Instructions ?Recorded ?Confirmed felodipine 10 mg tablet,extended 10 mg PO DAILY 90 day s #90 tabs 05/02/18 08/28/24 release 24 hr pravastatin 40 mg tablet 40 mg PO DAILY 90 days #90 t abs 05/02/18 08/28/24 celecoxib 100 mg capsule (Celebrex) 100 mg PO DAILY 08/28/24 gabapentin 300 mg capsule 300 mg PO BID 08/24/2308/28 lisinopril 20 mg tablet 10 mg PO DAILY 08/24/2308/03 Previous Rx's ?Medication ?Instructions ?Recorded sodium,potassium,mag sulfates 17.5 See Rx Instructions PO .COMPLEX 08/21/24 gram-3.13 gram-1.6 gram oral soln #354 mL (Suprep Bowel Prep Kit) Allergies Allergy/AdvReac Type Severity Reaction Status Date / Time No Known Allergies Allergy Verified 08/28/24 09:32 <SULTANA Navarro - Last Filed: 07/15/25 16:30> History of Present Illness HPI narrative: Patient presents complaining of headache and blurred vision since waking up this morning at 7:30 AM. She describes her vision as hazy . GARCIA is frontal, has gradually worsened. Denies worst GARCIA of life. She took her blood pressure and noted it was elevated as well. She does take lisinopril and felodipine. Denies any previous migraine history. She denies any focal neurologic symptoms such as slurred speech or weakness. complaint: headache Onset (ago): hour(s) Location: head Radiation: non-radiation Severity: moderate Consistency: constant Relieving factors: none Exacerbating factors: none Associated symptoms: denies other symptoms Treatments prior to arrival: none PFSH <Bayron Jackson MD - Last Filed: 07/15/25 15:50> [facility] Disclaimer: The information contained in this section may have been updated after the patient was seen, as this information can be updated by other users. Medical History (Updated 07/15/25 @ 16:41 by Odilia Soni RN) History of COVID-19 Hyperlipidemia Hypertension Surgical History (Updated 08/28/24 @ 09:43 by Brooklynn Almanzar RN) History of appendectomy H/O: hysterectomy Hx of colonoscopy History of back surgery Family History Other Cancer Hyperlipidemia Hypertension Stroke Social History (Updated 08/28/24 @ 09:43 by Brooklynn Almanzar RN) Smoking Status: Never smoker alcohol intake: never substance use type: denies use current occupational status: retired Travel in the last 8 weeks?: None caffeine: Yes Have you lived/traveled outside [place] in past 30 days?: No Contact w/someone who lives/traveled outside US past 30 days?: No Exposure to someone with infectious disease in past 14 days?: No Do you have a fever (greater than 100.4 F or 38 C)?: No Have you tested positive for COVID-19?: No Exposed to someone with COVID-19 in past 14 days?: No Do you have a sore throat?: No Do you have a cough?: No Do you have any weakness?: No Do you have any diarrhea?: No Are you experiencing any unusual bleeding?: No Do you have any muscle aches/pain?: No Do you have any abdominal pain?: No Are you experiencing loss of taste or smell?: No Other Medical History Have you received the Pneumonia Vaccine: Yes <SULTANA Navarro - Last Filed: 07/15/25 16:30> ROS Obtained: Yes Systems reviewed as appropriate & no additional complaints except as documented Physical Exam <SULTANA Navarro - Last Filed: 07/15/25 16:30> General General appearance: alert and in no apparent distress Head Head exam: atraumatic and normocephalic Eye Eye exam: Present normal appearance and EOMI Chest Chest inspection: Present symmetric chest wall rise Respiratory Respiratory exam: Present normal lung sounds bilaterally; Absent wheezes or stridor Cardiovascular Cardiovascular exam: Present regular rate and normal rhythm; Absent systolic murmur Extremities Exam Extremities exam: Present full ROM Neurological Exam Neurological exam: Present alert and oriented X3 Psychiatric Psychiatric exam: Present normal affect and normal mood Skin Skin exam: Present warm, dry and intact Medical Decision Making <Bayron Jackson MD - Last Filed: 07/15/25 15:50> Medical Records Screening: Per USPSTF and CDC recommendations, given the prevalence of disease in our region, it is our hospital?s policy to screen for HIV and viral Hepatitis for all patients aged 18 and over and those with ongoing risk factors. Vital Signs: 07/15/25 13:45 07/15/25 15:09 07/15/25 16:40 Temperature 97.9 F 97.9 F Temperature Source Oral Oral Pulse Rate 84 84 Pulse Rate [Radial] 101 H Respiratory Rate 18 18 Blood Pressure 198/69 H 198/69 H Blood Pressure [Right Arm] 164/92 H Blood Pressure Mean [Right Arm] 116 Blood Pressure Source Automatic Cuff Blood Pressure Source [Right Arm] Automatic Cuff Blood Pressure Position Sitting Blood Pressure Position [Right Arm] Sitting 02 Sat by Pulse Oximetry 98 99 Oxygen Delivery Method Room Air Room Air Room Air Lab Data Lab Results 07/15/25 14:06: WBC 7.3, RBC 5.01, Hgb 14.6, Hct 43.7, MCV 87.2, MCH 29.1, MCHC 33.4, RDW 11.8, Plt Count 346, MPV 8.4, Neut % (Auto) 75.3, Lymph % (Auto) 17.1, Bandera % (Auto) 5.9, Eos % (Auto) 0.7, Baso % (Auto) 0.7, Neut # (Auto) 5.5, Lymph # (Auto) 1.3, Bandera # (Auto) 0.4, Eos # (Auto) 0.1, Baso # (Auto) 0.1, PT 10.3, INR 0.92, Sodium 137, Potassium 3.7, Chloride 103, Carbon Dioxide 26, Anion Gap 11.7, BUN 15, Creatinine 1.00, Estimated Creat Clear 51, Estimated GFR 54 L, Est GFR ( Amer) 66, Glucose 100, Calcium 9.5, Total Bilirubin 0.5, AST 44 H, ALT 29, Alkaline Phosphatase 85, Troponin I < 0.01, Total Protein 8.9 H, Albumin 5.5 H, Globulin 3.4 H, Albumin/Globulin Ratio 1.6, HCV Ab FARIDA w/Rflx PCR Qn Negative, HIV Ag/Ab Combo Qual Negative 07/15/25 14:06 07/15/25 14:06 Orders (Tests/Meds): ED MEDICATIONS Discontinued Medications Generic Name Dose Route Start Last Admin Trade Name Freq PRN Reason Stop Dose Admin Acetaminophen 1,000 mg 07/15/25 13:53 07/15/25 14:00 Acetaminophen 1,000mg/100ml Vial IV 07/15/25 13:54 1,000 mg ONCE ONE Administration Aspirin 325 mg 07/15/25 16:00 07/15/25 16:15 Aspirin 325mg Tablet PO 07/15/25 16:01 Not Given ONCE ONE Clopidogrel Bisulfate 300 mg 07/15/25 16:00 07/15/25 16:12 Clopidogrel 300mg Tablet PO 07/15/25 16:01 300 mg ONCE ONE Administration Iopamidol 80 ml 07/15/25 14:57 07/15/25 14:58 Iopamidol-370 (76%);100ml Bottle IV 07/15/25 14:58 80 ml ONCE ONE Administration Sodium Chloride 10 ml 07/15/25 14:57 07/15/25 14:58 Sodium Chloride 0.9% 10ml Syr (Rad Only) IV 07/15/25 14:58 10 ml ONCE ONE Administration Sodium Chloride 50 ml 07/15/25 14:57 07/15/25 14:57 0.9 % Sodium Chloride 50 Ml Vial IV 07/15/25 14:58 50 ml ONCE ONE Administration ORDERS Category Date Time Status CT angio head Stat Cat Scan 07/15/25 13:[address] angio neck Stat Cat Scan 07/15/25 13:[address] head/brain wo con Stat Cat Scan 07/15/25 13:53 Completed CBC w/Auto Diff [Complete Blood Count Auto Diff] Stat Lab 07/15/25 14:06 Completed CMP [Comprehensive Metabolic Panel] Stat Lab 07/15/25 14:06 Completed HIV Combo Stat Lab 07/15/25 14:06 Completed Hepatitis C Ab Qual. W/ RFX Stat Lab 07/15/25 14:06 Completed INR [Prothrombin Time INR] Stat Lab 07/15/25 14:06 Completed Trop I [Troponin I] Stat Lab 07/15/25 14:06 Completed Medical Decision Narrative: I was consulted by the ROLLY, and we discussed the complexity of the problems being addressed. I approved the treatment and management plan for this patient's care in the Emergency Department, thus performing a substantive portion of the medical decision making up until patient was signed out to Dr. Krish Jackson MD <SULTANA Navarro - Last Filed: 07/15/25 16:30> Ede Inquiry Pt receiving controlled substance: No Vital Signs: 07/15/25 13:45 07/15/25 15:09 07/15/25 16:40 Temperature 97.9 F 97.9 F Temperature Source Oral Oral Pulse Rate 84 84 Pulse Rate [Radial] 101 H Respiratory Rate 18 18 Blood Pressure 198/69 H 198/69 H Blood Pressure [Right Arm] 164/92 H Blood Pressure Mean [Right Arm] 116 Blood Pressure Source Automatic Cuff Blood Pressure Source [Right Arm] Automatic Cuff Blood Pressure Position Sitting Blood Pressure Position [Right Arm] Sitting 02 Sat by Pulse Oximetry 98 99 Oxygen Delivery Method Room Air Room Air Room Air Lab Data Lab Results 07/15/25 14:06: WBC 7.3, RBC 5.01, Hgb 14.6, Hct 43.7, MCV 87.2, MCH 29.1, MCHC 33.4, RDW 11.8, Plt Count 346, MPV 8.4, Neut % (Auto) 75.3, Lymph % (Auto) 17.1, Bandera % (Auto) 5.9, Eos % (Auto) 0.7, Baso % (Auto) 0.7, Neut # (Auto) 5.5, Lymph # (Auto) 1.3, Bandera # (Auto) 0.4, Eos # (Auto) 0.1, Baso # (Auto) 0.1, PT 10.3, INR 0.92, Sodium 137, Potassium 3.7, Chloride 103, Carbon Dioxide 26, Anion Gap 11.7, BUN 15, Creatinine 1.00, Estimated Creat Clear 51, Estimated GFR 54 L, Est GFR ( Amer) 66, Glucose 100, Calcium 9.5, Total Bilirubin 0.5, AST 44 H, ALT 29, Alkaline Phosphatase 85, Troponin I < 0.01, Total Protein 8.9 H, Albumin 5.5 H, Globulin 3.4 H, Albumin/Globulin Ratio 1.6, HCV Ab FARIDA w/Rflx PCR Qn Negative, HIV Ag/Ab Combo Qual Negative Orders (Tests/Meds): ED MEDICATIONS Discontinued Medications Generic Name Dose Route Start Last Admin Trade Name Chauncey PRN Reason Stop Dose Admin Acetaminophen 1,000 mg 07/15/25 13:53 07/15/25 14:00 Acetaminophen 1,000mg/100ml Vial IV 07/15/25 13:54 1,000 mg ONCE ONE Administration Aspirin 325 mg 07/15/25 16:00 07/15/25 16:15 Aspirin 325mg Tablet PO 07/15/25 16:01 Not Given ONCE ONE Clopidogrel Bisulfate 300 mg 07/15/25 16:00 07/15/25 16:12 Clopidogrel 300mg Tablet PO 07/15/25 16:01 300 mg ONCE ONE Administration Iopamidol 80 ml 07/15/25 14:57 07/15/25 14:58 Iopamidol-370 (76%);100ml Bottle IV 07/15/25 14:58 80 ml ONCE ONE Administration Sodium Chloride 10 ml 07/15/25 14:57 07/15/25 14:58 Sodium Chloride 0.9% 10ml Syr (Rad Only) IV 07/15/25 14:58 10 ml ONCE ONE Administration Sodium Chloride 50 ml 07/15/25 14:57 07/15/25 14:57 0.9 % Sodium Chloride 50 Ml Vial IV 07/15/25 14:58 50 ml ONCE ONE Administration ORDERS Category Date Time Status CT angio head Stat Cat Scan 07/15/25 13:[address] angio neck Stat Cat Scan 07/15/25 13:[address] head/brain wo con Stat Cat Scan 07/15/25 13:53 Completed CBC w/Auto Diff [Complete Blood Count Auto Diff] Stat Lab 07/15/25 14:06 Completed CMP [Comprehensive Metabolic Panel] Stat Lab 07/15/25 14:06 Completed HIV Combo Stat Lab 07/15/25 14:06 Completed Hepatitis C Ab Qual. W/ RFX Stat Lab 07/15/25 14:06 Completed INR [Prothrombin Time INR] Stat Lab 07/15/25 14:06 Completed Trop I [Troponin I] Stat Lab 07/15/25 14:06 Completed Medical Decision Narrative: Patient presents complaining of hazy vision and headache. NIHSS 0. She does have some abnormality of the distal left internal carotid artery on CTA. I did discuss with vascular surgery at [facility] who advised this would be an interventional neurology consultation. I then discussed with Radha Marshall with the stroke team. She recommended further workup for possible CVA. I discussed this with Radha Marshall and she reports the accepting physician will be Dr. De Jesus. They advised aspirin 325 mg and plavix (300 mg). Patient did take ASA 324 mg x 3 prior to arrival. Given plavix per recommendation of neurology with [facility]. I was consulted by the ROLLY, and we discussed the complexity of the problems being addressed. I approved the treatment and management plan for this patient's care in the Emergency Department, thus performing a substantive portion of the medical decision making up until patient was signed out to Dr. Krish Jackson MD <Damari Rutherford, DO - Last Filed: 07/15/25 23:49> Vital Signs: 07/15/25 13:45 07/15/25 15:09 12/14/25 16:40 Temperature 97.9 F 97.9 F Temperature Source Oral Oral Pulse Rate 84 84 Pulse Rate [Radial] 101 H Respiratory Rate 18 18 Blood Pressure 198/69 H 198/69 H Blood Pressure [Right Arm] 164/92 H Blood Pressure Mean [Right Arm] 116 Blood Pressure Source Automatic Cuff Blood Pressure Source [Right Arm] Automatic Cuff Blood Pressure Position Sitting Blood Pressure Position [Right Arm] Sitting 02 Sat by Pulse Oximetry 98 99 Oxygen Delivery Method Room Air Room Air Room Air Lab Data Lab results reviewed: Yes I reviewed the patient's lab results. Lab Results 07/15/25 14:06: WBC 7.3, RBC 5.01, Hgb 14.6, Hct 43.7, MCV 87.2, MCH 29.1, MCHC 33.4, RDW 11.8, Plt Count 346, MPV 8.4, Neut % (Auto) 75.3, Lymph % (Auto) 17.1, Bandera % (Auto) 5.9, Eos % (Auto) 0.7, Baso % (Auto) 0.7, Neut # (Auto) 5.5, Lymph # (Auto) 1.3, Bandera # (Auto) 0.4, Eos # (Auto) 0.1, Baso # (Auto) 0.1, PT 10.3, INR 0.92, Sodium 137, Potassium 3.7, Chloride 103, Carbon Dioxide 26, Anion Gap 11.7, BUN 15, Creatinine 1.00, Estimated Creat Clear 51, Estimated GFR 54 L, Est GFR ( Amer) 66, Glucose 100, Calcium 9.5, Total Bilirubin 0.5, AST 44 H, ALT 29, Alkaline Phosphatase 85, Troponin I < 0.01, Total Protein 8.9 H, Albumin 5.5 H, Globulin 3.4 H, Albumin/Globulin Ratio 1.6, HCV Ab FARIDA w/Rflx PCR Qn Negative, HIV Ag/Ab Combo Qual Negative Orders (Tests/Meds): ED MEDICATIONS Discontinued Medications Generic Name Dose Route Start Last Admin Trade Name Freq PRN Reason Stop Dose Admin Acetaminophen 1,000 mg 07/15/25 13:53 07/15/25 14:00 Acetaminophen 1,000mg/100ml Vial IV 07/15/25 13:54 1,000 mg ONCE ONE Administration Aspirin 325 mg 07/15/25 16:00 07/15/25 16:15 Aspirin 325mg Tablet PO 07/15/25 16:01 Not Given ONCE ONE Clopidogrel Bisulfate 300 mg 07/15/25 16:00 07/15/25 16:12 Clopidogrel 300mg Tablet PO 07/15/25 16:01 300 mg ONCE ONE Administration Iopamidol 80 ml 07/15/25 14:57 07/15/25 14:58 Iopamidol-370 (76%);100ml Bottle IV 07/15/25 14:58 80 ml ONCE ONE Administration Sodium Chloride 10 ml 07/15/25 14:57 07/15/25 14:58 Sodium Chloride 0.9% 10ml Syr (Rad Only) IV 07/15/25 14:58 10 ml ONCE ONE Administration Sodium Chloride 50 ml 07/15/25 14:57 07/15/25 14:57 0.9 % Sodium Chloride 50 Ml Vial IV 07/15/25 14:58 50 ml ONCE ONE Administration ORDERS Category Date Time Status CT angio head Stat Cat Scan 07/15/25 13:[address] angio neck Stat Cat Scan 07/15/25 13:[address] head/brain wo con Stat Cat Scan 07/15/25 13:53 Completed CBC w/Auto Diff [Complete Blood Count Auto Diff] Stat Lab 07/15/25 14:06 Completed CMP [Comprehensive Metabolic Panel] Stat Lab 07/15/25 14:06 Completed HIV Combo Stat Lab 07/15/25 14:06 Completed Hepatitis C Ab Qual. W/ RFX Stat Lab 07/15/25 14:06 Completed INR [Prothrombin Time INR] Stat Lab 07/15/25 14:06 Completed Trop I [Troponin I] Stat Lab 07/15/25 14:06 Completed Medical Decision Narrative: Patient presents complaining of hazy vision and headache. NIHSS 0. She does have some abnormality of the distal left internal carotid artery on CTA. I did discuss with vascular surgery at [facility] who advised this would be an interventional neurology consultation. I then discussed with Radha Marshall with the stroke team. She recommended further workup for possible CVA. I discussed this with Radha Marshall and she reports the accepting physician will be Dr. De Jesus. They advised aspirin 325 mg and plavix (300 mg). Patient did take ASA 324 mg x 3 prior to arrival. Given plavix per recommendation of neurology with [facility]. Patient was transferred to [facility] for further work-up via ALS. I was consulted by the ROLLY, and we discussed the complexity of the problems being addressed. I approved the treatment and management plan for this patient's care in the Emergency Department, thus performing a substantive portion of the medical decision making up until patient was signed out to Dr. Rutherford Critical Care <SULTANA Navarro - Last Filed: 07/15/25 16:30> Critical Care Time Critical Care Time: No
[2025-07-15 16:13] LABS: INR 0.92 (0.9-1.1); Prothrombin Time 10.3 seconds (10.1-12.5)
[2025-07-15 16:27] LABS: Troponin I < 0.01 ng/ml (0.00-0.034)
[2025-07-15 16:34] LABS: Hepatitis C Ab Qual. W/ RFX NEGATIVE (Negative)
--- NOTE | 2025-07-15 16:38 | PC.NURSE ---
Report called to MIK Miles at [facility]. [facility] notified of transfer.
[2025-07-15 16:40] VITALS: BP 198/69; PULSE 84; RESP 18; TEMP 36.6; O2SAT 99
== END 2025-07-15 16:59 | disposition short-term general hospital (02) ==
PROVIDERS: Physician Assistant; Emergency Provider Student in an Organized Health Care Education/Training Program; PCP Family Medicine
DX: I63.9 Cerebral infarction, unspecified (principal); R51.9 Headache, unspecified; H53.8 Other visual disturbances; R29.700 NIHSS score 0; I10 Essential (primary) hypertension
CPT/HCPCS: 70450; 70496; 70498; 80053; 84484; 85025; 85610; 86803; 87389; 96374; 99285; J0131; Q9967